=== PATIENT | female | born 1935 | race Caucasian/White ===

== ENCOUNTER → 2016-07-01 | Outpatient (CLI) | payer MEDICARE ==
[~2016-07-01] MED LIST: ALPH50TA PO; BRIM.2%O LEFT EYE; CALC600T34 PO; CARD120T4 PO; CETI10 PO; COQ-100C5 PO; DORZO2%O EACH EYE; ESTR.3 PO; FENO50TA PO; HYDR-755 PO; LATA.005%O OU; LEVS0.123 PO; LORTA5 PO; MAGN250T13 PO; METH500T3 PO; MUCI600T PO; NIAC500T34 PO; PACE100T2 PO; PERC7.5T13 PO; RANI150 PO; RIVA10 PO; SPIR25TA PO; TRIA.1%T TOP; TYLE500T PO; [UNRECOGNIZED DRUG - CODE] PO
[2016-07-01 13:17] LABS: AUTOMATED NEUTROPHIL # 2.2 TH/MM3 (1.8-7.7); BASOPHIL % 0.8 % (0.0-2.0); EOSINOPHIL # 0.1 TH/MM3 (0-0.4); EOSINOPHIL % 2.2 % (0.0-4.0); HEMATOCRIT 34.5 % (35.0-46.0); HEMO FLAGS DIFF FINAL; LYMPH % 34.9 % (9.0-44.0); LYMPHOCYTE # 1.6 TH/MM3 (1.0-4.8); MEAN CELL VOLUME 92.8 FL (80.0-100.0); MEAN CORPUSCULAR HEMOGLOBIN 30.8 PG (27.0-34.0); MEAN CORPUSCULAR HGB CONC 33.2 % (32.0-36.0); MONO % 12.5 % (0.0-8.0); NEUT % 49.6 % (16.0-70.0); PLATELET COUNT 238 TH/MM3 (150-450); RED BLOOD COUNT 3.72 MIL/MM3 (4.00-5.30); RED CELL DISTRIBUTION WIDTH 12.8 % (11.6-17.2); WHITE BLOOD COUNT 4.4 TH/MM3 (4.0-11.0)
[2016-07-01 13:41] LABS: WESTERGREN SEDIMENTATION RATE 10 mm/hr (0-30)
[2016-07-01 13:53] LABS: ALKALINE PHOSPHATASE 41 U/L (45-117); ALT (GPT) 19 U/L (10-53); ANION GAP 6 MEQ/L (5-15); AST (GOT) 22 U/L (15-37); BICARBONATE 26.8 MEQ/L (21.0-32.0); BLOOD UREA NITROGEN 24 MG/DL (7-18); CHLORIDE 108 MEQ/L (98-107); GLOMERULAR FILTRATION RATE 29 ML/MIN (>89); GLUCOSE,FASTING 85 MG/DL (74-99); POTASSIUM 3.9 MEQ/L (3.5-5.1); SODIUM (NA) 141 MEQ/L (136-145); TOTAL BILIRUBIN ADULT 0.4 MG/DL (0.2-1.0); URIC ACID 5.6 MG/DL (2.6-6.0)
[2016-07-01 14:07] LABS: CREATINE KINASE 45 U/L (26-192)
[2016-07-01 14:44] LABS: RHEUMATOID FACTOR TRIGGER LESS THAN 10.0 IU/ML (0.0-14.9)
[2016-07-03 14:38] LABS: ANA SCREEN NEG (NEG)
== END ==
LOC: PLAB 08:56
PROVIDERS: ATTEND Allergy & Immunology
DX: M06.4 Inflammatory polyarthropathy (principal)
CPT/HCPCS: 36415; 80053; 82550; 82652; 84443; 84550; 85025; 85652; 86038; 86140; 86147; 86200; 86256; 86430; 86812; 87340

== ENCOUNTER → 2016-07-21 | Outpatient (CLI) | payer MEDICARE ==
[2016-07-21 10:28] LABS: AUTOMATED NEUTROPHIL # 1.8 TH/MM3 (1.8-7.7); BASOPHIL % 0.8 % (0.0-2.0); EOSINOPHIL # 0.1 TH/MM3 (0-0.4); HEMATOCRIT 34.4 % (35.0-46.0); HEMO FLAGS DIFF FINAL; LYMPH % 42.7 % (9.0-44.0); LYMPHOCYTE # 1.9 TH/MM3 (1.0-4.8); MEAN CELL VOLUME 92.3 FL (80.0-100.0); MEAN CORPUSCULAR HEMOGLOBIN 30.9 PG (27.0-34.0); MEAN CORPUSCULAR HGB CONC 33.5 % (32.0-36.0); MONO % 13.9 % (0.0-8.0); NEUT % 39.6 % (16.0-70.0); PLATELET COUNT 207 TH/MM3 (150-450); RED BLOOD COUNT 3.72 MIL/MM3 (4.00-5.30); RED CELL DISTRIBUTION WIDTH 12.6 % (11.6-17.2); WHITE BLOOD COUNT 4.6 TH/MM3 (4.0-11.0)
[2016-07-21 10:50] LABS: ALT (GPT) 19 U/L (10-53); ANION GAP 6 MEQ/L (5-15); AST (GOT) 22 U/L (15-37); BICARBONATE 26.1 MEQ/L (21.0-32.0); BLOOD UREA NITROGEN 19 MG/DL (7-18); CHLORIDE 107 MEQ/L (98-107); GLOMERULAR FILTRATION RATE 30 ML/MIN (>89); GLUCOSE,FASTING 88 MG/DL (74-99); POTASSIUM 4.3 MEQ/L (3.5-5.1); SODIUM (NA) 139 MEQ/L (136-145)
[2016-07-21 10:53] LABS: ALKALINE PHOSPHATASE 38 U/L (45-117); HDL CHOLESTEROL 76.6 MG/DL (40.0-60.0); LDL CHOLESTEROL 59 MG/DL (0-99); TOTAL BILIRUBIN ADULT 0.4 MG/DL (0.2-1.0)
== END ==
LOC: PLAB 08:19
PROVIDERS: ATTEND Family Medicine
DX: I48.91 Unspecified atrial fibrillation (principal); N18.3 Chronic kidney disease, stage 3 (moderate); E78.5 Hyperlipidemia, unspecified; Z79.01 Long term (current) use of anticoagulants
CPT/HCPCS: 36415; 80053; 80061; 85025

== ENCOUNTER → 2016-10-08 | Outpatient (CLI) | payer MEDICARE ==
[2016-10-08 09:55] LABS: AUTOMATED NEUTROPHIL # 3.4 TH/MM3 (1.8-7.7); BASOPHIL % 0.6 % (0.0-2.0); EOSINOPHIL # 0.1 TH/MM3 (0-0.4); EOSINOPHIL % 1.1 % (0.0-4.0); HEMATOCRIT 32.1 % (35.0-46.0); HEMO FLAGS DIFF FINAL; LYMPH % 20.7 % (9.0-44.0); LYMPHOCYTE # 1.2 TH/MM3 (1.0-4.8); MEAN CELL VOLUME 92.7 FL (80.0-100.0); MEAN CORPUSCULAR HEMOGLOBIN 30.5 PG (27.0-34.0); MEAN CORPUSCULAR HGB CONC 32.9 % (32.0-36.0); NEUT % 61.6 % (16.0-70.0); PLATELET COUNT 224 TH/MM3 (150-450); RED BLOOD COUNT 3.46 MIL/MM3 (4.00-5.30); RED CELL DISTRIBUTION WIDTH 12.8 % (11.6-17.2); WHITE BLOOD COUNT 5.6 TH/MM3 (4.0-11.0)
[2016-10-08 10:11] LABS: ANION GAP 7 MEQ/L (5-15); AST (GOT) 19 U/L (15-37); BICARBONATE 25.5 MEQ/L (21.0-32.0); BLOOD UREA NITROGEN 9 MG/DL (7-18); CHLORIDE 104 MEQ/L (98-107); GLOMERULAR FILTRATION RATE 45 ML/MIN (>89); GLUCOSE,FASTING 79 MG/DL (74-99); SODIUM (NA) 136 MEQ/L (136-145)
[2016-10-08 10:17] LABS: ALKALINE PHOSPHATASE 33 U/L (45-117); ALT (GPT) 19 U/L (10-53); TOTAL BILIRUBIN ADULT 0.4 MG/DL (0.2-1.0); URIC ACID 3.8 MG/DL (2.6-6.0)
== END ==
LOC: PLAB 07:43
PROVIDERS: ATTEND Allergy & Immunology
DX: M06.4 Inflammatory polyarthropathy (principal)
CPT/HCPCS: 36415; 80053; 84550; 85025

== ENCOUNTER → 2016-10-22 | Outpatient (CLI) | payer MEDICARE ==
[2016-10-22 10:02] LABS: ALT (GPT) 18 U/L (10-53); ANION GAP 8 MEQ/L (5-15); AST (GOT) 23 U/L (15-37); BLOOD UREA NITROGEN 11 MG/DL (7-18); CHLORIDE 102 MEQ/L (98-107); GLOMERULAR FILTRATION RATE 44 ML/MIN (>89); GLUCOSE,FASTING 87 MG/DL (74-99); POTASSIUM 4.8 MEQ/L (3.5-5.1); SODIUM (NA) 135 MEQ/L (136-145)
[2016-10-22 10:05] LABS: ALKALINE PHOSPHATASE 33 U/L (45-117); TOTAL BILIRUBIN ADULT 0.3 MG/DL (0.2-1.0)
[2016-10-22 10:10] LABS: AUTOMATED NEUTROPHIL # 2.4 TH/MM3 (1.8-7.7); EOSINOPHIL # 0.1 TH/MM3 (0-0.4); EOSINOPHIL % 2.2 % (0.0-4.0); HEMO FLAGS DIFF FINAL; LYMPH % 27.5 % (9.0-44.0); LYMPHOCYTE # 1.2 TH/MM3 (1.0-4.8); MEAN CELL VOLUME 90.9 FL (80.0-100.0); MEAN CORPUSCULAR HEMOGLOBIN 30.6 PG (27.0-34.0); MEAN CORPUSCULAR HGB CONC 33.7 % (32.0-36.0); NEUT % 53.3 % (16.0-70.0); PLATELET COUNT 298 TH/MM3 (150-450); RED BLOOD COUNT 3.31 MIL/MM3 (4.00-5.30); RED CELL DISTRIBUTION WIDTH 12.4 % (11.6-17.2); WHITE BLOOD COUNT 4.5 TH/MM3 (4.0-11.0)
[2016-10-22 10:22] LABS: HDL CHOLESTEROL 72.1 MG/DL (40.0-60.0); LDL CHOLESTEROL 42 MG/DL (0-99)
== END ==
LOC: PLAB 07:40
PROVIDERS: ATTEND Family Medicine
DX: I48.91 Unspecified atrial fibrillation (principal); N18.3 Chronic kidney disease, stage 3 (moderate); D53.1 Other megaloblastic anemias, not elsewhere classified; E78.5 Hyperlipidemia, unspecified; Z79.01 Long term (current) use of anticoagulants
CPT/HCPCS: 36415; 80053; 80061; 85025

== ENCOUNTER 2016-11-20 00:08 | Inpatient (IN) | payer MEDICARE ==
[2016-11-20] VITALS (14 sets, daily range): BP systolic 98–135; BP diastolic 44–80; PULSE 66–111; RESP 16–30; TEMP 96.6–99.3; O2SAT 91–100
[~2016-11-20] VITALS: Ht 165.1 cm; Wt 65.5 kg
[2016-11-20] MEDS ORDERED: SODIUM CHLORIDE 0.9% FLUSH 10 ML FLUSH IVF PRN (00:15)
--- NOTE | 2016-11-20 00:20 | PD ---
HPI Chief Complaint: Weakness, Shortness of Breath Time Seen by Provider: 00:14 Travel History International Travel<30 days: No Contact w/Intl Traveler<30days: No History of Present Illness HPI 81-year-old female arrives to the ER via EMS. The patient's called EMS due to the patient's severe weakness shortness of breath and decreased appetite for about 1 week. Her symptoms gradually worsened to the point where she felt EMS transfer was necessary. She reports shortness of breath, dyspnea on exertion and orthopnea. Patient reports nausea. EMS states the patient on scene was 108/70 and the heart rate was about 90. Patient believes she is pale. She is a history of atrial fibrillation and is currently on Xarelto. Patient reports subjective improvement and shortness of breath after oxygen was applied. PFSH Past Medical History Cancer: Yes (skin cancer) Cardiovascular Problems: Yes ( a fib, pacer ) Diabetes: No Endocrine: No Glaucoma: Yes (cesar) Genitourinary: No Hepatitis: No Hiatal Hernia: No Immune Disorder: Yes (fibroidmyalgia) Musculoskeletal: Yes (r shoulder pain, arthritis) Neurologic: No Reproductive: No Respiratory: No Thyroid Disease: No Past Surgical History Abdominal Surgery: Yes (gallbladder) Body Medical Devices: metal in r hand, pacer, FILTER TO RIGHT EYE Cardiac Surgery: Yes (pacer) Eye Surgery: Yes (filter in r eye ) Genitourinary Surgery: Yes (anal fissure repair) Gynecologic Surgery: Yes (hysterectomy, D+C ) Joint Replacement: No Oral Surgery: Yes (tonsillectomy) Pacemaker: Yes (medtronic) Social History Alcohol Use: No Tobacco Use: No Substance Use: No Allergies-Medications (Allergen,Severity, Reaction): Coded Allergies: Bactrim (Unverified Allergy, Severe, n/v, 11/20/16) Doxycycline (Unverified Allergy, Severe, n/v, 11/20/16) Sulfa (Unverified Allergy, Intermediate, Nausea/Vomiting, 11/20/16) Adhesives (Unverified Allergy, Unknown, 11/20/16) band aids Triamterene (Unverified Allergy, Unknown, 11/20/16) triamterene/hctz Uncoded Allergies: nickel (Allergy, Unknown, 02/04/16) Reported Meds & Prescriptions Reported Meds & Active Scripts Active Reported Coq-10 (Coenzyme Q10 (Ubidecarenone)) 50 Mg Cap 100 Calcium + D3 (Calcium Carbonate-Cholecalciferol) 600-200 Mg-Unit Tab 1 Tab PO BID Xarelto (Rivaroxaban) 15 Mg Tab 15 Mg PO DAILY Premarin (Estrogens Conjugated) 0.3 Mg Tab 0.3 Mg PO DAILY Robaxin (Methocarbamol) 500 Mg Tab 500 Mg PO BID Latanoprost Opth Drops (Latanoprost) 0.005% Drops 1 Drop EACH EYE HS Refrigerate until opened. Hyoscyamine Sulfate 0.125 Mg Sub Hydroxychloroquine (Hydroxychloroquine Sulfate) 200 Mg Tab 200 Mg PO DAILY Takw with food Hydroxyzine HCl 10 Mg Tab 10 Mg PO BID Hydrocodone-Acetaminophen 5-325 mg Tab 1 Tab PO Q4H PRN Gabapentin 600 Mg Tab 600 Mg PO HS Furosemide 20 Mg Tab 20 Mg PO MON AND THURS Fenofibrate 54 Mg Tab 70 Mg PO DAILY Dorzolamide-Timolol Opth Drops 22.3-6.8 Mg/Ml Soln 1 Drop EACH EYE BID Cetirizine (Cetirizine HCl) 5 Mg Chew 5 Mg CHEW DAILY Brimonidine Opth Drops (Brimonidine Tartrate) 0.2% Soln 1 Drop EACH EYE BID Brittney Allergy (Fexofenadine HCl) 60 Mg Tab 30 Mg PO BID Amiodarone (Amiodarone HCl) 100 Mg Tab 100 Mg PO BID Review of Systems Except as stated in HPI: all other systems reviewed are Neg Physical Exam Narrative GENERAL: 81-year-old female speaking in sentences no acute distress SKIN: Focused skin assessment warm/dry. HEAD: Atraumatic. Normocephalic. EYES: Pupils equal and round. No scleral icterus. No injection or drainage. ENT: No nasal bleeding or discharge. Mucous membranes pink and moist. NECK: Trachea midline. No JVD. CARDIOVASCULAR: Regular rate and rhythm. No murmur appreciated. RESPIRATORY: No accessory muscle use. Clear to auscultation. Breath sounds equal bilaterally. GASTROINTESTINAL: Abdomen soft, non-tender, nondistended. Hepatic and splenic margins not palpable. MUSCULOSKELETAL: No obvious deformity. No pitting edema. NEUROLOGICAL: Awake and alert. No obvious cranial nerve deficits. Motor grossly within normal limits. Normal speech. PSYCHIATRIC: Appropriate mood and affect; insight and judgment normal. Data Data Last Documented VS Vital Signs Date Time Temp Pulse Resp B/P Pulse Ox O2 Delivery O2 Flow Rate FiO2 11/20/16 01:05 111 30 132/78 91 Nasal Cannula 2 11/20/16 00:12 98.0 Orders Complete Blood Count With Diff (11/20/16 00:14) Comprehensive Metabolic Panel (11/20/16 00:14) B-Type Natriuretic Peptide (11/20/16 00:14) Act Partial Throm Time (Ptt) (11/20/16 00:14) Prothrombin Time / Inr (Pt) (11/20/16 00:14) Ckmb (Isoenzyme) Profile (11/20/16 00:14) Troponin I (11/20/16 00:14) Urinalysis - C+S If Indicated (11/20/16 00:14) Iv Access Insert/Monitor (11/20/16 00:14) Electrocardiogram (11/20/16 00:14) Ecg Monitoring (11/20/16 00:14) Oximetry (11/20/16 00:14) Oxygen Administration (11/20/16 00:14) Chest, Single Ap (11/20/16 00:14) Sodium Chloride 0.9% Flush (Ns Flush) (11/20/16 00:15) Furosemide Inj (Lasix Inj) (11/20/16 01:30) Admit Order (Ed Use Only) (11/20/16 01:37) Labs Laboratory Tests Test 11/20/16 00:20 White Blood Count 8.0 TH/MM3 Red Blood Count 3.81 MIL/MM3 Hemoglobin 11.5 GM/DL Hematocrit 34.4 % Mean Corpuscular Volume 90.4 FL Mean Corpuscular Hemoglobin 30.2 PG Mean Corpuscular Hemoglobin 33.4 % Concent Red Cell Distribution Width 13.2 % Platelet Count 259 TH/MM3 Mean Platelet Volume 8.9 FL Neutrophils (%) (Auto) 67.1 % Lymphocytes (%) (Auto) 20.2 % Monocytes (%) (Auto) 11.5 % Eosinophils (%) (Auto) 0.7 % Basophils (%) (Auto) 0.5 % Neutrophils # (Auto) 5.4 TH/MM3 Lymphocytes # (Auto) 1.6 TH/MM3 Monocytes # (Auto) 0.9 TH/MM3 Eosinophils # (Auto) 0.1 TH/MM3 Basophils # (Auto) 0.0 TH/MM3 CBC Comment DIFF FINAL Differential Comment Prothrombin Time 18.5 SEC Prothromb Time International 1.6 RATIO Ratio Activated Partial 31.4 SEC Thromboplast Time Sodium Level 127 MEQ/L Potassium Level 4.0 MEQ/L Chloride Level 96 MEQ/L Carbon Dioxide Level 18.0 MEQ/L Anion Gap 13 MEQ/L Blood Urea Nitrogen 19 MG/DL Creatinine 1.49 MG/DL Estimat Glomerular Filtration 34 ML/MIN Rate Random Glucose 179 MG/DL Calcium Level 8.3 MG/DL Total Bilirubin 0.4 MG/DL Aspartate Amino Transf 41 U/L (AST/SGOT) Alanine Aminotransferase 33 U/L (ALT/SGPT) Alkaline Phosphatase 34 U/L Total Creatine Kinase 90 U/L Troponin I 0.02 NG/ML B-Type Natriuretic Peptide 2749 PG/ML Total Protein 5.9 GM/DL Albumin 3.2 GM/DL MDM Medical Decision Making Medical Screen Exam Complete: Yes Emergency Medical Condition: Yes Medical Record Reviewed: Yes Differential Diagnosis CHF, pneumonia, pleural effusion, anemia, renal failure Narrative Course CBC & BMP Diagram 11/20/16 00:20 BNP 2749 Troponin 0.02 EKG reveals a sinus rhythm with a left bundle branch block rate 95, patient has a known history left bundle block. I was called the bedside at 2:30 AM as the patient had a sudden worsening of dyspnea with tachypnea to approximately 30. Her heart rate was approximately 100 and the blood pressure was 125/80. The O2 sat was 95% on 4 L nasal cannula. BiPAP was started. A DuoNeb was started. An ABG was obtained revealin. BE -11.3 [id number] BiPAP 15/5 FIO2. Metabolic acidosis noted. Cefepime started. The patient had received 40 mg of IV Lasix approximately 1 hour prior however had not urinated. Case discussed with Dr. Thompson for the irrigation installation specialist service. The patient will be admitted to the ICU. Critical Care Narrative Aggregate critical care time was 35 minutes. Time to perform other separately billable procedures was not included in the critical care time. My time did not include minutes spent treating any other patients simultaneously or on activities that did not directly contribute to the patient's treatment. The services I provided to this patient were to treat and/or prevent clinically significant deterioration that could result in: Cardiopulmonary arrest, respiratory arrest, hypoxia I provided critical care services requiring my management, as noted below: Chart data review, documentation time, medication orders and management, vital sign assessments/reviewing monitor data, ordering and reviewing lab tests, ordering and interpreting/reviewing x-rays and diagnostic studies, care of the patient and discussion of the patient with the admitting physicians. Diagnosis Primary Impression: CHF (congestive heart failure) Qualified Code: I50.9 - Congestive heart failure, unspecified congestive heart failure chronicity, unspecified congestive heart failure type Additional Impression: Respiratory distress Admitting Information Admitting Physician Requests: it Kulwinder Warner MD Nov 20, 2016 00:19
[2016-11-20] MEDS ORDERED: ALLE60TA PO (00:32)
[2016-11-20] MEDS ORDERED: CETI5CHW CHEW (00:32)
[2016-11-20] MEDS ORDERED: AMIO0.1T PO (00:32)
[2016-11-20] MEDS ORDERED: BRIM0.2S4 EACH EYE (00:32)
[2016-11-20] MEDS ORDERED: HYDR200T3 PO (00:32)
[2016-11-20] MEDS ORDERED: HYOS0.127 (00:32)
[2016-11-20] MEDS ORDERED: DORZ2SOL15 EACH EYE (00:32)
[2016-11-20] MEDS ORDERED: GABA600T PO (00:32)
[2016-11-20] MEDS ORDERED: FURO20TA PO (00:32)
[2016-11-20] MEDS ORDERED: ROBA500T PO (00:32)
[2016-11-20] MEDS ORDERED: XARE15TA PO (00:32)
[2016-11-20] MEDS ORDERED: FENO54TA PO (00:32)
[2016-11-20] MEDS ORDERED: ESTR.3 PO (00:32)
[2016-11-20] MEDS ORDERED: HYDR-3516 PO (00:32)
[2016-11-20] MEDS ORDERED: HYDR-755 PO (00:32)
[2016-11-20] MEDS ORDERED: LATA0.002 EACH EYE (00:32)
[2016-11-20] MEDS ORDERED: COQ-50CA2 (00:33)
[2016-11-20] MEDS ORDERED: CALC600T10 PO (00:33)
[2016-11-20 00:37] LABS: AUTOMATED NEUTROPHIL # 5.4 TH/MM3 (1.8-7.7); BASOPHIL % 0.5 % (0.0-2.0); EOSINOPHIL # 0.1 TH/MM3 (0-0.4); EOSINOPHIL % 0.7 % (0.0-4.0); HEMATOCRIT 34.4 % (35.0-46.0); HEMO FLAGS DIFF FINAL; LYMPH % 20.2 % (9.0-44.0); LYMPHOCYTE # 1.6 TH/MM3 (1.0-4.8); MEAN CELL VOLUME 90.4 FL (80.0-100.0); MEAN CORPUSCULAR HEMOGLOBIN 30.2 PG (27.0-34.0); MEAN CORPUSCULAR HGB CONC 33.4 % (32.0-36.0); MONO % 11.5 % (0.0-8.0); NEUT % 67.1 % (16.0-70.0); PLATELET COUNT 259 TH/MM3 (150-450); RED BLOOD COUNT 3.81 MIL/MM3 (4.00-5.30); RED CELL DISTRIBUTION WIDTH 13.2 % (11.6-17.2)
[2016-11-20 00:48] LABS: APTT (PATIENT) 31.4 SEC (24.3-30.1); INTERNATIONAL NORMALIZED RATIO 1.6 RATIO; PROTHROMBIN TIME - PATIENT 18.5 SEC (9.8-11.6)
[2016-11-20 00:59] LABS: ALT (GPT) 33 U/L (10-53); ANION GAP 13 MEQ/L (5-15); AST (GOT) 41 U/L (15-37); BLOOD UREA NITROGEN 19 MG/DL (7-18); CHLORIDE 96 MEQ/L (98-107); GLOMERULAR FILTRATION RATE 34 ML/MIN (>89); SODIUM (NA) 127 MEQ/L (136-145)
[2016-11-20 01:03] LABS: ALKALINE PHOSPHATASE 34 U/L (45-117); TOTAL BILIRUBIN ADULT 0.4 MG/DL (0.2-1.0)
[2016-11-20 01:11] LABS: CREATINE KINASE 90 U/L (26-192)
--- NOTE | 2016-11-20 01:16 | RADRPT ---
EXAM DATE/TIME: 11/20/2016 00:20 [facility] COMPARISON: CHEST SINGLE AP, September 02, 2011, 14:28. INDICATIONS : Shortness of breath. MEDICAL HISTORY : Skin cancer. SURGICAL HISTORY : Pacemaker. ENCOUNTER: Initial ACUITY: 1 week PAIN SCORE: 3/10 LOCATION: Bilateral chest FINDINGS: The cardiac silhouette is enlarged in transverse diameter. There are findings of congestive heart heraclio lure with interstitial and alveolar opacity bilaterally. Moderate size bilateral pleural effusions ar e identified. A bipolar pacemaker is in place via a left sided approach. CONCLUSION: 1. Cardiomegaly and findings of congestive heart failure. Bilateral effusions Yamil Alvarez MD on November 20, 2016 at 1:14 Board Certified Radiologist. This report was verified electronically.
[2016-11-20] MEDS ORDERED: FUROSEMIDE 40 MG/4 ML VIAL IV PUSH ONE (01:30)
[2016-11-20] MEDS ORDERED: MAGNESIUM HYDROXIDE SUSP 30 ML CUP PO PRN (02:15)
[2016-11-20] MEDS ORDERED: BISACODYL 10 MG SUPP RECTAL PRN ×2 (02:15→05:15)
[2016-11-20] MEDS ORDERED: ACETAMINOPHEN 325 MG TAB PO PRN ×2 (02:15→05:15)
[2016-11-20] MEDS ORDERED: MORPHINE SULFATE 4 MG/ML INJ IV PRN (02:15)
[2016-11-20] MEDS ORDERED: LACTULOSE SYRUP 20 GM/30 ML CUP PO PRN ×2 (02:15→05:15)
[2016-11-20] MEDS ORDERED: SENNOSIDES 8.6 MG TAB PO PRN ×2 (02:15→05:15)
[2016-11-20] MEDS ORDERED: SODIUM CHLORIDE 0.9% FLUSH 10 ML FLUSH IV FLUSH PRN ×2 (02:15→05:15)
[2016-11-20] MEDS ORDERED: ONDANSETRON HCL 4 MG/2 ML VIAL IVP PRN (02:15)
[2016-11-20] MEDS ORDERED: ACETAMINOPHEN/HYDROcodone 325 MG/5 MG TAB PO PRN (02:15)
[2016-11-20] MEDS ORDERED: PILL SPLITTER OTHER PRN (02:30)
[2016-11-20] MEDS ORDERED: NITROGLYCERIN 2% OINT 1 GM PACKET TOP ONE (02:45)
[2016-11-20] MEDS ORDERED: RESP: ALBUTEROL 2.5 MG/IPRATROPIUM 0.5 MG NEB (SCH) INH ONE (02:45)
[2016-11-20 02:51] LABS: BLOOD GAS BASE EXCESS -11.3 mmol/L (-2-2); BLOOD GAS HCO3 14 mmol/L (22-26); BLOOD GAS METHEMOGLOBIN 0.4 % (0-2); BLOOD GAS O2 HGB SATURATION 98 % (90-100); BLOOD GAS OXYGEN CONTENT 16.7 Vol % (12.0-20.0); BLOOD GAS PCO2 28 mmHg (38-42); BLOOD GAS PO2 156 mmHG (61-120); TEMP CORR TO 98.6
[2016-11-20 02:52] LABS: CRITICAL VALUE YES; DRAW SITE RT RADIAL; FIO2 100 %; NUMBER OF ARTERIAL PUNCTURES 1; OXYGEN DEVICE BiPAP; STAT YES; VENT SETTINGS IPAP=15/EPAP=5
[2016-11-20] MEDS ORDERED: CEFEPIME INJ 2,000 MG in SODIUM CHLORIDE 0.9% INJ 100 ML IV ONE (03:00)
[2016-11-20 03:20] LABS: BACTERIA, URINE RARE /hpf; BLOOD, URINE NEG (NEG); CALCIUM OXALATE CRYSTALS,URINE OCC /hpf; COMMENT (UR) CULT NOT INDICATED; CULTURE IF INDICATED CULT NOT INDICATED; GLUCOSE,URINE NEG (NEG); HYALINE CAST, URINE 66 /lpf (RARE); KETONE, URINE NEG (NEG); NITRITE,URINE NEG (NEG); PH, URINE 5.5 (5.0-8.5); URINE COLOR YELLOW (YELLW/STRAW)
--- NOTE | 2016-11-20 03:24 | HHI.HP ---
[facility] Service Critical Care Medicine Primary Care Physician Jesus Badillo MD Admission Diagnosis CHF, Generalized Weakness Diagnosis: Travel History International Travel<30 Days: No Contact w/Intl Traveler <30 Da: No Traveled to Known Affected Are: No History of Present Illness History obtained from patient as best as possible while she was on BiPAP with respiratory distress. Additional information obtained via EMR and discussion with Dr. Warner. Date of admission 11/20/16 Date of consult 11/20/16 81-year-old female with past medical history of paroxysmal atrial fibrillation on chronic anticoagulation with Xarelto, s/p dual chamber pacemaker 2011 due to sick sinus syndrome, hyperlipidemia, CHF (unspecified), chronic kidney disease stage III, glaucoma, who presents to [facility] emergency department with 1 week history of generalized weakness and shortness of breath. She has had orthopnea and dyspnea on exertion. She states that at baseline her activity is limited due to shortness of breath ( i.e. she can't vacuum her floors/ do housework) however it has been limited much more so over the last week to where she is having difficulty ambulating around the house. She has had some chest tightness. Denies hemoptysis. + cough productive of "phlegm", no fever. Weight is up 2 pounds over the last 24- 48 hours. ED workup included chest x-ray that showed cardiomegaly, bilateral pleural effusions, pulmonary edema. Sodium is 127, BUN/ creatinine 19/1.49, BNP 2749/troponin 0.02. EKG demonstrates sinus tachycardia with left bundle branch block which is pre-existing on prior EKGs. She was initially on nasal cannula and was admitted to the hospitalist service. She was given Lasix 40 mg IV and started on nitroglycerin paste. She diuresed 300 ML's. Her respiratory condition worsened and she was placed on BiPAP. When I initially evaluated her on BiPAP 15/5 100% in the ED she was tachypneic with resp rate 25 and appeared she would need intubation. Patient states that she is full code but does not feel that intubation is necessary right now and requests no intubation yet. Bedside cardiac ultrasound appears decreased EF ~30%, Lactic acid 4.3. Base deficit 11.3. Attempted further diuresis with Bumex 2 mg IV and initiation of dobutamine 2 mcg/kg/min. She continued to deteriorate, became hypopneic and hypotensive with SBP in 70s. NTG discontinued and dobutamine placed on hold. She was intubated, placed CVL and art line. ScVO2 now 72. Blood pressure 130/ 63. Review of Systems ROS Limitations: Clinical Condition Past Family Social History Allergies: Coded Allergies: Bactrim (Verified Allergy, Severe, n/v, 11/30/16) Doxycycline (Verified Allergy, Severe, n/v, 11/30/16) Sulfa (Verified Allergy, Intermediate, Nausea/Vomiting, 11/30/16) Adhesives (Verified Allergy, Unknown, 11/30/16) band aids Triamterene (Verified Allergy, Unknown, 11/30/16) triamterene/hctz Uncoded Allergies: nickel (Allergy, Unknown, 02/04/16) Past Medical History Atrial fibrillation peripheral neuropathy Chronic heart failure Allergic rhinitis HTN Hyperlipidemia Glaucoma Fibromyalgia She states she has never had cardiac catheterization or stress test, however unable to verify that with records.. Her bottle blower is Dr. Christianson. Past Surgical History Cholecystectomy Pacemaker placement 09/2011 (Dr. Christianson) Anal fissure repair Hysterectomy D&C Tonsillectomy Right eye surgery Left hand flexor tendon repair Surgery on right third digit Reported Medications Brimonidine ophthalmic drop1 drop each eye twice a day Dorzolamide/timolol 1 drop each eye twice a day Latanoprost one drop each eye at bedtime Amiodarone 100 mg by mouth twice a day Rivaroxaban 15 mill grams by mouth daily Gabapentin 600 milligrams by mouth daily at bedtime Hydroxy chloroquine 200 mg by mouth daily Hyoscyamine 0.125 mg Hydroxyzine 10 mill grams by mouth twice a day Robaxin 500 mg by mouth twice a day Premarin 0.3 mg by mouth daily Fenofibrate 70 mg by mouth daily Lasix 20 mg by mouth twice weekly Hydrocodone 5/325 one by mouth every 4 hours when necessary pain Coenzyme Q10 Calcium carbonate/vitamin D 600/200 one tab by mouth twice a day Cetirizine 5 mill grams by mouth daily Brittney 30 mill grams by mouth twice a day Family History Unable to obtain from patient due to severe respiratory distress. No history available in EMR for this Social History Lifetime nonsmoker No alcohol or illicit drug use Uses a walker or cane at home Physical Exam Vital Signs Vital Signs Date Time Temp Pulse Resp B/P Pulse Ox O2 Delivery O2 Flow Rate FiO2 11/20/16 03:04 99 100 11/20/16 02:51 103 28 125/80 100 BiPAP 100 11/20/16 01:05 111 30 132/78 91 Nasal Cannula 2 11/20/16 00:20 97 2 11/20/16 00:19 97 Nasal Cannula 11/20/16 00:12 98.0 96 16 123/71 94 Physical Exam Temp 98, pulse 96 and sinus with left bundle branch block, ectopy. Blood pressure 125/80, respiratory rate 25 GENERAL: Elderly female who is sitting up in the ED gurney, tachypneic on BiPAP. Alert and answering questions with 1-2 words and with hand gestures and head nodding. SKIN: Cool, diaphoretic. HEAD: Atraumatic. Normocephalic. EYES: Pupils 4 mm reactive bilaterally. No scleral icterus. ENT: Bipap mask in place NECK: Trachea midline. +JVD. CARDIOVASCULAR: sinus with ectopy on monitor, irregular but no murmurs rubs or gallops . RESPIRATORY: Tachypneic on BiPAP. Adjusted BiPAP to 15/8 at bedside. Tidal volumes are over 600, respiratory rate 25, sats 93% on 100%. Rales throughout bilateral lung tay. GASTROINTESTINAL: Abdomen soft, non-tender, nondistended. Bowel sounds hypoactive : [place] Santos in place with 300 of light pamela urine output in [place] bag. MUSCULOSKELETAL: Extremities without clubbing, cyanosis. 1+ pedal edema bilateral ankles. NEUROLOGICAL: Awake and alert, answering questions, oriented to person/place/ circumstance. No obvious cranial nerve deficits. Motor grossly within normal limits. Speech muffled by Bipap. Laboratory Laboratory Tests Test 11/20/16 11/20/16 00:20 02:45 White Blood Count 8.0 Red Blood Count 3.81 Hemoglobin 11.5 Hematocrit 34.4 Mean Corpuscular Volume 90.4 Mean Corpuscular Hemoglobin 30.2 Mean Corpuscular Hemoglobin 33.4 Concent Red Cell Distribution Width 13.2 Platelet Count 259 Mean Platelet Volume 8.9 Neutrophils (%) (Auto) 67.1 Lymphocytes (%) (Auto) 20.2 Monocytes (%) (Auto) 11.5 Eosinophils (%) (Auto) 0.7 Basophils (%) (Auto) 0.5 Neutrophils # (Auto) 5.4 Lymphocytes # (Auto) 1.6 Monocytes # (Auto) 0.9 Eosinophils # (Auto) 0.1 Basophils # (Auto) 0.0 CBC Comment DIFF FINAL Differential Comment Prothrombin Time 18.5 Prothromb Time International 1.6 Ratio Activated Partial 31.4 Thromboplast Time Sodium Level 127 Potassium Level 4.0 Chloride Level 96 Carbon Dioxide Level 18.0 Anion Gap 13 Blood Urea Nitrogen 19 Creatinine 1.49 Estimat Glomerular Filtration 34 Rate Random Glucose 179 Calcium Level 8.3 Total Bilirubin 0.4 Aspartate Amino Transf 41 (AST/SGOT) Alanine Aminotransferase 33 (ALT/SGPT) Alkaline Phosphatase 34 Total Creatine Kinase 90 Troponin I 0.02 B-Type Natriuretic Peptide 2749 Total Protein 5.9 Albumin 3.2 Blood Gas Puncture Site RT RADIAL Blood Gas Patient Temperature 98.6 Blood Gas HCO3 14 Blood Gas Base Excess -11.3 Blood Gas Oxygen Saturation 98 Arterial Blood pH 7.31 Arterial Blood Partial 28 Pressure CO2 Arterial Blood Partial 156 Pressure O2 Arterial Blood Oxygen Content 16.7 Arterial Blood 1.0 Carboxyhemoglobin Arterial Blood Methemoglobin 0.4 Blood Gas Hemoglobin 12.0 Oxygen Delivery Device BiPAP Blood Gas Ventilator Setting IPAP=15/EPAP=5 Blood Gas Inspired Oxygen 100 Result Diagram: 11/20/161911/20/1619 Assessment and Plan Problem List: (1) A-fib ICD Code: I48.91 Status: Chronic (2) HTN (hypertension) ICD Code: I10 Status: Chronic (3) Respiratory failure, acute ICD Code: J96.00 Status: Acute (4) Cardiogenic shock ICD Code: R57.0 Status: Acute (5) Glaucoma ICD Code: H40.9 Status: Chronic (6) Fibromyalgia ICD Code: M79.7 Status: Chronic (7) Lactic acidosis ICD Code: E87.2 Status: Acute (8) Anemia ICD Code: D64.9 Status: Chronic (9) Hyperglycemia ICD Code: R73.9 Status: Acute (10) Hyponatremia ICD Code: E87.1 Status: Acute (11) CKD (chronic kidney disease) stage 3, GFR 30-59 ml/min ICD Code: N18.3 Status: Chronic Assessment and Plan NEURO: Fentanyl for analgosedation. Versed prn. Target RASS -2. Peripheral neuropathy Hold neurontin 600 qhs for now due to lethargy, RACHID. Hold Robaxin 500 twice a day RESP: Acute respiratory failure Pulmonary edema Bilateral pleural effusions Deteriorated despite Bipap. Intubated 11/20. 7.5 ETT at 21 cm lip. Ventilator bundle PRVC TV 500 R 14 PEEP 8 It 1 FiO2 100% and wean as tolerated for sat >92%. CXR with satisfactory endotracheal tube position, pulm edema, bilat pleural effusions, cardiomegaly Diuretics as per below Abx as per below CV: Acute CHF exacerbation Chronic diastolic heart failure Cardiogenic shock Paroxysmal Atrial fibrillation LBBB (preexisting) Pacemaker in place due to h/o sick sinus syndrome Hyperlipidemia Lactic acidemia Art line placed for hemodynamic monitoring. Received Lasix 40 mg IV in the ED. Bumex 2 mg IV given in effort to avoid intubation. F/u Bumex 1 mg IV q12. Monitor UOP/electrolytes during diuresis Obtain 2 D Echo Initial troponin 0.02, trend. Serial EKG. Dobutamine and NTG currently on hold after patient was hypotensive before intubation. ScVO2 satisfactory at 72. Will followup lactic acid 08:00. If not clearing, consider resume inotrope. Amiodarone 100 mg twice a day On chronic anticoagulation with Xarelto for A. fib. Will hold while she is critically ill and anticoagulate with heparin. ASA 81 daily Per discussion with cardiology this morning, her baseline EF is 50-55%. GI: Insert OGT to LIWS. NPO. Initiate enteral feeds in 24 hours if stabilized Bowel regimen per protocol FEN/RENAL: Chronic kidney disease stage III Hyponatremia secondary to CHF and volume overload state. Acute metabolic acidemia De [place] Santos in place. Monitor intake and output hourly. Monitor electrolytes and replace as indicated. Avoid nephrotoxins Received bicarbonate 100 mEq IV prior to intubation. ID: Difficult to exclude pneumonia so she was administered cefepime in the emergency department. Will continue cefepime 1 g IV every 12 hours and adjust as needed for changing renal function. Obtain blood and sputum culture. UA is negative for evidence of infection. HEME: Chronic anemia Chronic anticoagulation with Xarelto due to atrial fibrillation Hold Xarelto. Heparin drip as per above. Monitor CBC. OPHTHO: Glaucoma Continue Latanoprost/Alphagan/Cosopt ophthalmic as prescribed. ENDO: Acute stress hyperglycemia. Low-dose insulin sliding scale with bedside glucose monitoring every 6 hours PROPH: Heparin drip as per above. Protonix 40 mg IV daily for stress ulcer prophylaxis. ACCESS: Right subclavian central venous line 11/20#1, right radial art line 11/20 #1 Patient evaluated in ED and then met upon arrival to [facility]. Patient stated she is FULL CODE but was initially reluctant to proceed with intubation because she felt it wasn't necessarily. Every effort was made to prevent intubation through combination of diuresis and low dose inotrope, however she deteriorated and required intubation. Discussed with Dr Christianson and Eda CCT 90 minutes exclusive of separately billable procedures Problem Qualifiers (1) A-fib: Qualified Code: I48.0 - Paroxysmal atrial fibrillation (2) Anemia: Shira Thompson MD Nov 20, 2016 03:24
[2016-11-20] MEDS ORDERED: BUMETANIDE INJ 1 MG/4 ML VIAL IV PUSH ONE (04:30)
[2016-11-20] MEDS ORDERED: DOBUTamine PREMIX DRIP 250 ML IV SCH (04:39)
[2016-11-20] MEDS ORDERED: CHLORHEXIDINE GLUCONATE 2 % 1 PACK (2 CLOTHS) TOP PRN (05:15)
[2016-11-20] MEDS ORDERED: MISCELLANEOUS NURSING INFORMATION XX SCH (05:15)
[2016-11-20] MEDS ORDERED: MIDAZOLAM HCL 5 MG/ML VIAL (1 ML) ONE (05:25)
[2016-11-20] MEDS ORDERED: ETOMIDATE 20 MG/10 ML VIAL ONE (05:28)
[2016-11-20] MEDS ORDERED: ROCURONIUM INJ 50 MG/5 ML VIAL ONE (05:29)
[2016-11-20] MEDS: fentaNYL 2,500 MCG/NS 250 ML IV SCH (05:52)
[2016-11-20] MEDS ORDERED: MIDAZOLAM HCL 2 MG/2 ML VIAL IV PUSH ONE (06:00)
[2016-11-20 06:57] LABS: BLOOD GAS BASE EXCESS -4.1 mmol/L (-2-2); BLOOD GAS CARBOXYHEMOGLOBIN 1.3 % (0-4); BLOOD GAS HCO3 19 mmol/L (22-26); BLOOD GAS METHEMOGLOBIN 0.8 % (0-2); BLOOD GAS O2 HGB SATURATION 98 % (90-100); BLOOD GAS OXYGEN CONTENT 16.4 Vol % (12.0-20.0); BLOOD GAS PCO2 28 mmHg (38-42); BLOOD GAS PO2 266 mmHg (61-120); BLOOD GAS TOTAL HGB 11.5 G/DL (12.0-16.0); CRITICAL VALUE NO; DRAW SITE ART LINE; FIO2 100 %; OXYGEN DEVICE VENT; STAT YES; TEMP CORR TO 98.6; ULNAR PULSE PRESENT
[2016-11-20] MEDS ORDERED: ROCURONIUM INJ 50 MG/5 ML VIAL IV ONE (07:00)
[2016-11-20] MEDS ORDERED: ETOMIDATE 20 MG/10 ML VIAL IV PUSH ONE (07:00)
[2016-11-20] MEDS ORDERED: SODIUM BICARBONATE 8.4% INJ 50 MEQ/50 ML SYR IV PUSH ONE (07:00)
--- NOTE | 2016-11-20 07:01 | PD.PROCEDR ---
Procedure Note Procedure PROCEDURE NOTE PROCEDURE: Endotracheal intubation INDICATION: Acute respiratory failure DETAILS OF PROCEDURE: The patient was placed in optimal position and preoxygenated with 100% FiO2 via [id number]. She was maintained in upright position. Oximeter oxygen saturation of 92% was obtained prior to direct laryngoscopy. The patient was administered etomidate 20 mg IV for sedation and rocuronium 50 mg IV. Direct laryngoscopy was performed with a 3.0 Pepper laryngoscope blade and a grade I Cormack-Lehane view was obtained. On single attempt a size 7.5 endotracheal tube was visualized passing through the cords. Correct placement was confirmed with colorimetric CO2 detector. Breath sounds were equal bilaterally. No sounds auscultated over the stomach. The endotracheal tube was secured with a commercial tube polanco at a depth of 21 cm at the lips. The patient was connected to the ventilator. The patient tolerated the procedure well without any apparent complication. Oxygen saturations were maintained greater than 90% at all times. Stat chest x-ray was ordered. Shira Thompson MD Nov 20, 2016 07:01
--- NOTE | 2016-11-20 07:03 | PD.PROCEDR ---
Central Line Procedure DATE: 11/20/16 CENTRAL LINE PLACEMENT: Right subclavian vein. INDICATION: Central venous access CONSENT Procedure was done emergently as patient was in extremis and in need of central venous access. She is not capacitated for medical decision-making. DESCRIPTION OF THE PROCEDURE The patient was placed in supine position, Trendelenburg. The skin was cleansed with Chloraprep 3. Additional barrier precautions included large sterile drape, sterile gloves, sterile gown, face mask, and hat. 1 % lidocaine was used for local anesthesia. On single attempt, the vein was accessed with an introducer needle. The guide wire was advanced and the tract was dilated. Using Seldinger technique a 7 Thai 20 cm antimicrobial coated triple-lumen catheter was advanced to a depth of 17 centimeters. The guide wire was removed. All ports had good return of dark venous blood and flushed easily with saline. The central line was secured with 2.0 silk. A sterile dressing with antibiotic disc was applied. ESTIMATED BLOOD LOSS: Minimal COMPLICATIONS: No apparent complications. STAT chest x-ray is pending. Shira Thompson MD Nov 20, 2016 07:03
--- NOTE | 2016-11-20 07:05 | PD.PROCEDR ---
Procedure Note Procedure DATE: 11/20/16 PROCEDURE: Right radial arterial catheter placement INDICATION: Hemodynamic monitoring, cardiogenic shock DETAILS OF PROCEDURE Terrence test was performed and patient had collateral flow. The skin was cleansed with Chloraprep. Additional barrier precautions included large sterile drape, sterile gloves, sterile gown, face mask, and hat. 1% lidocaine was used for local anesthesia. On the third attempt, the artery was accessed with the Arrow radial art line kit.. The guide wire was advanced. Using Seldinger technique 20 gauge arterial catheter was placed. The guide wire was removed. The catheter was connected to a transducer line and flushed with saline. The video monitor displayed normal arterial wave forms. The catheter was secured with 2-0 silk. A sterile dressing with antibiotic disc was applied. ESTIMATED BLOOD LOSS: minimal COMPLICATIONS: None Shira Thompson MD Nov 20, 2016 07:05
[2016-11-20 07:07] LABS: BLOOD GAS VENOUS BASE EXCESS -2.4 mmol/L (-2-2); BLOOD GAS VENOUS HCO3 22 mmol/L (22-26); BLOOD GAS VENOUS O2 CONTENT 11.9 Vol % (9.0-17.0); BLOOD GAS VENOUS O2 HGB SAT 72 % (70-76); BLOOD GAS VENOUS PCO2 36 mmHg (44-48); BLOOD GAS VENOUS PO2 44 mmHg (35-40); BLOOD GAS VENOUS pH 7.39 (7.360-7.400); TEMP CORR TO 98.6
[2016-11-20 07:08] LABS: CRITICAL VALUE NO; DRAW SITE CL; FIO2 100 %; OXYGEN DEVICE VENT; STAT YES
--- NOTE | 2016-11-20 08:07 | RADRPT ---
EXAM DATE/TIME: 11/20/2016 07:44 [facility] COMPARISON: CHEST SINGLE AP, November 20, 2016, 0:20. INDICATIONS : Post central line placement MEDICAL HISTORY : Congestive heart failure. SURGICAL HISTORY : Pacemaker. ENCOUNTER: Subsequent ACUITY: 1 week PAIN SCORE: Non-responsive. LOCATION: Bilateral chest FINDINGS: A single view of the chest demonstrates endotracheal tube 2 cm above the sarah. Bilateral parenchyma l densities greater throughout the right lung, likely layering effusions. Heart normal in size. Right jugular central line with tip in the cavoatrial junction. Left-sided pacemaker with 2 intact leads. Osseous structures are intact. CONCLUSION: 1. Bilateral parenchymal densities likely layering pleural effusions and atelectasis. 2. Right subclavian central line with tip in the cavoatrial junction. No pneumothorax. 3. Adequate placement of endotracheal tube. Adrian Mae MD on November 20, 2016 at 8:05 Board Certified Radiologist. This report was verified electronically.
[2016-11-20 08:31] LABS: APTT (PATIENT) 29.4 SEC (24.3-30.1)
[2016-11-20] MEDS: SODIUM CHLORIDE 0.9% FLUSH 10 ML FLUSH IV FLUSH SCH (09:00)
[2016-11-20] MEDS ORDERED: DOCUSATE SODIUM 50 MG/SENNA 8.6 MG TAB PO SCH (09:00)
[2016-11-20] MEDS ORDERED: HEPARIN SODIUM - IV 10,000 UNITS/10 ML VIAL IV ONE (09:00)
[2016-11-20] MEDS: HYDROXYCHLOROQUINE SULFATE 200 MG TAB PO SCH (09:00)
[2016-11-20] MEDS ORDERED: hydrOXYzine HCL 10 MG TAB PO SCH (09:00)
[2016-11-20] MEDS ORDERED: FUROSEMIDE 40 MG/4 ML VIAL IV PUSH SCH (09:00)
[2016-11-20] MEDS ORDERED: METHOCARBAMOL 500 MG TAB PO SCH (09:00)
[2016-11-20] MEDS ORDERED: RIVAROXABAN 15 MG TAB PO SCH (09:00)
[2016-11-20] MEDS ORDERED: SODIUM CHLORIDE 0.9% FLUSH 10 ML FLUSH IV FLUSH SCH (09:00)
[2016-11-20] MEDS: PANTOPRAZOLE SODIUM 40 MG VIAL IV SCH (09:23)
[2016-11-20] MEDS: AMIODARONE 200 MG TAB PO SCH ×2 (09:25→21:13)
[2016-11-20] MEDS: DOCUSATE SODIUM 50 MG/SENNA 8.6 MG TAB PO SCH ×2 (09:25→21:13)
[2016-11-20] MEDS: ASPIRIN 81 MG CHEW TAB CHEW SCH (10:00)
[2016-11-20] MEDS ORDERED: DEXTROSE 50% IN WATER 50 ML SYRINGE IV PRN (10:15)
[2016-11-20] MEDS: INSULIN ASPART SUPPLEMENTAL SCALE SQ SCH ×3 (10:15→22:15)
[2016-11-20] MEDS ORDERED: GLUCAGON 1 MG/ML VIAL OTHER PRN (10:15)
[2016-11-20] MEDS: DORZOLAMIDE/TIMOLOL OPTH SOLN 10 ML BTL EACH EYE SCH ×2 (10:17→21:13)
[2016-11-20] MEDS: BRIMONIDINE TARTRATE 0.2% OPHT SOLN 5 ML BTL EACH EYE SCH (10:17)
[2016-11-20 11:07] LABS: AUTOMATED NEUTROPHIL # 7.4 TH/MM3 (1.8-7.7); BASOPHIL % 0.2 % (0.0-2.0); HEMATOCRIT 30.8 % (35.0-46.0); HEMO FLAGS DIFF FINAL; LYMPH % 7.8 % (9.0-44.0); LYMPHOCYTE # 0.7 TH/MM3 (1.0-4.8); MEAN CELL VOLUME 89.8 FL (80.0-100.0); MEAN CORPUSCULAR HEMOGLOBIN 30.2 PG (27.0-34.0); MEAN CORPUSCULAR HGB CONC 33.7 % (32.0-36.0); MONO % 12.9 % (0.0-8.0); NEUT % 79.1 % (16.0-70.0); PLATELET COUNT 209 TH/MM3 (150-450); RED BLOOD COUNT 3.43 MIL/MM3 (4.00-5.30); RED CELL DISTRIBUTION WIDTH 13.2 % (11.6-17.2); WHITE BLOOD COUNT 9.4 TH/MM3 (4.0-11.0)
[2016-11-20 11:35] LABS: ALKALINE PHOSPHATASE 36 U/L (45-117); ALT (GPT) 62 U/L (10-53); ANION GAP 13 MEQ/L (5-15); AST (GOT) 117 U/L (15-37); BICARBONATE 24.2 MEQ/L (21.0-32.0); BLOOD UREA NITROGEN 22 MG/DL (7-18); CHLORIDE 95 MEQ/L (98-107); GLOMERULAR FILTRATION RATE 30 ML/MIN (>89); POTASSIUM 3.3 MEQ/L (3.5-5.1); SODIUM (NA) 132 MEQ/L (136-145); TOTAL BILIRUBIN ADULT 0.8 MG/DL (0.2-1.0)
--- NOTE | 2016-11-20 14:04 | PD.CONS ---
HPI Service Cardiology Physicians Consult Requested By Dr. Thompson Reason for Consult CHF, generalized weakness Primary Care Physician Jesus Badillo MD History of Present Illness LATE ENTRY the patient was seen and evaluated at 1000 this morning. The patient is intubated. Information for HPI was obtained from medical records, ICU nurse and Dr Thompson. The patient is an 81 year old female known to our practice with a cardiac history of chronic diastolic CHF exacerbation, moderate MR, AI and TR, atrial fibrillation on Xarelto, SSS s/p PPM, and hyperlipidemia. The patient presented to the hospital with a two week history of progressively worsening SOB, orthopnea and generalized weakness that did not respond to increased diuretic therapy. On arrival she was stable on BIPAP, but acutely declined and therefore was intubated. She developed transient hypotension treated with dobutamine. She was aggressively diuresed with lasix and bumex. She was hypothermic this morning. BP is stable off dobutamine. FiO2 decreased to 60% Patient is alert and following commands. (Eda Wayne) Review of Systems ROS Limitations: Clinical Condition, Intubated (Eda Wayne) Past Family Social History Allergies: Coded Allergies: Bactrim (Unverified Allergy, Severe, n/v, 11/20/16) Doxycycline (Unverified Allergy, Severe, n/v, 11/20/16) Sulfa (Unverified Allergy, Intermediate, Nausea/Vomiting, 11/20/16) Adhesives (Unverified Allergy, Unknown, 11/20/16) band aids Triamterene (Unverified Allergy, Unknown, 11/20/16) triamterene/hctz Uncoded Allergies: nickel (Allergy, Unknown, 02/04/16) Past Medical History atrial fibrillation Moderate MR, TR and AI Chronic diastolic CHF Hyperlipidemia CKD SSS s/p PPM GERD Past Surgical History PPM 2012 thumb surgery 2015 right shoulder rotator cuff repair 2016 Reported Medications Reported Meds & Active Scripts Active Reported Coq-10 (Coenzyme Q10 (Ubidecarenone)) 50 Mg Cap 100 Calcium + D3 (Calcium Carbonate-Cholecalciferol) 600-200 Mg-Unit Tab 1 Tab PO BID Xarelto (Rivaroxaban) 15 Mg Tab 15 Mg PO DAILY Premarin (Estrogens Conjugated) 0.3 Mg Tab 0.3 Mg PO DAILY Robaxin (Methocarbamol) 500 Mg Tab 500 Mg PO BID Latanoprost Opth Drops (Latanoprost) 0.005% Drops 1 Drop EACH EYE HS Refrigerate until opened. Hyoscyamine Sulfate 0.125 Mg Sub Hydroxychloroquine (Hydroxychloroquine Sulfate) 200 Mg Tab 200 Mg PO DAILY Takw with food Hydroxyzine HCl 10 Mg Tab 10 Mg PO BID Hydrocodone-Acetaminophen 5-325 mg Tab 1 Tab PO Q4H PRN Gabapentin 600 Mg Tab 600 Mg PO HS Furosemide 20 Mg Tab 20 Mg PO MON AND THURS Fenofibrate 54 Mg Tab 70 Mg PO DAILY Dorzolamide-Timolol Opth Drops 22.3-6.8 Mg/Ml Soln 1 Drop EACH EYE BID Cetirizine (Cetirizine HCl) 5 Mg Chew 5 Mg CHEW DAILY Brimonidine Opth Drops (Brimonidine Tartrate) 0.2% Soln 1 Drop EACH EYE BID Brittney Allergy (Fexofenadine HCl) 60 Mg Tab 30 Mg PO BID Amiodarone (Amiodarone HCl) 100 Mg Tab 100 Mg PO BID Active Ordered Medications Current Medications Medications (Trade) Dose Ordered Sig/Malika Route Start Time Stop Time Status Last Admin (Kevil 5-325 Mg) 1 tab Q4H PRN PO 11/20/16 02:15 (Morphine Inj) 2 mg Q3H PRN IV 11/20/16 02:15 (Cordarone) 100 mg BID PO 11/20/16 09:00 11/20/16 09:25 (Alphagan 0.2% Opth Soln) 1 drop BID EACH EYE 11/20/16 09:00 11/20/16 10:17 (Cosopt 2-0.5% Opth Soln) 1 drop BID EACH EYE 11/20/16 09:00 11/20/16 10:17 (Neurontin) 600 mg HS PO 11/20/16 21:00 Future Hold (Plaquenil) 200 mg DAILY PO 11/20/16 09:00 11/20/16 09:00 (Xalatan 0.005% Opth Soln) 1 drop HS EACH EYE 11/20/16 21:00 (Robaxin) 500 mg BID PO 11/20/16 09:00 Future Hold 11/20/16 09:25 Miscellaneous 1 ea 1 ea UNSCH PRN OTHER 11/20/16 02:30 (DOBUTamine PREMIX DRIP) 250 ml @ 9.9 mls/hr Q24H IV 11/20/16 04:39 Hold 11/20/16 05:14 Bumetanide 1 mg 1 mg Q12H IV PUSH 11/20/16 16:00 Cefepime HCl 1000 mg/Sodium Chloride 100 ml @ 200 mls/hr Q12H IV 11/20/16 16:00 (Heparin-D5W Inj) 250 ml @ 0 mls/hr TITRATE IV 11/20/16 05:15 (NS Flush) 2 ml UNSCH PRN IV FLUSH 11/20/16 05:15 (NS Flush) 2 ml BID IV FLUSH 11/20/16 09:00 11/20/16 09:00 (Tylenol) 650 mg Q6H PRN PO 11/20/16 05:15 (Protonix Inj) 40 mg DAILY IV 11/20/16 09:00 11/20/16 09:23 (Zofran Inj) 4 mg Q6H PRN IV 11/20/16 05:15 Miscellaneous Information 1 Q361D XX 11/20/16 05:15 (Chlorhexidine 2% Cloth) 3 pack Taper DAILY@04 TOP 11/21/16 04:00 11/17/17 03:59 (Chlorhexidine 2% Cloth) 3 pack UNSCH PRN TOP 11/20/16 05:15 (Katherine-Colace) 1 tab BID PO 11/20/16 09:00 11/20/16 09:25 (Senokot) 17.2 mg Q12H PRN PO 11/20/16 05:15 (Dulcolax Supp) 10 mg DAILY PRN RECTAL 11/20/16 05:15 Lactulose 30 ml 30 ml DAILY PRN PO 11/20/16 05:15 (fentaNYL DRIP) 250 ml @ 0 mls/hr TITRATE IV 11/20/16 06:00 11/20/16 05:52 (Peridex 0.12% Liq) 15 ml BID@08,20 MT 11/20/16 20:00 (Aspirin Chew) 81 mg DAILY CHEW 11/20/16 10:00 11/20/16 10:00 (D50w (Syr) Inj) 50 ml UNSCH PRN IV 11/20/16 10:15 (Glucagon Inj) 1 mg UNSCH PRN OTHER 11/20/16 10:15 (NovoLOG SUPPLEMENTAL SCALE) 1 Q6H SQ 11/20/16 10:15 Family History non contributory Social History lives with , nonsmoker, no etoh (Eda Wayne) Physical Exam Vital Signs Vital Signs Date Time Temp Pulse Resp B/P Pulse Ox O2 Delivery O2 Flow Rate FiO2 11/20/16 08:28 100 80 11/20/16 08:00 96.6 94 16 112/58 100 124/66 11/20/16 08:00 95 16 124/70 99 135/71 11/20/16 07:00 91 11/20/16 07:00 91 16 130/63 99 131/67 11/20/16 05:35 100 100 11/20/16 05:10 96 100 11/20/16 03:04 99 100 11/20/16 02:51 103 28 125/80 100 BiPAP 100 11/20/16 01:05 111 30 132/78 91 Nasal Cannula 2 11/20/16 00:20 97 2 11/20/16 00:19 97 Nasal Cannula 11/20/16 00:12 98.0 96 16 123/71 94 Physical Exam GENERAL: intubated in medical ICU, has bear hugger SKIN: Warm and dry. HEAD: Atraumatic. Normocephalic. EYES: Pupils equal and round. No scleral icterus. No injection or drainage. ENT: No nasal bleeding or discharge. NECK: Trachea midline. CARDIOVASCULAR: Regular rate and rhythm. Difficult to auscultate. No obvious murmurs RESPIRATORY: Intubated GASTROINTESTINAL: Abdomen soft, non-tender, nondistended. MUSCULOSKELETAL: No BLE edema. No obvious deformities. NEUROLOGICAL: Awake and alert. Able to follow commands PSYCHIATRIC: Unable to assess Laboratory Laboratory Tests Test 11/20/16 11/20/16 11/20/16 11/20/16 00:20 02:45 02:59 03:40 White Blood Count 8.0 Red Blood Count 3.81 Hemoglobin 11.5 Hematocrit 34.4 Mean Corpuscular Volume 90.4 Mean Corpuscular Hemoglobin 30.2 Mean Corpuscular Hemoglobin 33.4 Concent Red Cell Distribution Width 13.2 Platelet Count 259 Mean Platelet Volume 8.9 Neutrophils (%) (Auto) 67.1 Lymphocytes (%) (Auto) 20.2 Monocytes (%) (Auto) 11.5 Eosinophils (%) (Auto) 0.7 Basophils (%) (Auto) 0.5 Neutrophils # (Auto) 5.4 Lymphocytes # (Auto) 1.6 Monocytes # (Auto) 0.9 Eosinophils # (Auto) 0.1 Basophils # (Auto) 0.0 CBC Comment DIFF FINAL Differential Comment Prothrombin Time 18.5 Prothromb Time International 1.6 Ratio Activated Partial 31.4 Thromboplast Time Sodium Level 127 Potassium Level 4.0 Chloride Level 96 Carbon Dioxide Level 18.0 Anion Gap 13 Blood Urea Nitrogen 19 Creatinine 1.49 Estimat Glomerular Filtration 34 Rate Random Glucose 179 Calcium Level 8.3 Total Bilirubin 0.4 Aspartate Amino Transf 41 (AST/SGOT) Alanine Aminotransferase 33 (ALT/SGPT) Alkaline Phosphatase 34 Total Creatine Kinase 90 Troponin I 0.02 B-Type Natriuretic Peptide 2749 Total Protein 5.9 Albumin 3.2 Blood Gas Puncture Site RT RADIAL Blood Gas Patient Temperature 98.6 Blood Gas HCO3 14 Blood Gas Base Excess -11.3 Blood Gas Oxygen Saturation 98 Arterial Blood pH 7.31 Arterial Blood Partial 28 Pressure CO2 Arterial Blood Partial 156 Pressure O2 Arterial Blood Oxygen Content 16.7 Arterial Blood 1.0 Carboxyhemoglobin Arterial Blood Methemoglobin 0.4 Blood Gas Hemoglobin 12.0 Oxygen Delivery Device BiPAP Blood Gas Ventilator Setting IPAP=15/EPAP=5 Blood Gas Inspired Oxygen 100 Urine Color YELLOW Urine Turbidity CLEAR Urine pH 5.5 Urine Specific Eugene 1.017 Urine Protein 30 Urine Glucose (UA) NEG Urine Ketones NEG Urine Occult Blood NEG Urine Nitrite NEG Urine Bilirubin NEG Urine Urobilinogen LESS THAN 2.0 Urine Leukocyte Esterase NEG Urine RBC 1 Urine WBC 1 Urine Calcium Oxalate Crystals OCC Urine Bacteria RARE Urine Hyaline Casts 66 Microscopic Urinalysis Comment CULT NOT INDICATED Lactic Acid Level 4.3 Test 11/20/16 11/20/16 11/20/16 11/20/16 06:41 06:50 08:06 10:30 Blood Gas Puncture Site ART LINE CL Blood Gas Patient Temperature 98.6 98.6 Blood Gas HCO3 19 Blood Gas Base Excess -4.1 Blood Gas Oxygen Saturation 98 Arterial Blood pH 7.45 Arterial Blood Partial 28 Pressure CO2 Arterial Blood Partial 266 Pressure O2 Arterial Blood Oxygen Content 16.4 Arterial Blood 1.3 Carboxyhemoglobin Arterial Blood Methemoglobin 0.8 Blood Gas Hemoglobin 11.5 Oxygen Delivery Device VENT VENT Blood Gas Ventilator Setting COMMENT COMMENT Blood Gas Inspired Oxygen 100 100 Venous Blood pH 7.39 Venous Blood Partial Pressure 36 CO2 Venous Blood Partial Pressure 44 O2 Venous Blood HCO3 22 Venous Blood Oxygen Saturation 72 Venous Blood Oxygen Content 11.9 Venous Blood Base Excess -2.4 Activated Partial 29.4 Thromboplast Time White Blood Count 9.4 Red Blood Count 3.43 Hemoglobin 10.4 Hematocrit 30.8 Mean Corpuscular Volume 89.8 Mean Corpuscular Hemoglobin 30.2 Mean Corpuscular Hemoglobin 33.7 Concent Red Cell Distribution Width 13.2 Platelet Count 209 Mean Platelet Volume 8.8 Neutrophils (%) (Auto) 79.1 Lymphocytes (%) (Auto) 7.8 Monocytes (%) (Auto) 12.9 Eosinophils (%) (Auto) 0.0 Basophils (%) (Auto) 0.2 Neutrophils # (Auto) 7.4 Lymphocytes # (Auto) 0.7 Monocytes # (Auto) 1.2 Eosinophils # (Auto) 0.0 Basophils # (Auto) 0.0 CBC Comment DIFF FINAL Differential Comment Sodium Level 132 Potassium Level 3.3 Chloride Level 95 Carbon Dioxide Level 24.2 Anion Gap 13 Blood Urea Nitrogen 22 Creatinine 1.64 Estimat Glomerular Filtration 30 Rate Random Glucose 113 Calcium Level 8.5 Total Bilirubin 0.8 Aspartate Amino Transf 117 (AST/SGOT) Alanine Aminotransferase 62 (ALT/SGPT) Alkaline Phosphatase 36 Troponin I 0.13 Total Protein 5.9 Albumin 3.1 (Eda Wayne) Result Diagram: 11/20/16 1030 11/20/16 1030 Imaging Last 72 hours Impressions Chest X-Ray 11/20/16 0014 Signed Impressions: Service Date/Time: Sunday, November 20, 2016 00:20 - CONCLUSION: 1. Cardiomegaly and findings of congestive heart failure. Bilateral effusions Yamil Alvarez MD Chest X-Ray 11/20/16 0000 Signed Impressions: Service Date/Time: Sunday, November 20, 2016 07:44 - CONCLUSION: 1. Bilateral parenchymal densities likely layering pleural effusions and atelectasis. 2. Right subclavian central line with tip in the cavoatrial junction. No pneumothorax. 3. Adequate placement of endotracheal tube. Adrian Mae MD (Eda Wayne) Assessment and Plan Assessment and Plan ASSESSMENT 1. Acute respiratory failure on ventilator. Appears to have acute CHF exacerbation. Last echocardiogram 07/2016 EF 51% with moderate AI, MR and TR. Lactic acid is elevated with transient hypotension and now elevated troponin due to sepsis. No evidence of infection. Pending cardiac echocardiogram. Per Dr. Thompson the patient's EF looked decreased on emergent bedside ultrasound. 2. Atrial fibrillation, on Xarelto prior to admission. Currently on heparin gtt 3. Hyponatremia due to fluid overload PLAN: Continue aggressive IV diuresis Consider Samsca 15 mg once the patient has an NG tube. Check serial serum sodium. Cardiac echo soon Continue heparin until the patient can be transitioned to PO and continue Xarelto 15 mg daily The patient is not a candidate for ischemic evaluation at this time. Elevated troponin due to demand ischemia. The patient's prognosis is guarded We will continue to follow up closely Patient was seen and evaluated by Dr Christianson (Eda Wayne) Assessment and Plan The exam, history, and the medical decision-making described in the above note were completed with the assistance of the mid-level provider. I reviewed and agree with the findings presented. I attest that I had a [id number] encounter with the patient on the same day, and personally performed and documented my assessment and findings in the medical record Had cardiogenic shock and significant pul edema discussed with Dr Thompson. (Rayshawn Christianson MD) Eda Wayne Nov 20, 2016 14:04 Rayshawn Christianson MD Nov 20, 2016 14:51
[2016-11-20] MEDS: BUMETANIDE INJ 1 MG/4 ML VIAL IV PUSH SCH (16:00)
[2016-11-20] MEDS: CEFEPIME INJ 1,000 MG in SODIUM CHLORIDE 0.9% INJ 100 ML IV SCH (16:00)
[2016-11-20] MEDS: HEPARIN-D5W INJ 250 ML IV SCH (17:31)
[2016-11-20] MEDS ORDERED: GABAPENTIN 300 MG CAP PO SCH (21:00)
[2016-11-20] MEDS: CHLORHEXIDINE 0.12% (ORAL KIT) 15 ML CUP MT SCH (21:24)
[2016-11-20] MEDS ORDERED: POTASSIUM CHLORIDE 25 MEQ EFFERVESCENT TAB PO PRN (22:15)
[2016-11-20] MEDS ORDERED: SODIUM PHOSPHATE INJ 30 MMOL in SODIUM CHLOR 0.9% 250 ML INJ 240 ML IV PRN (22:15)
[2016-11-20] MEDS ORDERED: POTASSIUM PHOSPHATE MONOBASIC 500 MG TAB PO PRN (22:15)
[2016-11-20] MEDS ORDERED: MAGNESIUM OXIDE 400 MG TAB PO PRN (22:15)
[2016-11-20] MEDS ORDERED: MAGNESIUM SULFATE INJ 4 GM in SODIUM CHLORIDE 0.9% INJ 92 ML IV PRN (22:15)
[2016-11-20] MEDS ORDERED: POTASSIUM PHOSPHATE MONOBASIC 500 MG TAB PO/TUBE PRN (22:15)
[2016-11-20] MEDS ORDERED: MAGNESIUM SULFATE INJ 2 GM in SODIUM CHLORIDE 0.9% INJ 96 ML IV PRN (22:15)
[2016-11-20] MEDS ORDERED: POTASSIUM PHOSPHATE INJ 30 MMOL in SODIUM CHLOR 0.9% 250 ML INJ 250 ML IV PRN (22:15)
[2016-11-20] MEDS ORDERED: POTASSIUM CHLOR 40 MEQ PREMIX 100 ML IV PRN (22:15)
[2016-11-20] MEDS ORDERED: POTASSIUM CHLOR 20 MEQ PREMIX 100 ML IV PRN ×2 (22:15)
[2016-11-20] MEDS: LATANOPROST 0.005% OPHT SOLN 2.5 ML BTL EACH EYE SCH (23:41)
[2016-11-20 23:51] LABS: APTT (PATIENT) 68.2 SEC (24.3-30.1)
[2016-11-21] VITALS (18 sets, daily range): BP systolic 84–114; BP diastolic 40–55; PULSE 62–102; RESP 14–20; TEMP 97.6–98.7; O2SAT 40–100
[2016-11-21] LABS: BICARBONATE 20.6 MEQ/L (21.0-32.0)
[2016-11-21 00:02] LABS: POTASSIUM 2.6 MEQ/L (3.5-5.1)
[2016-11-21] MEDS: POTASSIUM CHLOR 40 MEQ PREMIX 100 ML IV PRN (00:10)
[2016-11-21] MEDS ORDERED: ALBUMIN HUMAN 5% 12.5 GM/250 ML BOTTLE IV SCH (02:45)
[2016-11-21] MEDS: SODIUM CHLORIDE 0.9% FLUSH 10 ML FLUSH IV FLUSH SCH ×3 (03:15→22:09)
[2016-11-21] MEDS: BRIMONIDINE TARTRATE 0.2% OPHT SOLN 5 ML BTL EACH EYE SCH ×3 (03:15→22:10)
[2016-11-21] MEDS: CEFEPIME INJ 1,000 MG in SODIUM CHLORIDE 0.9% INJ 100 ML IV SCH ×2 (03:21→15:57)
[2016-11-21] MEDS: BUMETANIDE INJ 1 MG/4 ML VIAL IV PUSH SCH ×2 (03:22→15:59)
[2016-11-21] MEDS: INSULIN ASPART SUPPLEMENTAL SCALE SQ SCH ×4 (04:15→22:15)
--- NOTE | 2016-11-21 06:39 | RADRPT ---
EXAM DATE/TIME: 11/21/2016 05:54 [facility] COMPARISON: CHEST SINGLE AP, November 20, 2016, 7:44. INDICATIONS : Respiratory failure. MEDICAL HISTORY : Congestive heart failure. SURGICAL HISTORY : Pacemaker. ENCOUNTER: Subsequent ACUITY: 1 week PAIN SCORE: Non-responsive. LOCATION: Bilateral chest FINDINGS: Pacemaker device is noted with control pack over the left chest. Endotracheal tube, nasogastric tube and right subclavian central line are again noted. Hazy bilateral predominantly basilar pleural-paren chymal opacities persist without significant change. Cardiac catheters are grossly stable. CONCLUSION: No significant change Esau Merchant MD on November 21, 2016 at 6:37 Board Certified Radiologist. This report was verified electronically.
[2016-11-21] MEDS: CHLORHEXIDINE GLUCONATE 2 % 1 PACK (2 CLOTHS) TOP SCH (07:02)
[2016-11-21 07:11] LABS: AUTOMATED NEUTROPHIL # 9.7 TH/MM3 (1.8-7.7); BASOPHIL % 0.1 % (0.0-2.0); HEMATOCRIT 31.1 % (35.0-46.0); HEMO FLAGS DIFF FINAL; LYMPH % 9.6 % (9.0-44.0); LYMPHOCYTE # 1.2 TH/MM3 (1.0-4.8); MEAN CORPUSCULAR HEMOGLOBIN 29.6 PG (27.0-34.0); MEAN CORPUSCULAR HGB CONC 33.6 % (32.0-36.0); MONO % 10.9 % (0.0-8.0); NEUT % 79.4 % (16.0-70.0); PLATELET COUNT 218 TH/MM3 (150-450); RED BLOOD COUNT 3.53 MIL/MM3 (4.00-5.30); RED CELL DISTRIBUTION WIDTH 13.4 % (11.6-17.2); WHITE BLOOD COUNT 12.2 TH/MM3 (4.0-11.0)
[2016-11-21 07:12] LABS: APTT (PATIENT) 86.4 SEC (24.3-30.1)
[2016-11-21 07:56] LABS: ALKALINE PHOSPHATASE 30 U/L (45-117); ALT (GPT) 149 U/L (10-53); ANION GAP 10 MEQ/L (5-15); AST (GOT) 271 U/L (15-37); BICARBONATE 20.6 MEQ/L (21.0-32.0); BLOOD UREA NITROGEN 23 MG/DL (7-18); CHLORIDE 100 MEQ/L (98-107); GLOMERULAR FILTRATION RATE 28 ML/MIN (>89); MAGNESIUM 1.6 MG/DL (1.5-2.5); POTASSIUM 3.9 MEQ/L (3.5-5.1); SODIUM (NA) 131 MEQ/L (136-145); TOTAL BILIRUBIN ADULT 0.7 MG/DL (0.2-1.0)
[2016-11-21] MEDS: CHLORHEXIDINE 0.12% (ORAL KIT) 15 ML CUP MT SCH ×2 (08:00→21:35)
[2016-11-21] MEDS: PANTOPRAZOLE SODIUM 40 MG VIAL IV SCH (08:34)
[2016-11-21] MEDS: DORZOLAMIDE/TIMOLOL OPTH SOLN 10 ML BTL EACH EYE SCH ×2 (08:34→22:10)
[2016-11-21] MEDS: AMIODARONE 200 MG TAB PO SCH ×2 (08:35→22:09)
[2016-11-21] MEDS: HYDROXYCHLOROQUINE SULFATE 200 MG TAB PO SCH (08:35)
[2016-11-21] MEDS: DOCUSATE SODIUM 50 MG/SENNA 8.6 MG TAB PO SCH ×2 (08:35→22:09)
[2016-11-21] MEDS: ASPIRIN 81 MG CHEW TAB CHEW SCH (08:35)
--- NOTE | 2016-11-21 10:25 | HHI.CCPN ---
Subjective Remarks/Hospital Course 1-year-old female with past medical history of paroxysmal atrial fibrillation on chronic anticoagulation with Xarelto, s/p dual chamber pacemaker 2011 due to sick sinus syndrome, hyperlipidemia, CHF (unspecified), chronic kidney disease stage III, glaucoma, who presents to [facility] emergency department with 1 week history of generalized weakness and shortness of breath. She has had orthopnea and dyspnea on exertion. She states that at baseline her activity is limited due to shortness of breath ( i.e. she can't vacuum her floors/ do housework) however it has been limited much more so over the last week to where she is having difficulty ambulating around the house. She has had some chest tightness. Denies hemoptysis. + cough productive of "phlegm", no fever. Weight is up 2 pounds over the last 24- 48 hours. ED workup included chest x-ray that showed cardiomegaly, bilateral pleural effusions, pulmonary edema. Sodium is 127, BUN/ creatinine 19/1.49, BNP 2749/troponin 0.02. EKG demonstrates sinus tachycardia with left bundle branch block which is pre-existing on prior EKGs. She was initially on nasal cannula and was admitted to the hospitalist service. She was given Lasix 40 mg IV and started on nitroglycerin paste. She diuresed 300 ML's. Her respiratory condition worsened and she was placed on BiPAP. When I initially evaluated her on BiPAP 15/5 100% in the ED she was tachypneic with resp rate 25 and appeared she would need intubation. Patient states that she is full code but does not feel that intubation is necessary right now and requests no intubation yet. Bedside cardiac ultrasound appears decreased EF, Lactic acid 4.3. Base deficit 11.3. Attempted further diuresis with Bumex 2 mg IV and initiation of dobutamine 2 mcg/kg/min. She continued to deteriorate, became hypopneic and hypotensive with SBP in 70s. NTG discontinued and dobutamine placed on hold. She was intubated, placed CVL and art line. ScVO2 now 72. Blood pressure 130/ 63. 07/22: Good response to diuretics. Will start SBTs now, inclined to extubate early and mobilize her if possible today. May need low dose inotrope to entice her kidneys a bit more. Objective Vital Signs Date Time Temp Pulse Resp B/P Pulse Ox O2 Delivery O2 Flow Rate FiO2 11/21/16 08:05 40 40 11/21/16 07:00 Mechanical Ventilator 11/21/16 06:00 64 11/21/16 04:00 98.6 16 92/51 84/40 11/20/16 01:05 2 Intake and Output 11/20/16 11/20/16 11/20/16 07:59 15:59 23:59 Intake Total 111 ml 127 ml Output Total 1422 ml 810 ml Balance -1311 ml -683 ml Result Diagram: 11/21/1661411/21/16614 Objective Remarks Temp 98, pulse 86 and sinus with left bundle branch block, ectopy. Blood pressure 105/82, respiratory rate 16 GENERAL: Alert and answering questions with with hand gestures and head nodding. SKIN: Warm, diaphoretic. HEAD: Atraumatic. Normocephalic. EYES: Pupils 4 mm reactive bilaterally. No scleral icterus. ENT: Orally intubated. NECK: Trachea midline. Supple. CARDIOVASCULAR: RRR, Sinus with ectopy on monitor, irregular but no murmurs rubs or gallops . No JVD. RESPIRATORY: Clear, comfortable excursions on SBT. GASTROINTESTINAL: Abdomen soft, non-tender, nondistended. Bowel sounds active : De Los Santos in place. MUSCULOSKELETAL: Extremities without clubbing, cyanosis. 1+ pedal edema bilateral ankles. NEUROLOGICAL: Opens eyes, moves 4 limbs, nods head to questions. A/P Problem List: (1) A-fib ICD Code: I48.91 Status: Chronic (2) HTN (hypertension) ICD Code: I10 Status: Chronic (3) Respiratory failure, acute ICD Code: J96.00 Status: Acute (4) Cardiogenic shock ICD Code: R57.0 Status: Acute (5) Glaucoma ICD Code: H40.9 Status: Chronic (6) Fibromyalgia ICD Code: M79.7 Status: Chronic (7) Lactic acidosis ICD Code: E87.2 Status: Acute (8) Anemia ICD Code: D64.9 Status: Chronic (9) Hyperglycemia ICD Code: R73.9 Status: Acute (10) Hyponatremia ICD Code: E87.1 Status: Acute (11) CKD (chronic kidney disease) stage 3, GFR 30-59 ml/min ICD Code: N18.3 Status: Chronic Assessment and Plan NEURO: Fentanyl for analgosedation. Versed prn. Target RASS -2. Peripheral neuropathy Hold neurontin 600 qhs for now due to lethargy, RACHID. Hold Robaxin 500 twice a day RESP: Acute respiratory failure Pulmonary edema Bilateral pleural effusions Deteriorated despite Bipap. Intubated 11/20. 7.5 ETT at 21 cm lip. Ventilator bundle PRVC TV 500 R 14 PEEP 8 It 1 FiO2 100% and wean as tolerated for sat >92%. CXR with satisfactory endotracheal tube position, pulm edema, bilat pleural effusions, cardiomegaly Diuretics as per below Abx as per below SBTs now. CV: Acute CHF exacerbation Chronic diastolic heart failure Cardiogenic shock Paroxysmal Atrial fibrillation LBBB (preexisting) Pacemaker in place due to h/o sick sinus syndrome Hyperlipidemia Lactic acidemia Art line placed for hemodynamic monitoring. Received Lasix 40 mg IV in the ED. Bumex 2 mg IV given in effort to avoid intubation. F/u Bumex 1 mg IV q12. Monitor UOP/electrolytes during diuresis Obtain 2 D Echo Initial troponin 0.02, trend. Serial EKG. Dobutamine and NTG currently on hold after patient was hypotensive before intubation. ScVO2 satisfactory at 72. Will followup lactic acid 08:00. If not clearing, consider resume inotrope. Amiodarone 100 mg twice a day On chronic anticoagulation with Xarelto for A. fib. Will hold while she is critically ill and anticoagulate with heparin. ASA 81 daily Per discussion with cardiology this morning, her baseline EF is 50-55%. GI: Insert OGT to LIWS. NPO. Initiate enteral feeds in 24 hours if stabilized Bowel regimen per protocol FEN/RENAL: Chronic kidney disease stage III Hyponatremia secondary to CHF and volume overload state. Acute metabolic acidemia De Los Santos in place. Monitor intake and output hourly. Monitor electrolytes and replace as indicated. Avoid nephrotoxins Received bicarbonate 100 mEq IV prior to intubation. ID: Difficult to exclude pneumonia so she was administered cefepime in the emergency department. Will continue cefepime 1 g IV every 12 hours and adjust as needed for changing renal function. Obtain blood and sputum culture. UA is negative for evidence of infection. HEME: Chronic anemia Chronic anticoagulation with Xarelto due to atrial fibrillation Hold Xarelto. Heparin drip as per above. Monitor CBC. OPHTHO: Glaucoma Continue Latanoprost/Alphagan/Cosopt ophthalmic as prescribed. ENDO: Acute stress hyperglycemia. Low-dose insulin sliding scale with bedside glucose monitoring every 6 hours PROPH: Heparin drip as per above. Protonix 40 mg IV daily for stress ulcer prophylaxis. ACCESS: Right subclavian central venous line 11/20#2, right radial art line 11/20 #2 Overall impression: Critically ill with exacerbated chronic heart failure, unable to wean ventilator this morning. Critical care 39 mins Problem Qualifiers (1) A-fib: Qualified Code: I48.0 - Paroxysmal atrial fibrillation Arsenio Baxter MD Nov 21, 2016 10:25
[2016-11-21 15:24] LABS: APTT (PATIENT) 60.2 SEC (24.3-30.1)
[2016-11-21] MEDS: DOBUTamine PREMIX DRIP 250 ML IV SCH ×2 (15:57→22:10)
--- NOTE | 2016-11-21 16:23 | ECHRPT ---
Indication: CARDIOMYOPATHY CONCLUSIONS There is global left ventricular dysfunction. The left ventricular systolic function is severely reduced with an estimated ejection fraction in th e range of 25-30%. Normal left ventricular size. Wall thickness is normal. The left atrial size is moderately dilated. There is a pacemaker wire present in the right atrial cavity. Mild thickening of the mitral valve leaflets. Moderate mitral valve regurgitation. Mild to kwgxhmgmvssmoj-ok-zjrnlbww aortic valve regurgitation. thickening of the aortic valve leaflets. There is mild to moderate tricuspid valve regurgitation. There is estimated mild pulmonary hypertension present (range 40-50 mmHg). BP: 95 / 51 HR: 63 Rhythm: MEASUREMENTS (Male / Female) Normal Values Technical Quality: 2D ECHO LV Diastolic Diameter PLAX 4.5 cm 4.2 - 5.9 / 3.9 - 5.3 cm LV Systolic Diameter PLAX 4.1 cm IVS Diastolic Thickness 0.8 cm 0.6 - 1.0 / 0.6 - 0.9 cm LVPW Diastolic Thickness 0.8 cm 0.6 - 1.0 / 0.6 - 0.9 cm LV Relative Wall Thickness 0.3 LVOT Diameter 1.7 cm Aortic Root Diameter 3.2 cm LA Systolic Diameter LX 3.1 cm 3.0 - 4.0 / 2.7 - 3.8 cm M-MODE AV Cusp Separation MM 1.7 cm DOPPLER AV Peak Velocity 129.3 cm/s AV Peak Gradient 6.7 mmHg AV Mean Gradient 3.7 mmHg AV Velocity Time Integral 30.7 cm AI Peak Velocity 338.0 cm/s AI Peak Gradient 45.7 mmHg AI Pressure Half Time 485.0 ms LVOT Peak Velocity 82.0 cm/s LVOT Peak Gradient 2.7 mmHg LVOT Velocity Time Integral 16.2 cm LVOT Cardiac Index 1298.8 cm/minm AV Area Cont Eq vti 1.2 cm AV Area Cont Eq pk 1.4 cm Mitral E Point Velocity 73.5 cm/s Mitral A Point Velocity 47.4 cm/s Mitral E to A Ratio 1.6 LV E' Lateral Velocity 6.9 cm/s Mitral E to LV E' Lateral Ratio 10.6 LV E' Septal Velocity 5.6 cm/s Mitral E to LV E' Septal Ratio 13.2 TR Peak Velocity 304.0 cm/s TR Peak Gradient 37.0 mmHg FINDINGS LEFT VENTRICLE There is global left ventricular dysfunction. The left ventricular systolic function is severely reduced with an estimated ejection fraction in th e range of 25-30%. Normal left ventricular size. Wall thickness is normal. LEFT ATRIUM The left atrial size is moderately dilated. RIGHT ATRIUM There is a pacemaker wire present in the right atrial cavity. MITRAL VALVE Mild thickening of the mitral valve leaflets. Moderate mitral valve regurgitation. AORTIC VALVE Mild to minmxpwteocqfq-fw-daikcgrn aortic valve regurgitation. thickening of the aortic valve leaflets. TRICUSPID VALVE Structurally normal tricuspid valve. There is mild to moderate tricuspid valve regurgitation. There is estimated mild pulmonary hypertension present (range 40-50 mmHg). Suzanne Tesfaye MD, FACC (Electronically Signed) Final Date:21 November 2016 16:22
--- NOTE | 2016-11-21 17:00 | PD.CARD.PN ---
Subjective Subjective Remarks Patient is intubated. Echo results reviewed EF now 25-30% not 50%. BP running 100/55 dobutamine on hold. No growth in blood cultures. CXR reports bilateral pulmonary edema with cardiomegaly. Today CXR unchanged from yesterday Trop 0.10 and 0.13. eGFR is 30. She has been anticoagulated with DOAC and Hgb running 11ish. ECG shows LBBB pattern but could be from RV pacing as she has DDD pacemaker. Objective Vital Signs / I&O Vital Signs Date Time Temp Pulse Resp B/P Pulse Ox O2 Delivery O2 Flow Rate FiO2 11/21/16 16:05 98 40 11/21/16 12:00 98.6 62 14 103/55 97 101/44 11/21/16 10:58 96 40 11/21/16 08:05 40 40 11/21/16 08:00 98.7 66 16 106/53 100 99/55 11/21/16 07:00 67 11/21/16 07:00 100 Mechanical Ventilator 40 11/21/16 06:00 64 11/21/16 04:00 63 11/21/16 04:00 98.6 68 16 92/51 100 84/40 11/21/16 03:40 100 40 11/21/16 02:00 72 11/21/16 00:00 102 11/21/16 00:00 98.6 102 16 112/54 100 100/47 11/20/16 20:00 99.3 101 16 123/63 100 108/50 11/20/16 20:00 101 11/20/16 19:00 100 Mechanical Ventilator 40 I/O 11/20/16 11/20/16 11/20/16 11/21/16 11/21/16 11/21/16 07:00 15:00 23:00 07:00 15:00 23:00 Intake Total 111 ml 127 ml 480 ml Output Total 1422 ml 810 ml 450 ml Balance -1311 ml -683 ml 30 ml Intake IV Total 41 ml 127 ml 480 ml Tube Irrigant 70 ml Output Urine Total 1422 ml 810 ml 450 ml Stool Total 0 ml 0 ml Physical Exam No JVD Lungs with decreased BS bilaterally RRR aortic systolic murmur and diastolic murmur 1+ edema Intubated. Laboratory Laboratory Tests Test 11/20/16 11/20/16 11/21/1622/17 18:32 23:20 06:15 14:30 Lactic Acid Level 1.4 mmol/L Troponin I 0.10 NG/ML Activated Partial 68.2 SEC 86.4 SEC 60.2 SEC Thromboplast Time Sodium Level 134 MEQ/L 131 MEQ/L Potassium Level 2.6 MEQ/L 3.9 MEQ/L Chloride Level 97 MEQ/L 100 MEQ/L Carbon Dioxide Level 20.6 MEQ/L 20.6 MEQ/L Anion Gap 16 MEQ/L 10 MEQ/L Blood Urea Nitrogen 23 MG/DL 23 MG/DL Creatinine 1.63 MG/DL 1.75 MG/DL Estimat Glomerular Filtration 30 ML/MIN 28 ML/MIN Rate Random Glucose 95 MG/DL 102 MG/DL Calcium Level 8.2 MG/DL 8.3 MG/DL Phosphorus Level 2.2 MG/DL 2.0 MG/DL White Blood Count 12.2 TH/MM3 Red Blood Count 3.53 MIL/MM3 Hemoglobin 10.4 GM/DL Hematocrit 31.1 % Mean Corpuscular Volume 88.0 FL Mean Corpuscular Hemoglobin 29.6 PG Mean Corpuscular Hemoglobin 33.6 % Concent Red Cell Distribution Width 13.4 % Platelet Count 218 TH/MM3 Mean Platelet Volume 8.8 FL Neutrophils (%) (Auto) 79.4 % Lymphocytes (%) (Auto) 9.6 % Monocytes (%) (Auto) 10.9 % Eosinophils (%) (Auto) 0.0 % Basophils (%) (Auto) 0.1 % Neutrophils # (Auto) 9.7 TH/MM3 Lymphocytes # (Auto) 1.2 TH/MM3 Monocytes # (Auto) 1.3 TH/MM3 Eosinophils # (Auto) 0.0 TH/MM3 Basophils # (Auto) 0.0 TH/MM3 CBC Comment DIFF FINAL Differential Comment Magnesium Level 1.6 MG/DL Total Bilirubin 0.7 MG/DL Aspartate Amino Transf 271 U/L (AST/SGOT) Alanine Aminotransferase 149 U/L (ALT/SGPT) Alkaline Phosphatase 30 U/L Total Protein 5.1 GM/DL Albumin 2.7 GM/DL Assessment and Plan Problem List: (1) CHF (congestive heart failure) (2) CKD (chronic kidney disease) stage 3, GFR 30-59 ml/min Assessment and Plan: See it teacher note (3) Renal insufficiency Assessment and Plan: eGFR 30 (4) Anemia Assessment and Plan: monitor (5) A-fib (6) Chronic anticoagulation Problem Qualifiers (1) CHF (congestive heart failure): Qualified Code: I50.21 - Acute systolic congestive heart failure (2) Anemia: (3) A-fib: Qualified Code: I48.0 - Paroxysmal atrial fibrillation Yamil Patterson MD Nov 21, 2016 17:00
[2016-11-21] MEDS: fentaNYL 2,500 MCG/NS 250 ML IV SCH (19:50)
[2016-11-21] MEDS: HEPARIN-D5W INJ 250 ML IV SCH (19:51)
[2016-11-21 21:42] LABS: APTT (PATIENT) 59.7 SEC (24.3-30.1)
[2016-11-21] MEDS: LATANOPROST 0.005% OPHT SOLN 2.5 ML BTL EACH EYE SCH (22:10)
[2016-11-22] VITALS (18 sets, daily range): BP systolic 100–130; BP diastolic 44–61; PULSE 59–95; RESP 12–17; TEMP 96.5–98.6; O2SAT 97–100
[2016-11-22 02:12] LABS: MAGNESIUM 1.5 MG/DL (1.5-2.5); POTASSIUM 3.1 MEQ/L (3.5-5.1)
[2016-11-22] MEDS: AMIODARONE INJ 450 MG in DEXTROSE 5% IN WATE(EXCEL) INJ 250 ML IV SCH ×4 (02:13→22:31)
[2016-11-22] MEDS: POTASSIUM CHLOR 40 MEQ PREMIX 100 ML IV PRN (02:42)
[2016-11-22] MEDS: CEFEPIME INJ 1,000 MG in SODIUM CHLORIDE 0.9% INJ 100 ML IV SCH ×2 (03:57→16:52)
[2016-11-22] MEDS: CHLORHEXIDINE GLUCONATE 2 % 1 PACK (2 CLOTHS) TOP SCH (04:01)
[2016-11-22] MEDS: INSULIN ASPART SUPPLEMENTAL SCALE SQ SCH ×4 (04:15→22:15)
[2016-11-22] MEDS: BUMETANIDE INJ 1 MG/4 ML VIAL IV PUSH SCH ×2 (05:05→16:52)
[2016-11-22 06:19] LABS: MAGNESIUM 2.1 MG/DL (1.5-2.5); POTASSIUM 4.6 MEQ/L (3.5-5.1)
--- NOTE | 2016-11-22 06:40 | RADRPT ---
EXAM DATE/TIME: 11/22/2016 05:31 [place] COMPARISON: CHEST SINGLE AP, November 21, 2016, 5:54. INDICATIONS : Pleural effusions. Respiratory status. MEDICAL HISTORY : None. SURGICAL HISTORY : Pacemaker. ENCOUNTER: Subsequent ACUITY: 4 - 6 days PAIN SCORE: Non-responsive. LOCATION: Bilateral chest FINDINGS: Pacemaker device is noted with control pack over the left chest. Endotracheal tube, nasogastric tube and right subclavian central line remain in place. Hazy bilateral pleural-parenchymal opacities are g rossly unchanged. Visualized cardiac contours are stable. CONCLUSION: No significant change. Esau Merchant MD on November 22, 2016 at 6:38 Board Certified Radiologist. This report was verified electronically.
[2016-11-22] MEDS: HYDROXYCHLOROQUINE SULFATE 200 MG TAB PO SCH (09:00)
[2016-11-22] MEDS: ASPIRIN 81 MG CHEW TAB CHEW SCH ×2 (09:00→10:00)
[2016-11-22] MEDS: SODIUM CHLORIDE 0.9% FLUSH 10 ML FLUSH IV FLUSH SCH ×2 (09:00→20:37)
[2016-11-22] MEDS: BRIMONIDINE TARTRATE 0.2% OPHT SOLN 5 ML BTL EACH EYE SCH ×2 (09:59→20:37)
[2016-11-22] MEDS: AMIODARONE 200 MG TAB PO SCH ×2 (09:59→20:56)
[2016-11-22] MEDS: DORZOLAMIDE/TIMOLOL OPTH SOLN 10 ML BTL EACH EYE SCH ×2 (09:59→20:37)
[2016-11-22] MEDS: DOCUSATE SODIUM 50 MG/SENNA 8.6 MG TAB PO SCH ×2 (09:59→20:56)
[2016-11-22] MEDS: PANTOPRAZOLE SODIUM 40 MG VIAL IV SCH (10:00)
[2016-11-22] MEDS: CHLORHEXIDINE 0.12% (ORAL KIT) 15 ML CUP MT SCH ×2 (11:31→20:00)
[2016-11-22 12:11] LABS: APTT (PATIENT) 51.5 SEC (24.3-30.1)
--- NOTE | 2016-11-22 13:38 | HHI.CCPN ---
Subjective Remarks/Hospital Course 1-year-old female with past medical history of paroxysmal atrial fibrillation on chronic anticoagulation with Xarelto, s/p dual chamber pacemaker 2011 due to sick sinus syndrome, hyperlipidemia, CHF (unspecified), chronic kidney disease stage III, glaucoma, who presents to [facility] emergency department with 1 week history of generalized weakness and shortness of breath. She has had orthopnea and dyspnea on exertion. She states that at baseline her activity is limited due to shortness of breath ( i.e. she can't vacuum her floors/ do housework) however it has been limited much more so over the last week to where she is having difficulty ambulating around the house. She has had some chest tightness. Denies hemoptysis. + cough productive of "phlegm", no fever. Weight is up 2 pounds over the last 24- 48 hours. ED workup included chest x-ray that showed cardiomegaly, bilateral pleural effusions, pulmonary edema. Sodium is 127, BUN/ creatinine 19/1.49, BNP 2749/troponin 0.02. EKG demonstrates sinus tachycardia with left bundle branch block which is pre-existing on prior EKGs. She was initially on nasal cannula and was admitted to the hospitalist service. She was given Lasix 40 mg IV and started on nitroglycerin paste. She diuresed 300 ML's. Her respiratory condition worsened and she was placed on BiPAP. When I initially evaluated her on BiPAP 15/5 100% in the ED she was tachypneic with resp rate 25 and appeared she would need intubation. Patient states that she is full code but does not feel that intubation is necessary right now and requests no intubation yet. Bedside cardiac ultrasound appears decreased EF, Lactic acid 4.3. Base deficit 11.3. Attempted further diuresis with Bumex 2 mg IV and initiation of dobutamine 2 mcg/kg/min. She continued to deteriorate, became hypopneic and hypotensive with SBP in 70s. NTG discontinued and dobutamine placed on hold. She was intubated, placed CVL and art line. ScVO2 now 72. Blood pressure 130/ 63. 11/21: Good response to diuretics. Will start SBTs now, inclined to extubate early and mobilize her if possible today. May need low dose inotrope to entice her kidneys a bit more. 11/22: Remains intubated. Off sedation follows commands 4. UO adequate, creat increased to 2. Will attempt SBT for possible extubation Objective Vital Signs Date Time Temp Pulse Resp B/P Pulse Ox O2 Delivery O2 Flow Rate FiO2 11/22/16 12:07 99 40 11/22/16 08:41 Ventilator 11/22/16 06:00 60 11/22/16 04:00 96.5 12 100/44 11/20/16 01:05 2 Intake and Output 11/21/16 11/21/16 11/22/16 08:00 16:00 00:00 Intake Total 480 ml 462 ml 155 ml Output Total 450 ml 500 ml 650 ml Balance 30 ml -38 ml -495 ml Result Diagram: 11/21/1661411/22/1615 Objective Remarks GENERAL: Alert and answering questions with with hand gestures and head nodding. SKIN: Warm, diaphoretic. HEAD: Atraumatic. Normocephalic. EYES: Pupils 4 mm reactive bilaterally. No scleral icterus. ENT: Orally intubated. NECK: Trachea midline. Supple. CARDIOVASCULAR: Sinus with ectopy on monitor, irregular but no murmurs rubs or gallops . No JVD. RESPIRATORY: Clear, comfortable excursions on SBT. Decreased at the bases GASTROINTESTINAL: Abdomen soft, non-tender, nondistended. Bowel sounds active : De Los Santos in place. MUSCULOSKELETAL: Extremities without clubbing, cyanosis. 1+ pedal edema bilateral ankles. NEUROLOGICAL: Opens eyes, moves 4 limbs, nods head to questions. Urinary Catheter: Yes Assessment to: Continue A/P Problem List: (1) Respiratory failure, acute ICD Code: J96.00 Status: Acute (2) CHF (congestive heart failure) ICD Code: I50.9 Status: Acute (3) Cardiogenic shock ICD Code: R57.0 Status: Acute (4) A-fib ICD Code: I48.91 Status: Chronic (5) HTN (hypertension) ICD Code: I10 Status: Chronic (6) Glaucoma ICD Code: H40.9 Status: Chronic (7) Fibromyalgia ICD Code: M79.7 Status: Chronic (8) Lactic acidosis ICD Code: E87.2 Status: Acute (9) Anemia ICD Code: D64.9 Status: Chronic (10) Hyperglycemia ICD Code: R73.9 Status: Acute (11) Hyponatremia ICD Code: E87.1 Status: Acute (12) CKD (chronic kidney disease) stage 3, GFR 30-59 ml/min ICD Code: N18.3 Status: Chronic Assessment and Plan NEURO: Fentanyl for analgosedation. Versed prn. Hold all sedation for SBT Target RASS -2. Peripheral neuropathy Hold Neurontin 600 qhs for now due to lethargy, RACHID. Hold Robaxin 500 twice a day RESP: Acute respiratory failure Pulmonary edema Bilateral pleural effusions Deteriorated despite Bipap. Intubated 11/20. 7.5 ETT at 21 cm lip. Ventilator bundle PRVC TV 500 R 14 PEEP 8 It 1 FiO2 100% and wean as tolerated for sat >92%. CXR with satisfactory endotracheal tube position, pulm edema, bilat pleural effusions, cardiomegaly Diuretics as per below Abx as per below SBTs today with parameters for possible extubation CV: Acute CHF exacerbation Chronic diastolic heart failure Cardiogenic shock Paroxysmal Atrial fibrillation LBBB (preexisting) Pacemaker in place due to h/o sick sinus syndrome Hyperlipidemia Lactic acidemia Art line placed for hemodynamic monitoring. Received Lasix 40 mg IV in the ED. Bumex 2 mg IV given in effort to avoid intubation. F/u Bumex 1 mg IV q12. Additional Bumex 2 MG IV x1 11/22 Monitor UOP/electrolytes during diuresis Echo EF 25-30%. Cardiomegaly Dr. Baltazar Initial troponin 0.02, trend. Serial EKG. Dobutamine and NTG currently on hold after patient was hypotensive before intubation. ScVO2 satisfactory at 72. Amiodarone 100 mg twice a day On chronic anticoagulation with Xarelto for A. fib. Will hold while she is critically ill and anticoagulate with heparin. ASA 81 daily GI: Insert OGT to LIWS. NPO. Initiate enteral feeds with nepro if not extubated Bowel regimen per protocol FEN/RENAL: Chronic kidney disease stage III Hyponatremia secondary to CHF and volume overload state. Acute metabolic acidemia De Los Santos in place. Monitor intake and output hourly. Monitor electrolytes and replace as indicated. Avoid nephrotoxins Received bicarbonate 100 mEq IV prior to intubation. ID: Difficult to exclude pneumonia so she was administered cefepime in the emergency department. Continue cefepime 1 g IV every 12 hours and adjust as needed for changing renal function. Obtain blood and sputum culture. UA is negative for evidence of infection. HEME: Chronic anemia Chronic anticoagulation with Xarelto due to atrial fibrillation Hold Xarelto. Heparin drip as per above. Monitor CBC. OPHTHO: Glaucoma Continue Latanoprost/Alphagan/Cosopt ophthalmic as prescribed. ENDO: Acute stress hyperglycemia. Low-dose insulin sliding scale with bedside glucose monitoring every 6 hours PROPH: Heparin drip as per above. Protonix 40 mg IV daily for stress ulcer prophylaxis. ACCESS: Right subclavian central venous line 11/20#3, right radial art line 11/20 #3 Overall impression: Critically ill with exacerbated chronic heart failure, attempt vent wean. renal function worsening Critical care 32 mins Problem Qualifiers (1) CHF (congestive heart failure): Qualified Code: I50.21 - Acute systolic congestive heart failure (2) A-fib: Qualified Code: I48.0 - Paroxysmal atrial fibrillation (3) Anemia: Souleymane Cifuentes MD Nov 22, 2016 13:38
[2016-11-22] MEDS ORDERED: BUMETANIDE INJ 1 MG/4 ML VIAL IV PUSH ONE (13:45)
[2016-11-22] MEDS ORDERED: ALTEPLASE RECOMBINANT 2 MG VIAL IV ONE (17:15)
[2016-11-22] MEDS: LATANOPROST 0.005% OPHT SOLN 2.5 ML BTL EACH EYE SCH (20:37)
[2016-11-22] MEDS: DOBUTamine PREMIX DRIP 250 ML IV SCH (22:43)
[2016-11-23] VITALS (14 sets, daily range): BP systolic 108–130; BP diastolic 49–60; PULSE 60–99; RESP 12–20; TEMP 98.2–98.6; O2SAT 91–97
[2016-11-23] MEDS: CHLORHEXIDINE GLUCONATE 2 % 1 PACK (2 CLOTHS) TOP SCH (03:44)
[2016-11-23] MEDS: CEFEPIME INJ 1,000 MG in SODIUM CHLORIDE 0.9% INJ 100 ML IV SCH ×2 (03:44→15:33)
[2016-11-23] MEDS: BUMETANIDE INJ 1 MG/4 ML VIAL IV PUSH SCH ×2 (03:44→15:33)
[2016-11-23] MEDS: INSULIN ASPART SUPPLEMENTAL SCALE SQ SCH ×4 (04:15→21:40)
[2016-11-23] MEDS: HEPARIN-D5W INJ 250 ML IV SCH (06:55)
[2016-11-23] MEDS: CHLORHEXIDINE 0.12% (ORAL KIT) 15 ML CUP MT SCH ×2 (08:00→21:35)
[2016-11-23 11:57] LABS: APTT (PATIENT) 41.2 SEC (24.3-30.1)
[2016-11-23] MEDS: DOCUSATE SODIUM 50 MG/SENNA 8.6 MG TAB PO SCH ×2 (12:17→21:36)
[2016-11-23] MEDS: PANTOPRAZOLE SODIUM 40 MG VIAL IV SCH (12:17)
[2016-11-23] MEDS: ASPIRIN 81 MG CHEW TAB CHEW SCH (12:17)
[2016-11-23] MEDS: AMIODARONE 200 MG TAB PO SCH ×2 (12:17→21:40)
[2016-11-23] MEDS: DORZOLAMIDE/TIMOLOL OPTH SOLN 10 ML BTL EACH EYE SCH ×2 (12:18→21:36)
[2016-11-23] MEDS: SODIUM CHLORIDE 0.9% FLUSH 10 ML FLUSH IV FLUSH SCH ×2 (12:18→21:36)
[2016-11-23] MEDS: BRIMONIDINE TARTRATE 0.2% OPHT SOLN 5 ML BTL EACH EYE SCH ×2 (12:18→21:36)
--- NOTE | 2016-11-23 12:29 | HHI.CCPN ---
Subjective Remarks/Hospital Course 1-year-old female with past medical history of paroxysmal atrial fibrillation on chronic anticoagulation with Xarelto, s/p dual chamber pacemaker 2011 due to sick sinus syndrome, hyperlipidemia, CHF (unspecified), chronic kidney disease stage III, glaucoma, who presents to [facility] emergency department with 1 week history of generalized weakness and shortness of breath. She has had orthopnea and dyspnea on exertion. She states that at baseline her activity is limited due to shortness of breath ( i.e. she can't vacuum her floors/ do housework) however it has been limited much more so over the last week to where she is having difficulty ambulating around the house. She has had some chest tightness. Denies hemoptysis. + cough productive of "phlegm", no fever. Weight is up 2 pounds over the last 24- 48 hours. ED workup included chest x-ray that showed cardiomegaly, bilateral pleural effusions, pulmonary edema. Sodium is 127, BUN/ creatinine 19/1.49, BNP 2749/troponin 0.02. EKG demonstrates sinus tachycardia with left bundle branch block which is pre-existing on prior EKGs. She was initially on nasal cannula and was admitted to the hospitalist service. She was given Lasix 40 mg IV and started on nitroglycerin paste. She diuresed 300 ML's. Her respiratory condition worsened and she was placed on BiPAP. When I initially evaluated her on BiPAP 15/5 100% in the ED she was tachypneic with resp rate 25 and appeared she would need intubation. Patient states that she is full code but does not feel that intubation is necessary right now and requests no intubation yet. Bedside cardiac ultrasound appears decreased EF, Lactic acid 4.3. Base deficit 11.3. Attempted further diuresis with Bumex 2 mg IV and initiation of dobutamine 2 mcg/kg/min. She continued to deteriorate, became hypopneic and hypotensive with SBP in 70s. NTG discontinued and dobutamine placed on hold. She was intubated, placed CVL and art line. ScVO2 now 72. Blood pressure 130/ 63. 11/21: Good response to diuretics. Will start SBTs now, inclined to extubate early and mobilize her if possible today. May need low dose inotrope to entice her kidneys a bit more. 11/22: Remains intubated. Off sedation follows commands 4. UO adequate, creat increased to 2. Will attempt SBT for possible extubation 11/23: Extubated yesterday tolerating well. CMP is pending today. Patient breathing comfortably Objective Vital Signs Date Time Temp Pulse Resp B/P Pulse Ox O2 Delivery O2 Flow Rate FiO2 11/23/16 08:43 96 Nasal Cannula 3.00 11/23/16 06:00 66 11/23/16 04:00 98.2 15 130/60 11/22/16 12:07 40 Intake and Output 11/22/16 11/22/16 11/23/16 08:00 16:00 00:00 Intake Total 702 ml 372 ml 267 ml Output Total 350 ml 300 ml 725 ml Balance 352 ml 72 ml -458 ml Result Diagram: 11/21/16 0615 11/22/16 0515 Objective Remarks GENERAL: Alert and answering questions SKIN: Warm, diaphoretic. HEAD: Atraumatic. Normocephalic. EYES: Pupils 4 mm reactive bilaterally. No scleral icterus. ENT: Airway patent NECK: Trachea midline. Supple. CARDIOVASCULAR: Sinus with ectopy on monitor, irregular but no murmurs rubs or gallops . No JVD. RESPIRATORY: Clear, comfortable breathing. Decreased air entry at the bases GASTROINTESTINAL: Abdomen soft, non-tender, nondistended. Bowel sounds active : De Los Santos in place. MUSCULOSKELETAL: Extremities without clubbing, cyanosis. 1+ pedal edema bilateral ankles. NEUROLOGICAL: Alert awake oriented 3 no focal deficits A/P Problem List: (1) Respiratory failure, acute ICD Code: J96.00 Status: Acute (2) CHF (congestive heart failure) ICD Code: I50.9 Status: Acute (3) Cardiogenic shock ICD Code: R57.0 Status: Acute (4) A-fib ICD Code: I48.91 Status: Chronic (5) HTN (hypertension) ICD Code: I10 Status: Chronic (6) Glaucoma ICD Code: H40.9 Status: Chronic (7) Fibromyalgia ICD Code: M79.7 Status: Chronic (8) Lactic acidosis ICD Code: E87.2 Status: Acute (9) Anemia ICD Code: D64.9 Status: Chronic (10) Hyperglycemia ICD Code: R73.9 Status: Acute (11) Hyponatremia ICD Code: E87.1 Status: Acute (12) CKD (chronic kidney disease) stage 3, GFR 30-59 ml/min ICD Code: N18.3 Status: Chronic Assessment and Plan NEURO: Peripheral neuropathy Hold Neurontin 600 qhs for now due to lethargy, RACHID. Hold Robaxin 500 twice a day. Resume in 24 hours if stable Minimize sedation RESP: Acute respiratory failure Pulmonary edema Bilateral pleural effusions Deteriorated despite Bipap. Intubated 11/20. 7.5 ETT at 21 cm lip. Extubated 11/22 Diuretics as per below Abx as per below DuoNeb q6 PRN CV: Acute CHF exacerbation Chronic diastolic heart failure Cardiogenic shock Paroxysmal Atrial fibrillation LBBB (preexisting) Pacemaker in place due to h/o sick sinus syndrome Hyperlipidemia Lactic acidemia Bumex 1 mg IV q12. Additional Bumex 2 MG IV x1 11/22 Monitor UOP/electrolytes during diuresis Echo EF 25-30%. Cardiology Dr. Baltazar Initial troponin 0.02, trend. Serial EKG. Amiodarone 100 mg twice a day On chronic anticoagulation with Xarelto for A. fib. Holding while she is critically ill and anticoagulate with heparin. ASA 81 daily GI: PO Diet Bowel regimen per protocol FEN/RENAL: Chronic kidney disease stage III Hyponatremia secondary to CHF and volume overload state. Acute metabolic acidemia De Los Santos in place. Monitor intake and output hourly. Monitor electrolytes and replace as indicated. Avoid nephrotoxins Bumex 1 mg IV q12 ID: Difficult to exclude pneumonia so she was administered cefepime in the emergency department. Continue cefepime 1 g IV every 12 hours and adjust as needed for changing renal function. Obtain blood and sputum culture. UA is negative for evidence of infection. HEME: Chronic anemia Chronic anticoagulation with Xarelto due to atrial fibrillation Holding Xarelto. Heparin drip as per above. Monitor CBC. OPHTHO: Glaucoma Continue Latanoprost/Alphagan/Cosopt ophthalmic as prescribed. ENDO: Acute stress hyperglycemia. Low-dose insulin sliding scale with bedside glucose monitoring every 6 hours PROPH: Heparin drip as per above. Protonix 40 mg IV daily for stress ulcer prophylaxis. ACCESS: Right subclavian central venous line 11/20#3-DC, right radial art line 11/20 #4-DC Overall impression: Extubated yesterday more stable today Level 2 Problem Qualifiers (1) CHF (congestive heart failure): Qualified Code: I50.21 - Acute systolic congestive heart failure (2) A-fib: Qualified Code: I48.0 - Paroxysmal atrial fibrillation (3) Anemia: Souleymane Cifuentes MD Nov 23, 2016 12:29
--- NOTE | 2016-11-23 13:57 | EKG ---
Date Performed: 11/20/2016 Time Performed: 00:14:34 PTAGE: 81 years EKG: Sinus rhythm MARKED LEFT AXIS DEVIATION LEFT BUNDLE BRANCH BLOCK ABNORMAL ECG PREVIOUS TRACING : 09/03/2011 05.54 Suspect atrial fibrillation with left bundle branch block p attern Cannot completely rule out sinus tachycardia with PACs Prolonged QTc interval DOCTOR: Xavier Santacruz Interpretating Date/Time 11/23/2016 13:55:37
--- NOTE | 2016-11-23 13:57 | EKG ---
Date Performed: 11/20/2016 Time Performed: 02:59:59 PTAGE: 81 years EKG: SINUS TACHYCARDIA MARKED LEFT AXIS DEVIATION LEFT BUNDLE BRANCH BLOCK ABNORMAL ECG PREVIOUS TRACING : 11/20/2016 00.14 Prolonged QTc interval DOCTOR: Xavier Santacruz Interpretating Date/Time 11/23/2016 13:55:53
--- NOTE | 2016-11-23 13:58 | EKG ---
Date Performed: 11/22/2016 Time Performed: 01:19:48 PTAGE: 81 years EKG: Atrial fibrillation with uncontrolled ventricular response. Left axis deviation Left bundle branch block Abnormal ECG NO PREVIOUS TRACING Prolonged QTc interval DOCTOR: Xavier Santacruz Interpretating Date/Time 11/23/2016 13:56:08
--- NOTE | 2016-11-23 15:48 | PD.CARD.PN ---
Subjective Subjective Remarks No CP or SOB, feels better, extubated yest Objective Medications Current Medications Medications (Trade) Dose Ordered Sig/Malika Route Start Time Stop Time Status Last Admin (Morphine Inj) 2 mg Q3H PRN IV 11/20/16 02:15 (Cordarone) 100 mg BID PO 11/20/16 09:00 11/23/16 12:17 (Alphagan 0.2% Opth Soln) 1 drop BID EACH EYE 11/20/16 09:00 11/23/16 12:18 (Cosopt 2-0.5% Opth Soln) 1 drop BID EACH EYE 11/20/16 09:00 11/23/16 12:18 (Neurontin) 600 mg HS PO 11/20/16 21:00 Hold (Plaquenil) 200 mg DAILY PO 11/20/16 09:00 11/21/16 08:35 (Xalatan 0.005% Opth Soln) 1 drop HS EACH EYE 11/20/16 21:00 11/22/16 20:37 (Robaxin) 500 mg BID PO 11/20/16 09:00 Hold 11/20/16 09:25 (Pill Splitter) 1 ea UNSCH PRN OTHER 11/20/16 02:30 Bumetanide 1 mg 1 mg Q12H IV PUSH 11/20/16 16:00 11/23/16 15:33 Cefepime HCl 1000 mg/Sodium Chloride 100 ml @ 200 mls/hr Q12H IV 11/20/16 16:00 11/23/16 15:33 (Heparin-D5W Inj) 250 ml @ 0 mls/hr TITRATE IV 11/20/16 05:15 11/23/16 06:55 (NS Flush) 2 ml UNSCH PRN IV FLUSH 11/20/16 05:15 (NS Flush) 2 ml BID IV FLUSH 11/20/16 09:00 11/23/16 12:18 (Tylenol) 650 mg Q6H PRN PO 11/20/16 05:15 (Protonix Inj) 40 mg DAILY IV 11/20/16 09:00 11/23/16 12:17 (Zofran Inj) 4 mg Q6H PRN IV 11/20/16 05:15 Miscellaneous Information 1 Q361D XX 11/20/16 05:15 (Chlorhexidine 2% Cloth) 3 pack Taper DAILY@04 TOP 11/21/16 04:00 11/17/17 03:59 11/23/16 03:44 (Chlorhexidine 2% Cloth) 3 pack UNSCH PRN TOP 11/20/16 05:15 (Katherine-Colace) 1 tab BID PO 11/20/16 09:00 11/23/16 12:17 (Senokot) 17.2 mg Q12H PRN PO 11/20/16 05:15 (Dulcolax Supp) 10 mg DAILY PRN RECTAL 11/20/16 05:15 Lactulose 30 ml 30 ml DAILY PRN PO 11/20/16 05:15 (fentaNYL DRIP) 250 ml @ 0 mls/hr TITRATE IV 11/20/16 06:00 11/21/16 19:50 (Peridex 0.12% Liq) 15 ml BID@08,20 MT 11/20/16 20:00 11/22/16 11:31 (Aspirin Chew) 81 mg DAILY CHEW 11/20/16 10:00 11/23/16 12:17 (D50w (Syr) Inj) 50 ml UNSCH PRN IV 11/20/16 10:15 11/20/16 17:49 (Glucagon Inj) 1 mg UNSCH PRN OTHER 11/20/16 10:15 Insulin Aspart 1 1 Q6H SQ 11/20/16 10:15 (DOBUTamine PREMIX DRIP) 250 ml @ 9.9 mls/hr Q24H IV 11/20/16 22:02 11/22/16 22:43 Acetaminophen/ Hydrocodone Bitart 1 tab 1 tab Q4H PRN PO 11/21/16 10:15 (Cordarone Inj/ D5W ([place]) Inj) 259 ml @ 0 mls/hr CONTINUOUS IV 11/22/16 01:30 11/22/16 22:31 Vital Signs / I&O Vital Signs Date Time Temp Pulse Resp B/P Pulse Ox O2 Delivery O2 Flow Rate FiO2 11/23/16 14:00 64 11/23/16 12:00 70 11/23/16 12:00 98.6 70 16 126/56 91 11/23/16 10:00 68 11/23/16 08:43 96 Nasal Cannula 3.00 11/23/16 08:00 98.6 66 12 128/60 96 11/23/16 08:00 66 11/23/16 07:00 96 Nasal Cannula 3.00 11/23/16 06:00 66 11/23/16 04:00 98.2 66 15 130/60 97 11/23/16 04:00 66 11/23/16 02:00 70 11/23/16 00:00 60 11/23/16 00:00 98.2 60 14 120/49 96 11/22/16 22:00 90 11/22/16 21:25 98 Nasal Cannula 4.00 11/22/16 20:00 95 11/22/16 20:00 98.6 95 16 122/61 97 11/22/16 19:00 97 Nasal Cannula 2.00 11/22/16 18:00 92 11/22/16 16:00 94 11/22/16 16:00 98.2 92 17 130/60 97 11/22/16 15:45 99 Nasal Cannula 4 I/O 11/22/16 11/22/16 11/22/16 11/23/16 11/23/16 11/23/16 07:00 15:00 23:00 07:00 15:00 23:00 Intake Total 702 ml 372 ml 267 ml 5713 ml 758 ml Output Total 350 ml 300 ml 725 ml 400 ml 400 ml Balance 352 ml 72 ml -458 ml 5313 ml 358 ml Intake Oral 360 ml IV Total 702 ml 372 ml 267 ml 5713 ml 398 ml Output Urine Total 350 ml 300 ml 725 ml 400 ml 400 ml Stool Total 0 ml 0 ml 0 ml 0 ml Physical Exam GENERAL: In NAD, on O2 SKIN: Warm and dry. HEAD: Normocephalic. EYES: No scleral icterus. No injection or drainage. NECK: Supple, trachea midline. No JVD or lymphadenopathy. CARDIOVASCULAR: Regular rate and rhythm with syst and diast murmurs, no gallops , or rubs. RESPIRATORY: Breath sounds equal bilaterally. No accessory muscle use. GASTROINTESTINAL: Abdomen soft, non-tender, nondistended. MUSCULOSKELETAL: No cyanosis, trace ankle edema. Laboratory Laboratory Tests Test 11/23/16 10:55 Activated Partial 41.2 SEC Thromboplast Time Imaging Last Impressions Chest X-Ray 11/22/16 0400 Signed Impressions: Service Date/Time: Tuesday, November 22, 2016 05:31 - CONCLUSION: No significant change. Esau Merchant MD Assessment and Plan Problem List: (1) Cardiogenic shock (2) Cardiomyopathy (3) CHF (congestive heart failure) (4) CKD (chronic kidney disease) stage 3, GFR 30-59 ml/min (5) Renal insufficiency (6) Anemia (7) A-fib (8) Chronic anticoagulation Assessment and Plan Successfully extubated. Wean off dobutamine. Continue tx for CHF. DC amio IV, continue PO. Increase activity. Transfer out of ICU tomorrow if stable. Problem Qualifiers (1) CHF (congestive heart failure): Qualified Code: I50.21 - Acute systolic congestive heart failure (2) Anemia: (3) A-fib: Qualified Code: I48.0 - Paroxysmal atrial fibrillation Nuria Linares MD Nov 23, 2016 15:47
[2016-11-23] MEDS: LATANOPROST 0.005% OPHT SOLN 2.5 ML BTL EACH EYE SCH (21:36)
[2016-11-24] VITALS (15 sets, daily range): BP systolic 101–118; BP diastolic 53–78; PULSE 64–127; RESP 15–26; TEMP 97.8–98.8; O2SAT 91–97
[2016-11-24 01:56] LABS: ALKALINE PHOSPHATASE 41 U/L (45-117); ALT (GPT) 84 U/L (10-53); ANION GAP 11 MEQ/L (5-15); AST (GOT) 44 U/L (15-37); BLOOD UREA NITROGEN 32 MG/DL (7-18); CHLORIDE 94 MEQ/L (98-107); GLOMERULAR FILTRATION RATE 19 ML/MIN (>89); POTASSIUM 3.4 MEQ/L (3.5-5.1); SODIUM (NA) 130 MEQ/L (136-145); TOTAL BILIRUBIN ADULT 0.8 MG/DL (0.2-1.0)
[2016-11-24] MEDS: CHLORHEXIDINE GLUCONATE 2 % 1 PACK (2 CLOTHS) TOP SCH (03:07)
[2016-11-24] MEDS: BUMETANIDE INJ 1 MG/4 ML VIAL IV PUSH SCH (03:07)
[2016-11-24] MEDS: CEFEPIME INJ 1,000 MG in SODIUM CHLORIDE 0.9% INJ 100 ML IV SCH (03:07)
[2016-11-24] MEDS: INSULIN ASPART SUPPLEMENTAL SCALE SQ SCH ×2 (04:15→10:15)
[2016-11-24 04:42] LABS: AUTOMATED NEUTROPHIL # 9.3 TH/MM3 (1.8-7.7); BASOPHIL % 0.3 % (0.0-2.0); EOSINOPHIL % 0.2 % (0.0-4.0); HEMO FLAGS DIFF FINAL; LYMPH % 7.1 % (9.0-44.0); LYMPHOCYTE # 0.9 TH/MM3 (1.0-4.8); MEAN CELL VOLUME 87.6 FL (80.0-100.0); MEAN CORPUSCULAR HEMOGLOBIN 29.6 PG (27.0-34.0); MEAN CORPUSCULAR HGB CONC 33.8 % (32.0-36.0); MONO % 16.3 % (0.0-8.0); NEUT % 76.1 % (16.0-70.0); PLATELET COUNT 206 TH/MM3 (150-450); RED BLOOD COUNT 3.54 MIL/MM3 (4.00-5.30); RED CELL DISTRIBUTION WIDTH 13.8 % (11.6-17.2); WHITE BLOOD COUNT 12.2 TH/MM3 (4.0-11.0)
[2016-11-24 04:56] LABS: ALT (GPT) 85 U/L (10-53); ANION GAP 11 MEQ/L (5-15); AST (GOT) 43 U/L (15-37); BICARBONATE 22.9 MEQ/L (21.0-32.0); BLOOD UREA NITROGEN 30 MG/DL (7-18); CHLORIDE 93 MEQ/L (98-107); GLOMERULAR FILTRATION RATE 19 ML/MIN (>89); POTASSIUM 3.5 MEQ/L (3.5-5.1); SODIUM (NA) 127 MEQ/L (136-145)
[2016-11-24 04:59] LABS: ALKALINE PHOSPHATASE 43 U/L (45-117); TOTAL BILIRUBIN ADULT 0.8 MG/DL (0.2-1.0)
--- NOTE | 2016-11-24 06:27 | RADRPT ---
EXAM DATE/TIME: 11/24/2016 05:32 [facility] COMPARISON: CHEST SINGLE AP, November 22, 2016, 5:31. INDICATIONS : Respiratory disease. MEDICAL HISTORY : Congestive heart failure. SURGICAL HISTORY : Pacemaker. ENCOUNTER: Subsequent ACUITY: 1 week PAIN SCORE: Non-responsive. LOCATION: Bilateral chest FINDINGS: Portable AP view of the chest demonstrates a normal-sized cardiac silhouette. Right subclavian centra l line tip is in the SVC. ETT and nasogastric tube have been removed. There are moderate-sized bibasi lar pleural-parenchymal opacities. No pneumothorax is visualized. CONCLUSION: Stable bilateral pleural effusions with associated volume loss and/or airspace consolidation. Esau Matos MD on November 24, 2016 at 6:25 Board Certified Radiologist. This report was verified electronically.
[2016-11-24 07:54] LABS: APTT (PATIENT) 48.1 SEC (24.3-30.1)
[2016-11-24] MEDS: CHLORHEXIDINE 0.12% (ORAL KIT) 15 ML CUP MT SCH ×2 (08:00→20:00)
[2016-11-24] MEDS: DOCUSATE SODIUM 50 MG/SENNA 8.6 MG TAB PO SCH ×2 (08:15→20:52)
[2016-11-24] MEDS: AMIODARONE 200 MG TAB PO SCH ×2 (08:15→20:52)
[2016-11-24] MEDS: BRIMONIDINE TARTRATE 0.2% OPHT SOLN 5 ML BTL EACH EYE SCH ×2 (08:16→20:52)
[2016-11-24] MEDS: SODIUM CHLORIDE 0.9% FLUSH 10 ML FLUSH IV FLUSH SCH ×2 (08:16→20:52)
[2016-11-24] MEDS: DORZOLAMIDE/TIMOLOL OPTH SOLN 10 ML BTL EACH EYE SCH ×2 (08:16→20:53)
[2016-11-24] MEDS: ASPIRIN 81 MG CHEW TAB CHEW SCH (08:16)
[2016-11-24] MEDS: HYDROXYCHLOROQUINE SULFATE 200 MG TAB PO SCH (08:16)
[2016-11-24] MEDS: PANTOPRAZOLE SODIUM 40 MG VIAL IV SCH (08:16)
--- NOTE | 2016-11-24 09:30 | PD.TRANSFR ---
Transfer Summary Admission Date Nov 20, 2016 at 01:38 Admitting Diagnosis CHF, Generalized Weakness Diagnoses: (1) CHF (congestive heart failure) Diagnosis: Principal (2) Cardiogenic shock Diagnosis: Principal (3) Respiratory failure, acute Diagnosis: Principal (4) A-fib Diagnosis: Principal (5) CKD (chronic kidney disease) stage 3, GFR 30-59 ml/min Diagnosis: Secondary (6) HTN (hypertension) Diagnosis: Secondary (7) Anemia Diagnosis: Secondary (8) Cardiomyopathy Diagnosis: Secondary Transfer Summary/Subjective 81-year-old female with past medical history of paroxysmal atrial fibrillation on chronic anticoagulation with Xarelto, s/p dual chamber pacemaker 2011 due to sick sinus syndrome, hyperlipidemia, CHF (unspecified), chronic kidney disease stage III, glaucoma, who presents to [facility] emergency department with 1 week history of generalized weakness and shortness of breath. She has had orthopnea and dyspnea on exertion. She states that at baseline her activity is limited due to shortness of breath ( i.e. she can't vacuum her floors/ do housework) however it has been limited much more so over the last week to where she is having difficulty ambulating around the house. She has had some chest tightness. Denies hemoptysis. + cough productive of "phlegm", no fever. Weight is up 2 pounds over the last 24- 48 hours. ED workup included chest x-ray that showed cardiomegaly, bilateral pleural effusions, pulmonary edema. Sodium is 127, BUN/ creatinine 19/1.49, BNP 2749/troponin 0.02. EKG demonstrates sinus tachycardia with left bundle branch block which is pre-existing on prior EKGs. She was initially on nasal cannula and was admitted to the hospitalist service. She was given Lasix 40 mg IV and started on nitroglycerin paste. She diuresed 300 ML's. Her respiratory condition worsened and she was placed on BiPAP. When I initially evaluated her on BiPAP 15/5 100% in the ED she was tachypneic with resp rate 25 and appeared she would need intubation. Patient states that she is full code but does not feel that intubation is necessary right now and requests no intubation yet. Bedside cardiac ultrasound appears decreased EF, Lactic acid 4.3. Base deficit 11.3. Attempted further diuresis with Bumex 2 mg IV and initiation of dobutamine 2 mcg/kg/min. She continued to deteriorate, became hypopneic and hypotensive with SBP in 70s. NTG discontinued and dobutamine placed on hold. She was intubated, placed CVL and art line. ScVO2 now 72. Blood pressure 130/ 63. 11/21: Good response to diuretics. Will start SBTs now, inclined to extubate early and mobilize her if possible today. May need low dose inotrope to entice her kidneys a bit more. 11/22: Remains intubated. Off sedation follows commands 4. UO adequate, creat increased to 2. Will attempt SBT for possible extubation 11/23: Extubated yesterday tolerating well. CMP is pending today. Patient breathing comfortably 11/24: Patient is breathing comfortably. Brief episode of A. fib with RVR today but resolved after by mouth amiodarone. Currently off dobutamine tolerating well. Chest x-ray shows bibasilar pleural effusions. Creatinine slightly worsened 2.4 today, we'll consult nephrology Objective Vital Signs Date Time Temp Pulse Resp B/P Pulse Ox O2 Delivery O2 Flow Rate FiO2 11/24/16 09:18 92 Nasal Cannula 5.00 11/24/16 06:00 100 11/24/16 04:00 98.3 20 110/61 11/22/16 12:07 40 Intake and Output 11/23/16 11/23/16 11/24/16 08:00 16:00 00:00 Intake Total 5713 ml 758 ml 402 ml Output Total 400 ml 400 ml 425 ml Balance 5313 ml 358 ml -23 ml Result Diagram: 11/24/16 0415 11/24/16 0415 Objective Remarks GENERAL: Alert and oriented, no acute distress SKIN: Warm, diaphoretic. HEAD: Atraumatic. Normocephalic. EYES: Pupils 4 mm reactive bilaterally. No scleral icterus. ENT: Airway patent NECK: Trachea midline. Supple. CARDIOVASCULAR: Sinus with ectopy on monitor, irregular but no murmurs rubs or gallops . No JVD. RESPIRATORY: Clear, comfortable breathing. Decreased air entry at the bases GASTROINTESTINAL: Abdomen soft, non-tender, nondistended. Bowel sounds active : De Los Santos in place. MUSCULOSKELETAL: Extremities without clubbing, cyanosis. 1+ pedal edema bilateral ankles. NEUROLOGICAL: Alert awake oriented 3 no focal deficits A/P Problem List: (1) Respiratory failure, acute ICD Code: J96.00 Status: Acute (2) CHF (congestive heart failure) ICD Code: I50.9 Status: Acute (3) Cardiogenic shock ICD Code: R57.0 Status: Acute (4) A-fib ICD Code: I48.91 Status: Chronic (5) HTN (hypertension) ICD Code: I10 Status: Chronic (6) Glaucoma ICD Code: H40.9 Status: Chronic (7) Fibromyalgia ICD Code: M79.7 Status: Chronic (8) Lactic acidosis ICD Code: E87.2 Status: Acute (9) Anemia ICD Code: D64.9 Status: Chronic (10) Hyperglycemia ICD Code: R73.9 Status: Acute (11) Hyponatremia ICD Code: E87.1 Status: Acute (12) CKD (chronic kidney disease) stage 3, GFR 30-59 ml/min ICD Code: N18.3 Status: Chronic Assessment and Plan NEURO: Peripheral neuropathy Hold Neurontin 600 qhs for now RACHID. Hold Robaxin 500 twice a day. Resume in 24 hours if stable Minimize sedation RESP: Acute respiratory failure Pulmonary edema Bilateral pleural effusions Deteriorated despite Bipap. Intubated 11/20. Extubated 11/22 Diuretics as per below Abx as per below DuoNeb q6 PRN CV: Acute CHF exacerbation Chronic systolic and diastolic heart failure Cardiogenic shock Paroxysmal Atrial fibrillation LBBB (preexisting) Pacemaker in place due to h/o sick sinus syndrome Hyperlipidemia Lactic acidemia Bumex 1 mg IV q12-DC today and start lasix 20 mg BID Monitor UOP/electrolytes during diuresis Echo EF 25-30%. Cardiology Dr. Baltazar Initial troponin 0.02, trend. Amiodarone 100 mg twice a day. Afib rate controlled On chronic anticoagulation with Xarelto for A. fib. Holding while she is critically ill and anticoagulate with heparin. ASA 81 daily GI: PO Diet Bowel regimen per protocol FEN/RENAL: Chronic kidney disease stage III, with acute worsening Hyponatremia secondary to CHF and volume overload state. Acute metabolic acidemia De Los Santos in place. Monitor intake and output hourly. Monitor electrolytes and replace as indicated. Consult nephrology Avoid nephrotoxins Bumex 1 mg IV q12-Dc and change to Lasix 20 mg BID ID: Difficult to exclude pneumonia so she was administered cefepime in the emergency department. Continue cefepime 1 g IV every 12 hours and adjust as needed for changing renal function. All cultures negative to date UA is negative for evidence of infection. HEME: Chronic anemia Chronic anticoagulation with Xarelto due to atrial fibrillation Resume Xarelto, pharmacy to dose adjust. DC Heparin drip. Monitor CBC. OPHTHO: Glaucoma Continue Latanoprost/Alphagan/Cosopt ophthalmic as prescribed. ENDO: Acute stress hyperglycemia. Low-dose insulin sliding scale with bedside glucose monitoring every 6 hours PROPH: Heparin drip DC and resume Xarelto. Protonix 40 mg IV daily for stress ulcer prophylaxis. Level [address] [facility]. Consult hospitalist to assume care in am 11/25 Problem Qualifiers (1) CHF (congestive heart failure): Qualified Code: I50.21 - Acute systolic congestive heart failure (2) A-fib: Qualified Code: I48.0 - Paroxysmal atrial fibrillation (3) Anemia: Souleymane Cifuentes MD Nov 24, 2016 09:30
[2016-11-24] MEDS: RIVAROXABAN 15 MG TAB PO SCH (13:47)
--- NOTE | 2016-11-24 15:46 | PD.CARD.PN ---
Subjective Subjective Remarks No CP, mild SOB, ambulated in the room with PT Objective Medications Current Medications Medications (Trade) Dose Ordered Sig/Malika Route Start Time Stop Time Status Last Admin (Morphine Inj) 2 mg Q3H PRN IV 11/20/16 02:15 (Cordarone) 100 mg BID PO 11/20/16 09:00 11/24/16 08:15 (Alphagan 0.2% Opth Soln) 1 drop BID EACH EYE 11/20/16 09:00 11/24/16 08:16 (Cosopt 2-0.5% Opth Soln) 1 drop BID EACH EYE 11/20/16 09:00 11/24/16 08:16 (Neurontin) 600 mg HS PO 11/20/16 21:00 Hold (Plaquenil) 200 mg DAILY PO 11/20/16 09:00 11/24/16 08:16 (Xalatan 0.005% Opth Soln) 1 drop HS EACH EYE 11/20/16 21:00 11/23/16 21:36 (Robaxin) 500 mg BID PO 11/20/16 09:00 Hold 11/20/16 09:25 (Pill Splitter) 1 ea UNSCH PRN OTHER 11/20/16 02:30 (NS Flush) 2 ml UNSCH PRN IV FLUSH 11/20/16 05:15 (NS Flush) 2 ml BID IV FLUSH 11/20/16 09:00 11/24/16 08:16 (Tylenol) 650 mg Q6H PRN PO 11/20/16 05:15 (Zofran Inj) 4 mg Q6H PRN IV 11/20/16 05:15 Miscellaneous Information 1 Q361D XX 11/20/16 05:15 (Chlorhexidine 2% Cloth) 3 pack Taper DAILY@04 TOP 11/21/16 04:00 11/17/17 03:59 11/24/16 03:07 (Chlorhexidine 2% Cloth) 3 pack UNSCH PRN TOP 11/20/16 05:15 (Katherine-Colace) 1 tab BID PO 11/20/16 09:00 11/24/16 08:15 (Senokot) 17.2 mg Q12H PRN PO 11/20/16 05:15 (Dulcolax Supp) 10 mg DAILY PRN RECTAL 11/20/16 05:15 (Lactulose Liq) 30 ml DAILY PRN PO 11/20/16 05:15 (Peridex 0.12% Liq) 15 ml BID@08,20 MT 11/20/16 20:00 11/23/16 21:35 (Aspirin Chew) 81 mg DAILY CHEW 11/20/16 10:00 11/24/16 08:16 (D50w (Syr) Inj) 50 ml UNSCH PRN IV 11/20/16 10:15 11/20/16 17:49 (Glucagon Inj) 1 mg UNSCH PRN OTHER 11/20/16 10:15 (NovoLOG SUPPLEMENTAL SCALE) 1 Q6H SQ 11/20/16 10:15 ([place] 5-325 Mg) 1 tab Q4H PRN PO 11/21/16 10:15 (Lasix) 20 mg BID@09,18 PO 11/24/16 18:00 Rivaroxaban 15 mg 15 mg DAILY PO 11/24/16 11:00 11/24/16 13:47 (Maxipime Inj/NS Inj) 100 ml @ 200 mls/hr Q24H IV 11/25/16 03:00 Vital Signs / I&O Vital Signs Date Time Temp Pulse Resp B/P Pulse Ox O2 Delivery O2 Flow Rate FiO2 11/24/16 14:00 73 11/24/16 12:30 97 Nasal Cannula 2.00 11/24/16 12:00 67 11/24/16 12:00 98.4 67 22 101/78 96 11/24/16 10:00 70 11/24/16 10:00 70 11/24/16 09:18 92 Nasal Cannula 5.00 11/24/16 08:00 98.8 126 17 116/62 91 11/24/16 08:00 127 11/24/16 07:00 94 Nasal Cannula 5.00 11/24/16 06:00 100 11/24/16 04:00 98.3 99 20 110/61 93 11/24/16 04:00 99 11/24/16 02:00 92 11/24/16 00:00 98.7 94 15 103/53 96 11/24/16 00:00 94 11/23/16 22:00 97 11/23/16 20:00 99 11/23/16 20:00 98.4 99 20 110/58 93 11/23/16 19:05 94 Nasal Cannula 3.00 11/23/16 19:00 95 Nasal Cannula 3.00 11/23/16 18:00 98 11/23/16 16:00 98.4 96 15 108/56 95 Arterial Line 11/23/16 16:00 96 I/O 11/23/16 11/23/16 11/23/16 11/24/16 11/24/16 11/24/16 06:59 14:59 22:59 06:59 14:59 22:59 Intake Total 5713 ml 758 ml 402 ml 231 ml 440 ml Output Total 400 ml 400 ml 425 ml 325 ml 250 ml Balance 5313 ml 358 ml -23 ml -94 ml 190 ml Intake Oral 360 ml 240 ml 80 ml 440 ml IV Total 5713 ml 398 ml 162 ml 151 ml Output Urine Total 400 ml 400 ml 425 ml 325 ml 250 ml Stool Total 0 ml 0 ml 0 ml 0 ml Physical Exam GENERAL: In NAD, on O2 SKIN: Warm and dry. HEAD: Normocephalic. EYES: No scleral icterus. No injection or drainage. NECK: Supple, trachea midline. No JVD or lymphadenopathy. CARDIOVASCULAR: Regular rate and rhythm with syst and diast murmurs, no gallops , or rubs. RESPIRATORY: Breath sounds equal bilaterally. No accessory muscle use. GASTROINTESTINAL: Abdomen soft, non-tender, nondistended. MUSCULOSKELETAL: No cyanosis, trace ankle edema. Laboratory Laboratory Tests Test 11/24/16 11/24/16 11/24/16 00:46 04:15 07:32 Sodium Level 130 MEQ/L 127 MEQ/L Potassium Level 3.4 MEQ/L 3.5 MEQ/L Chloride Level 94 MEQ/L 93 MEQ/L Carbon Dioxide Level 25.0 MEQ/L 22.9 MEQ/L Anion Gap 11 MEQ/L 11 MEQ/L Blood Urea Nitrogen 32 MG/DL 30 MG/DL Creatinine 2.41 MG/DL 2.44 MG/DL Estimat Glomerular Filtration 19 ML/MIN 19 ML/MIN Rate Random Glucose 117 MG/DL 120 MG/DL Calcium Level 8.6 MG/DL 8.7 MG/DL Total Bilirubin 0.8 MG/DL 0.8 MG/DL Aspartate Amino Transf 44 U/L 43 U/L (AST/SGOT) Alanine Aminotransferase 84 U/L 85 U/L (ALT/SGPT) Alkaline Phosphatase 41 U/L 43 U/L Total Protein 5.4 GM/DL 5.4 GM/DL Albumin 2.3 GM/DL 2.3 GM/DL White Blood Count 12.2 TH/MM3 Red Blood Count 3.54 MIL/MM3 Hemoglobin 10.5 GM/DL Hematocrit 31.0 % Mean Corpuscular Volume 87.6 FL Mean Corpuscular Hemoglobin 29.6 PG Mean Corpuscular Hemoglobin 33.8 % Concent Red Cell Distribution Width 13.8 % Platelet Count 206 TH/MM3 Mean Platelet Volume 8.7 FL Neutrophils (%) (Auto) 76.1 % Lymphocytes (%) (Auto) 7.1 % Monocytes (%) (Auto) 16.3 % Eosinophils (%) (Auto) 0.2 % Basophils (%) (Auto) 0.3 % Neutrophils # (Auto) 9.3 TH/MM3 Lymphocytes # (Auto) 0.9 TH/MM3 Monocytes # (Auto) 2.0 TH/MM3 Eosinophils # (Auto) 0.0 TH/MM3 Basophils # (Auto) 0.0 TH/MM3 CBC Comment DIFF FINAL Differential Comment Activated Partial 48.1 SEC Thromboplast Time Imaging Last Impressions Chest X-Ray 11/24/16 0600 Signed Impressions: Service Date/Time: Thursday, November 24, 2016 05:32 - CONCLUSION: Stable bilateral pleural effusions with associated volume loss and/or airspace consolidation. Esau Matos MD Assessment and Plan Problem List: (1) Cardiogenic shock (2) Cardiomyopathy (3) CHF (congestive heart failure) (4) CKD (chronic kidney disease) stage 3, GFR 30-59 ml/min (5) Renal insufficiency (6) Anemia (7) A-fib (8) Chronic anticoagulation Assessment and Plan Good progress. Still requiring O2. Continue and titrate tx for CHF. Continue PO amio. Increase activity, continue PT. Transfer out of ICU. Problem Qualifiers (1) CHF (congestive heart failure): Qualified Code: I50.21 - Acute systolic congestive heart failure (2) Anemia: (3) A-fib: Qualified Code: I48.0 - Paroxysmal atrial fibrillation Nuria Linares MD Nov 24, 2016 15:46
[2016-11-24] MEDS: FUROSEMIDE 20 MG TAB PO SCH (18:47)
--- NOTE | 2016-11-24 19:40 | RADRPT ---
EXAM DATE/TIME: 11/24/2016 19:06 [facility] COMPARISON: No previous studies available for comparison. INDICATIONS : Increased lab values. MEDICAL HISTORY : Hypertension. Atrial fibrillation. Chronic kidney disease. Arthritis. Fibromyalgia. Carcinoma , skin. SURGICAL HISTORY : Tonsillectomy. Cholecystectomy. Hysterectomy. Right eye filter. Pacemaker. Dilation and curettage. Anal fissure repair. Right shoulder repair. ENCOUNTER: Initial ACUITY: 1 day PAIN SCORE: 0/10 LOCATION: Bilateral flank. MEASUREMENTS: RIGHT KIDNEY: 10.7 x 5.7 x 4.6 cm LEFT KIDNEY: 10.1 x 5.4 x 5.5 cm FINDINGS: RIGHT KIDNEY: Renal cortex is normal in thickness and echotexture. No hydronephrosis, stone, or mass. LEFT KIDNEY: Renal cortex is normal in thickness and echotexture. No hydronephrosis, stone, or mass. Moderate le ft pleural effusion. BLADDER: Within normal limits given the degree of distension. CONCLUSION: 1. Kidneys appear unremarkable. 2. Moderate left pleural effusion. Adrian Mae MD on November 24, 2016 at 19:37 Board Certified Radiologist. This report was verified electronically.
[2016-11-24] MEDS: LATANOPROST 0.005% OPHT SOLN 2.5 ML BTL EACH EYE SCH (20:54)
--- NOTE | 2016-11-24 21:01 | MB ---
cc: RICK HANSEN MD DATE OF CONSULTATION: 11/24/2016 REASON FOR CONSULTATION: Elevated BUN and creatinine HISTORY OF PRESENT ILLNESS This is an 81-year-old female with past medical history of atrial fibrillation, peripheral vascular disease, hypertension, hyperlipidemia, fibromyalgia, and chronic kidney disease, was admitted on November 20, with complaint of generalized weakness and shortness of breath. I was called to see the patient because of elevated BUN and creatinine. The patient is not a very good historian. She does not know if she has any renal disease. She is not oriented just awake and able to tell her name, and knows that she is in the hospital. Her creatinine on admission was 1.49 which has gone up now to 2.4. The patient has history of chronic kidney disease. Previously her creatinine has been in the range of 1.1 to 1.6. The patient denies any chest pain and breathing is better. She does not have any nausea or vomiting but she is not eating very good. The patient was given diuretics and her breathing improved. She was seen by cardiology the impression was to continue the treatment for her congestive heart failure. The patient has echocardiogram that shows that her ejection fraction is 25 to 30%. PAST MEDICAL HISTORY 1. Hypertension. 2. Hyperlipidemia 3. Chronic kidney disease 4. Congestive heart failure 5. Atrial fibrillation 6. Fibromyalgia. PAST SURGICAL HISTORY 1. Cholecystectomy. 2. Pacemaker placement 3. Hysterectomy 4. Tonsillectomy 5. Right eye surgery. REVIEW OF SYSTEMS Limited since she is not answering some of the questions. She has shortness of breath which is improved, mild cough which is mainly dry. No nausea, no vomiting. She has decreased appetite, not eating well. No abdominal pain. No history of diarrhea. SOCIAL HISTORY The patient is . There is no history of smoking or alcoholism. FAMILY HISTORY: Noncontributory. ALLERGIES She is ALLERGIC TO SULFA, TRIAMTERENE, DOXYCYCLINE, BACTRIM. MEDICATIONS: Currently she is on the following medications. 1. Amiodarone 100 mg b.i.d. 2. Katherine-Colace 1 tablet b.i.d. 3. Lasix 20 mg b.i.d. 4. Plaquenil 200 mg daily. 5. Aspirin 81 mg daily. 6. Xarelto 15 mg once a day. 7. Cefepime 1 gram q.24 h. 8. Morphine as needed. PHYSICAL EXAMINATION: The patient is awake, alert. She is not in acute distress. VITAL SIGNS: Blood pressure 104/72, her blood pressure at some point was as low as 84.4. HEENT: Pupils equally reacting to light. Nonicteric sclera. Conjunctiva pale. Neck: Supple. JVD is not elevated. Lungs: The patient has bilateral decreased air entry with basilar rales and scattered wheezing. Heart: S1-S2, regular rhythm. Abdomen: Distended, soft lax. There is no tenderness. Extremities: She has 1+ edema in both legs. INVESTIGATIONS: WBC count is 12.2, hemoglobin 10.5, platelet count 206, neutrophils 76.1%, sodium 137, potassium 3.5, chloride 93, bicarb 22.9, BUN 30, creatinine 2.4. AST is 43, ALT is 85, total protein is 5.4. Albumin is 2.3, PTT is 48.1. Urinalysis showing protein of 30. IMAGING STUDIES The patient had a chest x-ray done which shows bilateral pleural effusion. ASSESSMENT/PLAN 1. Chronic kidney disease with acute kidney injury. 2. Congestive heart failure and fluid overload status. 3. Hypotension and cardiogenic shock. 4. Atrial fibrillation 5. History of hypertension 6. Elevated liver enzymes. 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 Her ejection fraction was low. She has been nonoliguric. The sodium was also low because of the congestive heart failure. I agree with continuing the Lasix 20 milligrams twice a day and follow the urine output, BUN and creatinine. She is also getting antibiotics for possible bronchitis. The other etiology for acute kidney disease could be because of hypertension and acute tubular necrosis. Avoid any nephrotoxins and follow the urine output, the BUN and creatinine. Will get ultrasound of the kidneys. Thank you for the consultation. I will follow the patient while she is in the hospital. MD USHA Glod/ROGERS /6:29 PM /8:51 PM
[2016-11-24] MEDS: ACETAMINOPHEN/HYDROcodone 325 MG/5 MG TAB PO PRN (22:32)
[2016-11-24] MEDS: ONDANSETRON HCL 4 MG/2 ML VIAL IV PRN (22:32)
[2016-11-25] VITALS (17 sets, daily range): BP systolic 108–125; BP diastolic 56–75; PULSE 66–87; RESP 15–20; TEMP 97.5–98.9; O2SAT 92–98
[2016-11-25] MEDS: CHLORHEXIDINE GLUCONATE 2 % 1 PACK (2 CLOTHS) TOP SCH (03:39)
[2016-11-25] MEDS: CEFEPIME INJ 1,000 MG in SODIUM CHLORIDE 0.9% INJ 100 ML IV SCH (03:39)
[2016-11-25] MEDS: CHLORHEXIDINE 0.12% (ORAL KIT) 15 ML CUP MT SCH ×2 (08:00→20:00)
[2016-11-25 08:10] LABS: TOTAL PROTEIN SPE 5.3 GM/DL (6.0-7.6)
[2016-11-25] MEDS: SODIUM CHLORIDE 0.9% FLUSH 10 ML FLUSH IV FLUSH SCH ×2 (09:00→20:19)
[2016-11-25] MEDS: DOCUSATE SODIUM 50 MG/SENNA 8.6 MG TAB PO SCH ×2 (09:00→20:17)
[2016-11-25] MEDS: DORZOLAMIDE/TIMOLOL OPTH SOLN 10 ML BTL EACH EYE SCH ×2 (09:00→20:18)
[2016-11-25] MEDS: BRIMONIDINE TARTRATE 0.2% OPHT SOLN 5 ML BTL EACH EYE SCH ×2 (09:00→20:18)
[2016-11-25] MEDS: FUROSEMIDE 20 MG TAB PO SCH ×2 (09:29→17:57)
[2016-11-25] MEDS: HYDROXYCHLOROQUINE SULFATE 200 MG TAB PO SCH (09:29)
[2016-11-25] MEDS: ASPIRIN 81 MG CHEW TAB CHEW SCH (09:29)
[2016-11-25] MEDS: RIVAROXABAN 15 MG TAB PO SCH (09:30)
[2016-11-25] MEDS: AMIODARONE 200 MG TAB PO SCH ×2 (09:30→20:17)
[2016-11-25] MEDS: LATANOPROST 0.005% OPHT SOLN 2.5 ML BTL EACH EYE SCH ×2 (09:30→20:18)
[2016-11-25 11:18] LABS: ALBUMIN SPE 2.89 GM/DL (3.50-5.00); ALPHA 1 GLOBULIN 0.4 GM/DL (0.11-0.29); ALPHA 2 GLOBULIN 0.75 GM/DL (0.22-1.00); BETA GLOBULINS (SPE) 0.74 GM/DL (0.53-1.03)
--- NOTE | 2016-11-25 14:06 | HHI.PR ---
Subjective Remarks Follow-up for CHF exacerbation and kidney disease Patient denies any shortness of breathing. She continues to be on nasal cannula. Patient is sitting in chair beside stated that her back hurts because she's been sitting all morning. Her nurses is also at the bedside. Patient also asking to bring home medication from [facility] in regards to her canker sore. She stated that when she takes his medication it will raise works for her. Objective Vitals Vital Signs Date Time Temp Pulse Resp B/P Pulse Ox O2 Delivery O2 Flow Rate FiO2 11/25/16 12:00 98.8 74 17 115/75 95 11/25/16 12:00 74 11/25/16 10:00 76 11/25/16 08:38 96 Nasal Cannula 4.00 11/25/16 08:00 97.5 77 17 120/60 96 11/25/16 08:00 77 11/25/16 07:00 94 Nasal Cannula 5.00 11/25/16 06:00 71 11/25/16 04:00 98.9 70 20 115/56 98 11/25/16 02:00 71 11/25/16 00:00 66 11/25/16 00:00 97.8 87 16 108/57 95 11/24/16 23:32 20 11/24/16 23:18 96 Nasal Cannula 4.00 11/24/16 22:00 68 11/24/16 20:00 97.8 79 26 118/61 92 11/24/16 20:00 93 Nasal Cannula 4.00 11/24/16 20:00 79 11/24/16 18:00 72 11/24/16 16:00 75 11/24/16 16:00 98.5 64 22 104/72 94 11/24/16 14:00 73 I/O 11/24/16 11/24/16 11/24/16 11/25/16 11/25/16 11/25/16 07:00 15:00 23:00 07:00 15:00 23:00 Intake Total 231 ml 440 ml 200 ml 200 ml Output Total 325 ml 250 ml 350 ml 250 ml Balance -94 ml 190 ml -150 ml -50 ml Intake Oral 80 ml 440 ml 200 ml 200 ml IV Total 151 ml Output Urine Total 325 ml 250 ml 350 ml 250 ml Stool Total 0 ml 0 ml # Bowel Movements 4 2 Result Diagram: 11/24/16 0415 11/24/16 0415 Imaging Last Impressions Chest X-Ray 11/24/16 0600 Signed Impressions: Service Date/Time: Thursday, November 24, 2016 05:32 - CONCLUSION: Stable bilateral pleural effusions with associated volume loss and/or airspace consolidation. Esau Matos MD Renal Ultrasound 11/24/16 0000 Signed Impressions: Service Date/Time: Thursday, November 24, 2016 19:06 - CONCLUSION: 1. Kidneys appear unremarkable. 2. Moderate left pleural effusion. Adrian Mae MD Objective Remarks GENERAL: in NAD CARDIOVASCULAR: Regular rate and rhythm without murmurs, gallops, or rubs. RESPIRATORY: Breath sounds equal bilaterally. No accessory muscle use. GASTROINTESTINAL: Abdomen soft, non-tender, nondistended. MUSCULOSKELETAL: No cyanosis, or edema. BACK: Nontender without obvious deformity. No CVA tenderness. Medications and IVs Current Medications Sodium Chloride (NS Flush) 2 ml UNSCH PRN IVF FLUSH AFTER USING IV ACCESS; Start 11/20/16 at 00:15; Stop 11/20/16 at 02:21; Status DC Furosemide (Lasix Inj) 40 mg ONCE ONCE IV PUSH Last administered on 11/20/16t 01:43; Start 11/20/16 at 01:30; Stop 11/20/16 at 01:31; Status DC Furosemide (Lasix Inj) 40 mg BID@09,18 IV PUSH ; Start 11/20/16 at 09:00; Stop 11/20/16 at 09:00; Status DC Sodium Chloride (NS Flush) 2 ml UNSCH PRN IV FLUSH FLUSH AFTER USING IV ACCESS ; Start 11/20/16 at 02:15; Stop 11/20/16 at 05:17; Status DC Sodium Chloride (NS Flush) 2 ml BID IV FLUSH ; Start 11/20/16 at 09:00; Stop at 09:00; Status DC Ondansetron HCl (Zofran Inj) 4 mg Q6H PRN IVP NAUSEA OR VOMITING; Start at 02:15; Stop 11/20/16 at 05:19; Status DC Acetaminophen (Tylenol) 650 mg Q6H PRN PO FEVER/PAIN SCALE 1 TO 2; Start at 02:15; Stop 11/20/16 at 05:19; Status DC Acetaminophen/ Hydrocodone Bitart ([place] 5-325 Mg) 1 tab Q4H PRN PO PAIN SCALE 3 TO 5; Start 11/20/16 at 02:15; Stop 11/21/16 at 10:37; Status DC Morphine Sulfate (Morphine Inj) 2 mg Q3H PRN IV Pain 6-10; Start 11/20/16 at 02 :15 Senna/Docusate Sodium (Katherine-Colace) 1 tab BID PO ; Start 11/20/16 at 09:00; Stop 11/20/16 at 09:00; Status DC Magnesium Hydroxide (Milk Of Magnesia Liq) 30 ml Q12H PRN PO MILD - MODERATE CONSTIPATION; Start 11/20/16 at 02:15; Stop 11/20/16 at 10:35; Status DC Sennosides (Senokot) 17.2 mg Q12H PRN PO MODERATE - SEVERE CONSTIPATION; Start 11/20/16 at 02:15; Stop 11/20/16 at 05:19; Status DC Bisacodyl (Dulcolax Supp) 10 mg DAILY PRN RECTAL SEVERE CONSITIPATION; Start at 02:15; Stop 11/20/16 at 05:19; Status DC Lactulose (Lactulose Liq) 30 ml DAILY PRN PO SEVERE CONSITIPATION; Start at 02:15; Stop 11/20/16 at 05:19; Status DC Amiodarone HCl (Cordarone) 100 mg BID PO Last administered on 11/25/16 09:30; Start 11/20/16 at 09:00 Brimonidine Tartrate (Alphagan 0.2% Opth Soln) 1 drop BID EACH EYE Last administered on 11/25/16 09:00; Start 11/20/16 at 09:00 Dorzolamide/ Timolol (Cosopt 2-0.5% Opth Soln) 1 drop BID EACH EYE Last administered on 11/25/16 09:00; Start 11/20/16 at 09:00 Gabapentin (Neurontin) 600 mg HS PO ; Start 11/20/16 at 21:00; Status Hold Hydroxychloroquine Sulfate (Plaquenil) 200 mg DAILY PO Last administered on 09:29; Start 11/20/16 at 09:00 Hydroxyzine HCl (Atarax) 10 mg BID PO Last administered on 11/20/16 09:00; Start 11/20/16 at 09:00; Stop 11/20/16 at 10:35; Status DC Latanoprost (Xalatan 0.005% Opth Soln) 1 drop HS EACH EYE Last administered on 11/25/16 09:30; Start 11/20/16 at 21:00 Methocarbamol (Robaxin) 500 mg BID PO Last administered on 11/20/16 09:25; Start 11/20/16 at 09:00; Status Hold Rivaroxaban (Xarelto) 15 mg DAILY PO ; Start 11/20/16 at 09:00; Stop 11/20/16 at 10:11; Status DC Miscellaneous (Pill Splitter) 1 ea UNSCH PRN OTHER SEE LABEL COMMENTS; Start at 02:30 Albuterol/ Ipratropium (Duoneb Neb) 1 ampule ONCE ONCE INH Last administered on 11/20/16 03:04; Start 11/20/16 at 02:45; Stop 11/20/16 at 02:46; Status DC Nitroglycerin 1 inch 1 inch ONCE ONCE TOP Last administered on 11/20/16 02:48 ; Start 11/20/16 at 02:45; Stop 11/20/16 at 02:46; Status DC Cefepime HCl/ Sodium Chloride (Maxipime Inj/NS Inj) 100 ml @ 200 mls/hr ONCE ONCE IV Last administered on 11/20/16 03:42; Start 11/20/16 at 03:00; Stop at 03:29; Status DC Bumetanide 2 mg 2 mg ONCE ONCE IV PUSH Last administered on 11/20/16 04:34; Start 11/20/16 at 04:30; Stop 11/20/16 at 04:31; Status DC Dobutamine HCl/ Dextrose (DOBUTamine PREMIX DRIP) 250 ml @ 9.9 mls/hr Q24H IV Last administered on 11/20/16 05:14; Start 11/20/16 at 04:39; Stop 11/20/16 at 22:04; Status DC Bumetanide 1 mg 1 mg Q12H IV PUSH Last administered on 11/24/16 03:07; Start 11/20/16 at 16:00; Stop 11/24/16 at 09:15; Status DC Cefepime HCl/ Sodium Chloride (Maxipime Inj/NS Inj) 100 ml @ 200 mls/hr Q12H IV Last administered on 11/24/16 03:07; Start 11/20/16 at 16:00; Stop at 11:57; Status DC Heparin Sodium (Porcine) 4000 units 4,000 units ONCE ONCE IV Last administered on 11/20/16 09:23; Start 11/20/16 at 09:00; Stop 11/20/16 at 09:01 ; Status DC Heparin Sodium/ Dextrose (Heparin-D5W Inj) 250 ml @ 0 mls/hr TITRATE IV Last administered on 11/23/16 06:55; Start 11/20/16 at 05:15; Stop 11/24/16 at 09:17 ; Status DC Sodium Chloride (NS Flush) 2 ml UNSCH PRN IV FLUSH FLUSH AFTER USING IV ACCESS ; Start 11/20/16 at 05:15 Sodium Chloride (NS Flush) 2 ml BID IV FLUSH Last administered on 11/25/16 09: 00; Start 11/20/16 at 09:00 Acetaminophen (Tylenol) 650 mg Q6H PRN PO FEVER >101F; Start 11/20/16 at 05:15 Pantoprazole Sodium (Protonix Inj) 40 mg DAILY IV Last administered on 08:16; Start 11/20/16 at 09:00; Stop 11/24/16 at 09:17; Status DC Ondansetron HCl (Zofran Inj) 4 mg Q6H PRN IV NAUSEA OR VOMITING Last administered on 11/24/16 22:32; Start 11/20/16 at 05:15 Miscellaneous Information 1 Q361D XX ; Start 11/20/16 at 05:15 Chlorhexidine Gluconate (Chlorhexidine 2% Cloth) 3 pack Taper DAILY@04 TOP Last administered on 11/25/16 03:39; Start 11/21/16 at 04:00; Stop 11/17/17 at 03:59 Chlorhexidine Gluconate (Chlorhexidine 2% Cloth) 3 pack UNSCH PRN TOP HYGIENIC CARE; Start 11/20/16 at 05:15 Senna/Docusate Sodium (Katherine-Colace) 1 tab BID PO Last administered on 20:52; Start 11/20/16 at 09:00 Sennosides (Senokot) 17.2 mg Q12H PRN PO MODERATE - SEVERE CONSTIPATION; Start 11/20/16 at 05:15 Bisacodyl (Dulcolax Supp) 10 mg DAILY PRN RECTAL SEVERE CONSITIPATION; Start at 05:15; Stop 11/24/16 at 16:18; Status DC Lactulose (Lactulose Liq) 30 ml DAILY PRN PO SEVERE CONSITIPATION; Start at 05:15 Midazolam HCl (Versed Inj) 5 mg STK-MED ONCE .ROUTE ; Start 11/20/16 at 05:25; Stop 11/20/16 at 05:26; Status DC Etomidate (Amidate Inj) 20 mg STK-MED ONCE .ROUTE Last administered on 06:55; Start 11/20/16 at 05:28; Stop 11/20/16 at 05:29; Status DC Rocuronium [place] (Zemuron Inj) 50 mg STK-MED ONCE .ROUTE Last administered on 11/20/16 06:56; Start 11/20/16 at 05:29; Stop 11/20/16 at 05:30; Status DC Midazolam HCl 2 mg 2 mg ONCE ONCE IV PUSH Last administered on 11/20/16 05:52 ; Start 11/20/16 at 06:00; Stop 11/20/16 at 06:01; Status DC Fentanyl Citrate (fentaNYL DRIP) 250 ml @ 0 mls/hr TITRATE IV Last administered on 11/21/16 19:50; Start 11/20/16 at 06:00; Stop 11/23/16 at 18:20 ; Status DC Sodium Bicarbonate (Sodium Bicarbonate 8.4% Inj) 100 meq ONCE ONCE IV PUSH Last administered on 11/20/16 05:30; Start 11/20/16 at 07:00; Stop 11/20/16 at 07:01; Status DC Etomidate (Amidate Inj) 20 mg ONCE ONCE IV PUSH ; Start 11/20/16 at 07:00; Stop 11/20/16 at 07:01; Status DC Rocuronium [place] (Zemuron Inj) 50 mg BOLUS ONCE IV ; Start 11/20/16 at 07:00 ; Stop 11/20/16 at 07:01; Status DC Chlorhexidine Gluconate (Peridex 0.12% Liq) 15 ml BID@08,20 MT Last administered on 11/23/16 21:35; Start 11/20/16 at 20:00 Aspirin (Aspirin Chew) 81 mg DAILY CHEW Last administered on 11/25/16 09:29; Start 11/20/16 at 10:00 Dextrose (D50w (Syr) Inj) 50 ml UNSCH PRN IV HYPOGLYCEMIA-SEE COMMENTS Last administered on 11/20/16 17:49; Start 11/20/16 at 10:15 Glucagon (Glucagon Inj) 1 mg UNSCH PRN OTHER HYPOGLYCEMIA-SEE COMMENTS; Start 11/20/16 at 10:15; Stop 11/24/16 at 16:18; Status DC Insulin Aspart 1 1 Q6H SQ ; Start 11/20/16 at 10:15; Stop 11/24/16 at 16:18; Status DC Dobutamine HCl/ Dextrose 250 ml @ 9.9 mls/hr Q24H IV Last administered on 11/22 22:43; Start 11/20/16 at 22:02; Stop 11/23/16 at 18:20; Status DC Potassium Chloride 100 ml @ 50 mls/hr Q2H PRN IV For Potassium 2.8 - 3.2 mEq/ L Last administered on 11/22/16 02:42; Start 11/20/16 at 22:15; Stop 11/22/16 at 13:53; Status DC Potassium Chloride (KCl 20 Meq Premix Inj) 100 ml @ 50 mls/hr Q2H PRN IV For Potassium 2.8 - 3.2 mEq/L; Start 11/20/16 at 22:15; Stop 11/22/16 at 13:53; Status DC Potassium Bicarb/ Potassium Chloride 50 meq 50 meq UNSCH PRN PO For Potassium 3.3 - 3.5 mEq/L; Start 11/20/16 at 22:15; Stop 11/22/16 at 13:53; Status DC Potassium Chloride 100 ml @ 25 mls/hr UNSCH PRN IV For Potassium 3.3 - 3.5 mEq /L; Start 11/20/16 at 22:15; Stop 11/22/16 at 13:53; Status DC Potassium Chloride 100 ml @ 50 mls/hr Q2H PRN IV For Potassium 3.3 - 3.5 mEq/L ; Start 11/20/16 at 22:15; Stop 11/22/16 at 13:53; Status DC Magnesium Sulfate/ Sodium Chloride (Magnesium Sulfate Inj/NS Inj) 100 ml @ 50 mls/hr UNSCH PRN IV For Magnesium 0.9 - 1.1 mg/dL; Start 11/20/16 at 22:15; Stop 11/22/16 at 13:53; Status DC Magnesium Oxide 800 mg 800 mg UNSCH PRN PO For Magnesium 1.2 - 1.6 mg/dL; Start 11/20/16 at 22:15; Stop 11/22/16 at 13:53; Status DC Magnesium Sulfate/ Sodium Chloride (Magnesium Sulfate Inj/NS Inj) 100 ml @ 50 mls/hr UNSCH PRN IV For Magnesium 1.2 - 1.6 mg/dL Last administered on t 03:01; Start 11/20/16 at 22:15; Stop 11/22/16 at 13:53; Status DC Potassium Phosphate 2000 mg 2,000 mg Q4H PRN PO For Phosphorus < 2.5 mg/dL; Start 11/20/16 at 22:15; Stop 11/22/16 at 13:53; Status DC Sodium Phosphate/ Sodium Chloride (Sodium Phosphate Inj/NS 250 ml Inj) 250 ml @ 42 mls/hr UNSCH PRN IV For Phosphorus < 2.5 mg/dL; Start 11/20/16 at 22:15; Stop 11/22/16 at 13:53; Status DC Potassium Phosphate 2000 mg 2,000 mg UNSCH PRN PO/TUBE SEE LABEL COMMENTS; Start 11/20/16 at 22:15; Stop 11/22/16 at 13:53; Status DC Potassium Phosphate/Sodium Chloride (Potassium Phosphate Inj/NS 250 ml Inj) 260 ml @ 42 mls/hr UNSCH PRN IV SEE LABEL COMMENTS; Start 11/20/16 at 22:15; Stop 11/22/16 at 13:53; Status DC Albumin Human (Albumin 5% Inj) 12.5 gm NOW IV Last administered on 11/21/16 03 :15; Start 11/21/16 at 02:45; Stop 11/21/16 at 04:20; Status DC Acetaminophen/ Hydrocodone Bitart 1 tab 1 tab Q4H PRN PO any pain Last administered on 11/24/16 22:32; Start 11/21/16 at 10:15 Amiodarone HCl/ Dextrose (Cordarone Inj/ D5W ([place]) Inj) 259 ml @ 0 mls/hr CONTINUOUS IV Last administered on 11/22/16 22:31; Start 11/22/16 at 01:30; Stop 11/23/16 at 18:20; Status DC Bumetanide (Bumex Inj) 2 mg NOW ONCE IV PUSH Last administered on 11/22/16 13 :48; Start 11/22/16 at 13:45; Stop 11/22/16 at 13:47; Status DC Alteplase, Recombinant (Cathflo Activase Inj) 6 mg ONCE ONCE IV Last administered on 11/22/16 17:45; Start 11/22/16 at 17:15; Stop 11/22/16 at 17:16 ; Status DC Furosemide (Lasix) 20 mg BID@09,18 PO Last administered on 11/25/16 09:29; Start 11/24/16 at 18:00 Rivaroxaban 15 mg 15 mg DAILY PO Last administered on 11/25/16 09:30; Start at 11:00 Cefepime HCl/ Sodium Chloride (Maxipime Inj/NS Inj) 100 ml @ 200 mls/hr Q24H IV Last administered on 11/25/16 03:39; Start 11/25/16 at 03:00 A/P Problem List: (1) CHF (congestive heart failure) ICD Code: I50.9 Status: Acute (2) Cardiogenic shock ICD Code: R57.0 Status: Acute (3) Respiratory failure, acute ICD Code: J96.00 Status: Acute (4) A-fib ICD Code: I48.91 Status: Chronic (5) CKD (chronic kidney disease) stage 3, GFR 30-59 ml/min ICD Code: N18.3 Status: Chronic (6) HTN (hypertension) ICD Code: I10 Status: Chronic (7) Anemia ICD Code: D64.9 Status: Chronic (8) Cardiomyopathy ICD Code: I42.9 Status: Acute Assessment and Plan 81-year-old female who presented with acute respiratory failure Acute respiratory failure -Most likely secondary to pulmonary edema/bilateral pleural effusion due to CHF exacerbation. -Intubated 11/20. Extubated 11/22 -Patient doing well on nasal cannula see treatment as below. 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 Now on Lasix. -Strict ins and outs. -[employer] following. Echo EF 25-30%. -Continue amiodarone 100 mg by mouth twice a day. -Patient currently on Xarelto. -Continue with aspirin. Peripheral neuropathy -Hold Neurontin 600 qhs for now RACHID. Hold Robaxin 500 twice a day. Resume in 24 hours if stable -Minimize sedation Chronic kidney disease stage III, with acute worsening -[place] in place for strict ins and outs. -He continues have good urine output. [employer] is following. Questionable cardiorenal. Hyponatremia secondary to CHF and volume overload state. -Continue the trend. Patient is asymptomatic. Questionable pneumonia -Continue with cefepime. Clinically she is doing well. May consider DC antibiotics tomorrow. -All cultures negative to date-UA is negative for evidence of infection. Chronic anemia/Chronic anticoagulation with Xarelto due to atrial fibrillation -Status post heparin drip. Patient is on Xarelto. Glaucoma -Continue Latanoprost/Alphagan/Cosopt ophthalmic as prescribed. Acute stress hyperglycemia. Low-dose insulin sliding scale with bedside glucose monitoring every 6 hours PROPH: Patients on Xarelto. Problem Qualifiers (1) CHF (congestive heart failure): Qualified Code: I50.21 - Acute systolic congestive heart failure (2) A-fib: Qualified Code: I48.0 - Paroxysmal atrial fibrillation (3) Anemia: Zoie Lewis MD Nov 25, 2016 14:06
--- NOTE | 2016-11-25 16:20 | HHI.NPPN ---
Subjective History of Present Illness 81-year-old female with past medical history of atrial fibrillation, peripheral vascular disease, hypertension, hyperlipidemia, fibromyalgia, and chronic kidney disease, was admitted on November 20, with complaint of generalized weakness and shortness of breath. I was called to see the patient because of elevated BUN and creatinine. Additional Remarks Patient is more alert, sitting on chair, feeling better. Review of Systems General Constitutional: Fatigue Respiratory Lungs: SOB Cardiovascular Cardiac: Edema, ESP[place]A Objective Data Data 11/24/16 11/25/16 19:00 07:00 Intake Total 440 ml 400 ml Output Total 250 ml 600 ml Balance 190 ml -200 ml Intake Oral 440 ml 400 ml Output Urine Total 250 ml 600 ml Stool Total 0 ml # Bowel Movements 6 Vital Signs Date Time Temp Pulse Resp B/P Pulse Ox O2 Delivery O2 Flow Rate FiO2 11/25/16 16:00 97.5 74 15 125/73 92 11/25/16 16:00 79 11/25/16 14:00 78 11/25/16 12:00 98.8 74 17 115/75 95 11/25/16 12:00 74 11/25/16 10:00 76 11/25/16 08:38 96 Nasal Cannula 4.00 11/25/16 08:00 97.5 77 17 120/60 96 11/25/16 08:00 77 11/25/16 07:00 94 Nasal Cannula 5.00 11/25/16 06:00 71 11/25/16 04:00 98.9 70 20 115/56 98 11/25/16 02:00 71 11/25/16 00:00 66 11/25/16 00:00 97.8 87 16 108/57 95 11/24/16 23:32 20 11/24/16 23:18 96 Nasal Cannula 4.00 11/24/16 22:00 68 11/24/16 20:00 97.8 79 26 118/61 92 11/24/16 20:00 93 Nasal Cannula 4.00 11/24/16 20:00 79 11/24/16 18:00 72 -: 11/24/16 0415 11/24/16 0415 Physical Exam General Appearance: No Acute Distress, Comfortable Eyes Eye Exam: Pupils Equal Throat Throat Exam: Oral Mucosa [place] Moist Neck Neck Exam: Neck Supple Pulmonary Resp Exam: Breath Sounds Equal, No Distress, Rhonchi, Decreased Bases Cardiology CV Exam: Regular, Normal Sinus Rhythm Gastrointestinal/Abdomen GI Exam: Soft, Non-Tender, Bowel Sounds Present Extremeties Extremities Exam: Trace Edema Neurologic Neuro Exam: Alert, Awake, Oriented Psychiatric Psych Exam: Appropriate Responses Assessment/Plan Assessment Summary: RACHID/Acute Renal Failure, Fluid/Volume Overload, CKD Stage III Problem List: (1) Respiratory distress (2) CHF (congestive heart failure) (3) HTN (hypertension) (4) A-fib (5) CKD (chronic kidney disease) stage 3, GFR 30-59 ml/min (6) Acute kidney injury Plan Patient has been non oliguric. Creatinine baseline is close to 1.4-1.5. U/S kidneys noted. No new BMP. Continue Lasix, follow the urine out put and BMP. Avoid Nephrotoxins. Problem Qualifiers (1) CHF (congestive heart failure): Qualified Code: I50.21 - Acute systolic congestive heart failure (2) A-fib: Qualified Code: I48.0 - Paroxysmal atrial fibrillation Matias Barrera MD Nov 25, 2016 16:20
--- NOTE | 2016-11-25 19:03 | PD.CARD.PN ---
Subjective Subjective Remarks No CP or SOB, feels better Objective Medications Current Medications Medications (Trade) Dose Ordered Sig/Malika Route Start Time Stop Time Status Last Admin (Morphine Inj) 2 mg Q3H PRN IV 11/20/16 02:15 (Cordarone) 100 mg BID PO 11/20/16 09:00 11/25/16 09:30 (Alphagan 0.2% Opth Soln) 1 drop BID EACH EYE 11/20/16 09:00 11/25/16 09:00 (Cosopt 2-0.5% Opth Soln) 1 drop BID EACH EYE 11/20/16 09:00 11/25/16 09:00 (Neurontin) 600 mg HS PO 11/20/16 21:00 Hold (Plaquenil) 200 mg DAILY PO 11/20/16 09:00 11/25/16 09:29 (Xalatan 0.005% Opth Soln) 1 drop HS EACH EYE 11/20/16 21:00 11/25/16 09:30 (Robaxin) 500 mg BID PO 11/20/16 09:00 Hold 11/20/16 09:25 (Pill Splitter) 1 ea UNSCH PRN OTHER 11/20/16 02:30 (NS Flush) 2 ml UNSCH PRN IV FLUSH 11/20/16 05:15 (NS Flush) 2 ml BID IV FLUSH 11/20/16 09:00 11/25/16 09:00 (Tylenol) 650 mg Q6H PRN PO 11/20/16 05:15 (Zofran Inj) 4 mg Q6H PRN IV 11/20/16 05:15 11/24/16 22:32 Miscellaneous Information 1 Q361D XX 11/20/16 05:15 (Chlorhexidine 2% Cloth) 3 pack Taper DAILY@04 TOP 11/21/16 04:00 11/17/17 03:59 11/25/16 03:39 (Chlorhexidine 2% Cloth) 3 pack UNSCH PRN TOP 11/20/16 05:15 (Katherine-Colace) 1 tab BID PO 11/20/16 09:00 11/24/16 20:52 (Senokot) 17.2 mg Q12H PRN PO 11/20/16 05:15 (Lactulose Liq) 30 ml DAILY PRN PO 11/20/16 05:15 (Peridex 0.12% Liq) 15 ml BID@08,20 MT 11/20/16 20:00 11/23/16 21:35 (Aspirin Chew) 81 mg DAILY CHEW 11/20/16 10:00 11/25/16 09:29 (D50w (Syr) Inj) 50 ml UNSCH PRN IV 11/20/16 10:15 11/20/16 17:49 (Frankewing 5-325 Mg) 1 tab Q4H PRN PO 11/21/16 10:15 11/24/16 22:32 (Lasix) 20 mg BID@09,18 PO 11/24/16 18:00 11/25/16 17:57 Rivaroxaban 15 mg 15 mg DAILY PO 11/24/16 11:00 11/25/16 09:30 (Maxipime Inj/NS Inj) 100 ml @ 200 mls/hr Q24H IV 11/25/16 03:00 11/25/16 03:39 Vital Signs / I&O Vital Signs Date Time Temp Pulse Resp B/P Pulse Ox O2 Delivery O2 Flow Rate FiO2 11/25/16 18:00 83 11/25/16 17:34 97 Nasal Cannula 4.00 11/25/16 16:00 97.5 74 15 125/73 92 11/25/16 16:00 79 11/25/16 14:00 78 11/25/16 12:00 98.8 74 17 115/75 95 11/25/16 12:00 74 11/25/16 10:00 76 11/25/16 08:38 96 Nasal Cannula 4.00 11/25/16 08:00 97.5 77 17 120/60 96 11/25/16 08:00 77 11/25/16 07:00 94 Nasal Cannula 5.00 11/25/16 06:00 71 11/25/16 04:00 98.9 70 20 115/56 98 11/25/16 02:00 71 11/25/16 00:00 66 11/25/16 00:00 97.8 87 16 108/57 95 11/24/16 23:32 20 11/24/16 23:18 96 Nasal Cannula 4.00 11/24/16 22:00 68 11/24/16 20:00 97.8 79 26 118/61 92 11/24/16 20:00 93 Nasal Cannula 4.00 11/24/16 20:00 79 I/O 11/24/16 11/24/16 11/24/16 11/25/16 11/25/16 11/25/16 07:00 15:00 23:00 07:00 15:00 23:00 Intake Total 231 ml 440 ml 200 ml 200 ml 480 ml Output Total 325 ml 250 ml 350 ml 250 ml 300 ml Balance -94 ml 190 ml -150 ml -50 ml 180 ml Intake Oral 80 ml 440 ml 200 ml 200 ml 480 ml IV Total 151 ml Output Urine Total 325 ml 250 ml 350 ml 250 ml 300 ml Stool Total 0 ml 0 ml # Bowel Movements 4 2 2 Physical Exam GENERAL: In NAD, on O2 SKIN: Warm and dry. HEAD: Normocephalic. EYES: No scleral icterus. No injection or drainage. NECK: Supple, trachea midline. No JVD or lymphadenopathy. CARDIOVASCULAR: Regular rate and rhythm with syst and diast murmurs, no gallops , or rubs. RESPIRATORY: Breath sounds equal bilaterally. No accessory muscle use. GASTROINTESTINAL: Abdomen soft, non-tender, nondistended. MUSCULOSKELETAL: No cyanosis, trace ankle edema. Laboratory Laboratory Tests Test 11/25/16 04:17 Total Protein 5.3 GM/DL Albumin 2.89 GM/DL Albumin/Globulin Ratio 1.20 Ckxsv-8-Pigtpqnuv 0.40 GM/DL Qcozx-5-Oeyyxqmov 0.75 GM/DL Beta Globulins 0.74 GM/DL Gamma Globulins 0.52 GM/DL Electrophoresis Pathologist Comment Imaging Last Impressions Chest X-Ray 11/24/16 0600 Signed Impressions: Service Date/Time: Thursday, November 24, 2016 05:32 - CONCLUSION: Stable bilateral pleural effusions with associated volume loss and/or airspace consolidation. Esau Matos MD Renal Ultrasound 11/24/16 0000 Signed Impressions: Service Date/Time: Thursday, November 24, 2016 19:06 - CONCLUSION: 1. Kidneys appear unremarkable. 2. Moderate left pleural effusion. Adrian Mae MD Assessment and Plan Problem List: (1) Cardiogenic shock (2) Cardiomyopathy (3) CHF (congestive heart failure) (4) CKD (chronic kidney disease) stage 3, GFR 30-59 ml/min (5) Renal insufficiency (6) Anemia (7) A-fib (8) Chronic anticoagulation Assessment and Plan No new cardiac issues, stays in SR. Still requiring O2, wean as tolerated. Continue and titrate tx for CHF. Continue PO amio. Increase activity, continue PT. OK to transfer out of ICU. Problem Qualifiers (1) CHF (congestive heart failure): Qualified Code: I50.21 - Acute systolic congestive heart failure (2) Anemia: (3) A-fib: Qualified Code: I48.0 - Paroxysmal atrial fibrillation Nuria Linares MD Nov 25, 2016 19:03
[2016-11-26] VITALS (23 sets, daily range): BP systolic 108–136; BP diastolic 44–71; PULSE 68–95; RESP 16–22; TEMP 97.8–98.6; O2SAT 84–99
[2016-11-26] MEDS: CEFEPIME INJ 1,000 MG in SODIUM CHLORIDE 0.9% INJ 100 ML IV SCH (03:43)
[2016-11-26] MEDS: CHLORHEXIDINE GLUCONATE 2 % 1 PACK (2 CLOTHS) TOP SCH (04:00)
[2016-11-26 06:21] LABS: BICARBONATE 20.2 MEQ/L (21.0-32.0); POTASSIUM 3.6 MEQ/L (3.5-5.1)
[2016-11-26] MEDS: CHLORHEXIDINE 0.12% (ORAL KIT) 15 ML CUP MT SCH ×2 (07:32→20:00)
[2016-11-26] MEDS: RIVAROXABAN 15 MG TAB PO SCH (07:54)
[2016-11-26] MEDS: AMIODARONE 200 MG TAB PO SCH ×2 (07:54→20:35)
[2016-11-26] MEDS: ASPIRIN 81 MG CHEW TAB CHEW SCH (07:54)
[2016-11-26] MEDS: FUROSEMIDE 20 MG TAB PO SCH ×2 (07:54→16:48)
[2016-11-26] MEDS: DORZOLAMIDE/TIMOLOL OPTH SOLN 10 ML BTL EACH EYE SCH ×2 (07:55→20:34)
[2016-11-26] MEDS: DOCUSATE SODIUM 50 MG/SENNA 8.6 MG TAB PO SCH ×2 (07:56→20:35)
[2016-11-26] MEDS: BRIMONIDINE TARTRATE 0.2% OPHT SOLN 5 ML BTL EACH EYE SCH ×2 (07:56→20:34)
[2016-11-26] MEDS: SODIUM CHLORIDE 0.9% FLUSH 10 ML FLUSH IV FLUSH SCH ×2 (07:56→20:34)
[2016-11-26] MEDS: HYDROXYCHLOROQUINE SULFATE 200 MG TAB PO SCH (07:59)
[2016-11-26 08:00] LABS: MEAN CELL VOLUME 88.8 FL (80.0-100.0); MEAN CORPUSCULAR HEMOGLOBIN 28.7 PG (27.0-34.0); MEAN CORPUSCULAR HGB CONC 32.4 % (32.0-36.0); PLATELET COUNT 202 TH/MM3 (150-450); RED BLOOD COUNT 3.83 MIL/MM3 (4.00-5.30); REVIEW FLAG FINAL; WHITE BLOOD COUNT 14.2 TH/MM3 (4.0-11.0)
--- NOTE | 2016-11-26 12:41 | PD.CARD.PN ---
Subjective Subjective Remarks No CP or SOB, did not sleep well last night Objective Medications Current Medications Medications (Trade) Dose Ordered Sig/Malika Route Start Time Stop Time Status Last Admin (Morphine Inj) 2 mg Q3H PRN IV 11/20/16 02:15 (Cordarone) 100 mg BID PO 11/20/16 09:00 11/26/16 07:54 (Alphagan 0.2% Opth Soln) 1 drop BID EACH EYE 11/20/16 09:00 11/26/16 07:56 (Cosopt 2-0.5% Opth Soln) 1 drop BID EACH EYE 11/20/16 09:00 11/26/16 07:55 (Neurontin) 600 mg HS PO 11/20/16 21:00 Hold (Plaquenil) 200 mg DAILY PO 11/20/16 09:00 11/25/16 09:29 (Xalatan 0.005% Opth Soln) 1 drop HS EACH EYE 11/20/16 21:00 11/25/16 20:18 (Robaxin) 500 mg BID PO 11/20/16 09:00 Hold 11/20/16 09:25 (Pill Splitter) 1 ea UNSCH PRN OTHER 11/20/16 02:30 (NS Flush) 2 ml UNSCH PRN IV FLUSH 11/20/16 05:15 (NS Flush) 2 ml BID IV FLUSH 11/20/16 09:00 11/26/16 07:56 (Tylenol) 650 mg Q6H PRN PO 11/20/16 05:15 (Zofran Inj) 4 mg Q6H PRN IV 11/20/16 05:15 11/24/16 22:32 Miscellaneous Information 1 Q361D XX 11/20/16 05:15 (Chlorhexidine 2% Cloth) Taper DAILY@04 TOP 11/21/16 04:00 11/17/17 03:59 11/25/16 03:39 (Chlorhexidine 2% Cloth) 3 pack UNSCH PRN TOP 11/20/16 05:15 (Katherine-Colace) 1 tab BID PO 11/20/16 09:00 11/24/16 20:52 (Senokot) 17.2 mg Q12H PRN PO 11/20/16 05:15 (Lactulose Liq) 30 ml DAILY PRN PO 11/20/16 05:15 (Peridex 0.12% Liq) 15 ml BID@08,20 MT 11/20/16 20:00 11/23/16 21:35 (Aspirin Chew) 81 mg DAILY CHEW 11/20/16 10:00 11/26/16 07:54 (D50w (Syr) Inj) 50 ml UNSCH PRN IV 11/20/16 10:15 11/20/16 17:49 (Senatobia 5-325 Mg) 1 tab Q4H PRN PO 11/21/16 10:15 11/24/16 22:32 (Lasix) 20 mg BID@09,18 PO 11/24/16 18:00 11/26/16 07:54 Rivaroxaban 15 mg 15 mg DAILY PO 11/24/16 11:00 11/26/16 07:54 (Maxipime Inj/NS Inj) 100 ml @ 200 mls/hr Q24H IV 11/25/16 03:00 11/26/16 03:43 Vital Signs / I&O Vital Signs Date Time Temp Pulse Resp B/P Pulse Ox O2 Delivery O2 Flow Rate FiO2 11/26/16 12:00 75 11/26/16 12:00 98.6 74 19 108/51 95 11/26/16 12:00 Nasal Cannula 3.00 11/26/16 11:00 72 11/26/16 10:19 93 Nasal Cannula 3.00 11/26/16 10:00 70 11/26/16 09:00 80 11/26/16 08:00 98.2 80 16 123/60 94 11/26/16 08:00 Nasal Cannula 3.00 11/26/16 08:00 78 11/26/16 07:00 78 11/26/16 06:00 76 11/26/16 05:00 76 11/26/16 04:00 97 Nasal Cannula 3.00 11/26/16 04:00 68 11/26/16 04:00 98.1 78 18 115/44 95 11/26/16 02:00 69 11/26/16 01:00 93 11/26/16 00:00 95 11/25/16 23:00 75 11/25/16 23:00 97.8 73 18 109/57 95 11/25/16 22:18 78 11/25/16 21:45 93 Nasal Cannula 3.00 11/25/16 21:45 98.2 77 18 116/64 93 11/25/16 21:09 95 Nasal Cannula 3.00 11/25/16 20:00 81 11/25/16 20:00 97.9 81 20 116/56 93 11/25/16 19:00 93 Nasal Cannula 3.00 11/25/16 18:00 83 11/25/16 17:34 97 Nasal Cannula 4.00 11/25/16 16:00 97.5 74 15 125/73 92 11/25/16 16:00 79 11/25/16 14:00 78 I/O 11/25/16 11/25/16 11/25/16 11/26/16 11/26/16 11/26/16 06:59 14:59 22:59 06:59 14:59 22:59 Intake Total 200 ml 480 ml 400 ml 240 ml Output Total 250 ml 300 ml 350 ml 200 ml Balance -50 ml 180 ml 50 ml 40 ml Intake Oral 200 ml 480 ml 400 ml 240 ml Output Urine Total 250 ml 300 ml 350 ml 200 ml # Bowel Movements 2 2 0 Physical Exam GENERAL: In NAD, on O2 SKIN: Warm and dry. HEAD: Normocephalic. EYES: No scleral icterus. No injection or drainage. NECK: Supple, trachea midline. No JVD or lymphadenopathy. CARDIOVASCULAR: Regular rate and rhythm with syst and diast murmurs, no gallops , or rubs. RESPIRATORY: Breath sounds equal bilaterally. No accessory muscle use. GASTROINTESTINAL: Abdomen soft, non-tender, nondistended. MUSCULOSKELETAL: No cyanosis, trace ankle edema. Laboratory Laboratory Tests Test 11/26/16 03:59 White Blood Count 14.2 TH/MM3 Red Blood Count 3.83 MIL/MM3 Hemoglobin 11.0 GM/DL Hematocrit 34.0 % Mean Corpuscular Volume 88.8 FL Mean Corpuscular Hemoglobin 28.7 PG Mean Corpuscular Hemoglobin 32.4 % Concent Red Cell Distribution Width 14.0 % Platelet Count 202 TH/MM3 Mean Platelet Volume 8.6 FL Sodium Level 124 MEQ/L Potassium Level 3.6 MEQ/L Chloride Level 91 MEQ/L Carbon Dioxide Level 20.2 MEQ/L Anion Gap 13 MEQ/L Blood Urea Nitrogen 38 MG/DL Creatinine 2.50 MG/DL Estimat Glomerular Filtration 18 ML/MIN Rate Random Glucose 93 MG/DL Calcium Level 9.4 MG/DL Imaging Last Impressions Chest X-Ray 11/24/16 0600 Signed Impressions: Service Date/Time: Thursday, November 24, 2016 05:32 - CONCLUSION: Stable bilateral pleural effusions with associated volume loss and/or airspace consolidation. Esau Matos MD Renal Ultrasound 11/24/16 0000 Signed Impressions: Service Date/Time: Thursday, November 24, 2016 19:06 - CONCLUSION: 1. Kidneys appear unremarkable. 2. Moderate left pleural effusion. Adrian Mae MD Assessment and Plan Problem List: (1) Cardiogenic shock (2) Cardiomyopathy (3) CHF (congestive heart failure) (4) CKD (chronic kidney disease) stage 3, GFR 30-59 ml/min (5) Renal insufficiency (6) Anemia (7) A-fib (8) Chronic anticoagulation Assessment and Plan Remains stable. No new cardiac issues, stays in SR. Still requiring O2, wean as tolerated. Continue and titrate tx for CHF. Continue PO amio for sinus maintenance. Increase activity, continue PT. Problem Qualifiers (1) CHF (congestive heart failure): Qualified Code: I50.21 - Acute systolic congestive heart failure (2) Anemia: (3) A-fib: Qualified Code: I48.0 - Paroxysmal atrial fibrillation Nuria Linares MD Nov 26, 2016 12:41
[2016-11-26] MEDS: ONDANSETRON HCL 4 MG/2 ML VIAL IV PRN (13:17)
--- NOTE | 2016-11-26 13:40 | HHI.PR ---
Subjective Remarks Follow-up for CHF exacerbation and renal failure Patient stated that she had an awful night. She stated that she had a roommate who had a TV on all night in which she could not sleep. She denies any shortness of breathing or cough. She remains on nasal cannula. Patient also remains afebrile. Denied any neurological symptoms. Denies any fatigue or generalized weakness. Objective Vitals Vital Signs Date Time Temp Pulse Resp B/P Pulse Ox O2 Delivery O2 Flow Rate FiO2 11/26/16 12:00 75 11/26/16 12:00 98.6 74 19 108/51 95 11/26/16 12:00 Nasal Cannula 3.00 11/26/16 11:00 72 11/26/16 10:19 93 Nasal Cannula 3.00 11/26/16 10:00 70 11/26/16 09:00 80 11/26/16 08:00 98.2 80 16 123/60 94 11/26/16 08:00 Nasal Cannula 3.00 11/26/16 08:00 78 11/26/16 07:00 78 11/26/16 06:00 76 11/26/16 05:00 76 11/26/16 04:00 97 Nasal Cannula 3.00 11/26/16 04:00 68 11/26/16 04:00 98.1 78 18 115/44 95 11/26/16 02:00 69 11/26/16 01:00 93 11/26/16 00:00 95 11/25/16 23:00 75 11/25/16 23:00 97.8 73 18 109/57 95 11/25/16 22:18 78 11/25/16 21:45 93 Nasal Cannula 3.00 11/25/16 21:45 98.2 77 18 116/64 93 11/25/16 21:09 95 Nasal Cannula 3.00 11/25/16 20:00 81 11/25/16 20:00 97.9 81 20 116/56 93 11/25/16 19:00 93 Nasal Cannula 3.00 11/25/16 18:00 83 11/25/16 17:34 97 Nasal Cannula 4.00 11/25/16 16:00 97.5 74 15 125/73 92 11/25/16 16:00 79 11/25/16 14:00 78 I/O 7/11/25/16 11/25/16 11/26/16 11/26/16 11/26/16 07:00 15:00 23:00 07:00 15:00 23:00 Intake Total 200 ml 480 ml 400 ml 240 ml Output Total 250 ml 300 ml 350 ml 200 ml Balance -50 ml 180 ml 50 ml 40 ml Intake Oral 200 ml 480 ml 400 ml 240 ml Output Urine Total 250 ml 300 ml 350 ml 200 ml # Bowel Movements 2 2 0 Result Diagram: 11/26/16 0359 11/26/16 0359 Imaging Last Impressions Chest X-Ray 11/24/16 0600 Signed Impressions: Service Date/Time: Thursday, November 24, 2016 05:32 - CONCLUSION: Stable bilateral pleural effusions with associated volume loss and/or airspace consolidation. Esau Matos MD Renal Ultrasound 11/24/16 0000 Signed Impressions: Service Date/Time: Thursday, November 24, 2016 19:06 - CONCLUSION: 1. Kidneys appear unremarkable. 2. Moderate left pleural effusion. Adrian Mae MD Objective Remarks GENERAL: in NAD CARDIOVASCULAR: Regular rate and rhythm without murmurs, gallops, or rubs. RESPIRATORY: Breath sounds equal bilaterally. No accessory muscle use. GASTROINTESTINAL: Abdomen soft, non-tender, nondistended. MUSCULOSKELETAL: No cyanosis, or edema. BACK: Nontender without obvious deformity. No CVA tenderness. Medications and IVs Current Medications Sodium Chloride (NS Flush) 2 ml UNSCH PRN IVF FLUSH AFTER USING IV ACCESS; Start 11/20/16 at 00:15; Stop 11/20/16 at 02:21; Status DC Furosemide (Lasix Inj) 40 mg ONCE ONCE IV PUSH Last administered on 11/20/16t 01:43; Start 11/20/16 at 01:30; Stop 11/20/16 at 01:31; Status DC Furosemide (Lasix Inj) 40 mg BID@,18 IV PUSH ; Start 11/20/16 at 09:00; Stop 11/20/16 at 09:00; Status DC Sodium Chloride (NS Flush) 2 ml UNSCH PRN IV FLUSH FLUSH AFTER USING IV ACCESS ; Start 11/20/16 at 02:15; Stop 11/20/16 at 05:17; Status DC Sodium Chloride (NS Flush) 2 ml BID IV FLUSH ; Start 11/20/16 at 09:00; Stop at 09:00; Status DC Ondansetron HCl (Zofran Inj) 4 mg Q6H PRN IVP NAUSEA OR VOMITING; Start at 02:15; Stop 11/20/16 at 05:19; Status DC Acetaminophen (Tylenol) 650 mg Q6H PRN PO FEVER/PAIN SCALE 1 TO 2; Start at 02:15; Stop 11/20/16 at 05:19; Status DC Acetaminophen/ Hydrocodone Bitart ([place] 5-325 Mg) 1 tab Q4H PRN PO PAIN SCALE 3 TO 5; Start 11/20/16 at 02:15; Stop 11/21/16 at 10:37; Status DC Morphine Sulfate (Morphine Inj) 2 mg Q3H PRN IV Pain 6-10; Start 11/20/16 at 02 :15 Senna/Docusate Sodium ([place]atherine-Colace) 1 tab BID PO ; Start 11/20/16 at 09:00; Stop 11/20/16 at 09:00; Status DC Magnesium Hydroxide (Milk Of Magnesia Liq) 30 ml Q12H PRN PO MILD - MODERATE CONSTIPATION; Start 11/20/16 at 02:15; Stop 11/20/16 at 10:35; Status DC Sennosides (Senokot) 17.2 mg Q12H PRN PO MODERATE - SEVERE CONSTIPATION; Start 11/20/16 at 02:15; Stop 11/20/16 at 05:19; Status DC Bisacodyl (Dulcolax Supp) 10 mg DAILY PRN RECTAL SEVERE CONSITIPATION; Start at 02:15; Stop 11/20/16 at 05:19; Status DC Lactulose (Lactulose Liq) 30 ml DAILY PRN PO SEVERE CONSITIPATION; Start at 02:15; Stop 11/20/16 at 05:19; Status DC Amiodarone HCl (Cordarone) 100 mg BID PO Last administered on 11/26/16 07:54; Start 11/20/16 at 09:00 Brimonidine Tartrate (Alphagan 0.2% Opt Soln) 1 drop BID EACH EYE Last administered on 11/26/16 07:56; Start 11/20/16 at 09:00 Dorzolamide/ Timolol (Cosopt 2-0.5% Opt Soln) 1 drop BID EACH EYE Last administered on 11/26/16 07:55; Start 11/20/16 at 09:00 Gabapentin (Neurontin) 600 mg HS PO ; Start 11/20/16 at 21:00; Status Hold Hydroxychloroquine Sulfate (Plaquenil) 200 mg DAILY PO Last administered on 09:29; Start 11/20/16 at 09:00 Hydroxyzine HCl (Atarax) 10 mg BID PO Last administered on 11/20/16 09:00; Start 11/20/16 at 09:00; Stop 11/20/16 at 10:35; Status DC Latanoprost (Xalatan 0.005% Opt Soln) 1 drop HS EACH EYE Last administered on 11/25/16 20:18; Start 11/20/16 at 21:00 Methocarbamol (Robaxin) 500 mg BID PO Last administered on 11/20/16 09:25; Start 11/20/16 at 09:00; Status Hold Rivaroxaban (Xarelto) 15 mg DAILY PO ; Start 11/20/16 at 09:00; Stop 11/20/16 at 10:11; Status DC Miscellaneous (Pill Splitter) 1 ea UNSCH PRN OTHER SEE LABEL COMMENTS; Start at 02:30 Albuterol/ Ipratropium (Duoneb Neb) 1 ampule ONCE ONCE INH Last administered on 11/20/16 03:04; Start 11/20/16 at 02:45; Stop 11/20/16 at 02:46; Status DC Nitroglycerin 1 inch 1 inch ONCE ONCE TOP Last administered on 11/20/16 02:48 ; Start 11/20/16 at 02:45; Stop 11/20/16 at 02:46; Status DC Cefepime HCl/ Sodium Chloride (Maxipime Inj/NS Inj) 100 ml @ 200 mls/hr ONCE ONCE IV Last administered on 11/20/16 03:42; Start 11/20/16 at 03:00; Stop at 03:29; Status DC Bumetanide 2 mg 2 mg ONCE ONCE IV PUSH Last administered on 11/20/16 04:34; Start 11/20/16 at 04:30; Stop 11/20/16 at 04:31; Status DC Dobutamine HCl/ Dextrose (DOBUTamine PREMIX DRIP) 250 ml @ 9.9 mls/hr Q24H IV Last administered on 11/20/16 05:14; Start 11/20/16 at 04:39; Stop 11/20/16 at 22:04; Status DC Bumetanide 1 mg 1 mg Q12H IV PUSH Last administered on 11/24/16 03:07; Start 11/20/16 at 16:00; Stop 11/24/16 at 09:15; Status DC Cefepime HCl/ Sodium Chloride (Maxipime Inj/NS Inj) 100 ml @ 200 mls/hr Q12H IV Last administered on 11/24/16 03:07; Start 11/20/16 at 16:00; Stop at 11:57; Status DC Heparin Sodium (Porcine) 4000 units 4,000 units ONCE ONCE IV Last administered on 11/20/16 09:23; Start 11/20/16 at 09:00; Stop 11/20/16 at 09:01 ; Status DC Heparin Sodium/ Dextrose (Heparin-D5W Inj) 250 ml @ 0 mls/hr TITRATE IV Last administered on 11/23/16 06:55; Start 11/20/16 at 05:15; Stop 11/24/16 at 09:17 ; Status DC Sodium Chloride (NS Flush) 2 ml UNSCH PRN IV FLUSH FLUSH AFTER USING IV ACCESS ; Start 11/20/16 at 05:15 Sodium Chloride (NS Flush) 2 ml BID IV FLUSH Last administered on 11/26/16 07: 56; Start 11/20/16 at 09:00 Acetaminophen (Tylenol) 650 mg Q6H PRN PO FEVER >101F; Start 11/20/16 at 05:15 Pantoprazole Sodium (Protonix Inj) 40 mg DAILY IV Last administered on 08:16; Start 11/20/16 at 09:00; Stop 11/24/16 at 09:17; Status DC Ondansetron HCl (Zofran Inj) 4 mg Q6H PRN IV NAUSEA OR VOMITING Last administered on 11/26/16 13:17; Start 11/20/16 at 05:15 Miscellaneous Information 1 Q361D XX ; Start 11/20/16 at 05:15 Chlorhexidine Gluconate (Chlorhexidine 2% Cloth) Taper DAILY@04 TOP Last administered on 11/25/16 03:39; Start 11/21/16 at 04:00; Stop 11/17/17 at 03:59 Chlorhexidine Gluconate (Chlorhexidine 2% Cloth) 3 pack UNSCH PRN TOP HYGIENIC CARE; Start 11/20/16 at 05:15 Senna/Docusate Sodium (Katherine-Colace) 1 tab BID PO Last administered on 20:52; Start 11/20/16 at 09:00 Sennosides (Senokot) 17.2 mg Q12H PRN PO MODERATE - SEVERE CONSTIPATION; Start 11/20/16 at 05:15 Bisacodyl (Dulcolax Supp) 10 mg DAILY PRN RECTAL SEVERE CONSITIPATION; Start at 05:15; Stop 11/24/16 at 16:18; Status DC Lactulose (Lactulose Liq) 30 ml DAILY PRN PO SEVERE CONSITIPATION; Start at 05:15 Midazolam HCl (Versed Inj) 5 mg STK-MED ONCE .ROUTE ; Start 11/20/16 at 05:25; Stop 11/20/16 at 05:26; Status DC Etomidate (Amidate Inj) 20 mg STK-MED ONCE .ROUTE Last administered on 06:55; Start 11/20/16 at 05:28; Stop 11/20/16 at 05:29; Status DC Rocuronium [place] (Zemuron Inj) 50 mg STK-MED ONCE .ROUTE Last administered on 11/20/16 06:56; Start 11/20/16 at 05:29; Stop 11/20/16 at 05:30; Status DC Midazolam HCl 2 mg 2 mg ONCE ONCE IV PUSH Last administered on 11/20/16 05:52 ; Start 11/20/16 at 06:00; Stop 11/20/16 at 06:01; Status DC Fentanyl Citrate (fentaNYL DRIP) 250 ml @ 0 mls/hr TITRATE IV Last administered on 11/21/16 19:50; Start 11/20/16 at 06:00; Stop 11/23/16 at 18:20 ; Status DC Sodium Bicarbonate (Sodium Bicarbonate 8.4% Inj) 100 meq ONCE ONCE IV PUSH Last administered on 11/20/16 05:30; Start 11/20/16 at 07:00; Stop 11/20/16 at 07:01; Status DC Etomidate (Amidate Inj) 20 mg ONCE ONCE IV PUSH ; Start 11/20/16 at 07:00; Stop 11/20/16 at 07:01; Status DC Rocuronium [place] (Zemuron Inj) 50 mg BOLUS ONCE IV ; Start 11/20/16 at 07:00 ; Stop 11/20/16 at 07:01; Status DC Chlorhexidine Gluconate (Peridex 0.12% Liq) 15 ml BID@08,20 MT Last administered on 11/23/16 21:35; Start 11/20/16 at 20:00 Aspirin (Aspirin Chew) 81 mg DAILY CHEW Last administered on 11/26/16 07:54; Start 11/20/16 at 10:00 Dextrose (D50w (Syr) Inj) 50 ml UNSCH PRN IV HYPOGLYCEMIA-SEE COMMENTS Last administered on 11/20/16 17:49; Start 11/20/16 at 10:15 Glucagon (Glucagon Inj) 1 mg UNSCH PRN OTHER HYPOGLYCEMIA-SEE COMMENTS; Start 11/20/16 at 10:15; Stop 11/24/16 at 16:18; Status DC Insulin Aspart 1 1 Q6H SQ ; Start 11/20/16 at 10:15; Stop 11/24/16 at 16:18; Status DC Dobutamine HCl/ Dextrose 250 ml @ 9.9 mls/hr Q24H IV Last administered on 11/22 22:43; Start 11/20/16 at 22:02; Stop 11/23/16 at 18:20; Status DC Potassium Chloride 100 ml @ 50 mls/hr Q2H PRN IV For Potassium 2.8 - 3.2 mEq/ L Last administered on 11/22/16 02:42; Start 11/20/16 at 22:15; Stop 11/22/16 at 13:53; Status DC Potassium Chloride (KCl 20 Meq Premix Inj) 100 ml @ 50 mls/hr Q2H PRN IV For Potassium 2.8 - 3.2 mEq/L; Start 11/20/16 at 22:15; Stop 11/22/16 at 13:53; Status DC Potassium Bicarb/ Potassium Chloride 50 meq 50 meq UNSCH PRN PO For Potassium 3.3 - 3.5 mEq/L; Start 11/20/16 at 22:15; Stop 11/22/16 at 13:53; Status DC Potassium Chloride 100 ml @ 25 mls/hr UNSCH PRN IV For Potassium 3.3 - 3.5 mEq /L; Start 11/20/16 at 22:15; Stop 11/22/16 at 13:53; Status DC Potassium Chloride 100 ml @ 50 mls/hr Q2H PRN IV For Potassium 3.3 - 3.5 mEq/L ; Start 11/20/16 at 22:15; Stop 11/22/16 at 13:53; Status DC Magnesium Sulfate/ Sodium Chloride (Magnesium Sulfate Inj/NS Inj) 100 ml @ 50 mls/hr UNSCH PRN IV For Magnesium 0.9 - 1.1 mg/dL; Start 11/20/16 at 22:15; Stop 11/22/16 at 13:53; Status DC Magnesium Oxide 800 mg 800 mg UNSCH PRN PO For Magnesium 1.2 - 1.6 mg/dL; Start 11/20/16 at 22:15; Stop 11/22/16 at 13:53; Status DC Magnesium Sulfate/ Sodium Chloride (Magnesium Sulfate Inj/NS Inj) 100 ml @ 50 mls/hr UNSCH PRN IV For Magnesium 1.2 - 1.6 mg/dL Last administered on t 03:01; Start 11/20/16 at 22:15; Stop 11/22/16 at 13:53; Status DC Potassium Phosphate 2000 mg 2,000 mg Q4H PRN PO For Phosphorus < 2.5 mg/dL; Start 11/20/16 at 22:15; Stop 11/22/16 at 13:53; Status DC Sodium Phosphate/ Sodium Chloride (Sodium Phosphate Inj/NS 250 ml Inj) 250 ml @ 42 mls/hr UNSCH PRN IV For Phosphorus < 2.5 mg/dL; Start 11/20/16 at 22:15; Stop 11/22/16 at 13:53; Status DC Potassium Phosphate 2000 mg 2,000 mg UNSCH PRN PO/TUBE SEE LABEL COMMENTS; Start 11/20/16 at 22:15; Stop 11/22/16 at 13:53; Status DC Potassium Phosphate/Sodium Chloride (Potassium Phosphate Inj/NS 250 ml Inj) 260 ml @ 42 mls/hr UNSCH PRN IV SEE LABEL COMMENTS; Start 11/20/16 at 22:15; Stop 11/22/16 at 13:53; Status DC Albumin Human (Albumin 5% Inj) 12.5 gm NOW IV Last administered on 11/21/16 03 :15; Start 11/21/16 at 02:45; Stop 11/21/16 at 04:20; Status DC Acetaminophen/ Hydrocodone Bitart 1 tab 1 tab Q4H PRN PO any pain Last administered on 11/24/16 22:32; Start 11/21/16 at 10:15 Amiodarone HCl/ Dextrose (Cordarone Inj/ D5W ([place]) Inj) 259 ml @ 0 mls/hr CONTINUOUS IV Last administered on 11/22/16 22:31; Start 11/22/16 at 01:30; Stop 11/23/16 at 18:20; Status DC Bumetanide (Bumex Inj) 2 mg NOW ONCE IV PUSH Last administered on 11/22/16 13 :48; Start 11/22/16 at 13:45; Stop 11/22/16 at 13:47; Status DC Alteplase, Recombinant (Cathflo Activase Inj) 6 mg ONCE ONCE IV Last administered on 11/22/16 17:45; Start 11/22/16 at 17:15; Stop 11/22/16 at 17:16 ; Status DC Furosemide (Lasix) 20 mg BID@09,18 PO Last administered on 11/26/16 07:54; Start 11/24/16 at 18:00 Rivaroxaban 15 mg 15 mg DAILY PO Last administered on 11/26/16 07:54; Start at 11:00 Cefepime HCl/ Sodium Chloride (Maxipime Inj/NS Inj) 100 ml @ 200 mls/hr Q24H IV Last administered on 11/26/16 03:43; Start 11/25/16 at 03:00 A/P Problem List: (1) CHF (congestive heart failure) ICD Code: I50.9 Status: Acute (2) Cardiogenic shock ICD Code: R57.0 Status: Acute (3) Respiratory failure, acute ICD Code: J96.00 Status: Acute (4) A-fib ICD Code: I48.91 Status: Chronic (5) CKD (chronic kidney disease) stage 3, GFR 30-59 ml/min ICD Code: N18.3 Status: Chronic (6) HTN (hypertension) ICD Code: I10 Status: Chronic (7) Anemia ICD Code: D64.9 Status: Chronic (8) Cardiomyopathy ICD Code: I42.9 Status: Acute Assessment and Plan 81-year-old female who presented with acute respiratory failure Acute respiratory failure -Most likely secondary to pulmonary edema/bilateral pleural effusion due to CHF exacerbation. -Intubated 11/20. Extubated 11/22 -Patient doing well on nasal cannula see treatment as below. 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 Now on Lasix. -Strict ins and outs. -[employer] following. Echo EF 25-30%. -Continue amiodarone 100 mg by mouth twice a day. -Patient currently on Xarelto. -Continue with aspirin. -She continues to require oxygen will wean as tolerated. Peripheral neuropathy -Neurontin and Levoxine held due to renal failure. -Minimize sedation Chronic kidney disease stage III, with acute worsening -De Los Santos in place for strict ins and outs. -He continues have good urine output. [facility] [employer] is following. Questionable cardiorenal. Hyponatremia secondary to CHF and volume overload state. -Sodium decreased to 124 today. She's asymptomatic. -Continue the trend. Questionable pneumonia -Continue with cefepime. Clinically she is doing well. -All cultures negative to date-UA is negative for evidence of infection. -High white count does continue to increase. Will consult infectious disease since her leukocytosis is worsening despite antibiotic use. Chronic anemia/Chronic anticoagulation with Xarelto due to atrial fibrillation -Status post heparin drip. Patient is on Xarelto. Glaucoma -Continue Latanoprost/Alphagan/Cosopt ophthalmic as prescribed. Acute stress hyperglycemia. Low-dose insulin sliding scale with bedside glucose monitoring every 6 hours PROPH: Patients on Xarelto. Discharge Planning Once patient is medically stable she we need to be discharged to a SNF. Problem Qualifiers (1) CHF (congestive heart failure): Qualified Code: I50.21 - Acute systolic congestive heart failure (2) A-fib: Qualified Code: I48.0 - Paroxysmal atrial fibrillation (3) Anemia: Zoie Lewis MD Nov 26, 2016 13:40
--- NOTE | 2016-11-26 16:25 | PD.ID.CON ---
History of Present Illness Service ID Consult Requested By Dr Lewis Reason for Consult leukocytosis Primary Care Physician Jesus Badillo MD Diagnoses: History of Present Illness Pt is a poor historian 81 yo female with CHF, afib and mult med probx admitted fro CHF exacerbation 1 week ago On cefepime for treatment for suspected concomitant pneumonia Her WBC ar going up was noticved to have diarrhea last nigtt Has small amount of mucosay stool today C/o cough with expectoration Review of Systems Constitutional: COMPLAINS OF: Fatigue Respiratory: COMPLAINS OF: Sputum production, Shortness of breath Cardiovascular: COMPLAINS OF: Dyspnea on Exertion, Lower Extremity Edema Gastrointestinal: COMPLAINS OF: Abdominal pain, Diarrhea Neurologic: COMPLAINS OF: Poor Balance Except as stated in HPI: all other systems reviewed are Neg Past Family Social History Allergies: Coded Allergies: Bactrim (Unverified Allergy, Severe, n/v, 11/20/16) Doxycycline (Unverified Allergy, Severe, n/v, 11/20/16) Sulfa (Unverified Allergy, Intermediate, Nausea/Vomiting, 11/20/16) Adhesives (Unverified Allergy, Unknown, 11/20/16) band aids Triamterene (Unverified Allergy, Unknown, 11/20/16) triamterene/hctz Uncoded Allergies: nickel (Allergy, Unknown, 02/04/16) Past Medical History Atrial fibrillation peripheral neuropathy Chronic heart failure Allergic rhinitis HTN Hyperlipidemia Glaucoma Fibromyalgia Past Surgical History Cholecystectomy Pacemaker placement 09/2011 (Dr. Christianson) Anal fissure repair Hysterectomy D&C Tonsillectomy Right eye surgery Left hand flexor tendon repair Surgery on right third digit Active Ordered Medications Medications where reviewed in EMR Antibiotics Include: cefepime Family History reviewed Non-Contributory. Social History No Tobacco. No ETOH. No Illicit Drugs. Physical Exam Vital Signs Vital Signs Date Time Temp Pulse Resp B/P Pulse Ox O2 Delivery O2 Flow Rate FiO2 11/26/16 16:00 97.8 78 22 121/71 99 11/26/16 16:00 Nasal Cannula 2.00 11/26/16 16:00 76 11/26/16 15:00 76 11/26/16 14:00 74 11/26/16 13:00 72 11/26/16 12:00 75 11/26/16 12:00 98.6 74 19 108/51 95 11/26/16 12:00 Nasal Cannula 3.00 11/26/16 11:00 72 11/26/16 10:19 93 Nasal Cannula 3.00 11/26/16 10:00 70 11/26/16 09:00 80 11/26/16 08:00 98.2 80 16 123/60 94 11/26/16 08:00 Nasal Cannula 3.00 11/26/16 08:00 78 11/26/16 07:00 78 11/26/16 06:00 76 11/26/16 05:00 76 11/26/16 04:00 97 Nasal Cannula 3.00 11/26/16 04:00 68 11/26/16 04:00 98.1 78 18 115/44 95 11/26/16 02:00 69 11/26/16 01:00 93 11/26/16 00:00 95 11/25/16 23:00 75 11/25/16 23:00 97.8 73 18 109/57 95 11/25/16 22:18 78 11/25/16 21:45 93 Nasal Cannula 3.00 11/25/16 21:45 98.2 77 18 116/64 93 11/25/16 21:09 95 Nasal Cannula 3.00 11/25/16 20:00 81 11/25/16 20:00 97.9 81 20 116/56 93 11/25/16 19:00 93 Nasal Cannula 3.00 11/25/16 18:00 83 11/25/16 17:34 97 Nasal Cannula 4.00 Physical Exam CONSTITUTIONAL/GENERAL: This is an adequately nourished elderly and frail patient, in no apparent distress. TUBES/LINES/DRAINS: SKIN: No jaundice, rashes, or lesions. Skin temperature appropriate. Not diaphoretic. HEAD: Atraumatic. Normocephalic. EYES: Pupils equal and round and reactive. Extraocular motions intact. No scleral icterus. No injection or drainage. Fundi not examined. ENT: Hearing grossly normal. Nose without bleeding or purulent drainage. Throat without visible erythema, exudates, masses, or lesions. NECK: Trachea midline. Supple, nontender. No palpable thyroid enlargement or nodularity. CARDIOVASCULAR: Regular rate and rhythm without murmurs, gallops, or rubs. No JVD. Peripheral pulses symmetric. Pacer in place L chest no skin changes RESPIRATORY/CHEST: Symmetric, unlabored respirations. Crackles to the L to auscultation. Breath sounds equal bilaterally. No wheezes, GASTROINTESTINAL: Abdomen soft, non-tender, nondistended. No hepato-splenomegaly , or palpable masses. No guarding. Bowel sounds present. GENITOURINARY: Without palpable bladder distension. De [place] catheter in place with small amount of cloudy dark urine MUSCULOSKELETAL: Extremities without clubbing, cyanosis, + 1 soft pitting edema. No joint tenderness or effusion noted. No calf tenderness. No mottling or clubbing. LYMPHATICS: No palpable cervical or supraclavicular adenopathy. NEUROLOGICAL: Awake and alert. Motor and sensory grossly within normal limits. Follows commands. Clear speech. Moves all extremities. PSYCHIATRIC: No obvious anxiety/depression. no apparent hallucinations or other psychotic thought process. Laboratory Laboratory Tests Test 11/26/16 03:59 White Blood Count 14.2 Red Blood Count 3.83 Hemoglobin 11.0 Hematocrit 34.0 Mean Corpuscular Volume 88.8 Mean Corpuscular Hemoglobin 28.7 Mean Corpuscular Hemoglobin 32.4 Concent Red Cell Distribution Width 14.0 Platelet Count 202 Mean Platelet Volume 8.6 Sodium Level 124 Potassium Level 3.6 Chloride Level 91 Carbon Dioxide Level 20.2 Anion Gap 13 Blood Urea Nitrogen 38 Creatinine 2.50 Estimat Glomerular Filtration 18 Rate Random Glucose 93 Calcium Level 9.4 Result Diagram: 11/26/16 0359 11/26/16 0359 Imaging Last Impressions Chest X-Ray 11/24/16 0600 Signed Impressions: Service Date/Time: Thursday, November 24, 2016 05:32 - CONCLUSION: Stable bilateral pleural effusions with associated volume loss and/or airspace consolidation. Esau Matos MD Renal Ultrasound 11/24/16 0000 Signed Impressions: Service Date/Time: Thursday, November 24, 2016 19:06 - CONCLUSION: 1. Kidneys appear unremarkable. 2. Moderate left pleural effusion. Adrian Mae MD Assessment and Plan Assessment and Plan CHF exacerbation Suspected suerimposed PNA Abx associated diarrhea Leukocytosis ? souce of infx - ? UTI vs PNA vs C.dif REC's: -c hk sputum clx - chk stool for c.diff - UA, C+S fu WBC dw RN Discussed Condition With Chandni Madden MD Nov 26, 2016 16:25
[2016-11-26 18:02] LABS: BLOOD, URINE MOD (NEG); GLUCOSE,URINE NEG (NEG); KETONE, URINE NEG (NEG); MUCUS URINE FEW /lpf (OCC); NITRITE,URINE NEG (NEG); PH, URINE 5.5 (5.0-8.5); SQUAMOUS EPITHELIAL CELL URINE <1 /hpf (0-5); URINE COLOR YELLOW (YELLW/STRAW)
[2016-11-26 18:03] LABS: COMMENT (UR) CATH-CULTURE IND; CULTURE IF INDICATED CATH CULTURE IND
--- NOTE | 2016-11-26 19:33 | HHI.NPPN ---
Subjective History of Present Illness 81-year-old female with past medical history of atrial fibrillation, peripheral vascular disease, hypertension, hyperlipidemia, fibromyalgia, and chronic kidney disease, was admitted on November 20, with complaint of generalized weakness and shortness of breath. I was called to see the patient because of elevated BUN and creatinine. Additional Remarks Patient is alert, has loose BM, no abd. pain. Review of Systems General Constitutional: Fatigue Respiratory Lungs: SOB Cardiovascular Cardiac: Edema, ESPINOSA Objective Data Data 11/25/16 11/26/16 19:00 07:00 Intake Total 480 ml 640 ml Output Total 300 ml 550 ml Balance 180 ml 90 ml Intake Oral 480 ml 640 ml Output Urine Total 300 ml 550 ml # Bowel Movements 2 0 Vital Signs Date Time Temp Pulse Resp B/P Pulse Ox O2 Delivery O2 Flow Rate FiO2 11/26/16 16:00 97.8 78 22 121/71 99 11/26/16 16:00 Nasal Cannula 2.00 11/26/16 16:00 76 11/26/16 15:00 76 11/26/16 14:00 74 11/26/16 13:00 72 11/26/16 12:00 75 11/26/16 12:00 98.6 74 19 108/51 95 11/26/16 12:00 Nasal Cannula 3.00 11/26/16 11:00 72 11/26/16 10:19 93 Nasal Cannula 3.00 11/26/16 10:00 70 11/26/16 09:00 80 11/26/16 08:00 98.2 80 16 123/60 94 11/26/16 08:00 Nasal Cannula 3.00 11/26/16 08:00 78 11/26/16 07:00 78 11/26/16 06:00 76 11/26/16 05:00 76 11/26/16 04:00 97 Nasal Cannula 3.00 11/26/16 04:00 68 11/26/16 04:00 98.1 78 18 115/44 95 11/26/16 02:00 69 11/26/16 01:00 93 11/26/16 00:00 95 11/25/16 23:00 75 11/25/16 23:00 97.8 73 18 109/57 95 11/25/16 22:18 78 11/25/16 21:45 93 Nasal Cannula 3.00 11/25/16 21:45 98.2 77 18 116/64 93 11/25/16 21:09 95 Nasal Cannula 3.00 11/25/16 20:00 81 11/25/16 20:00 97.9 81 20 116/56 93 -: 11/26/16 0359 11/26/16 0359 Microbiology 11/26/16 Urine Culture, Received Pending Physical Exam General Appearance: No Acute Distress, Comfortable Eyes Eye Exam: Pupils Equal Throat Throat Exam: Oral Mucosa [place] & Moist Neck Neck Exam: Neck Supple Pulmonary Resp Exam: Breath Sounds Equal, No Distress, Rhonchi, Decreased Bases Cardiology CV Exam: Regular, Normal Sinus Rhythm Gastrointestinal/Abdomen GI Exam: Soft, Non-Tender, Bowel Sounds Present Extremeties Extremities Exam: Trace Edema Neurologic Neuro Exam: Alert, Awake, Oriented Psychiatric Psych Exam: Appropriate Responses Assessment/Plan Assessment Summary: RACHID/Acute Renal Failure, Fluid/Volume Overload, CKD Stage III Problem List: (1) Respiratory distress (2) CHF (congestive heart failure) (3) HTN (hypertension) (4) A-fib (5) CKD (chronic kidney disease) stage 3, GFR 30-59 ml/min (6) Acute kidney injury Plan Patient has been non oliguric. Creatinine baseline is close to 1.4-1.5. U/S kidneys noted. Continue Lasix, Creatinine is almost same. Na. decreased, drinking more fluid, not eating. Now has loose BM, for stool work up. Continue antibiotics. Problem Qualifiers (1) CHF (congestive heart failure): Qualified Code: I50.21 - Acute systolic congestive heart failure (2) A-fib: Qualified Code: I48.0 - Paroxysmal atrial fibrillation Matias Barrera MD Nov 26, 2016 19:33
[2016-11-26] MEDS: LATANOPROST 0.005% OPHT SOLN 2.5 ML BTL EACH EYE SCH (20:34)
[2016-11-26] MEDS: ACETAMINOPHEN/HYDROcodone 325 MG/5 MG TAB PO PRN (20:35)
[2016-11-27] VITALS (25 sets, daily range): BP systolic 115–130; BP diastolic 60–76; PULSE 58–83; RESP 18–20; TEMP 97.8–98.9; O2SAT 94–97
[2016-11-27 00:06] LABS: C. DIFF EPI 027 PRESUMPTIVE NEGATIVE (NEGATIVE); C. DIFF TOXIN PCR NEGATIVE (NEGATIVE)
[2016-11-27] MEDS: CEFEPIME INJ 1,000 MG in SODIUM CHLORIDE 0.9% INJ 100 ML IV SCH (03:23)
[2016-11-27] MEDS: CHLORHEXIDINE GLUCONATE 2 % 1 PACK (2 CLOTHS) TOP SCH (04:00)
[2016-11-27 06:13] LABS: HEMATOCRIT 32.6 % (35.0-46.0); MEAN CELL VOLUME 89.5 FL (80.0-100.0); MEAN CORPUSCULAR HEMOGLOBIN 28.5 PG (27.0-34.0); MEAN CORPUSCULAR HGB CONC 31.9 % (32.0-36.0); PLATELET COUNT 235 TH/MM3 (150-450); RED BLOOD COUNT 3.64 MIL/MM3 (4.00-5.30); REVIEW FLAG FINAL; WHITE BLOOD COUNT 11.5 TH/MM3 (4.0-11.0)
[2016-11-27 07:05] LABS: POTASSIUM 3.3 MEQ/L (3.5-5.1)
[2016-11-27] MEDS: CHLORHEXIDINE 0.12% (ORAL KIT) 15 ML CUP MT SCH ×2 (08:00→20:00)
[2016-11-27] MEDS: DOCUSATE SODIUM 50 MG/SENNA 8.6 MG TAB PO SCH ×2 (09:00→20:44)
[2016-11-27] MEDS: SODIUM CHLORIDE 0.9% FLUSH 10 ML FLUSH IV FLUSH SCH ×2 (09:00→20:44)
--- NOTE | 2016-11-27 09:18 | HHI.PR ---
Subjective Remarks Follow-up for CHF exacerbation and hyponatremia Patient denies any shortness of breathing. She says that she was walking the hallways yesterday. Patient upset that all her food and sweets she's not able to eat anything. She is asking if she can have 2 hard boiled eggs today. Patient stated that she feels a lot better today more energized. Objective Vitals Vital Signs Date Time Temp Pulse Resp B/P Pulse Ox O2 Delivery O2 Flow Rate FiO2 11/27/16 06:00 83 11/27/16 05:00 75 11/27/16 04:00 72 11/27/16 03:00 97 Nasal Cannula 2.00 11/27/16 03:00 75 11/27/16 03:00 97.8 75 18 115/76 97 11/27/16 02:00 68 11/27/16 01:00 58 11/27/16 00:00 70 11/26/16 23:30 98 Nasal Cannula 2.00 11/26/16 23:30 97.9 75 18 111/55 98 11/26/16 23:00 70 11/26/16 22:00 76 11/26/16 21:00 82 11/26/16 20:00 86 11/26/16 20:00 98.3 85 20 136/68 94 11/26/16 20:00 94 Nasal Cannula 2.00 11/26/16 19:00 86 11/26/16 16:00 97.8 78 22 121/71 99 11/26/16 16:00 Nasal Cannula 2.00 11/26/16 16:00 76 11/26/16 15:00 76 11/26/16 14:00 74 11/26/16 13:00 72 11/26/16 12:00 75 11/26/16 12:00 98.6 74 19 108/51 95 11/26/16 12:00 Nasal Cannula 3.00 11/26/16 11:00 72 11/26/16 10:19 93 Nasal Cannula 3.00 11/26/16 10:00 70 I/O 11/26/16 11/26/16 11/26/16 11/27/16 11/27/16 11/27/16 07:00 15:00 23:00 07:00 15:00 23:00 Intake Total 240 ml 600 ml 340 ml Output Total 200 ml 400 ml 550 ml Balance 40 ml 200 ml -210 ml Intake Oral 240 ml 600 ml 240 ml IV Total 100 ml Output Urine Total 200 ml 400 ml 550 ml # Bowel Movements 1 1 Result Diagram: 11/27/1643311/27/16433 Objective Remarks GENERAL: in NAD CARDIOVASCULAR: Regular rate and rhythm without murmurs, gallops, or rubs. RESPIRATORY: Breath sounds equal bilaterally. No accessory muscle use. GASTROINTESTINAL: Abdomen soft, non-tender, nondistended. MUSCULOSKELETAL: No cyanosis, or edema. BACK: Nontender without obvious deformity. No CVA tenderness. Medications and IVs Current Medications Sodium Chloride (NS Flush) 2 ml UNSCH PRN IVF FLUSH AFTER USING IV ACCESS; Start 11/20/16 at 00:15; Stop 11/20/16 at 02:21; Status DC Furosemide (Lasix Inj) 40 mg ONCE ONCE IV PUSH Last administered on 11/20/16t 01:43; Start 11/20/16 at 01:30; Stop 11/20/16 at 01:31; Status DC Furosemide (Lasix Inj) 40 mg BID@09,18 IV PUSH ; Start 11/20/16 at 09:00; Stop 11/20/16 at 09:00; Status DC Sodium Chloride (NS Flush) 2 ml UNSCH PRN IV FLUSH FLUSH AFTER USING IV ACCESS ; Start 11/20/16 at 02:15; Stop 11/20/16 at 05:17; Status DC Sodium Chloride (NS Flush) 2 ml BID IV FLUSH ; Start 11/20/16 at 09:00; Stop at 09:00; Status DC Ondansetron HCl (Zofran Inj) 4 mg Q6H PRN IVP NAUSEA OR VOMITING; Start at 02:15; Stop 11/20/16 at 05:19; Status DC Acetaminophen (Tylenol) 650 mg Q6H PRN PO FEVER/PAIN SCALE 1 TO 2; Start at 02:15; Stop 11/20/16 at 05:19; Status DC Acetaminophen/ Hydrocodone Bitart ([place] 5-325 Mg) 1 tab Q4H PRN PO PAIN SCALE 3 TO 5; Start 11/20/16 at 02:15; Stop 11/21/16 at 10:37; Status DC Morphine Sulfate (Morphine Inj) 2 mg Q3H PRN IV Pain 6-10; Start 11/20/16 at 02 :15 Senna/Docusate Sodium (Katherine-Colace) 1 tab BID PO ; Start 11/20/16 at 09:00; Stop 11/20/16 at 09:00; Status DC Magnesium Hydroxide (Milk Of Magnesia Liq) 30 ml Q12H PRN PO MILD - MODERATE CONSTIPATION; Start 11/20/16 at 02:15; Stop 11/20/16 at 10:35; Status DC Sennosides (Senokot) 17.2 mg Q12H PRN PO MODERATE - SEVERE CONSTIPATION; Start 11/20/16 at 02:15; Stop 11/20/16 at 05:19; Status DC Bisacodyl (Dulcolax Supp) 10 mg DAILY PRN RECTAL SEVERE CONSITIPATION; Start at 02:15; Stop 11/20/16 at 05:19; Status DC Lactulose (Lactulose Liq) 30 ml DAILY PRN PO SEVERE CONSITIPATION; Start at 02:15; Stop 11/20/16 at 05:19; Status DC Amiodarone HCl (Cordarone) 100 mg BID PO Last administered on 11/26/16 20:35; Start 11/20/16 at 09:00 Brimonidine Tartrate (Alphagan 0.2% Opt Soln) 1 drop BID EACH EYE Last administered on 11/26/16 20:34; Start 11/20/16 at 09:00 Dorzolamide/ Timolol (Cosopt 2-0.5% Opth Soln) 1 drop BID EACH EYE Last administered on 11/26/16 20:34; Start 11/20/16 at 09:00 Gabapentin (Neurontin) 600 mg HS PO ; Start 11/20/16 at 21:00; Status Hold Hydroxychloroquine Sulfate (Plaquenil) 200 mg DAILY PO Last administered on 09:29; Start 11/20/16 at 09:00 Hydroxyzine HCl (Atarax) 10 mg BID PO Last administered on 11/20/16 09:00; Start 11/20/16 at 09:00; Stop 11/20/16 at 10:35; Status DC Latanoprost (Xalatan 0.005% Opth Soln) 1 drop HS EACH EYE Last administered on 11/26/16 20:34; Start 11/20/16 at 21:00 Methocarbamol (Robaxin) 500 mg BID PO Last administered on 11/20/16 09:25; Start 11/20/16 at 09:00; Status Hold Rivaroxaban (Xarelto) 15 mg DAILY PO ; Start 11/20/16 at 09:00; Stop 11/20/16 at 10:11; Status DC Miscellaneous (Pill Splitter) 1 ea UNSCH PRN OTHER SEE LABEL COMMENTS; Start at 02:30 Albuterol/ Ipratropium (Duoneb Neb) 1 ampule ONCE ONCE INH Last administered on 11/20/16 03:04; Start 11/20/16 at 02:45; Stop 11/20/16 at 02:46; Status DC Nitroglycerin 1 inch 1 inch ONCE ONCE TOP Last administered on 11/20/16 02:48 ; Start 11/20/16 at 02:45; Stop 11/20/16 at 02:46; Status DC Cefepime HCl/ Sodium Chloride (Maxipime Inj/NS Inj) 100 ml @ 200 mls/hr ONCE ONCE IV Last administered on 11/20/16 03:42; Start 11/20/16 at 03:00; Stop at 03:29; Status DC Bumetanide 2 mg 2 mg ONCE ONCE IV PUSH Last administered on 11/20/16 04:34; Start 11/20/16 at 04:30; Stop 11/20/16 at 04:31; Status DC Dobutamine HCl/ Dextrose (DOBUTamine PREMIX DRIP) 250 ml @ 9.9 mls/hr Q24H IV Last administered on 11/20/16 05:14; Start 11/20/16 at 04:39; Stop 11/20/16 at 22:04; Status DC Bumetanide 1 mg 1 mg Q12H IV PUSH Last administered on 11/24/16 03:07; Start 11/20/16 at 16:00; Stop 11/24/16 at 09:15; Status DC Cefepime HCl/ Sodium Chloride (Maxipime Inj/NS Inj) 100 ml @ 200 mls/hr Q12H IV Last administered on 11/24/16 03:07; Start 11/20/16 at 16:00; Stop at 11:57; Status DC Heparin Sodium (Porcine) 4000 units 4,000 units ONCE ONCE IV Last administered on 11/20/16 09:23; Start 11/20/16 at 09:00; Stop 11/20/16 at 09:01 ; Status DC Heparin Sodium/ Dextrose (Heparin-D5W Inj) 250 ml @ 0 mls/hr TITRATE IV Last administered on 11/23/16 06:55; Start 11/20/16 at 05:15; Stop 11/24/16 at 09:17 ; Status DC Sodium Chloride (NS Flush) 2 ml UNSCH PRN IV FLUSH FLUSH AFTER USING IV ACCESS ; Start 11/20/16 at 05:15 Sodium Chloride (NS Flush) 2 ml BID IV FLUSH Last administered on 11/26/16 20: 34; Start 11/20/16 at 09:00 Acetaminophen (Tylenol) 650 mg Q6H PRN PO FEVER >101F; Start 11/20/16 at 05:15 Pantoprazole Sodium (Protonix Inj) 40 mg DAILY IV Last administered on 08:16; Start 11/20/16 at 09:00; Stop 11/24/16 at 09:17; Status DC Ondansetron HCl (Zofran Inj) 4 mg Q6H PRN IV NAUSEA OR VOMITING Last administered on 11/26/16 13:17; Start 11/20/16 at 05:15 Miscellaneous Information 1 [id number] XX ; Start 11/20/16 at 05:15 Chlorhexidine Gluconate (Chlorhexidine 2% Cloth) Taper DAILY@04 TOP Last administered on 11/25/16 03:39; Start 11/21/16 at 04:00; Stop 11/17/17 at 03:59 Chlorhexidine Gluconate (Chlorhexidine 2% Cloth) 3 pack UNSCH PRN TOP HYGIENIC CARE; Start 11/20/16 at 05:15 Senna/Docusate Sodium (Katherine-Colace) 1 tab BID PO Last administered on 20:52; Start 11/20/16 at 09:00 Sennosides (Senokot) 17.2 mg Q12H PRN PO MODERATE - SEVERE CONSTIPATION; Start 11/20/16 at 05:15 Bisacodyl (Dulcolax Supp) 10 mg DAILY PRN RECTAL SEVERE CONSITIPATION; Start at 05:15; Stop 11/24/16 at 16:18; Status DC Lactulose (Lactulose Liq) 30 ml DAILY PRN PO SEVERE CONSITIPATION; Start at 05:15 Midazolam HCl (Versed Inj) 5 mg STK-MED ONCE .ROUTE ; Start 11/20/16 at 05:25; Stop 11/20/16 at 05:26; Status DC Etomidate (Amidate Inj) 20 mg STK-MED ONCE .ROUTE Last administered on 06:55; Start 11/20/16 at 05:28; Stop 11/20/16 at 05:29; Status DC Rocuronium [place] (Zemuron Inj) 50 mg STK-MED ONCE .ROUTE Last administered on 11/20/16 06:56; Start 11/20/16 at 05:29; Stop 11/20/16 at 05:30; Status DC Midazolam HCl 2 mg 2 mg ONCE ONCE IV PUSH Last administered on 11/20/16 05:52 ; Start 11/20/16 at 06:00; Stop 11/20/16 at 06:01; Status DC Fentanyl Citrate (fentaNYL DRIP) 250 ml @ 0 mls/hr TITRATE IV Last administered on 11/21/16 19:50; Start 11/20/16 at 06:00; Stop 11/23/16 at 18:20 ; Status DC Sodium Bicarbonate (Sodium Bicarbonate 8.4% Inj) 100 meq ONCE ONCE IV PUSH Last administered on 11/20/16 05:30; Start 11/20/16 at 07:00; Stop 11/20/16 at 07:01; Status DC Etomidate (Amidate Inj) 20 mg ONCE ONCE IV PUSH ; Start 11/20/16 at 07:00; Stop 11/20/16 at 07:01; Status DC Rocuronium [place] (Zemuron Inj) 50 mg BOLUS ONCE IV ; Start 11/20/16 at 07:00 ; Stop 11/20/16 at 07:01; Status DC Chlorhexidine Gluconate (Peridex 0.12% Liq) 15 ml BID@08,20 MT Last administered on 11/23/16 21:35; Start 11/20/16 at 20:00 Aspirin (Aspirin Chew) 81 mg DAILY CHEW Last administered on 11/26/16 07:54; Start 11/20/16 at 10:00 Dextrose (D50w (Syr) Inj) 50 ml UNSCH PRN IV HYPOGLYCEMIA-SEE COMMENTS Last administered on 11/20/16 17:49; Start 11/20/16 at 10:15 Glucagon (Glucagon Inj) 1 mg UNSCH PRN OTHER HYPOGLYCEMIA-SEE COMMENTS; Start 11/20/16 at 10:15; Stop 11/24/16 at 16:18; Status DC Insulin Aspart 1 1 Q6H SQ ; Start 11/20/16 at 10:15; Stop 11/24/16 at 16:18; Status DC Dobutamine HCl/ Dextrose 250 ml @ 9.9 mls/hr Q24H IV Last administered on 11/22 22:43; Start 11/20/16 at 22:02; Stop 11/23/16 at 18:20; Status DC Potassium Chloride 100 ml @ 50 mls/hr Q2H PRN IV For Potassium 2.8 - 3.2 mEq/ L Last administered on 11/22/16 02:42; Start 11/20/16 at 22:15; Stop 11/22/16 at 13:53; Status DC Potassium Chloride (KCl 20 Meq Premix Inj) 100 ml @ 50 mls/hr Q2H PRN IV For Potassium 2.8 - 3.2 mEq/L; Start 11/20/16 at 22:15; Stop 11/22/16 at 13:53; Status DC Potassium Bicarb/ Potassium Chloride 50 meq 50 meq UNSCH PRN PO For Potassium 3.3 - 3.5 mEq/L; Start 11/20/16 at 22:15; Stop 11/22/16 at 13:53; Status DC Potassium Chloride 100 ml @ 25 mls/hr UNSCH PRN IV For Potassium 3.3 - 3.5 mEq /L; Start 11/20/16 at 22:15; Stop 11/22/16 at 13:53; Status DC Potassium Chloride 100 ml @ 50 mls/hr Q2H PRN IV For Potassium 3.3 - 3.5 mEq/L ; Start 11/20/16 at 22:15; Stop 11/22/16 at 13:53; Status DC Magnesium Sulfate/ Sodium Chloride (Magnesium Sulfate Inj/NS Inj) 100 ml @ 50 mls/hr UNSCH PRN IV For Magnesium 0.9 - 1.1 mg/dL; Start 11/20/16 at 22:15; Stop 11/22/16 at 13:53; Status DC Magnesium Oxide 800 mg 800 mg UNSCH PRN PO For Magnesium 1.2 - 1.6 mg/dL; Start 11/20/16 at 22:15; Stop 11/22/16 at 13:53; Status DC Magnesium Sulfate/ Sodium Chloride (Magnesium Sulfate Inj/NS Inj) 100 ml @ 50 mls/hr UNSCH PRN IV For Magnesium 1.2 - 1.6 mg/dL Last administered on 03:01; Start 11/20/16 at 22:15; Stop 11/22/16 at 13:53; Status DC Potassium Phosphate 2000 mg 2,000 mg Q4H PRN PO For Phosphorus < 2.5 mg/dL; Start 11/20/16 at 22:15; Stop 11/22/16 at 13:53; Status DC Sodium Phosphate/ Sodium Chloride (Sodium Phosphate Inj/NS 250 ml Inj) 250 ml @ 42 mls/hr UNSCH PRN IV For Phosphorus < 2.5 mg/dL; Start 11/20/16 at 22:15; Stop 11/22/16 at 13:53; Status DC Potassium Phosphate 2000 mg 2,000 mg UNSCH PRN PO/TUBE SEE LABEL COMMENTS; Start 11/20/16 at 22:15; Stop 11/22/16 at 13:53; Status DC Potassium Phosphate/Sodium Chloride (Potassium Phosphate Inj/NS 250 ml Inj) 260 ml @ 42 mls/hr UNSCH PRN IV SEE LABEL COMMENTS; Start 11/20/16 at 22:15; Stop 11/22/16 at 13:53; Status DC Albumin Human (Albumin 5% Inj) 12.5 gm NOW IV Last administered on 11/21/16 03 :15; Start 11/21/16 at 02:45; Stop 11/21/16 at 04:20; Status DC Acetaminophen/ Hydrocodone Bitart 1 tab 1 tab Q4H PRN PO any pain Last administered on 11/26/16 20:35; Start 11/21/16 at 10:15 Amiodarone HCl/ Dextrose (Cordarone Inj/ D5W ([employer]) Inj) 259 ml @ 0 mls/hr CONTINUOUS IV Last administered on 11/22/16 22:31; Start 11/22/16 at 01:30; Stop 11/23/16 at 18:20; Status DC Bumetanide (Bumex Inj) 2 mg NOW ONCE IV PUSH Last administered on 11/22/16 13 :48; Start 11/22/16 at 13:45; Stop 11/22/16 at 13:47; Status DC Alteplase, Recombinant (Cathflo Activase Inj) 6 mg ONCE ONCE IV Last administered on 11/22/16 17:45; Start 11/22/16 at 17:15; Stop 11/22/16 at 17:16 ; Status DC Furosemide (Lasix) 20 mg BID@09,18 PO Last administered on 11/26/16 16:48; Start 11/24/16 at 18:00 Rivaroxaban 15 mg 15 mg DAILY PO Last administered on 11/26/16 07:54; Start at 11:00 Cefepime HCl/ Sodium Chloride (Maxipime Inj/NS Inj) 100 ml @ 200 mls/hr Q24H IV Last administered on 11/27/16 03:23; Start 11/25/16 at 03:00 A/P Problem List: (1) CHF (congestive heart failure) ICD Code: I50.9 Status: Acute (2) Cardiogenic shock ICD Code: R57.0 Status: Acute (3) Respiratory failure, acute ICD Code: J96.00 Status: Acute (4) A-fib ICD Code: I48.91 Status: Chronic (5) CKD (chronic kidney disease) stage 3, GFR 30-59 ml/min ICD Code: N18.3 Status: Chronic (6) HTN (hypertension) ICD Code: I10 Status: Chronic (7) Anemia ICD Code: D64.9 Status: Chronic (8) Cardiomyopathy ICD Code: I42.9 Status: Acute Assessment and Plan 81-year-old female who presented with acute respiratory failure Acute respiratory failure -Most likely secondary to pulmonary edema/bilateral pleural effusion due to CHF exacerbation. -Intubated 11/20. Extubated 11/22 -Patient doing well on nasal cannula see treatment as below. 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 Now on Lasix. -Strict ins and outs. -[employer] following. Echo EF 25-30%. -Continue amiodarone 100 mg by mouth twice a day. -Patient currently on Xarelto. -Continue with aspirin. -She continues to improve but requires oxygen continue to wean as tolerated. Peripheral neuropathy -Neurontin and Levoxine held due to renal failure. -Minimize sedation Chronic kidney disease stage III, with acute worsening -[place] in place for strict ins and outs. -He continues have good urine output. Manager Assembly is following. Questionable cardiorenal. -Creatinine improved today. Hyponatremia secondary to CHF and volume overload state. -Sodium decreased to 123 today. She's asymptomatic. -Most likely secondary to increase fluid intake. Patient was advised to limit her fluids. Questionable pneumonia -Continue with cefepime. Clinically she is doing well. -All cultures negative to date-UA is negative for evidence of infection. -Leukocytosis is now improving. May be secondary to atelectasis since patient and later more yesterday and there is improvement in the white count. Chronic anemia/Chronic anticoagulation with Xarelto due to atrial fibrillation -Status post heparin drip. Patient is on Xarelto. Glaucoma -Continue Latanoprost/Alphagan/Cosopt ophthalmic as prescribed. Acute stress hyperglycemia. Low-dose insulin sliding scale with bedside glucose monitoring every 6 hours PROPH: Patients on Xarelto. Discharge Planning Once patient is medically stable she we need to be discharged to a SNF. Problem Qualifiers (1) CHF (congestive heart failure): Qualified Code: I50.21 - Acute systolic congestive heart failure (2) A-fib: Qualified Code: I48.0 - Paroxysmal atrial fibrillation (3) Anemia: Zoie Lewis MD Nov 27, 2016 09:18
[2016-11-27] MEDS: HYDROXYCHLOROQUINE SULFATE 200 MG TAB PO SCH (09:24)
[2016-11-27] MEDS: FUROSEMIDE 20 MG TAB PO SCH (09:25)
[2016-11-27] MEDS: RIVAROXABAN 15 MG TAB PO SCH (09:25)
[2016-11-27] MEDS: ASPIRIN 81 MG CHEW TAB CHEW SCH (09:25)
[2016-11-27] MEDS: AMIODARONE 200 MG TAB PO SCH ×2 (09:25→20:44)
[2016-11-27] MEDS: BRIMONIDINE TARTRATE 0.2% OPHT SOLN 5 ML BTL EACH EYE SCH ×2 (09:27→20:45)
[2016-11-27] MEDS: ACETAMINOPHEN/HYDROcodone 325 MG/5 MG TAB PO PRN ×2 (09:27→20:44)
[2016-11-27] MEDS: DORZOLAMIDE/TIMOLOL OPTH SOLN 10 ML BTL EACH EYE SCH ×2 (09:27→20:46)
--- NOTE | 2016-11-27 16:01 | HHI.NPPN ---
Subjective History of Present Illness 81-year-old female with past medical history of atrial fibrillation, peripheral vascular disease, hypertension, hyperlipidemia, fibromyalgia, and chronic kidney disease, was admitted on November 20, with complaint of generalized weakness and shortness of breath. I was called to see the patient because of elevated BUN and creatinine. Additional Remarks Patient is alert, started eating some, breathing is better. Review of Systems General Constitutional: Fatigue Respiratory Lungs: SOB Cardiovascular Cardiac: Edema, ESPINOSA Objective Data Data 11/26/16 11/27/16 18:59 06:59 Intake Total 600 ml 340 ml Output Total 400 ml 550 ml Balance 200 ml -210 ml Intake Oral 600 ml 240 ml IV Total 100 ml Output Urine Total 400 ml 550 ml # Bowel Movements 1 1 Vital Signs Date Time Temp Pulse Resp B/P Pulse Ox O2 Delivery O2 Flow Rate FiO2 11/27/16 14:00 80 11/27/16 13:00 78 11/27/16 12:00 82 11/27/16 11:53 97 Nasal Cannula 2.00 11/27/16 11:00 97.8 76 20 128/63 97 11/27/16 11:00 98 Nasal Cannula 2.00 11/27/16 11:00 79 11/27/16 10:27 18 11/27/16 09:00 79 11/27/16 06:00 83 11/27/16 05:00 75 11/27/16 04:00 72 11/27/16 03:00 97 Nasal Cannula 2.00 11/27/16 03:00 75 11/27/16 03:00 97.8 75 18 115/76 97 11/27/16 02:00 68 11/27/16 01:00 58 11/27/16 00:00 70 11/26/16 23:30 98 Nasal Cannula 2.00 11/26/16 23:30 97.9 75 18 111/55 98 11/26/16 23:00 70 11/26/16 22:00 76 11/26/16 21:00 82 11/26/16 20:00 86 11/26/16 20:00 98.3 85 20 136/68 94 11/26/16 20:00 94 Nasal Cannula 2.00 11/26/16 19:00 86 11/26/16 16:00 97.8 78 22 121/71 99 11/26/16 16:00 Nasal Cannula 2.00 11/26/16 16:00 76 -: 11/27/16 0434 11/27/16 0434 Microbiology 11/26/16 Urine Culture - Preliminary, Resulted NO GROWTH IN 24 HOURS. 11/26/16 Gram Stain - Final, Resulted 11/26/16 Sputum Culture - Preliminary, Resulted IMMATURE GROWTH - REINCUBATE Physical Exam General Appearance: No Acute Distress, Comfortable Eyes Eye Exam: Pupils Equal Throat Throat Exam: Oral Mucosa [place] & Moist Neck Neck Exam: Neck Supple Pulmonary Resp Exam: Breath Sounds Equal, No Distress, Rhonchi, Decreased Bases Cardiology CV Exam: Regular, Normal Sinus Rhythm Gastrointestinal/Abdomen GI Exam: Soft, Non-Tender, Bowel Sounds Present Extremeties Extremities Exam: Trace Edema Neurologic Neuro Exam: Alert, Awake, Oriented Psychiatric Psych Exam: Appropriate Responses Assessment/Plan Assessment Summary: RACHID/Acute Renal Failure, Fluid/Volume Overload, CKD Stage III Problem List: (1) Respiratory distress (2) CHF (congestive heart failure) (3) HTN (hypertension) (4) A-fib (5) CKD (chronic kidney disease) stage 3, GFR 30-59 ml/min (6) Acute kidney injury Plan Patient has been non oliguric. Creatinine baseline is close to 1.4-1.5. U/S kidneys noted. Continue Lasix, Creatinine is slightly better. Na. decreased, drinking more fluid, will put fluid restriction. Also pneumonia and CHF contributing. Will change Lasix to IV. Problem Qualifiers (1) CHF (congestive heart failure): Qualified Code: I50.21 - Acute systolic congestive heart failure (2) A-fib: Qualified Code: I48.0 - Paroxysmal atrial fibrillation Matias Barrera MD Nov 27, 2016 16:01
--- NOTE | 2016-11-27 16:04 | PD.CARD.PN ---
Subjective Subjective Remarks No CP or SOB, feels stronger Objective Medications Current Medications Medications (Trade) Dose Ordered Sig/Malika Route Start Time Stop Time Status Last Admin (Morphine Inj) 2 mg Q3H PRN IV 11/20/16 02:15 (Cordarone) 100 mg BID PO 11/20/16 09:00 11/27/16 09:25 (Alphagan 0.2% Opth Soln) 1 drop BID EACH EYE 11/20/16 09:00 11/27/16 09:27 (Cosopt 2-0.5% Opth Soln) 1 drop BID EACH EYE 11/20/16 09:00 11/27/16 09:27 (Neurontin) 600 mg HS PO 11/20/16 21:00 Hold (Plaquenil) 200 mg DAILY PO 11/20/16 09:00 11/27/16 09:24 (Xalatan 0.005% Opth Soln) 1 drop HS EACH EYE 11/20/16 21:00 11/26/16 20:34 (Robaxin) 500 mg BID PO 11/20/16 09:00 Hold 11/20/16 09:25 (Pill Splitter) 1 ea UNSCH PRN OTHER 11/20/16 02:30 (NS Flush) 2 ml UNSCH PRN IV FLUSH 11/20/16 05:15 (NS Flush) 2 ml BID IV FLUSH 11/20/16 09:00 11/27/16 09:00 (Tylenol) 650 mg Q6H PRN PO 11/20/16 05:15 (Zofran Inj) 4 mg Q6H PRN IV 11/20/16 05:15 11/26/16 13:17 Miscellaneous Information 1 Q361D XX 11/20/16 05:15 (Chlorhexidine 2% Cloth) Taper DAILY@04 TOP 11/21/16 04:00 11/17/17 03:59 11/25/16 03:39 (Chlorhexidine 2% Cloth) 3 pack UNSCH PRN TOP 11/20/16 05:15 (Katherine-Colace) 1 tab BID PO 11/20/16 09:00 11/24/16 20:52 (Senokot) 17.2 mg Q12H PRN PO 11/20/16 05:15 (Lactulose Liq) 30 ml DAILY PRN PO 11/20/16 05:15 (Peridex 0.12% Liq) 15 ml BID@08,20 MT 11/20/16 20:00 11/23/16 21:35 (Aspirin Chew) 81 mg DAILY CHEW 11/20/16 10:00 11/27/16 09:25 (D50w (Syr) Inj) 50 ml UNSCH PRN IV 11/20/16 10:15 11/20/16 17:49 (Ralph 5-325 Mg) 1 tab Q4H PRN PO 11/21/16 10:15 11/27/16 09:27 Rivaroxaban 15 mg 15 mg DAILY PO 11/24/16 11:00 11/27/16 09:25 (Maxipime Inj/NS Inj) 100 ml @ 200 mls/hr Q24H IV 11/25/16 03:00 11/27/16 03:23 (Lasix Inj) 20 mg BID@09,18 IV PUSH 11/27/16 18:00 UNV Vital Signs / I&O Vital Signs Date Time Temp Pulse Resp B/P Pulse Ox O2 Delivery O2 Flow Rate FiO2 11/27/16 14:00 80 11/27/16 13:00 78 11/27/16 12:00 82 11/27/16 11:53 97 Nasal Cannula 2.00 11/27/16 11:00 97.8 76 20 128/63 97 11/27/16 11:00 98 Nasal Cannula 2.00 11/27/16 11:00 79 11/27/16 10:27 18 11/27/16 09:00 79 11/27/16 06:00 83 11/27/16 05:00 75 11/27/16 04:00 72 11/27/16 03:00 97 Nasal Cannula 2.00 11/27/16 03:00 75 11/27/16 03:00 97.8 75 18 115/76 97 11/27/16 02:00 68 11/27/16 01:00 58 11/27/16 00:00 70 11/26/16 23:30 98 Nasal Cannula 2.00 11/26/16 23:30 97.9 75 18 111/55 98 11/26/16 23:00 70 11/26/16 22:00 76 11/26/16 21:00 82 11/26/16 20:00 86 11/26/16 20:00 98.3 85 20 136/68 94 11/26/16 20:00 94 Nasal Cannula 2.00 11/26/16 19:00 86 I/O 11/26/16 11/26/16 11/26/16 11/27/16 11/27/16 11/27/16 07:00 15:00 23:00 07:00 15:00 23:00 Intake Total 240 ml 600 ml 340 ml Output Total 200 ml 400 ml 550 ml Balance 40 ml 200 ml -210 ml Intake Oral 240 ml 600 ml 240 ml IV Total 100 ml Output Urine Total 200 ml 400 ml 550 ml # Bowel Movements 1 1 Physical Exam GENERAL: In NAD, on O2 SKIN: Warm and dry. HEAD: Normocephalic. EYES: No scleral icterus. No injection or drainage. NECK: Supple, trachea midline. No JVD or lymphadenopathy. CARDIOVASCULAR: Regular rate and rhythm with syst and diast murmurs, no gallops , or rubs. RESPIRATORY: Breath sounds equal bilaterally. No accessory muscle use. GASTROINTESTINAL: Abdomen soft, non-tender, nondistended. MUSCULOSKELETAL: No cyanosis, trace ankle edema. Laboratory Laboratory Tests Test 11/26/16 11/26/16 11/27/16 17:50 22:15 04:34 Urine Color YELLOW Urine Turbidity HAZY Urine pH 5.5 Urine Specific Clay 1.016 Urine Protein 100 mg/dL Urine Glucose (UA) NEG mg/dL Urine Ketones NEG mg/dL Urine Occult Blood MOD Urine Nitrite NEG Urine Bilirubin NEG Urine Urobilinogen LESS THAN 2.0 MG/DL Urine Leukocyte Esterase MOD Urine RBC /hpf Urine WBC /hpf Urine Squamous Epithelial <1 /hpf Cells Urine Amorphous Sediment RARE Urine Mucus FEW /lpf Microscopic Urinalysis Comment CATH-CULTURE IND Stool C. difficile Toxin (PCR) NEGATIVE Stl C. difficile Toxin PRESUMPTIVE Epiderm 027 NEGATIVE White Blood Count 11.5 TH/MM3 Red Blood Count 3.64 MIL/MM3 Hemoglobin 10.4 GM/DL Hematocrit 32.6 % Mean Corpuscular Volume 89.5 FL Mean Corpuscular Hemoglobin 28.5 PG Mean Corpuscular Hemoglobin 31.9 % Concent Red Cell Distribution Width 14.0 % Platelet Count 235 TH/MM3 Mean Platelet Volume 8.2 FL Sodium Level 123 MEQ/L Potassium Level 3.3 MEQ/L Chloride Level 91 MEQ/L Carbon Dioxide Level 18.0 MEQ/L Anion Gap 14 MEQ/L Blood Urea Nitrogen 43 MG/DL Creatinine 2.25 MG/DL Estimat Glomerular Filtration 21 ML/MIN Rate Random Glucose 97 MG/DL Calcium Level 9.5 MG/DL Imaging Last Impressions Chest X-Ray 11/24/16 0600 Signed Impressions: Service Date/Time: Thursday, November 24, 2016 05:32 - CONCLUSION: Stable bilateral pleural effusions with associated volume loss and/or airspace consolidation. Esau Matos MD Renal Ultrasound 11/24/16 0000 Signed Impressions: Service Date/Time: Thursday, November 24, 2016 19:06 - CONCLUSION: 1. Kidneys appear unremarkable. 2. Moderate left pleural effusion. Adrian Mae MD Assessment and Plan Problem List: (1) Cardiogenic shock (2) Cardiomyopathy (3) CHF (congestive heart failure) (4) CKD (chronic kidney disease) stage 3, GFR 30-59 ml/min (5) Renal insufficiency (6) Anemia (7) A-fib (8) Chronic anticoagulation Assessment and Plan No new cardiac issues. No recurrent AF, stays in SR. Still requiring O2, wean as tolerated. Continue and titrate tx for CHF. Continue PO amio for sinus maintenance. Continue anticoagulation with Xarelto (renal adjusted dose). Increase activity, continue PT. Problem Qualifiers (1) CHF (congestive heart failure): Qualified Code: I50.21 - Acute systolic congestive heart failure (2) Anemia: (3) A-fib: Qualified Code: I48.0 - Paroxysmal atrial fibrillation Nuria Linares MD Nov 27, 2016 16:04
[2016-11-27] MEDS: FUROSEMIDE 20 MG/2 ML VIAL IV PUSH SCH (18:00)
[2016-11-27] MEDS ORDERED: POTASSIUM CHLORIDE 25 MEQ EFFERVESCENT TAB PO ONE ×2 (19:45→20:00)
[2016-11-27] MEDS: LATANOPROST 0.005% OPHT SOLN 2.5 ML BTL EACH EYE SCH (20:45)
[2016-11-28] VITALS (27 sets, daily range): BP systolic 120–143; BP diastolic 62–70; PULSE 64–103; RESP 16–20; TEMP 98–98.7; O2SAT 90–98
[2016-11-28] MEDS: CEFEPIME INJ 1,000 MG in SODIUM CHLORIDE 0.9% INJ 100 ML IV SCH (02:34)
[2016-11-28] MEDS: CHLORHEXIDINE GLUCONATE 2 % 1 PACK (2 CLOTHS) TOP SCH (03:17)
[2016-11-28 07:33] LABS: MEAN CELL VOLUME 86.7 FL (80.0-100.0); MEAN CORPUSCULAR HEMOGLOBIN 29.8 PG (27.0-34.0); MEAN CORPUSCULAR HGB CONC 34.4 % (32.0-36.0); PLATELET COUNT 264 TH/MM3 (150-450); RED BLOOD COUNT 3.23 MIL/MM3 (4.00-5.30); RED CELL DISTRIBUTION WIDTH 14.2 % (11.6-17.2); REVIEW FLAG FINAL; WHITE BLOOD COUNT 9.6 TH/MM3 (4.0-11.0)
[2016-11-28 07:53] LABS: BICARBONATE 20.5 MEQ/L (21.0-32.0); POTASSIUM 3.5 MEQ/L (3.5-5.1)
[2016-11-28] MEDS: CHLORHEXIDINE 0.12% (ORAL KIT) 15 ML CUP MT SCH ×2 (08:00→20:00)
[2016-11-28] MEDS: HYDROXYCHLOROQUINE SULFATE 200 MG TAB PO SCH (08:27)
[2016-11-28] MEDS: AMIODARONE 200 MG TAB PO SCH ×2 (08:27→21:15)
[2016-11-28] MEDS: DOCUSATE SODIUM 50 MG/SENNA 8.6 MG TAB PO SCH ×2 (08:27→21:00)
[2016-11-28] MEDS: RIVAROXABAN 15 MG TAB PO SCH (08:27)
[2016-11-28] MEDS: FUROSEMIDE 20 MG/2 ML VIAL IV PUSH SCH ×2 (08:28→17:48)
[2016-11-28] MEDS: ASPIRIN 81 MG CHEW TAB CHEW SCH (08:28)
[2016-11-28] MEDS: SODIUM CHLORIDE 0.9% FLUSH 10 ML FLUSH IV FLUSH SCH ×2 (08:29→21:18)
[2016-11-28] MEDS: BRIMONIDINE TARTRATE 0.2% OPHT SOLN 5 ML BTL EACH EYE SCH ×2 (08:31→21:17)
[2016-11-28] MEDS: LATANOPROST 0.005% OPHT SOLN 2.5 ML BTL EACH EYE SCH (08:32)
[2016-11-28] MEDS: DORZOLAMIDE/TIMOLOL OPTH SOLN 10 ML BTL EACH EYE SCH ×2 (08:32→21:17)
--- NOTE | 2016-11-28 11:01 | HHI.PR ---
Subjective Remarks f/u for CHF exacerbation and hyponatremia patient stated she did not understand why she got hard boiled eggs and the shells are stills on. Denied any SOB. she is now off oxygen. patient is requiring assistance but is asking to be discharge to home. She stated her runs for miles and is very active. She stated he can take care of her easily. no other complaints. d/w her nurse Objective Vitals Vital Signs Date Time Temp Pulse Resp B/P Pulse Ox O2 Delivery O2 Flow Rate FiO2 11/28/16 10:14 78 11/28/16 09:32 72 11/28/16 08:00 70 11/28/16 07:30 73 11/28/16 07:00 94 Nasal Cannula 1.00 11/28/16 07:00 98.3 75 16 122/67 94 11/28/16 06:00 72 11/28/16 05:00 66 11/28/16 04:00 64 11/28/16 03:03 Nasal Cannula 1.00 11/28/16 03:00 98.7 70 20 143/62 97 11/28/16 02:00 64 11/28/16 01:00 64 11/28/16 00:00 67 11/27/16 23:19 98.7 69 20 119/60 96 11/27/16 23:10 Nasal Cannula 1.00 11/27/16 23:00 70 11/27/16 22:00 76 11/27/16 21:44 20 11/27/16 21:00 82 11/27/16 20:54 96 Nasal Cannula 2.00 11/27/16 20:00 79 11/27/16 19:17 98.9 78 20 124/70 94 11/27/16 19:17 Nasal Cannula 1.00 11/27/16 19:00 77 11/27/16 18:00 75 11/27/16 17:00 70 11/27/16 16:00 80 11/27/16 15:00 82 11/27/16 15:00 98 Nasal Cannula 2.00 11/27/16 15:00 98.0 82 18 130/62 94 11/27/16 14:00 80 11/27/16 13:00 78 11/27/16 12:00 82 11/27/16 11:53 97 Nasal Cannula 2.00 11/27/16 11:00 97.8 76 20 128/63 97 11/27/16 11:00 98 Nasal Cannula 2.00 11/27/16 11:00 79 I/O 11/27/16 11/27/16 11/27/16 11/28/16 11/28/16 11/28/16 07:00 15:00 23:00 07:00 15:00 23:00 Intake Total 340 ml 240 ml 580 ml Output Total 550 ml 400 ml 950 ml Balance -210 ml -160 ml -370 ml Intake Oral 240 ml 240 ml 480 ml IV Total 100 ml 0 ml 100 ml Output Urine Total 550 ml 400 ml 950 ml Emesis 0 ml # Bowel Movements 1 0 0 Result Diagram: 11/28/16 0641 11/28/16 06 Objective Remarks GENERAL: in NAD CARDIOVASCULAR: Regular rate and rhythm without murmurs, gallops, or rubs. RESPIRATORY: Breath sounds equal bilaterally. No accessory muscle use. GASTROINTESTINAL: Abdomen soft, non-tender, nondistended. MUSCULOSKELETAL: No cyanosis, or edema. BACK: Nontender without obvious deformity. No CVA tenderness. Medications and IVs Current Medications Sodium Chloride (NS Flush) 2 ml UNSCH PRN IVF FLUSH AFTER USING IV ACCESS; Start 11/20/16 at 00:15; Stop 11/20/16 at 02:21; Status DC Furosemide (Lasix Inj) 40 mg ONCE ONCE IV PUSH Last administered on 11/20/16t 01:43; Start 11/20/16 at 01:30; Stop 11/20/16 at 01:31; Status DC Furosemide (Lasix Inj) 40 mg BID@09,18 IV PUSH ; Start 11/20/16 at 09:00; Stop 11/20/16 at 09:00; Status DC Sodium Chloride (NS Flush) 2 ml UNSCH PRN IV FLUSH FLUSH AFTER USING IV ACCESS ; Start 11/20/16 at 02:15; Stop 11/20/16 at 05:17; Status DC Sodium Chloride (NS Flush) 2 ml BID IV FLUSH ; Start 11/20/16 at 09:00; Stop at 09:00; Status DC Ondansetron HCl (Zofran Inj) 4 mg Q6H PRN IVP NAUSEA OR VOMITING; Start at 02:15; Stop 11/20/16 at 05:19; Status DC Acetaminophen (Tylenol) 650 mg Q6H PRN PO FEVER/PAIN SCALE 1 TO 2; Start at 02:15; Stop 11/20/16 at 05:19; Status DC Acetaminophen/ Hydrocodone Bitart ([place]den 5-325 Mg) 1 tab Q4H PRN PO PAIN SCALE 3 TO 5; Start 11/20/16 at 02:15; Stop 11/21/16 at 10:37; Status DC Morphine Sulfate (Morphine Inj) 2 mg Q3H PRN IV Pain 6-10; Start 11/20/16 at 02 :15 Senna/Docusate Sodium (Katherine-Colace) 1 tab BID PO ; Start 11/20/16 at 09:00; Stop 11/20/16 at 09:00; Status DC Magnesium Hydroxide (Milk Of Magnesia Liq) 30 ml Q12H PRN PO MILD - MODERATE CONSTIPATION; Start 11/20/16 at 02:15; Stop 11/20/16 at 10:35; Status DC Sennosides (Senokot) 17.2 mg Q12H PRN PO MODERATE - SEVERE CONSTIPATION; Start 11/20/16 at 02:15; Stop 11/20/16 at 05:19; Status DC Bisacodyl (Dulcolax Supp) 10 mg DAILY PRN RECTAL SEVERE CONSITIPATION; Start at 02:15; Stop 11/20/16 at 05:19; Status DC Lactulose (Lactulose Liq) 30 ml DAILY PRN PO SEVERE CONSITIPATION; Start at 02:15; Stop 11/20/16 at 05:19; Status DC Amiodarone HCl (Cordarone) 100 mg BID PO Last administered on 11/28/16 08:27; Start 11/20/16 at 09:00 Brimonidine Tartrate (Alphagan 0.2% Opth Soln) 1 drop BID EACH EYE Last administered on 11/28/16 08:31; Start 11/20/16 at 09:00 Dorzolamide/ Timolol (Cosopt 2-0.5% Opth Soln) 1 drop BID EACH EYE Last administered on 11/28/16 08:32; Start 11/20/16 at 09:00 Gabapentin (Neurontin) 600 mg HS PO ; Start 11/20/16 at 21:00; Status Hold Hydroxychloroquine Sulfate (Plaquenil) 200 mg DAILY PO Last administered on 08:27; Start 11/20/16 at 09:00 Hydroxyzine HCl (Atarax) 10 mg BID PO Last administered on 11/20/16 09:00; Start 11/20/16 at 09:00; Stop 11/20/16 at 10:35; Status DC Latanoprost (Xalatan 0.005% Opt Soln) 1 drop HS EACH EYE Last administered on 11/28/16 08:32; Start 11/20/16 at 21:00 Methocarbamol (Robaxin) 500 mg BID PO Last administered on 11/20/16 09:25; Start 11/20/16 at 09:00; Status Hold Rivaroxaban (Xarelto) 15 mg DAILY PO ; Start 11/20/16 at 09:00; Stop 11/20/16 at 10:11; Status DC Miscellaneous (Pill Splitter) 1 ea UNSCH PRN OTHER SEE LABEL COMMENTS; Start at 02:30 Albuterol/ Ipratropium (Duoneb Neb) 1 ampule ONCE ONCE INH Last administered on 11/20/16 03:04; Start 11/20/16 at 02:45; Stop 11/20/16 at 02:46; Status DC Nitroglycerin 1 inch 1 inch ONCE ONCE TOP Last administered on 11/20/16 02:48 ; Start 11/20/16 at 02:45; Stop 11/20/16 at 02:46; Status DC Cefepime HCl/ Sodium Chloride (Maxipime Inj/NS Inj) 100 ml @ 200 mls/hr ONCE ONCE IV Last administered on 11/20/16 03:42; Start 11/20/16 at 03:00; Stop at 03:29; Status DC Bumetanide 2 mg 2 mg ONCE ONCE IV PUSH Last administered on 11/20/16 04:34; Start 11/20/16 at 04:30; Stop 11/20/16 at 04:31; Status DC Dobutamine HCl/ Dextrose (DOBUTamine PREMIX DRIP) 250 ml @ 9.9 mls/hr Q24H IV Last administered on 11/20/16 05:14; Start 11/20/16 at 04:39; Stop 11/20/16 at 22:04; Status DC Bumetanide 1 mg 1 mg Q12H IV PUSH Last administered on 11/24/16 03:07; Start 11/20/16 at 16:00; Stop 11/24/16 at 09:15; Status DC Cefepime HCl/ Sodium Chloride (Maxipime Inj/NS Inj) 100 ml @ 200 mls/hr Q12H IV Last administered on 11/24/16 03:07; Start 11/20/16 at 16:00; Stop at 11:57; Status DC Heparin Sodium (Porcine) 4000 units 4,000 units ONCE ONCE IV Last administered on 11/20/16 09:23; Start 11/20/16 at 09:00; Stop 11/20/16 at 09:01 ; Status DC Heparin Sodium/ Dextrose (Heparin-D5W Inj) 250 ml @ 0 mls/hr TITRATE IV Last administered on 11/23/16 06:55; Start 11/20/16 at 05:15; Stop 11/24/16 at 09:17 ; Status DC Sodium Chloride (NS Flush) 2 ml UNSCH PRN IV FLUSH FLUSH AFTER USING IV ACCESS ; Start 11/20/16 at 05:15 Sodium Chloride (NS Flush) 2 ml BID IV FLUSH Last administered on 11/28/16 08: 29; Start 11/20/16 at 09:00 Acetaminophen (Tylenol) 650 mg Q6H PRN PO FEVER >101F; Start 11/20/16 at 05:15 Pantoprazole Sodium (Protonix Inj) 40 mg DAILY IV Last administered on 08:16; Start 11/20/16 at 09:00; Stop 11/24/16 at 09:17; Status DC Ondansetron HCl (Zofran Inj) 4 mg Q6H PRN IV NAUSEA OR VOMITING Last administered on 11/26/16 13:17; Start 11/20/16 at 05:15 Miscellaneous Information 1 Q361D XX ; Start 11/20/16 at 05:15 Chlorhexidine Gluconate (Chlorhexidine 2% Cloth) Taper DAILY@04 TOP Last administered on 11/25/16 03:39; Start 11/21/16 at 04:00; Stop 11/17/17 at 03:59 Chlorhexidine Gluconate (Chlorhexidine 2% Cloth) 3 pack UNSCH PRN TOP HYGIENIC CARE; Start 11/20/16 at 05:15 Senna/Docusate Sodium (Katherine-Colace) 1 tab BID PO Last administered on 08:27; Start 11/20/16 at 09:00 Sennosides (Senokot) 17.2 mg Q12H PRN PO MODERATE - SEVERE CONSTIPATION; Start 11/20/16 at 05:15 Bisacodyl (Dulcolax Supp) 10 mg DAILY PRN RECTAL SEVERE CONSITIPATION; Start at 05:15; Stop 11/24/16 at 16:18; Status DC Lactulose (Lactulose Liq) 30 ml DAILY PRN PO SEVERE CONSITIPATION; Start at 05:15 Midazolam HCl (Versed Inj) 5 mg STK-MED ONCE .ROUTE ; Start 11/20/16 at 05:25; Stop 11/20/16 at 05:26; Status DC Etomidate (Amidate Inj) 20 mg STK-MED ONCE .ROUTE Last administered on 06:55; Start 11/20/16 at 05:28; Stop 11/20/16 at 05:29; Status DC Rocuronium Bryan (Zemuron Inj) 50 mg STK-MED ONCE .ROUTE Last administered on 11/20/16 06:56; Start 11/20/16 at 05:29; Stop 11/20/16 at 05:30; Status DC Midazolam HCl 2 mg 2 mg ONCE ONCE IV PUSH Last administered on 11/20/16 05:52 ; Start 11/20/16 at 06:00; Stop 11/20/16 at 06:01; Status DC Fentanyl Citrate (fentaNYL DRIP) 250 ml @ 0 mls/hr TITRATE IV Last administered on 11/21/16 19:50; Start 11/20/16 at 06:00; Stop 11/23/16 at 18:20 ; Status DC Sodium Bicarbonate (Sodium Bicarbonate 8.4% Inj) 100 meq ONCE ONCE IV PUSH Last administered on 11/20/16 05:30; Start 11/20/16 at 07:00; Stop 11/20/16 at 07:01; Status DC Etomidate (Amidate Inj) 20 mg ONCE ONCE IV PUSH ; Start 11/20/16 at 07:00; Stop 11/20/16 at 07:01; Status DC Rocuronium Bryan (Zemuron Inj) 50 mg BOLUS ONCE IV ; Start 11/20/16 at 07:00 ; Stop 11/20/16 at 07:01; Status DC Chlorhexidine Gluconate (Peridex 0.12% Liq) 15 ml BID@08,20 MT Last administered on 11/23/16 21:35; Start 11/20/16 at 20:00 Aspirin (Aspirin Chew) 81 mg DAILY CHEW Last administered on 11/28/16 08:28; Start 11/20/16 at 10:00 Dextrose (D50w (Syr) Inj) 50 ml UNSCH PRN IV HYPOGLYCEMIA-SEE COMMENTS Last administered on 11/20/16 17:49; Start 11/20/16 at 10:15 Glucagon (Glucagon Inj) 1 mg UNSCH PRN OTHER HYPOGLYCEMIA-SEE COMMENTS; Start 11/20/16 at 10:15; Stop 11/24/16 at 16:18; Status DC Insulin Aspart 1 1 Q6H SQ ; Start 11/20/16 at 10:15; Stop 11/24/16 at 16:18; Status DC Dobutamine HCl/ Dextrose 250 ml @ 9.9 mls/hr Q24H IV Last administered on 11/22 22:43; Start 11/20/16 at 22:02; Stop 11/23/16 at 18:20; Status DC Potassium Chloride 100 ml @ 50 mls/hr Q2H PRN IV For Potassium 2.8 - 3.2 mEq/ L Last administered on 11/22/16 02:42; Start 11/20/16 at 22:15; Stop 11/22/16 at 13:53; Status DC Potassium Chloride (KCl 20 Meq Premix Inj) 100 ml @ 50 mls/hr Q2H PRN IV For Potassium 2.8 - 3.2 mEq/L; Start 11/20/16 at 22:15; Stop 11/22/16 at 13:53; Status DC Potassium Bicarb/ Potassium Chloride 50 meq 50 meq UNSCH PRN PO For Potassium 3.3 - 3.5 mEq/L; Start 11/20/16 at 22:15; Stop 11/22/16 at 13:53; Status DC Potassium Chloride 100 ml @ 25 mls/hr UNSCH PRN IV For Potassium 3.3 - 3.5 mEq /L; Start 11/20/16 at 22:15; Stop 11/22/16 at 13:53; Status DC Potassium Chloride 100 ml @ 50 mls/hr Q2H PRN IV For Potassium 3.3 - 3.5 mEq/L ; Start 11/20/16 at 22:15; Stop 11/22/16 at 13:53; Status DC Magnesium Sulfate/ Sodium Chloride (Magnesium Sulfate Inj/NS Inj) 100 ml @ 50 mls/hr UNSCH PRN IV For Magnesium 0.9 - 1.1 mg/dL; Start 11/20/16 at 22:15; Stop 11/22/16 at 13:53; Status DC Magnesium Oxide 800 mg 800 mg UNSCH PRN PO For Magnesium 1.2 - 1.6 mg/dL; Start 11/20/16 at 22:15; Stop 11/22/16 at 13:53; Status DC Magnesium Sulfate/ Sodium Chloride (Magnesium Sulfate Inj/NS Inj) 100 ml @ 50 mls/hr UNSCH PRN IV For Magnesium 1.2 - 1.6 mg/dL Last administered on t 03:01; Start 11/20/16 at 22:15; Stop 11/22/16 at 13:53; Status DC Potassium Phosphate 2000 mg 2,000 mg Q4H PRN PO For Phosphorus < 2.5 mg/dL; Start 11/20/16 at 22:15; Stop 11/22/16 at 13:53; Status DC Sodium Phosphate/ Sodium Chloride (Sodium Phosphate Inj/NS 250 ml Inj) 250 ml @ 42 mls/hr UNSCH PRN IV For Phosphorus < 2.5 mg/dL; Start 11/20/16 at 22:15; Stop 11/22/16 at 13:53; Status DC Potassium Phosphate 2000 mg 2,000 mg UNSCH PRN PO/TUBE SEE LABEL COMMENTS; Start 11/20/16 at 22:15; Stop 11/22/16 at 13:53; Status DC Potassium Phosphate/Sodium Chloride (Potassium Phosphate Inj/NS 250 ml Inj) 260 ml @ 42 mls/hr UNSCH PRN IV SEE LABEL COMMENTS; Start 11/20/16 at 22:15; Stop 11/22/16 at 13:53; Status DC Albumin Human (Albumin 5% Inj) 12.5 gm NOW IV Last administered on 11/21/16 03 :15; Start 11/21/16 at 02:45; Stop 11/21/16 at 04:20; Status DC Acetaminophen/ Hydrocodone Bitart 1 tab 1 tab Q4H PRN PO any pain Last administered on 11/27/16 20:44; Start 11/21/16 at 10:15 Amiodarone HCl/ Dextrose (Cordarone Inj/ D5W ([place]) Inj) 259 ml @ 0 mls/hr CONTINUOUS IV Last administered on 11/22/16 22:31; Start 11/22/16 at 01:30; Stop 11/23/16 at 18:20; Status DC Bumetanide (Bumex Inj) 2 mg NOW ONCE IV PUSH Last administered on 11/22/16 13 :48; Start 11/22/16 at 13:45; Stop 11/22/16 at 13:47; Status DC Alteplase, Recombinant (Cathflo Activase Inj) 6 mg ONCE ONCE IV Last administered on 11/22/16 17:45; Start 11/22/16 at 17:15; Stop 11/22/16 at 17:16 ; Status DC Furosemide (Lasix) 20 mg BID@09,18 PO Last administered on 11/27/16 09:25; Start 11/24/16 at 18:00; Stop 11/27/16 at 15:59; Status DC Rivaroxaban 15 mg 15 mg DAILY PO Last administered on 11/28/16 08:27; Start at 11:00 Cefepime HCl/ Sodium Chloride (Maxipime Inj/NS Inj) 100 ml @ 200 mls/hr Q24H IV Last administered on 11/28/16 02:34; Start 11/25/16 at 03:00 Furosemide (Lasix Inj) 20 mg BID@09,18 IV PUSH Last administered on 11/28/16 08:28; Start 11/27/16 at 18:00 Potassium Bicarb/ Potassium Chloride (K-Lyte Cl Eff) 50 meq ONCE ONCE PO ; Start 11/27/16 at 19:45; Stop 11/27/16 at 19:45; Status DC Potassium Bicarb/ Potassium Chloride (K-Lyte Cl Eff) 25 meq ONCE ONCE PO Last administered on 11/27/16t 20:43; Start 11/27/16 at 20:00; Stop 11/27/16 at 20:01; Status DC A/P Problem List: (1) CHF (congestive heart failure) ICD Code: I50.9 Status: Acute (2) Cardiogenic shock ICD Code: R57.0 Status: Acute (3) Respiratory failure, acute ICD Code: J96.00 Status: Acute (4) A-fib ICD Code: I48.91 Status: Chronic (5) CKD (chronic kidney disease) stage 3, GFR 30-59 ml/min ICD Code: N18.3 Status: Chronic (6) HTN (hypertension) ICD Code: I10 Status: Chronic (7) Anemia ICD Code: D64.9 Status: Chronic (8) Cardiomyopathy ICD Code: I42.9 Status: Acute Assessment and Plan 81-year-old female who presented with acute respiratory failure Acute respiratory failure -Most likely secondary to pulmonary edema/bilateral pleural effusion due to CHF exacerbation. -Intubated 11/20. Extubated 11/22 -Patient doing well and off nasal canal now. 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 Patient was switched to IV Lasix yesterday. -Strict ins and outs. -Hydro Station Operator following. Echo EF 25-30%. -Continue amiodarone 100 mg by mouth twice a day. -Patient currently on Xarelto. -Continue with aspirin. -She is now off of oxygen. Peripheral neuropathy -Neurontin and Levoxine held due to renal failure. -Minimize sedation Chronic kidney disease stage III, with acute worsening -[place] in place for strict ins and outs. -He continues have good urine output. Physiotherapy Aide is following. Questionable cardiorenal. -Creatinine improved today. -If okay with edge dyer will consider discontinuing [place]. Hyponatremia secondary to CHF and volume overload state. -Sodium improved to 128 today. She's asymptomatic. It improved with IV Lasix. -Most likely secondary to increase fluid intake. Patient was advised to limit her fluids. Questionable pneumonia -Continue with cefepime. Clinically she is doing well. -All cultures negative to date-UA is negative for evidence of infection. -Leukocytosis is now improving. May be secondary to atelectasis since patient and later more yesterday and there is improvement in the white count. -Infectious disease is following. Chronic anemia/Chronic anticoagulation with Xarelto due to atrial fibrillation -Status post heparin drip. Patient is on Xarelto. Glaucoma -Continue Latanoprost/Alphagan/Cosopt ophthalmic as prescribed. Acute stress hyperglycemia. Low-dose insulin sliding scale with bedside glucose monitoring every 6 hours PROPH: Patients on Xarelto. Discharge Planning Once medically stable patient was to go home with home health. She stated that her is very athletic and can care for her 23/11. Dealt with patient's nurse at the bedside and asked for physical therapist to assess this. Problem Qualifiers (1) CHF (congestive heart failure): Qualified Code: I50.21 - Acute systolic congestive heart failure (2) A-fib: Qualified Code: I48.0 - Paroxysmal atrial fibrillation (3) Anemia: Zoie Lewis MD Nov 28, 2016 11:01
--- NOTE | 2016-11-28 14:43 | HHI.NPPN ---
Subjective History of Present Illness 81-year-old female with past medical history of atrial fibrillation, peripheral vascular disease, hypertension, hyperlipidemia, fibromyalgia, and chronic kidney disease, was admitted on November 20, with complaint of generalized weakness and shortness of breath. I was called to see the patient because of elevated BUN and creatinine. Additional Remarks Patient is alert, started eating some, breathing is better. Review of Systems General Constitutional: Fatigue Respiratory Lungs: SOB Cardiovascular Cardiac: Edema, ESPINOSA Objective Data Data 11/27/16 11/28/16 19:00 07:00 Intake Total 240 ml 580 ml Output Total 400 ml 950 ml Balance -160 ml -370 ml Intake Oral 240 ml 480 ml IV Total 0 ml 100 ml Output Urine Total 400 ml 950 ml Emesis 0 ml # Bowel Movements 0 0 Vital Signs Date Time Temp Pulse Resp B/P Pulse Ox O2 Delivery O2 Flow Rate FiO2 11/28/16 14:02 79 11/28/16 13:05 75 11/28/16 12:51 78 11/28/16 11:35 98.0 75 16 123/69 94 11/28/16 11:04 72 11/28/16 11:00 94 Nasal Cannula 1.00 11/28/16 10:14 78 11/28/16 09:32 72 11/28/16 08:00 70 11/28/16 07:30 73 11/28/16 07:00 94 Nasal Cannula 1.00 11/28/16 07:00 98.3 75 16 122/67 94 11/28/16 06:00 72 11/28/16 05:00 66 11/28/16 04:00 64 11/28/16 03:03 Nasal Cannula 1.00 11/28/16 03:00 98.7 70 20 143/62 97 11/28/16 02:00 64 11/28/16 01:00 64 11/28/16 00:00 67 11/27/16 23:19 98.7 69 20 119/60 96 11/27/16 23:10 Nasal Cannula 1.00 11/27/16 23:00 70 11/27/16 22:00 76 11/27/16 21:44 20 11/27/16 21:00 82 11/27/16 20:54 96 Nasal Cannula 2.00 11/27/16 20:00 79 11/27/16 19:17 98.9 78 20 124/70 94 11/27/16 19:17 Nasal Cannula 1.00 11/27/16 19:00 77 11/27/16 18:00 75 11/27/16 17:00 70 11/27/16 16:00 80 11/27/16 15:00 82 11/27/16 15:00 98 Nasal Cannula 2.00 11/27/16 15:00 98.0 82 18 130/62 94 -: 11/28/16 0641 11/28/16 0641 Physical Exam General Appearance: No Acute Distress, Comfortable Eyes Eye Exam: Pupils Equal Throat Throat Exam: Oral Mucosa Christopher & Moist Neck Neck Exam: Neck Supple Pulmonary Resp Exam: Breath Sounds Equal, No Distress, Rhonchi, Decreased Bases Cardiology CV Exam: Regular, Normal Sinus Rhythm Gastrointestinal/Abdomen GI Exam: Soft, Non-Tender, Bowel Sounds Present Extremeties Extremities Exam: Trace Edema Neurologic Neuro Exam: Alert, Awake, Oriented Psychiatric Psych Exam: Appropriate Responses Assessment/Plan Assessment Summary: RACHID/Acute Renal Failure, Fluid/Volume Overload, CKD Stage III Problem List: (1) Respiratory distress (2) CHF (congestive heart failure) (3) HTN (hypertension) (4) A-fib (5) CKD (chronic kidney disease) stage 3, GFR 30-59 ml/min (6) Acute kidney injury Plan Patient has been non oliguric. Creatinine baseline is close to 1.4-1.5. U/S kidneys noted. Continue Lasix, Creatinine is slightly better. Na. improved Keep De Los Santos in till tomorrow may dc in am Problem Qualifiers (1) CHF (congestive heart failure): Qualified Code: I50.21 - Acute systolic congestive heart failure (2) A-fib: Qualified Code: I48.0 - Paroxysmal atrial fibrillation Taisha Shahid MD Nov 28, 2016 14:42
--- NOTE | 2016-11-28 19:46 | HHI.IDPN ---
Subjective Subjective Remarks doing well no co on RA C.diff neg diarrhea resolved Urine woth candiduria Sputum nl resp kourtney Antibiotics cefepime Allergies: Coded Allergies: Bactrim (Unverified Allergy, Severe, n/v, 11/20/16) Doxycycline (Unverified Allergy, Severe, n/v, 11/20/16) Sulfa (Unverified Allergy, Intermediate, Nausea/Vomiting, 11/20/16) Adhesives (Unverified Allergy, Unknown, 11/20/16) band aids Triamterene (Unverified Allergy, Unknown, 11/20/16) triamterene/hctz Uncoded Allergies: nickel (Allergy, Unknown, 02/04/16) Objective . Vital Signs Date Time Temp Pulse Resp B/P Pulse Ox O2 Delivery O2 Flow Rate FiO2 11/28/16 18:13 79 11/28/16 17:44 72 11/28/16 16:41 70 11/28/16 16:40 98.0 77 18 123/63 92 11/28/16 16:39 98 Room Air 11/28/16 15:03 78 11/28/16 14:02 79 11/28/16 13:05 75 11/28/16 12:51 78 11/28/16 11:35 98.0 75 16 123/69 94 11/28/16 11:04 72 11/28/16 11:00 94 Nasal Cannula 1.00 11/28/16 10:14 78 11/28/16 09:32 72 11/28/16 08:00 70 11/28/16 07:30 73 11/28/16 07:00 94 Nasal Cannula 1.00 11/28/16 07:00 98.3 75 16 122/67 94 11/28/16 06:00 72 11/28/16 05:00 66 11/28/16 04:00 64 11/28/16 03:03 Nasal Cannula 1.00 11/28/16 03:00 98.7 70 20 143/62 97 11/28/16 02:00 64 11/28/16 01:00 64 11/28/16 00:00 67 11/27/16 23:19 98.7 69 20 119/60 96 11/27/16 23:10 Nasal Cannula 1.00 11/27/16 23:00 70 11/27/16 22:00 76 11/27/16 21:44 20 11/27/16 21:00 82 11/27/16 20:54 96 Nasal Cannula 2.00 11/27/16 20:00 79 11/27/16 11/27/16 11/28/16 14:59 22:59 06:59 Intake Total 240 ml 580 ml Output Total 400 ml 950 ml Balance -160 ml -370 ml Intake Oral 240 ml 480 ml IV Total 0 ml 100 ml Output Urine Total 400 ml 950 ml Emesis 0 ml # Bowel Movements 0 0 . Laboratory Tests Test 11/27/16 11/28/16 04:34 06:41 White Blood Count 11.5 TH/MM3 9.6 TH/MM3 Red Blood Count 3.64 MIL/MM3 3.23 MIL/MM3 Hemoglobin 10.4 GM/DL 9.6 GM/DL Hematocrit 32.6 % 28.0 % Mean Corpuscular Volume 89.5 FL 86.7 FL Mean Corpuscular Hemoglobin 28.5 PG 29.8 PG Mean Corpuscular Hemoglobin 31.9 % 34.4 % Concent Red Cell Distribution Width 14.0 % 14.2 % Platelet Count 235 TH/MM3 264 TH/MM3 Mean Platelet Volume 8.2 FL 8.2 FL Laboratory Tests Test 11/27/16 11/28/16 04:34 06:41 Sodium Level 123 MEQ/L 128 MEQ/L Potassium Level 3.3 MEQ/L 3.5 MEQ/L Chloride Level 91 MEQ/L 94 MEQ/L Carbon Dioxide Level 18.0 MEQ/L 20.5 MEQ/L Anion Gap 14 MEQ/L 14 MEQ/L Blood Urea Nitrogen 43 MG/DL 47 MG/DL Creatinine 2.25 MG/DL 2.19 MG/DL Estimat Glomerular Filtration 21 ML/MIN 22 ML/MIN Rate Random Glucose 97 MG/DL 86 MG/DL Calcium Level 9.5 MG/DL 9.2 MG/DL Microbiology Date/Time Procedure Status Source Growth 11/26/16 17:50 Urine Culture - Final Complete Urine Catheterized Urine Kirstie Albicans 11/26/16 19:50 Gram Stain - Final Complete Sputum Expectorated Sputum 11/26/16 19:50 Sputum Culture - Final Complete Sputum Expectorated Sputum HEAVY GROWTH NORMAL RESPIRATORY KOURTNEY Imaging Last Impressions Chest X-Ray 11/24/16 0600 Signed Impressions: Service Date/Time: Thursday, November 24, 2016 05:32 - CONCLUSION: Stable bilateral pleural effusions with associated volume loss and/or airspace consolidation. Esau Matos MD Renal Ultrasound 11/24/16 0000 Signed Impressions: Service Date/Time: Thursday, November 24, 2016 19:06 - CONCLUSION: 1. Kidneys appear unremarkable. 2. Moderate left pleural effusion. Adrian Mae MD Physical Exam CONSTITUTIONAL/GENERAL: This is an adequately nourished elderly and frail patient, in no apparent distress. TUBES/LINES/DRAINS: SKIN: No jaundice, rashes, or lesions. EYES: Pupils equal and round and reactive. Extraocular motions intact. No scleral icterus. No injection or drainage. Fundi not examined. CARDIOVASCULAR: Regular rate and rhythm without murmurs, gallops, or rubs. No JVD. Peripheral pulses symmetric. Pacer in place L chest no skin changes RESPIRATORY/CHEST: Symmetric, unlabored respirations. Still quite promine t crackles to the L to auscultation. Breath sounds equal bilaterally. No wheezes , GASTROINTESTINAL: Abdomen soft, non-tender, nondistended. No hepato-splenomegaly , or palpable masses. . Bowel sounds present. GENITOURINARY: Without palpable bladder distension. Fraser catheter in place with small amount of clear light yellow urine MUSCULOSKELETAL: Extremities without clubbing, cyanosis, + 1 soft pitting edema. No joint tenderness or effusion noted. No calf tenderness. No mottling or clubbing. NEUROLOGICcalm and coopertative Assessment & Plan Remarks CHF exacerbation Suspected suerimposed PNA Abx associated diarrhea, c.diff negative Leukocytosis ? souce of infx - resolved Funguria fraser associated ? significance REC's: - agree with removing fraser tomorrow am - repeat UA. C+S clean catch after fraser removed - change cefepime to CFTX and complete 7 days dw Chandni Madden MD Nov 28, 2016 19:46
[2016-11-28] MEDS: cefTRIAXone INJ 2,000 MG in SODIUM CHLORIDE 0.9% INJ 100 ML IV SCH (21:16)
[2016-11-28] MEDS: ACETAMINOPHEN/HYDROcodone 325 MG/5 MG TAB PO PRN (23:50)
[2016-11-29] VITALS (26 sets, daily range): BP systolic 109–126; BP diastolic 61–75; PULSE 64–108; RESP 16–18; TEMP 97.6–98.4; O2SAT 96–99
[2016-11-29] MEDS: CHLORHEXIDINE GLUCONATE 2 % 1 PACK (2 CLOTHS) TOP SCH (04:00)
[2016-11-29 05:41] LABS: HEMATOCRIT 27.1 % (35.0-46.0); MEAN CELL VOLUME 87.2 FL (80.0-100.0); MEAN CORPUSCULAR HGB CONC 34.4 % (32.0-36.0); PLATELET COUNT 288 TH/MM3 (150-450); RED BLOOD COUNT 3.11 MIL/MM3 (4.00-5.30); RED CELL DISTRIBUTION WIDTH 14.2 % (11.6-17.2); REVIEW FLAG FINAL
[2016-11-29 06:00] LABS: BICARBONATE 21.3 MEQ/L (21.0-32.0); POTASSIUM 3.2 MEQ/L (3.5-5.1)
[2016-11-29] MEDS: ASPIRIN 81 MG CHEW TAB CHEW SCH (07:47)
[2016-11-29] MEDS: FUROSEMIDE 20 MG/2 ML VIAL IV PUSH SCH ×3 (07:48→17:08)
[2016-11-29] MEDS: HYDROXYCHLOROQUINE SULFATE 200 MG TAB PO SCH (07:48)
[2016-11-29] MEDS: AMIODARONE 200 MG TAB PO SCH ×2 (07:48→21:28)
[2016-11-29] MEDS: DOCUSATE SODIUM 50 MG/SENNA 8.6 MG TAB PO SCH ×2 (07:49→21:28)
[2016-11-29] MEDS: SODIUM CHLORIDE 0.9% FLUSH 10 ML FLUSH IV FLUSH SCH ×2 (07:49→21:28)
[2016-11-29] MEDS: CHLORHEXIDINE 0.12% (ORAL KIT) 15 ML CUP MT SCH ×2 (07:49→20:00)
[2016-11-29] MEDS: RIVAROXABAN 15 MG TAB PO SCH (07:49)
[2016-11-29] MEDS: DORZOLAMIDE/TIMOLOL OPTH SOLN 10 ML BTL EACH EYE SCH ×2 (07:54→21:26)
[2016-11-29] MEDS: BRIMONIDINE TARTRATE 0.2% OPHT SOLN 5 ML BTL EACH EYE SCH ×2 (07:55→21:26)
--- NOTE | 2016-11-29 08:58 | HHI.PR ---
Subjective Remarks Follow-up for congestive heart failure exacerbation, hyponatremia, acute renal failure Patient stated that she feels a little better. Denies any shortness of breathing. She is now on oxygen again. She desats mostly at night and with exertion. Her nurses at the bedside. She stated that she does want to go to rehabilitation center and that her and her spoke about it and thought it was safer for her to go. Dealt with patient's nurse. Objective Vitals Vital Signs Date Time Temp Pulse Resp B/P Pulse Ox O2 Delivery O2 Flow Rate FiO2 11/29/16 07:00 98.4 96 18 117/74 96 11/29/16 06:00 102 11/29/16 05:00 74 11/29/16 04:00 64 11/29/16 03:00 68 11/29/16 03:00 98 Nasal Cannula 2.00 11/29/16 03:00 98.0 71 18 120/71 98 11/29/16 02:00 68 11/29/16 01:08 18 11/29/16 01:00 94 11/29/16 00:00 102 11/28/16 23:00 98 Nasal Cannula 2.00 11/28/16 23:00 98.2 100 18 120/70 98 11/28/16 23:00 100 11/28/16 22:00 103 11/28/16 21:00 100 11/28/16 20:00 80 11/28/16 19:00 90 Room Air 11/28/16 19:00 98.4 100 20 123/70 90 11/28/16 19:00 76 11/28/16 18:13 79 11/28/16 17:44 72 11/28/16 16:41 70 11/28/16 16:40 98.0 77 18 123/63 92 11/28/16 16:39 98 Room Air 11/28/16 15:03 78 11/28/16 14:02 79 11/28/16 13:05 75 11/28/16 12:51 78 11/28/16 11:35 98.0 75 16 123/69 94 11/28/16 11:04 72 11/28/16 11:00 94 Nasal Cannula 1.00 11/28/16 10:14 78 11/28/16 09:32 72 I/O 7/29/17 11/28/16 11/28/16 11/29/16 11/29/16 11/29/16 07:00 15:00 23:00 07:00 15:00 23:00 Intake Total 580 ml 400 ml 340 ml Output Total 950 ml 602 ml 600 ml Balance -370 ml -202 ml -260 ml Intake Oral 480 ml 400 ml 240 ml IV Total 100 ml 100 ml Output Urine Total 950 ml 600 ml 600 ml Stool Total 2 ml Emesis 0 ml # Bowel Movements 0 Result Diagram: 11/29/16 0430 11/29/16 0430 Imaging Last Impressions Chest X-Ray 11/24/16 0600 Signed Impressions: Service Date/Time: Thursday, November 24, 2016 05:32 - CONCLUSION: Stable bilateral pleural effusions with associated volume loss and/or airspace consolidation. Esau Matos MD Renal Ultrasound 11/24/16 0000 Signed Impressions: Service Date/Time: Thursday, November 24, 2016 19:06 - CONCLUSION: 1. Kidneys appear unremarkable. 2. Moderate left pleural effusion. Adrian Mae MD Objective Remarks GENERAL: in NAD CARDIOVASCULAR: Regular rate and rhythm without murmurs, gallops, or rubs. RESPIRATORY: Breath sounds equal bilaterally. No accessory muscle use. GASTROINTESTINAL: Abdomen soft, non-tender, nondistended. MUSCULOSKELETAL: No cyanosis, or edema. BACK: Nontender without obvious deformity. No CVA tenderness. Medications and IVs Current Medications Sodium Chloride (NS Flush) 2 ml UNSCH PRN IVF FLUSH AFTER USING IV ACCESS; Start 11/20/16 at 00:15; Stop 11/20/16 at 02:21; Status DC Furosemide (Lasix Inj) 40 mg ONCE ONCE IV PUSH Last administered on 11/20/16t 01:43; Start 11/20/16 at 01:30; Stop 11/20/16 at 01:31; Status DC Furosemide (Lasix Inj) 40 mg BID@09,18 IV PUSH ; Start 11/20/16 at 09:00; Stop 11/20/16 at 09:00; Status DC Sodium Chloride (NS Flush) 2 ml UNSCH PRN IV FLUSH FLUSH AFTER USING IV ACCESS ; Start 11/20/16 at 02:15; Stop 11/20/16 at 05:17; Status DC Sodium Chloride (NS Flush) 2 ml BID IV FLUSH ; Start 11/20/16 at 09:00; Stop at 09:00; Status DC Ondansetron HCl (Zofran Inj) 4 mg Q6H PRN IVP NAUSEA OR VOMITING; Start at 02:15; Stop 11/20/16 at 05:19; Status DC Acetaminophen (Tylenol) 650 mg Q6H PRN PO FEVER/PAIN SCALE 1 TO 2; Start at 02:15; Stop 11/20/16 at 05:19; Status DC Acetaminophen/ Hydrocodone Bitart ([place] 5-325 Mg) 1 tab Q4H PRN PO PAIN SCALE 3 TO 5; Start 11/20/16 at 02:15; Stop 11/21/16 at 10:37; Status DC Morphine Sulfate (Morphine Inj) 2 mg Q3H PRN IV Pain 6-10; Start 11/20/16 at 02 :15 Senna/Docusate Sodium (Katherine-Colace) 1 tab BID PO ; Start 11/20/16 at 09:00; Stop 11/20/16 at 09:00; Status DC Magnesium Hydroxide (Milk Of Magnesia Liq) 30 ml Q12H PRN PO MILD - MODERATE CONSTIPATION; Start 11/20/16 at 02:15; Stop 11/20/16 at 10:35; Status DC Sennosides (Senokot) 17.2 mg Q12H PRN PO MODERATE - SEVERE CONSTIPATION; Start 11/20/16 at 02:15; Stop 11/20/16 at 05:19; Status DC Bisacodyl (Dulcolax Supp) 10 mg DAILY PRN RECTAL SEVERE CONSITIPATION; Start at 02:15; Stop 11/20/16 at 05:19; Status DC Lactulose (Lactulose Liq) 30 ml DAILY PRN PO SEVERE CONSITIPATION; Start at 02:15; Stop 11/20/16 at 05:19; Status DC Amiodarone HCl (Cordarone) 100 mg BID PO Last administered on 11/29/16 07:48; Start 11/20/16 at 09:00 Brimonidine Tartrate (Alphagan 0.2% Opt Soln) 1 drop BID EACH EYE Last administered on 11/29/16 07:55; Start 11/20/16 at 09:00 Dorzolamide/ Timolol (Cosopt 2-0.5% Opt Soln) 1 drop BID EACH EYE Last administered on 11/29/16 07:54; Start 11/20/16 at 09:00 Gabapentin (Neurontin) 600 mg HS PO ; Start 11/20/16 at 21:00; Status Hold Hydroxychloroquine Sulfate (Plaquenil) 200 mg DAILY PO Last administered on 07:48; Start 11/20/16 at 09:00 Hydroxyzine HCl (Atarax) 10 mg BID PO Last administered on 11/20/16 09:00; Start 11/20/16 at 09:00; Stop 11/20/16 at 10:35; Status DC Latanoprost (Xalatan 0.005% Opt Soln) 1 drop HS EACH EYE Last administered on 11/28/16 08:32; Start 11/20/16 at 21:00 Methocarbamol (Robaxin) 500 mg BID PO Last administered on 11/20/16 09:25; Start 11/20/16 at 09:00; Status Hold Rivaroxaban (Xarelto) 15 mg DAILY PO ; Start 11/20/16 at 09:00; Stop 11/20/16 at 10:11; Status DC Miscellaneous (Pill Splitter) 1 ea UNSCH PRN OTHER SEE LABEL COMMENTS; Start at 02:30 Albuterol/ Ipratropium (Duoneb Neb) 1 ampule ONCE ONCE INH Last administered on 11/20/16 03:04; Start 11/20/16 at 02:45; Stop 11/20/16 at 02:46; Status DC Nitroglycerin 1 inch 1 inch ONCE ONCE TOP Last administered on 11/20/16 02:48 ; Start 11/20/16 at 02:45; Stop 11/20/16 at 02:46; Status DC Cefepime HCl/ Sodium Chloride (Maxipime Inj/NS Inj) 100 ml @ 200 mls/hr ONCE ONCE IV Last administered on 11/20/16 03:42; Start 11/20/16 at 03:00; Stop at 03:29; Status DC Bumetanide 2 mg 2 mg ONCE ONCE IV PUSH Last administered on 11/20/16 04:34; Start 11/20/16 at 04:30; Stop 11/20/16 at 04:31; Status DC Dobutamine HCl/ Dextrose (DOBUTamine PREMIX DRIP) 250 ml @ 9.9 mls/hr Q24H IV Last administered on 11/20/16 05:14; Start 11/20/16 at 04:39; Stop 11/20/16 at 22:04; Status DC Bumetanide 1 mg 1 mg Q12H IV PUSH Last administered on 11/24/16 03:07; Start 11/20/16 at 16:00; Stop 11/24/16 at 09:15; Status DC Cefepime HCl/ Sodium Chloride (Maxipime Inj/NS Inj) 100 ml @ 200 mls/hr Q12H IV Last administered on 11/24/16 03:07; Start 11/20/16 at 16:00; Stop at 11:57; Status DC Heparin Sodium (Porcine) 4000 units 4,000 units ONCE ONCE IV Last administered on 11/20/16 09:23; Start 11/20/16 at 09:00; Stop 11/20/16 at 09:01 ; Status DC Heparin Sodium/ Dextrose (Heparin-D5W Inj) 250 ml @ 0 mls/hr TITRATE IV Last administered on 11/23/16 06:55; Start 11/20/16 at 05:15; Stop 11/24/16 at 09:17 ; Status DC Sodium Chloride (NS Flush) 2 ml UNSCH PRN IV FLUSH FLUSH AFTER USING IV ACCESS ; Start 11/20/16 at 05:15 Sodium Chloride (NS Flush) 2 ml BID IV FLUSH Last administered on 11/29/16 07: 49; Start 11/20/16 at 09:00 Acetaminophen (Tylenol) 650 mg Q6H PRN PO FEVER >101F; Start 11/20/16 at 05:15 Pantoprazole Sodium (Protonix Inj) 40 mg DAILY IV Last administered on 08:16; Start 11/20/16 at 09:00; Stop 11/24/16 at 09:17; Status DC Ondansetron HCl (Zofran Inj) 4 mg Q6H PRN IV NAUSEA OR VOMITING Last administered on 11/26/16 13:17; Start 11/20/16 at 05:15 Miscellaneous Information 1 [id number] XX ; Start 11/20/16 at 05:15 Chlorhexidine Gluconate (Chlorhexidine 2% Cloth) Taper DAILY@04 TOP Last administered on 11/25/16 03:39; Start 11/21/16 at 04:00; Stop 11/17/17 at 03:59 Chlorhexidine Gluconate (Chlorhexidine 2% Cloth) 3 pack UNSCH PRN TOP HYGIENIC CARE; Start 11/20/16 at 05:15 Senna/Docusate Sodium (Katherine-Colace) 1 tab BID PO Last administered on 08:27; Start 11/20/16 at 09:00 Sennosides (Senokot) 17.2 mg Q12H PRN PO MODERATE - SEVERE CONSTIPATION; Start 11/20/16 at 05:15 Bisacodyl (Dulcolax Supp) 10 mg DAILY PRN RECTAL SEVERE CONSITIPATION; Start at 05:15; Stop 11/24/16 at 16:18; Status DC Lactulose (Lactulose Liq) 30 ml DAILY PRN PO SEVERE CONSITIPATION; Start at 05:15 Midazolam HCl (Versed Inj) 5 mg STK-MED ONCE .ROUTE ; Start 11/20/16 at 05:25; Stop 11/20/16 at 05:26; Status DC Etomidate (Amidate Inj) 20 mg STK-MED ONCE .ROUTE Last administered on 06:55; Start 11/20/16 at 05:28; Stop 11/20/16 at 05:29; Status DC Rocuronium [place] (Zemuron Inj) 50 mg STK-MED ONCE .ROUTE Last administered on 11/20/16 06:56; Start 11/20/16 at 05:29; Stop 11/20/16 at 05:30; Status DC Midazolam HCl 2 mg 2 mg ONCE ONCE IV PUSH Last administered on 11/20/16 05:52 ; Start 11/20/16 at 06:00; Stop 11/20/16 at 06:01; Status DC Fentanyl Citrate (fentaNYL DRIP) 250 ml @ 0 mls/hr TITRATE IV Last administered on 11/21/16 19:50; Start 11/20/16 at 06:00; Stop 11/23/16 at 18:20 ; Status DC Sodium Bicarbonate (Sodium Bicarbonate 8.4% Inj) 100 meq ONCE ONCE IV PUSH Last administered on 11/20/16 05:30; Start 11/20/16 at 07:00; Stop 11/20/16 at 07:01; Status DC Etomidate (Amidate Inj) 20 mg ONCE ONCE IV PUSH ; Start 11/20/16 at 07:00; Stop 11/20/16 at 07:01; Status DC Rocuronium [place] (Zemuron Inj) 50 mg BOLUS ONCE IV ; Start 11/20/16 at 07:00 ; Stop 11/20/16 at 07:01; Status DC Chlorhexidine Gluconate (Peridex 0.12% Liq) 15 ml BID@08,20 MT Last administered on 11/23/16 21:35; Start 11/20/16 at 20:00 Aspirin (Aspirin Chew) 81 mg DAILY CHEW Last administered on 11/29/16 07:47; Start 11/20/16 at 10:00 Dextrose (D50w (Syr) Inj) 50 ml UNSCH PRN IV HYPOGLYCEMIA-SEE COMMENTS Last administered on 11/20/16 17:49; Start 11/20/16 at 10:15 Glucagon (Glucagon Inj) 1 mg UNSCH PRN OTHER HYPOGLYCEMIA-SEE COMMENTS; Start 11/20/16 at 10:15; Stop 11/24/16 at 16:18; Status DC Insulin Aspart 1 1 Q6H SQ ; Start 11/20/16 at 10:15; Stop 11/24/16 at 16:18; Status DC Dobutamine HCl/ Dextrose 250 ml @ 9.9 mls/hr Q24H IV Last administered on 11/22 22:43; Start 11/20/16 at 22:02; Stop 11/23/16 at 18:20; Status DC Potassium Chloride 100 ml @ 50 mls/hr Q2H PRN IV For Potassium 2.8 - 3.2 mEq/ L Last administered on 11/22/16 02:42; Start 11/20/16 at 22:15; Stop 11/22/16 at 13:53; Status DC Potassium Chloride (KCl 20 Meq Premix Inj) 100 ml @ 50 mls/hr Q2H PRN IV For Potassium 2.8 - 3.2 mEq/L; Start 11/20/16 at 22:15; Stop 11/22/16 at 13:53; Status DC Potassium Bicarb/ Potassium Chloride 50 meq 50 meq UNSCH PRN PO For Potassium 3.3 - 3.5 mEq/L; Start 11/20/16 at 22:15; Stop 11/22/16 at 13:53; Status DC Potassium Chloride 100 ml @ 25 mls/hr UNSCH PRN IV For Potassium 3.3 - 3.5 mEq /L; Start 11/20/16 at 22:15; Stop 11/22/16 at 13:53; Status DC Potassium Chloride 100 ml @ 50 mls/hr Q2H PRN IV For Potassium 3.3 - 3.5 mEq/L ; Start 11/20/16 at 22:15; Stop 11/22/16 at 13:53; Status DC Magnesium Sulfate/ Sodium Chloride (Magnesium Sulfate Inj/NS Inj) 100 ml @ 50 mls/hr UNSCH PRN IV For Magnesium 0.9 - 1.1 mg/dL; Start 11/20/16 at 22:15; Stop 11/22/16 at 13:53; Status DC Magnesium Oxide 800 mg 800 mg UNSCH PRN PO For Magnesium 1.2 - 1.6 mg/dL; Start 11/20/16 at 22:15; Stop 11/22/16 at 13:53; Status DC Magnesium Sulfate/ Sodium Chloride (Magnesium Sulfate Inj/NS Inj) 100 ml @ 50 mls/hr UNSCH PRN IV For Magnesium 1.2 - 1.6 mg/dL Last administered on t 03:01; Start 11/20/16 at 22:15; Stop 11/22/16 at 13:53; Status DC Potassium Phosphate 2000 mg 2,000 mg Q4H PRN PO For Phosphorus < 2.5 mg/dL; Start 11/20/16 at 22:15; Stop 11/22/16 at 13:53; Status DC Sodium Phosphate/ Sodium Chloride (Sodium Phosphate Inj/NS 250 ml Inj) 250 ml @ 42 mls/hr UNSCH PRN IV For Phosphorus < 2.5 mg/dL; Start 11/20/16 at 22:15; Stop 11/22/16 at 13:53; Status DC Potassium Phosphate 2000 mg 2,000 mg UNSCH PRN PO/TUBE SEE LABEL COMMENTS; Start 11/20/16 at 22:15; Stop 11/22/16 at 13:53; Status DC Potassium Phosphate/Sodium Chloride (Potassium Phosphate Inj/NS 250 ml Inj) 260 ml @ 42 mls/hr UNSCH PRN IV SEE LABEL COMMENTS; Start 11/20/16 at 22:15; Stop 11/22/16 at 13:53; Status DC Albumin Human (Albumin 5% Inj) 12.5 gm NOW IV Last administered on 11/21/16 03 :15; Start 11/21/16 at 02:45; Stop 11/21/16 at 04:20; Status DC Acetaminophen/ Hydrocodone Bitart 1 tab 1 tab Q4H PRN PO any pain Last administered on 11/28/16 23:50; Start 11/21/16 at 10:15 Amiodarone HCl/ Dextrose (Cordarone Inj/ D5W ([place]) Inj) 259 ml @ 0 mls/hr CONTINUOUS IV Last administered on 11/22/16 22:31; Start 11/22/16 at 01:30; Stop 11/23/16 at 18:20; Status DC Bumetanide (Bumex Inj) 2 mg NOW ONCE IV PUSH Last administered on 11/22/16 13 :48; Start 11/22/16 at 13:45; Stop 11/22/16 at 13:47; Status DC Alteplase, Recombinant (Cathflo Activase Inj) 6 mg ONCE ONCE IV Last administered on 11/22/16 17:45; Start 11/22/16 at 17:15; Stop 11/22/16 at 17:16 ; Status DC Furosemide (Lasix) 20 mg BID@09,18 PO Last administered on 11/27/16 09:25; Start 11/24/16 at 18:00; Stop 11/27/16 at 15:59; Status DC Rivaroxaban 15 mg 15 mg DAILY PO Last administered on 11/29/16 07:49; Start at 11:00 Cefepime HCl/ Sodium Chloride (Maxipime Inj/NS Inj) 100 ml @ 200 mls/hr Q24H IV Last administered on 11/28/16 02:34; Start 11/25/16 at 03:00; Stop at 19:49; Status DC Furosemide (Lasix Inj) 20 mg BID@09,18 IV PUSH Last administered on 11/29/16 08:42; Start 11/27/16 at 18:00 Potassium Bicarb/ Potassium Chloride (K-Lyte Cl Eff) 50 meq ONCE ONCE PO ; Start 11/27/16 at 19:45; Stop 11/27/16 at 19:45; Status DC Potassium Bicarb/ Potassium Chloride 25 meq 25 meq ONCE ONCE PO Last administered on 11/27/16 20:43; Start 11/27/16 at 20:00; Stop 11/27/16 at 20:01 ; Status DC Ceftriaxone Sodium/Sodium Chloride (Rocephin Inj/NS Inj) 100 ml @ 200 mls/hr Q24H IV Last administered on 11/28/16 21:16; Start 11/28/16 at 21:00; Stop 12/01/16 at 20:59 Potassium Chloride (KCl) 20 meq ONCE ONCE PO ; Start 11/29/16 at 09:00; Stop at 09:01; Status UNV Potassium Chloride (KCl) 10 meq Q12HR PO ; Start 11/29/16 at 21:00; Status UNV A/P Problem List: (1) CHF (congestive heart failure) ICD Code: I50.9 Status: Acute (2) Cardiogenic shock ICD Code: R57.0 Status: Acute (3) Respiratory failure, acute ICD Code: J96.00 Status: Acute (4) A-fib ICD Code: I48.91 Status: Chronic (5) CKD (chronic kidney disease) stage 3, GFR 30-59 ml/min ICD Code: N18.3 Status: Chronic (6) HTN (hypertension) ICD Code: I10 Status: Chronic (7) Anemia ICD Code: D64.9 Status: Chronic (8) Cardiomyopathy ICD Code: I42.9 Status: Acute Assessment and Plan 81-year-old female who presented with acute respiratory failure Acute respiratory failure -Most likely secondary to pulmonary edema/bilateral pleural effusion due to CHF exacerbation. -Intubated 11/20. Extubated 11/22 -Patient is on nasal cannula. She desats while sleeping and with exertion. 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 Patient is on IV Lasix. Transition to oral Lasix per branding machine tender. -Strict ins and outs. [place] taken out this morning. -Loan Service Officer following. Echo EF 25-30%. -Continue amiodarone 100 mg by mouth twice a day. -Patient currently on Xarelto. -Continue with aspirin. Peripheral neuropathy -Neurontin and Levoxine held due to renal failure. -Minimize sedation Chronic kidney disease stage III, with acute worsening -She continues to have good urine output. Intel Analyst is following. Questionable cardiorenal. -Creatinine continues to improve slowly. Hyponatremia secondary to CHF and volume overload state. -Sodium improved to 129 today. She's asymptomatic. -Most likely secondary to increase fluid intake and CHF exacerbation. Patient was advised to limit her fluids. -Continue with Lasix. Questionable pneumonia -Continue with cefepime. Clinically she is doing well. -All cultures negative to date -UA is negative for evidence of infection. -Leukocytosis resolved. Patient was switched to Rocephin yesterday. Per infectious disease repeat UA and give patient a total of 7 days of antibiotics which last they would be 12/01/16. -Per infectious disease repeat UA and culture and sensitivity if indicated after [place] is removed. Dealt with patient's nurse in regards to this. Chronic anemia/Chronic anticoagulation with Xarelto due to atrial fibrillation -Status post heparin drip. Patient is on Xarelto. Glaucoma -Continue Latanoprost/Alphagan/Cosopt ophthalmic as prescribed. Acute stress hyperglycemia. Low-dose insulin sliding scale with bedside glucose monitoring every 6 hours PROPH: Patients on Xarelto. Discharge Planning Due to the medical complexity patient would benefit from inpatient rehabilitation. PT reevaluated patient. We'll consult occupational therapist. Patient's nurse dealt with case management regards to this. Patient is in agreement with going to rehabilitation facility. Problem Qualifiers (1) CHF (congestive heart failure): Qualified Code: I50.21 - Acute systolic congestive heart failure (2) A-fib: Qualified Code: I48.0 - Paroxysmal atrial fibrillation (3) Anemia: Zoie Lewis MD Nov 29, 2016 08:58
[2016-11-29] MEDS ORDERED: POTASSIUM CHLORIDE 20 MEQ CONTROLLED RELEASE TAB PO ONE (09:00)
--- NOTE | 2016-11-29 14:02 | HHI.NPPN ---
Subjective History of Present Illness 81-year-old female with past medical history of atrial fibrillation, peripheral vascular disease, hypertension, hyperlipidemia, fibromyalgia, and chronic kidney disease, was admitted on November 20, with complaint of generalized weakness and shortness of breath. I was called to see the patient because of elevated BUN and creatinine. Additional Remarks Patient is alert, started eating some, breathing is better. Review of Systems General Constitutional: Fatigue Respiratory Lungs: SOB Cardiovascular Cardiac: Edema, ESPINOSA Objective Data Data 11/28/16 11/29/16 18:59 06:59 Intake Total 400 ml 340 ml Output Total 602 ml 600 ml Balance -202 ml -260 ml Intake Oral 400 ml 240 ml IV Total 100 ml Output Urine Total 600 ml 600 ml Stool Total 2 ml Vital Signs Date Time Temp Pulse Resp B/P Pulse Ox O2 Delivery O2 Flow Rate FiO2 11/29/16 13:22 81 11/29/16 12:32 82 11/29/16 11:33 66 11/29/16 11:28 96 Room Air 11/29/16 11:00 97.6 99 16 109/61 99 11/29/16 10:00 66 11/29/16 09:55 99 Nasal Cannula 3.00 11/29/16 09:00 78 11/29/16 08:00 76 11/29/16 07:00 98.4 96 18 117/74 96 11/29/16 07:00 96 Nasal Cannula 2.00 11/29/16 07:00 100 11/29/16 06:00 102 11/29/16 05:00 74 11/29/16 04:00 64 11/29/16 03:00 68 11/29/16 03:00 98 Nasal Cannula 2.00 11/29/16 03:00 98.0 71 18 120/71 98 11/29/16 02:00 68 11/29/16 01:08 18 11/29/16 01:00 94 11/29/16 00:00 102 11/28/16 23:00 98 Nasal Cannula 2.00 11/28/16 23:00 98.2 100 18 120/70 98 11/28/16 23:00 100 11/28/16 22:00 103 11/28/16 21:00 100 11/28/16 20:00 80 11/28/16 19:00 90 Room Air 11/28/16 19:00 98.4 100 20 123/70 90 11/28/16 19:00 76 11/28/16 18:13 79 11/28/16 17:44 72 11/28/16 16:41 70 11/28/16 16:40 98.0 77 18 123/63 92 11/28/16 16:39 98 Room Air 11/28/16 15:03 78 11/28/16 14:02 79 -: 11/29/16 0430 11/29/16 0430 Physical Exam General Appearance: No Acute Distress, Comfortable Eyes Eye Exam: Pupils Equal Throat Throat Exam: Oral Mucosa [place] & Moist Neck Neck Exam: Neck Supple Pulmonary Resp Exam: Breath Sounds Equal, No Distress, Rhonchi, Decreased Bases Cardiology CV Exam: Regular, Normal Sinus Rhythm Gastrointestinal/Abdomen GI Exam: Soft, Non-Tender, Bowel Sounds Present Extremeties Extremities Exam: Trace Edema Neurologic Neuro Exam: Alert, Awake, Oriented Psychiatric Psych Exam: Appropriate Responses Assessment/Plan Assessment Summary: RACHID/Acute Renal Failure, Fluid/Volume Overload, CKD Stage III Problem List: (1) Respiratory distress (2) CHF (congestive heart failure) (3) HTN (hypertension) (4) A-fib (5) CKD (chronic kidney disease) stage 3, GFR 30-59 ml/min (6) Acute kidney injury Plan Patient has been non oliguric. Creatinine baseline is close to 1.4-1.5. U/S kidneys noted. Continue Lasix,20 q 12 K low replaced Creatinine is slightly better. Na. improved dr. Barrera to follow Problem Qualifiers (1) CHF (congestive heart failure): Qualified Code: I50.21 - Acute systolic congestive heart failure (2) A-fib: Qualified Code: I48.0 - Paroxysmal atrial fibrillation Taisha Shahid MD Nov 29, 2016 14:02
[2016-11-29 15:59] LABS: BACTERIA, URINE RARE /hpf; BLOOD, URINE MOD (NEG); COMMENT (UR) CULTURE INDICATED; CULTURE IF INDICATED CULTURE INDICATED; GLUCOSE,URINE NEG (NEG); GRANULAR CAST, URINE 3 /lpf; HYALINE CAST, URINE 8 /lpf (RARE); KETONE, URINE NEG (NEG); MUCUS URINE FEW /lpf (OCC); NITRITE,URINE NEG (NEG); PH, URINE 5.5 (5.0-8.5); SQUAMOUS EPITHELIAL CELL URINE 3 /hpf (0-5); TRANSITIONAL EPI CELLS, URINE 1 /hpf; URINE COLOR YELLOW (YELLW/STRAW)
[2016-11-29] MEDS: LATANOPROST 0.005% OPHT SOLN 2.5 ML BTL EACH EYE SCH (21:27)
[2016-11-29] MEDS: POTASSIUM CHLORIDE 10 MEQ CONTROLLED RELEASE TAB PO SCH (21:28)
[2016-11-29] MEDS: cefTRIAXone INJ 2,000 MG in SODIUM CHLORIDE 0.9% INJ 100 ML IV SCH (21:29)
[2016-11-29] MEDS: ACETAMINOPHEN/HYDROcodone 325 MG/5 MG TAB PO PRN (22:00)
[2016-11-30] VITALS (14 sets, daily range): BP systolic 120–127; BP diastolic 66–74; PULSE 66–82; RESP 16–18; TEMP 97.8; O2SAT 95–98
[2016-11-30] MEDS: CHLORHEXIDINE GLUCONATE 2 % 1 PACK (2 CLOTHS) TOP SCH (04:00)
[2016-11-30 05:35] LABS: HEMATOCRIT 28.7 % (35.0-46.0); MEAN CELL VOLUME 88.2 FL (80.0-100.0); MEAN CORPUSCULAR HEMOGLOBIN 29.4 PG (27.0-34.0); MEAN CORPUSCULAR HGB CONC 33.3 % (32.0-36.0); PLATELET COUNT 321 TH/MM3 (150-450); RED BLOOD COUNT 3.25 MIL/MM3 (4.00-5.30); RED CELL DISTRIBUTION WIDTH 14.4 % (11.6-17.2); REVIEW FLAG FINAL; WHITE BLOOD COUNT 8.4 TH/MM3 (4.0-11.0)
[2016-11-30 05:59] LABS: BICARBONATE 21.7 MEQ/L (21.0-32.0); POTASSIUM 3.5 MEQ/L (3.5-5.1)
[2016-11-30] MEDS: CHLORHEXIDINE 0.12% (ORAL KIT) 15 ML CUP MT SCH (08:00)
[2016-11-30] MEDS: ASPIRIN 81 MG CHEW TAB CHEW SCH (08:35)
[2016-11-30] MEDS: RIVAROXABAN 15 MG TAB PO SCH (08:35)
[2016-11-30] MEDS: POTASSIUM CHLORIDE 10 MEQ CONTROLLED RELEASE TAB PO SCH (08:35)
[2016-11-30] MEDS: HYDROXYCHLOROQUINE SULFATE 200 MG TAB PO SCH (08:36)
[2016-11-30] MEDS: AMIODARONE 200 MG TAB PO SCH (08:36)
[2016-11-30] MEDS: SODIUM CHLORIDE 0.9% FLUSH 10 ML FLUSH IV FLUSH SCH (08:37)
[2016-11-30] MEDS: FUROSEMIDE 20 MG/2 ML VIAL IV PUSH SCH (08:37)
[2016-11-30] MEDS: DOCUSATE SODIUM 50 MG/SENNA 8.6 MG TAB PO SCH (08:38)
[2016-11-30] MEDS: DORZOLAMIDE/TIMOLOL OPTH SOLN 10 ML BTL EACH EYE SCH (08:38)
[2016-11-30] MEDS: BRIMONIDINE TARTRATE 0.2% OPHT SOLN 5 ML BTL EACH EYE SCH (08:38)
[2016-11-30] MEDS ORDERED: POTA-243 PO (09:38)
[2016-11-30] MEDS ORDERED: FURO1TAB62 PO (09:38)
--- NOTE | 2016-11-30 09:43 | HHI.DS ---
Discharge Summary Admission Date Nov 20, 2016 at 01:38 Admitting Diagnosis CHF, Generalized Weakness (1) CHF (congestive heart failure) ICD Code: I50.9 Diagnosis: Principal (2) Cardiogenic shock ICD Code: R57.0 Diagnosis: Principal (3) Respiratory failure, acute ICD Code: J96.00 Diagnosis: Principal (4) A-fib ICD Code: I48.91 Diagnosis: Principal (5) CKD (chronic kidney disease) stage 3, GFR 30-59 ml/min ICD Code: N18.3 Diagnosis: Secondary (6) HTN (hypertension) ICD Code: I10 Diagnosis: Secondary (7) Anemia ICD Code: D64.9 Diagnosis: Secondary (8) Cardiomyopathy ICD Code: I42.9 Diagnosis: Secondary Brief History - From Admission History obtained from patient as best as possible while she was on BiPAP with respiratory distress. Additional information obtained via EMR and discussion with Dr. Warner. Date of admission 11/20/16 Date of consult 11/20/16 81-year-old female with past medical history of paroxysmal atrial fibrillation on chronic anticoagulation with Xarelto, s/p dual chamber pacemaker 2011 due to sick sinus syndrome, hyperlipidemia, CHF (unspecified), chronic kidney disease stage III, glaucoma, who presents to [facility] emergency department with 1 week history of generalized weakness and shortness of breath. She has had orthopnea and dyspnea on exertion. She states that at baseline her activity is limited due to shortness of breath ( i.e. she can't vacuum her floors/ do housework) however it has been limited much more so over the last week to where she is having difficulty ambulating around the house. She has had some chest tightness. Denies hemoptysis. + cough productive of "phlegm", no fever. Weight is up 2 pounds over the last 24- 48 hours. ED workup included chest x-ray that showed cardiomegaly, bilateral pleural effusions, pulmonary edema. Sodium is 127, BUN/ creatinine 19/1.49, BNP 2749/troponin 0.02. EKG demonstrates sinus tachycardia with left bundle branch block which is pre-existing on prior EKGs. She was initially on nasal cannula and was admitted to the hospitalist service. She was given Lasix 40 mg IV and started on nitroglycerin paste. She diuresed 300 ML's. Her respiratory condition worsened and she was placed on BiPAP. When I initially evaluated her on BiPAP 14/09 100% in the ED she was tachypneic with resp rate 25 and appeared she would need intubation. Patient states that she is full code but does not feel that intubation is necessary right now and requests no intubation yet. Bedside cardiac ultrasound appears decreased EF, Lactic acid 4.3. Base deficit 11.3. Attempted further diuresis with Bumex 2 mg IV and initiation of dobutamine 2 mcg/kg/min. She continued to deteriorate, became hypopneic and hypotensive with SBP in 70s. NTG discontinued and dobutamine placed on hold. She was intubated, placed CVL and art line. ScVO2 now 72. Blood pressure 130/ 63. CBC/BMP: 11/30/16 0423 11/30/16 0423 Significant Findings Laboratory Tests Test 11/28/16 11/29/16 11/29/16 11/30/16 06:41 04:30 14:20 04:23 Red Blood Count 3.23 MIL/MM3 3.11 MIL/MM3 3.25 MIL/MM3 (4.00-5.30) (4.00-5.30) (4.00-5.30) Hemoglobin 9.6 GM/DL 9.3 GM/DL 9.5 GM/DL (11.6-15.3) (11.6-15.3) (11.6-15.3) Hematocrit 28.0 % 27.1 % 28.7 % (35.0-46.0) (35.0-46.0) (35.0-46.0) Sodium Level 128 MEQ/L 129 MEQ/L 132 MEQ/L (136-145) (136-145) (136-145) Chloride Level 94 MEQ/L 95 MEQ/L 97 MEQ/L (98-107) (98-107) (98-107) Carbon Dioxide Level 20.5 MEQ/L (21.0-32.0) Blood Urea Nitrogen 47 MG/DL (7-18) 50 MG/DL (7-18) 48 MG/DL (7-18) Creatinine 2.19 MG/DL 2.01 MG/DL 1.83 MG/DL (0.50-1.00) (0.50-1.00) (0.50-1.00) Estimat Glomerular Filtration 22 ML/MIN (>89) 24 ML/MIN (>89) 26 ML/MIN (>89) Rate Potassium Level 3.2 MEQ/L (3.5-5.1) Random Glucose 109 MG/DL (74-106) Urine Turbidity HAZY (CLEAR) Urine Protein 30 mg/dL (NEG-TRACE) Urine Occult Blood MOD (NEG) Urine Leukocyte Esterase LARGE (NEG) Urine RBC 77 /hpf (0-3) Urine WBC 50 /hpf (0-5) Urine Bacteria RARE /hpf (NONE) Urine Mucus FEW /lpf (OCC) Urine Yeast (Budding) OCC (NONE) PE at Discharge GENERAL: in NAD CARDIOVASCULAR: Regular rate and rhythm without murmurs, gallops, or rubs. RESPIRATORY: Breath sounds equal bilaterally. No accessory muscle use. GASTROINTESTINAL: Abdomen soft, non-tender, nondistended. MUSCULOSKELETAL: No cyanosis, or edema. BACK: Nontender without obvious deformity. No CVA tenderness. Transfer Summary 81-year-old female with past medical history of paroxysmal atrial fibrillation on chronic anticoagulation with Xarelto, s/p dual chamber pacemaker 2011 due to sick sinus syndrome, hyperlipidemia, CHF (unspecified), chronic kidney disease stage III, glaucoma, who presents to [facility] emergency department with 1 week history of generalized weakness and shortness of breath. She has had orthopnea and dyspnea on exertion. She states that at baseline her activity is limited due to shortness of breath ( i.e. she can't vacuum her floors/ do housework) however it has been limited much more so over the last week to where she is having difficulty ambulating around the house. She has had some chest tightness. Denies hemoptysis. + cough productive of "phlegm", no fever. Weight is up 2 pounds over the last 24- 48 hours. ED workup included chest x-ray that showed cardiomegaly, bilateral pleural effusions, pulmonary edema. Sodium is 127, BUN/ creatinine 19/1.49, BNP 2749/troponin 0.02. EKG demonstrates sinus tachycardia with left bundle branch block which is pre-existing on prior EKGs. She was initially on nasal cannula and was admitted to the hospitalist service. She was given Lasix 40 mg IV and started on nitroglycerin paste. She diuresed 300 ML's. Her respiratory condition worsened and she was placed on BiPAP. When I initially evaluated her on BiPAP 15/5 100% in the ED she was tachypneic with resp rate 25 and appeared she would need intubation. Patient states that she is full code but does not feel that intubation is necessary right now and requests no intubation yet. Bedside cardiac ultrasound appears decreased EF, Lactic acid 4.3. Base deficit 11.3. Attempted further diuresis with Bumex 2 mg IV and initiation of dobutamine 2 mcg/kg/min. She continued to deteriorate, became hypopneic and hypotensive with SBP in 70s. NTG discontinued and dobutamine placed on hold. She was intubated, placed CVL and art line. ScVO2 now 72. Blood pressure 130/ 63. 11/21: Good response to diuretics. Will start SBTs now, inclined to extubate early and mobilize her if possible today. May need low dose inotrope to entice her kidneys a bit more. 11/22: Remains intubated. Off sedation follows commands 4. UO adequate, creat increased to 2. Will attempt SBT for possible extubation 11/23: Extubated yesterday tolerating well. CMP is pending today. Patient breathing comfortably 11/24: Patient is breathing comfortably. Brief episode of A. fib with RVR today but resolved after by mouth amiodarone. Currently off dobutamine tolerating well. Chest x-ray shows bibasilar pleural effusions. Creatinine slightly worsened 2.4 today, we'll consult nephrology Discharge Disposition: Rehab Inpatient Discharge Instructions DIET: Follow Instructions for: Heart Healthy Diet Fluid Restrictions: 2L Activities you can perform: Regular-No Restrictions Zoie Lewis MD Nov 30, 2016 09:43
--- NOTE | 2016-11-30 10:26 | HHI.NPPN ---
Subjective History of Present Illness 81-year-old female with past medical history of atrial fibrillation, peripheral vascular disease, hypertension, hyperlipidemia, fibromyalgia, and chronic kidney disease, was admitted on November 20, with complaint of generalized weakness and shortness of breath. I was called to see the patient because of elevated BUN and creatinine. Additional Remarks Patient is alert, sitting on chair, with nasal cannula, breathing is better. Review of Systems General Constitutional: Fatigue Respiratory Lungs: SOB Cardiovascular Cardiac: Edema, ESPINOSA Objective Data Data 11/29/16 11/30/16 19:00 07:00 Intake Total 240 ml 340 ml Output Total 420 ml 400 ml Balance -180 ml -60 ml Intake Oral 240 ml 240 ml IV Total 100 ml Output Urine Total 420 ml 400 ml # Voids 3 # Bowel Movements 1 1 Vital Signs Date Time Temp Pulse Resp B/P Pulse Ox O2 Delivery O2 Flow Rate FiO2 11/30/16 08:28 95 21 11/30/16 08:22 96 Nasal Cannula 2.00 11/30/16 07:45 97.8 76 18 127/66 96 11/30/16 07:45 96 Nasal Cannula 2.00 11/30/16 06:00 70 11/30/16 05:00 82 11/30/16 04:00 66 11/30/16 03:00 97.8 72 16 120/74 98 11/30/16 03:00 68 11/30/16 03:00 98 Nasal Cannula 2.00 11/30/16 02:00 66 11/30/16 01:00 68 11/30/16 00:00 68 11/29/16 23:20 18 11/29/16 23:00 68 11/29/16 23:00 97.8 72 18 116/64 98 11/29/16 23:00 98 Nasal Cannula 2.00 11/29/16 22:00 74 11/29/16 21:00 74 11/29/16 20:00 104 11/29/16 19:00 98.1 102 18 126/75 98 11/29/16 19:00 98 Nasal Cannula 2.00 11/29/16 19:00 94 11/29/16 18:17 108 11/29/16 17:04 82 11/29/16 15:11 83 11/29/16 15:03 99 Room Air 11/29/16 15:02 97.6 99 16 109/61 99 11/29/16 14:00 84 11/29/16 13:22 81 11/29/16 12:32 82 11/29/16 11:33 66 11/29/16 11:28 96 Room Air 11/29/16 11:00 97.6 99 16 109/61 99 -: 11/30/16 0423 11/30/16 0423 Microbiology 11/29/16 Urine Culture, Received Pending Physical Exam General Appearance: No Acute Distress, Comfortable Eyes Eye Exam: Pupils Equal Throat Throat Exam: Oral Mucosa [place] & Moist Neck Neck Exam: Neck Supple Pulmonary Resp Exam: Breath Sounds Equal, No Distress, Rhonchi, Decreased Bases Cardiology CV Exam: Regular, Normal Sinus Rhythm Gastrointestinal/Abdomen GI Exam: Soft, Non-Tender, Bowel Sounds Present Extremeties Extremities Exam: Trace Edema Neurologic Neuro Exam: Alert, Awake, Oriented Psychiatric Psych Exam: Appropriate Responses Assessment/Plan Assessment Summary: RACHID/Acute Renal Failure, Fluid/Volume Overload, CKD Stage III Problem List: (1) Respiratory distress (2) CHF (congestive heart failure) (3) HTN (hypertension) (4) A-fib (5) CKD (chronic kidney disease) stage 3, GFR 30-59 ml/min (6) Acute kidney injury Plan Patient has been non oliguric. Creatinine baseline is close to 1.4-1.5. U/S kidneys noted. Continue Lasix,20 q 12 also on Kcl replacement. Possible transfer to [place]. Has stage 3 chronic kidney disease and now Creatinine is 1.9. To follow with me as out patient after D/C. Problem Qualifiers (1) CHF (congestive heart failure): Qualified Code: I50.21 - Acute systolic congestive heart failure (2) A-fib: Qualified Code: I48.0 - Paroxysmal atrial fibrillation Matias Barrera MD Nov 30, 2016 10:25
[2016-11-30] MEDS ORDERED: CEFT2INJ2 IV (12:09)
== END 2016-11-30 11:37 | DRG 208 ==
LOC: NEPE 00:08 → OBSVTOIN 01:38 → NEDA 01:38 → N03B 05:04 → HCIS 11-25 21:40
PROVIDERS: ADMIT Family Medicine; ATTEND Family Medicine
PROC: 5A09457 Assistance with Respiratory Ventilation, 24-96 Consecutive Hours, Continuous Positive Airway Pressure (ICD-10-PCS; principal; 2016-11-20)
PROC: 5A1945Z Respiratory Ventilation, 24-96 Consecutive Hours (ICD-10-PCS; 2016-11-20)
PROC: 03HY32Z Insertion of Monitoring Device into Upper Artery, Percutaneous Approach (ICD-10-PCS; 2016-11-20)
PROC: 0BH17EZ Insertion of Endotracheal Airway into Trachea, Via Natural or Artificial Opening (ICD-10-PCS; 2016-11-20)
PROC: 05H533Z Insertion of Infusion Device into Right Subclavian Vein, Percutaneous Approach (ICD-10-PCS; 2016-11-20)
DX: J96.00 Acute respiratory failure, unspecified whether with hypoxia or hypercapnia (principal); R57.0 Cardiogenic shock; N17.0 Acute kidney failure with tubular necrosis; J18.9 Pneumonia, unspecified organism; E87.2 Acidosis; I13.0 Hypertensive heart and chronic kidney disease with heart failure and stage 1 through stage 4 chronic kidney disease, or unspecified chronic kidney disease; I24.8 Other forms of acute ischemic heart disease; I42.9 Cardiomyopathy, unspecified; I50.42 Chronic combined systolic (congestive) and diastolic (congestive) heart failure; B37.49 Other urogenital candidiasis; E87.1 Hypo-osmolality and hyponatremia; I48.0 Paroxysmal atrial fibrillation; I49.5 Sick sinus syndrome; N18.3 Chronic kidney disease, stage 3 (moderate); D64.9 Anemia, unspecified; Z79.01 Long term (current) use of anticoagulants; E78.5 Hyperlipidemia, unspecified; Z95.0 Presence of cardiac pacemaker; I44.7 Left bundle-branch block, unspecified; G62.9 Polyneuropathy, unspecified; I73.9 Peripheral vascular disease, unspecified; K21.9 Gastro-esophageal reflux disease without esophagitis; M79.7 Fibromyalgia; K12.0 Recurrent oral aphthae; H40.9 Unspecified glaucoma; Z79.82 Long term (current) use of aspirin; Z85.828 Personal history of other malignant neoplasm of skin
CPT/HCPCS: 31500; 36556; 36600; 71010; 76775; 80048; 80053; 81001; 82550; 82805; 82948; 83605; 83735; 83880; 83935; 84100; 84132; 84165; 84484; 85025; 85027; 85610; 85730; 87040; 87070; 87077; 87086; 87186; 87205; 87493; 93005; 93306; 94002; 94003; 94150; 94664; 99291; C9113; J0282; J0692; J0696; J1250; J1644; J1940; J2250; J2405; J2997; J3010; J3475; J3480; J7060; P9045

== ENCOUNTER 2016-12-13 09:38 | Inpatient (IN) | payer MEDICARE ==
[2016-12-13] VITALS (8 sets, daily range): BP systolic 104–122; BP diastolic 54–64; PULSE 59–86; RESP 18–27; TEMP 96.7–97.6; O2SAT 95–98
[~2016-12-13] VITALS: Ht 165.1 cm; Wt 67.1 kg
[~2016-12-13 09:38] MED LIST changes: +ACET1TAB86 PO; +ALLE60TA PO; -ALPH50TA PO; +AMIO0.1T PO; +AMIO200T PO; -BRIM.2%O LEFT EYE; +BRIM0.2S4 EACH EYE; +BRIM0.2S4 LEFT EYE; +CALC250 PO; +CALC600T10 PO; -CALC600T34 PO; -CARD120T4 PO; +CEFT2INJ2 IV; +CETI5CHW CHEW; +CHOL4POW4 PO; -COQ-100C5 PO; +COQ-50CA2; +DORZ2SOL15 EACH EYE; +DORZ2SOL7 EACH EYE; -DORZO2%O EACH EYE; -FENO50TA PO; +FENO54TA PO; +FURO1TAB62 PO; +HYDR-3516 PO; -HYDR-755 PO; +HYDR200T3 PO; +HYOS0.127; -LATA.005%O OU; +LATA0.002 EACH EYE; -LEVS0.123 PO; -LORTA5 PO; -MAGN250T13 PO; +METR-1 PO; -MUCI600T PO; +NEUR300C PO; -NIAC500T34 PO; -PACE100T2 PO; -PERC7.5T13 PO; +POTA-243 PO; -RANI150 PO; -RIVA10 PO; -SPIR25TA PO; -TRIA.1%T TOP; -TYLE500T PO; +XARE15TA PO; -[UNRECOGNIZED DRUG - CODE] PO
--- NOTE | 2016-12-13 11:29 | HHI.NPPN ---
Subjective History of Present Illness Patient with history of C.Difficile , CHF, CKD and RACHID, now transferred to main Hospital due to worsening SOB. Additional Remarks Patient is alert, has mild SOB and increase swelling of the legs. Physical Exam General Appearance: No Acute Distress, Comfortable Eyes Eye Exam: Pupils Equal Throat Throat Exam: Oral Mucosa [place] & Moist Neck Neck Exam: Neck Supple Pulmonary Resp Exam: Crackles, Rhonchi, Decreased Bases, Diminished Breath Sounds Cardiology CV Exam: Regular, Normal Sinus Rhythm Gastrointestinal/Abdomen GI Exam: Soft, Non-Tender, Bowel Sounds Present Extremeties Extremities Exam: Moderate Edema, Pitting Edema, Dependent Edema Neurologic Neuro Exam: Alert, Awake, Oriented Psychiatric Psych Exam: Appropriate Responses Assessment/Plan Assessment Summary: RACHID/Acute Renal Failure, CHF, CKD Stage III Problem List: (1) CHF (congestive heart failure) (2) Anemia (3) HTN (hypertension) (4) Clostridium difficile diarrhea (5) CKD (chronic kidney disease) stage 3, GFR 30-59 ml/min (6) Acute kidney injury Plan Patient has decrease urine out put and more edema. New BMP form AM is still PND. D/W the patient and the , she does not want Dialysis if needed. Will start Bumex, and try to get more fluid out. Follow the urine out put and BMP. Problem Qualifiers (1) Anemia: Matias Barrera MD Dec 13, 2016 11:29
[2016-12-13] MEDS ORDERED: diphenhydrAMINE HCL 25 MG CAP PO PRN (11:30)
[2016-12-13] MEDS: CETIRIZINE HCL 10 MG TAB PO SCH (11:45)
[2016-12-13] MEDS: BRIMONIDINE TARTRATE 0.2% OPHT SOLN 5 ML BTL LEFT EYE SCH (11:45)
[2016-12-13] MEDS ORDERED: ACETAMINOPHEN 325 MG TAB PO PRN (11:45)
[2016-12-13] MEDS: HYDROXYCHLOROQUINE SULFATE 200 MG TAB PO SCH (11:45)
[2016-12-13] MEDS: AMIODARONE 200 MG TAB PO SCH ×2 (11:45→20:56)
[2016-12-13] MEDS: LIDOCAINE HCL 5% PATCH T-DERMAL SCH (11:45)
[2016-12-13] MEDS ORDERED: ONDANSETRON ODT 4 MG TAB PO PRN (11:45)
[2016-12-13] MEDS ORDERED: PILL SPLITTER OTHER PRN (12:00)
[2016-12-13] MEDS: metroNIDAZOLE 500 MG TAB PO SCH ×2 (14:00→20:56)
--- NOTE | 2016-12-13 15:29 | HHI.HP ---
HPI Service [facility] Hospitalists Primary Care Physician Jesus Badillo MD Admission Diagnosis Diagnoses: Chief Complaint: Shortness of breath Travel History International Travel<30 Days: No Contact w/Intl Traveler <30 Da: No Traveled to Known Affected Are: No History of Present Illness Written by Stef Archer, acting as scribe for Dr. Rachel Caicedo on 12/13/16 at 15: 15. Sherin Cornell is an 81 year old female with pmhx of Afib on xarelto, S/P dual chamber pacer for SSS, HLD, CHF, CKD stage 3, glaucoma, that was in her usual state of health that consisted of free ambulation and independence with ADLs ,poor endurance until 11/20/16 when the patient was admitted to [facility]. She c/o 1 week of generalized weakness and progressive worsening of dyspnea on exertion. She has dyspnea on exertion at baseline and is difficult for her to do house work and vacuum. Her chest xray showed bilateral pleural effusions and pulmonary edema. Her BNP was elevtaed at 2749. Troponin 0.02. She was diuresed with IV lasix. However, she developed acute respiratory failure and needed bipap then required intubation. Her lactic acid was elevated at 4.3. Cr. 1.49,. Echo showed ef 25-30% with moderately dilated Left atrium, moderate mitral regurgitation, moderate aortic regurgitation. She became hypotensive requiring pressors for a short time. Dr. Barrera was consulted as her Cr increased to 2.4. (baseline 1.4 - 1.5.). 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 Renal U/S negative. Creatinine improved to 1.9. Dr. Santacruz was consulted. Urine culture grew enterococcus and patient was on cefepime and changed to7 day course of rocephin. Blood cultures were negative. Dr. Linares was consulted and she was cleared to restart renal dose xarelto for afib. She was diuresed with IV Bumex and extubated on 11/22/16. Cxray 7/25/showed stable pleural effusions. Patient has been admitted to [facility] for comprehensive rehabilitation evaluation and treatment 11/30/16. While in [place] she developed C. diff 027 and was placed on Flagyl 500 mg. She also developed decreased appetite and nausea. From 12/09-12/13 pt declined to take her Flagyl. Creatinine was noted to increase and pt was given IV fluids. Lasix was discontinued. On the morning of 12/13/16 pt developed worsening CHF. Pt had refused her morning medications. Dr Barrera was contacted who advised Bumex 2mg IV. Rehab team felt pt needed high level of care and she was transferred back into the main hospital. At time of interview Ms. Cornell endorsed shortness of breath, sore throat, cold and swollen extremities as well as being "tired." She noted she was not experiencing diarrhea. She denied fever, N?V. cough, chest or abdominal pain, as well as bloody urine or stool. A 10 point ROS was conducted and, except as noted above was negative. Review of Systems Except as stated in HPI: all other systems reviewed are Neg Past Family Social History Past Medical History Atrial fibrillation Fibromyalgia Glaucoma Mnire's disease Osteoarthritis Osteopenia Peripheral neuropathy. Past Surgical History Cataract surgery (bilaterally) with intraocular lens implants Filtering bleb-Right eye "Gall bladder" Hysterectomy Laser peripheral iridectomy-right eye Laser trabeculopathy both eyes Left hand flexor tendon repair Tonsillectomy Vein ligation Reported Medications Reported Meds & Active Scripts Active Xarelto (Rivaroxaban) 15 Mg Tab 15 Mg PO DAILY 1 Days Flagyl (Metronidazole) 500 Mg Tab 500 Mg PO Q8HR 1 Days Methocarbamol 500 Mg Tab 500 Mg PO Q8HR PRN 1 Days Hydroxychloroquine (Hydroxychloroquine Sulfate) 200 Mg Tab 200 Mg PO DAILY 1 Days Hydrocodone-Acetaminophen 5-325 mg Tab 1 Tab PO DAILY@08 1 Days Cosopt Opth Drops (Dorzolamide-Timolol Opth Drops) 22.3-6.8 Mg/Ml Soln 1 Drop EACH EYE BID 1 Days Neurontin (Gabapentin) 300 Mg Cap 600 Mg PO DAILY@1700 1 Days Cholestyramine 4 Gm/Pkt Powd 4 Gm PO Q12HR 1 Days Cetirizine (Cetirizine HCl) 10 Mg Tab 5 Mg PO DAILY 1 Days Oyster Shell 250 mg + Vit D Tb (Calcium/Vitamin D) 250 Mg Calcium (625 Mg)-125 Unit Tablet 500 Mg PO BID@12,21 1 Days Brimonidine Opth Drops (Brimonidine Tartrate) 0.2% Soln 1 Drop LEFT EYE BID 1 Days Amiodarone (Amiodarone HCl) 200 Mg Tab 100 Mg PO BID 1 Days Eq Acetaminophen (Acetaminophen) 325 Mg Tab 650 Mg PO Q4H PRN 1 Days Lasix (Furosemide) 20 Mg Tab 20 Mg PO BID Klor-Con 10 (Potassium Chloride) 10 Meq Tab 10 Meq PO Q12HR Reported Ceftriaxone Inj (Ceftriaxone Sodium/Dextrose) 2 Gm/50 Ml Bagp 2 Gm IV Q24H Coq-10 (Coenzyme Q10 (Ubidecarenone)) 50 Mg Cap 100 Xarelto (Rivaroxaban) 15 Mg Tab 15 Mg PO DAILY Premarin (Estrogens Conjugated) 0.3 Mg Tab 0.3 Mg PO DAILY Latanoprost Opth Drops (Latanoprost) 0.005% Drops 1 Drop EACH EYE HS Refrigerate until opened. Hyoscyamine Sulfate 0.125 Mg Sub Hydroxychloroquine (Hydroxychloroquine Sulfate) 200 Mg Tab 200 Mg PO DAILY Takw with food Hydrocodone-Acetaminophen 5-325 mg Tab 1 Tab PO Q4H PRN Fenofibrate 54 Mg Tab 70 Mg PO DAILY Dorzolamide-Timolol Opth Drops 22.3-6.8 Mg/Ml Soln 1 Drop EACH EYE BID Brimonidine Opth Drops (Brimonidine Tartrate) 0.2% Soln 1 Drop EACH EYE BID Brittney Allergy (Fexofenadine HCl) 60 Mg Tab 30 Mg PO BID Allergies: Coded Allergies: Bactrim (Verified Allergy, Severe, n/v, 11/30/16) Doxycycline (Verified Allergy, Severe, n/v, 11/30/16) Sulfa (Verified Allergy, Intermediate, Nausea/Vomiting, 11/30/16) Adhesives (Verified Allergy, Unknown, 11/30/16) band aids Triamterene (Verified Allergy, Unknown, 11/30/16) triamterene/hctz Uncoded Allergies: nickel (Allergy, Unknown, 02/04/16) Active Ordered Medications Current Medications Medications (Trade) Dose Ordered Sig/Malika Route Start Time Stop Time Status Last Admin (Benadryl) 25 mg Q6H PRN PO 12/13/16 11:30 (Bumex Inj) 1 mg Q8HR IV PUSH 12/13/16 14:00 (Zofran Odt) 4 mg Q6H PRN PO 12/13/16 11:45 (Lactinex) 1 tab TID PO 12/13/16 13:00 (Flagyl) 500 mg Q8HR PO 12/13/16 14:00 (Dysart 5-325 Mg) 1 tab DAILY PO 12/14/16 08:00 (Lidoderm 5% Patch.12 Hr) 1 patch DAILY T-DERMAL 12/13/16 11:45 (ZyrTEC) 5 mg DAILY PO 12/13/16 11:45 (Plaquenil) 200 mg DAILY PO 12/13/16 11:45 (Xarelto) 15 mg DAILY PO 12/13/16 13:00 (Cordarone) 100 mg Q12HR PO 12/13/16 11:45 (Cosopt 2-0.5% Opth Soln) 1 drop Q12HR EACH EYE 12/13/16 21:00 (Xalatan 0.005% Opth Soln) 1 drop HS EACH EYE 12/13/16 21:00 (Alphagan 0.2% Opth Soln) 1 drop BID LEFT EYE 12/13/16 11:45 (Oscal) 500 mg Q12HR PO 12/13/16 21:00 (Tylenol) 650 mg Q4H PRN PO 12/13/16 11:45 (Neurontin) 600 mg DAILY PO 12/14/16 09:00 (Pill Splitter) 1 ea UNSCH PRN OTHER 12/13/16 12:00 Family History aunt and uncle with cataracts. two sons with Glaucoma. Social History Smoking history was denied. Alcohol use was denied. Illicit/recreational substance use was denied. Physical Exam Vital Signs Vital Signs Date Time Temp Pulse Resp B/P Pulse Ox O2 Delivery O2 Flow Rate FiO2 12/13/16 12:00 96.7 60 27 122/55 95 12/13/16 12:00 59 12/13/16 10:25 100 Nasal Cannula 2.00 12/13/16 10:25 59 Physical Exam GENERAL: Acutely ill female, laying a bed, nasal cannula in place (2 L oxygen delivered), NAD. SKIN: No rashes, ecchymoses or lesions. Cool and dry. Extremities are cool to the touch. HEAD: Atraumatic. Normocephalic. EYES: Pupils equal round and reactive. Extraocular motions intact. No scleral icterus. No injection or drainage. ENT: Nose without bleeding or purulent drainage. Airway patent. NECK: Trachea midline. No lymphadenopathy. Supple and nontender. CARDIOVASCULAR: Regular rate and rhythm without murmurs, gallops, or rubs. RESPIRATORY: Clear to auscultation. Breath sounds diminished, right worse than left. GASTROINTESTINAL: Abdomen soft, non-tender, nondistended. No hepato- splenomegaly or guarding. MUSCULOSKELETAL: Extremities without clubbing, cyanosis; though they are cool to the touch and edematous. NEUROLOGICAL: Awake and alert. Cranial nerves II through XII intact. Motor and sensory grossly within normal limits. Four out of 5 muscle strength in all muscle groups. Speech was soft and fluent. Laboratory Laboratory Tests Test 12/13/16 10:44 Nasal Screen MRSA (PCR) MRSA NOT DETECTED Assessment and Plan Assessment and Plan Sherin Cornell is an 81 year old female with pmhx of Afib on xarelto, S/P dual chamber pacer for SSS, HLD, CHF, CKD stage 3, glaucoma, that was in her usual state of health that consisted of free ambulation and independence with ADLs ,poor endurance until 11/20/16 when the patient was admitted to [facility]. She c/o 1 week of generalized weakness and progressive worsening of dyspnea on exertion. She has dyspnea on exertion at baseline and is difficult for her to do house work and vacuum. Her chest xray showed bilateral pleural effusions and pulmonary edema. Her BNP was elevtaed at 2749. Troponin 0.02. She was diuresed with IV lasix. However, she developed acute respiratory failure and needed bipap then required intubation. Her lactic acid was elevated at 4.3. Cr. 1.49,. Echo showed ef 25-30% with moderately dilated Left atrium, moderate mitral regurgitation, moderate aortic regurgitation. She became hypotensive requiring pressors for a short time. Dr. Barrera was consulted as her Cr increased to 2.4. (baseline 1.4 - 1.5.). 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 Renal U/S negative. Creatinine improved to 1.9. Dr. Santacruz was consulted. Urine culture grew enterococcus and patient was on cefepime and changed to7 day course of rocephin. Blood cultures were negative. Dr. Linares was consulted and she was cleared to restart renal dose xarelto for afib. She was diuresed with IV Bumex and extubated on 11/22/16. Cxray 11/24/showed stable pleural effusions. Patient has been admitted to [facility] for comprehensive rehabilitation evaluation and treatment 11/30/16. While in [place] she developed C. diff 027 and was placed on Flagyl 500 mg. She also developed decreased appetite and nausea. From 12/09-12/13 pt declined to take her Flagyl. Creatinine was noted to increase and pt was given IV fluids. Lasix was discontinued. On the morning of 12/13/16 pt developed worsening CHF. Pt had refused her morning medications. Dr Barrera was contacted who advised Bumex 2mg IV. Rehab team felt pt needed high level of care and she was transferred back into the main hospital. Worsening CHF -Nephrology consulted -Avoid nephrotoxic agents Hyponatremia -126 -nephrology following Hyperkalemia -Kayexalate. C diff colitis - C diff positive 027 - Contact isolation - Lactinex by mouth 3 times a day -Questran ordered - Zofran when necessary nausea vomiting -ID advised 14 days of oral Flagyl (end date 12/19/16) Hx CHF exacerbation Acute on chronic systolic and diastolic heart failure Paroxysmal Atrial fibrillation LBBB (preexisting) Pacemaker in place due to h/o sick sinus syndrome - Echo EF 25-30%. - Continue amiodarone 100 mg by mouth twice a day. - Continue Xarelto, aspirin - Monitor for signs of fluid overload. Continue fluid restrictions. More than 5kg weight gain in one day indicates inconsistent weight measurements which are unreliable. RACHID on Chronic kidney disease stage III, with acute worsening - Possibly cardiorenal syndrome - Creatinine trending down - Monitor BMP - Nephrology following Dysphagia -Speech and language consulted. Negative findings. Glaucoma -Continue Latanoprost/Alphagan/Cosopt ophthalmic as prescribed. DVT prop Xarelto Code Status Do not resuscitate Discussed Condition With Pt, Nursing staff. Physician Certification 2 Midnight Certification Type: Admission for Inpatient Services Order for Inpatient Services The services are ordered in accordance with Medicare regulations or non- Medicare payer requirements, as applicable. In the case of services not specified as inpatient-only, they are appropriately provided as inpatient services in accordance with the 2-midnight benchmark. Estimated LOS (days): 3 Three days is the estimated time the patient will need to remain in the hospital , assuming treatment plan goals are met and no additional complications. Post-Hospital Plan: Not yet determined Notes: Pt teransferring from rehabilitation services to higher level of care due to decompensation. Stef Archer Jr. ANDREW Dec 13, 2016 15:29
[2016-12-13] MEDS: BUMETANIDE INJ 1 MG/4 ML VIAL IV PUSH SCH ×2 (16:03→21:01)
[2016-12-13] MEDS: RIVAROXABAN 15 MG TAB PO SCH (16:03)
[2016-12-13] MEDS: LACTOBACILLUS ACIDOPHILUS TAB PO SCH ×2 (16:03→16:40)
[2016-12-13] MEDS ORDERED: SODIUM POLYSTYRENE SULFONATE SUSP 15 GM/60 ML CUP PO ONE ×3 (16:15→21:00)
[2016-12-13] MEDS ORDERED: SODIUM BICARBONATE 8.4% INJ 50 MEQ/50 ML SYR IV ONE (16:30)
[2016-12-13] MEDS: CALCIUM CARBONATE 1.25 GM (CA 500 MG) TAB PO SCH (20:57)
[2016-12-13] MEDS ORDERED: SODIUM POLYSTYRENE SULFONATE 30 GM/120 ML ENEMA RECTAL ONE (22:15)
[2016-12-13] MEDS ORDERED: CALCIUM GLUCONATE 10% 1 GM/10 ML VIAL IV PUSH ONE (22:15)
[2016-12-13] MEDS ORDERED: CALCIUM GLUCONATE INJ 1 GM in SODIUM CHLORIDE 0.9% INJ 100 ML IV ONE (22:30)
[2016-12-14] VITALS (7 sets, daily range): BP systolic 95–119; BP diastolic 52–58; PULSE 62–89; RESP 16–18; TEMP 97.5–98.4; O2SAT 94–100
[2016-12-14] MEDS: BUMETANIDE INJ 1 MG/4 ML VIAL IV PUSH SCH ×3 (04:41→22:05)
[2016-12-14] MEDS: metroNIDAZOLE 500 MG TAB PO SCH ×2 (04:41→14:00)
[2016-12-14] MEDS: ACETAMINOPHEN/HYDROcodone 325 MG/5 MG TAB PO SCH ×3 (08:00→10:13)
[2016-12-14] MEDS: DORZOLAMIDE/TIMOLOL OPTH SOLN 10 ML BTL EACH EYE SCH ×3 (09:00→22:05)
[2016-12-14] MEDS: BRIMONIDINE TARTRATE 0.2% OPHT SOLN 5 ML BTL LEFT EYE SCH ×3 (09:00→22:05)
[2016-12-14] MEDS: AMIODARONE 200 MG TAB PO SCH ×2 (10:13→22:04)
[2016-12-14] MEDS: RIVAROXABAN 15 MG TAB PO SCH (10:14)
[2016-12-14] MEDS: LACTOBACILLUS ACIDOPHILUS TAB PO SCH ×3 (10:14→17:19)
[2016-12-14] MEDS: CALCIUM CARBONATE 1.25 GM (CA 500 MG) TAB PO SCH ×2 (10:14→22:04)
[2016-12-14] MEDS: GABAPENTIN 300 MG CAP PO SCH (10:14)
[2016-12-14] MEDS: HYDROXYCHLOROQUINE SULFATE 200 MG TAB PO SCH (10:14)
[2016-12-14] MEDS: CETIRIZINE HCL 10 MG TAB PO SCH (10:15)
[2016-12-14] MEDS: LIDOCAINE HCL 5% PATCH T-DERMAL SCH (10:15)
--- NOTE | 2016-12-14 11:14 | PD.CONS ---
Consult Service Palliative Care Consult Requested By Gaurav MORALES . Primary Care Physician Jesus Badillo MD Reason for Consultation a. To assist with evaluation and management of symptoms including: fatigue, depression, dyspnea, malnutrition, nausea b. To assist medical decision maker(s) with: better understanding of current medical conditions; weighing benefits/burdens of medical treatment options; making medical treatment decisions. (Sigrid Harris) HPI History of Present Illness This patient was transferred to acute in patient status from [facility] on . She had been being seen for CHF exacerbation, also noted to have depression reporting no quality of life wanting DNR status. She had been refusing some of her medication including Flagyl, as well as Kayexalate which was ordered by nephrology for worsening acute on chronic kidney disease. Palliative care was consulted to assist with symptoms, clarification of goals of treatment. Course prior to, through [facility]: * Patient initially presented to the hospital on 11/20/16 for generalized weakness and increased shortness of breath. She was found to have CHF exacerbation with BNP 2749, CXR with bilateral pleural effusions and pulmonary edema, hyponatremic 127, BUN 19/creatinine 1.49. Troponin 0.2. EKG at that time noted sinus tachycardia with left bundle branch block which was noted to be pre-existing. Hospital course was complicated with acute kidney failure, acute respiratory failure. She had ongoing treatment with diuretics, dobutamine and BiPAP and at some point required intubation, was on pressors for a short period of time. 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 * During [facility] course she was found to be positive for C. difficile colitis 12/07 and had been started on Flagyl, vancomycin, ID followed. Also on Lactinex PO. Requires Hopkins in the morning prior to therapy. Speech therapy for barium swallow 12/11--no aspiration was noted though patient did vomit shortly after study ended. * over the past weekend 12/12 - 12/13 pt refusing some meds, depressed, worsened renal function- - transferred to in patient/acute status for additional medical evaluation/management. Patient seen in room as physical therapy completing activity with her. Physical therapist notes that patient minimally able to hold her own weight before her knees buckle, very weak, very fatigued with any activity required her moderate to max assist to answer to bedside chair. Met with patient at bedside. Primary complaint at this time is feeling very tired and fatigued. She endorses no appetite. She endorses intermittent nausea though none currently. Some shortness of breath though feels it is okay right now. She endorses ongoing edema to her lower extremities more so than usual. She indicates pain to her hip though reasonably controlled by medication. Function/Cognitive Trajectory Prior to recent hospitalization lived at home with her spouse. Utilized walker , wheelchair as needed, independent with ADLs. Had not required any home health care. During [facility] course she was independent with eating, required some assistance with grooming, bathing. Required some assistance to use the restroom. Required moderate assistance for bed, chair and wheelchair transfers due to fatigue, weakness. (Sigrid Harris) Review of Systems Constitutional: COMPLAINS OF: Fatigue, Change in appetite (decreased), Generalized weakness, Sleep problems (at times difficulty sleeping) Ears, nose, mouth, throat: DENIES: Oral lesions, Throat pain Respiratory: COMPLAINS OF: Shortness of breath, DENIES: Cough, Sputum production Cardiovascular: COMPLAINS OF: Lower Extremity Edema, Orthopnea, DENIES: Chest pain Gastrointestinal: COMPLAINS OF: Abdominal pain (intermittent cramping at times) , Diarrhea, Nausea (intermittent), Vomiting (occasional), Anorexia (poor appetite), DENIES: Constipation, Difficulty Swallowing Musculoskeletal: COMPLAINS OF: Joint pain (chronic hip pain) Neurologic: COMPLAINS OF: Headache (occasional) Psychiatric: COMPLAINS OF: Depression (feels frustrated and tired that she is not getting well) (Sigrid Harris) Past Family Social History Coded Allergies: doxycycline (Unverified Allergy, Severe, n/v, 12/15/16) sulfamethoxazole (Unverified Allergy, Severe, n/v, 12/15/16) trimethoprim (Unverified Allergy, Severe, n/v, 12/15/16) Sulfa (Sulfonamide Antibiotics) (Unverified Allergy, Intermediate, Nausea/ Vomiting, 12/15/16) adhesive (Unverified Allergy, Unknown, 12/15/16) band aids triamterene (Unverified Allergy, Unknown, 12/15/16) triamterene/hctz Uncoded Allergies: nickel (Allergy, Unknown, 02/04/16) Past Medical History Atrial fibrillation Fibromyalgia Glaucoma Mnire's disease Osteoarthritis 6 sinus syndrome status post pacer--EF 2530 percent Osteopenia Peripheral neuropathy Past Surgical History Cataract surgery (bilaterally) with intraocular lens implants Filtering bleb-Right eye Cholecystostomy Hysterectomy Laser peripheral iridectomy-right eye Laser trabeculopathy both eyes Left hand flexor tendon repair Tonsillectomy Vein ligation Reported Medications Xarelto (Rivaroxaban) 15 Mg Tab 15 Mg PO DAILY 1 Days Flagyl (Metronidazole) 500 Mg Tab 500 Mg PO Q8HR 1 Days Methocarbamol 500 Mg Tab 500 Mg PO Q8HR PRN 1 Days Hydroxychloroquine (Hydroxychloroquine Sulfate) 200 Mg Tab 200 Mg PO DAILY 1 Days Hydrocodone-Acetaminophen 5-325 mg Tab 1 Tab PO DAILY@08 1 Days Cosopt Opth Drops (Dorzolamide-Timolol Opth Drops) 22.3-6.8 Mg/Ml Soln 1 Drop EACH EYE BID 1 Days Neurontin (Gabapentin) 300 Mg Cap 600 Mg PO DAILY@1700 1 Days Cholestyramine 4 Gm/Pkt Powd 4 Gm PO Q12HR 1 Days Cetirizine (Cetirizine HCl) 10 Mg Tab 5 Mg PO DAILY 1 Days Oyster Shell 250 mg + Vit D Tb (Calcium/Vitamin D) 250 Mg Calcium (625 Mg)-125 Unit Tablet 500 Mg PO BID@12,21 1 Days Brimonidine Opth Drops (Brimonidine Tartrate) 0.2% Soln 1 Drop LEFT EYE BID 1 Days Amiodarone (Amiodarone HCl) 200 Mg Tab 100 Mg PO BID 1 Days Eq Acetaminophen (Acetaminophen) 325 Mg Tab 650 Mg PO Q4H PRN 1 Days Lasix (Furosemide) 20 Mg Tab 20 Mg PO BID Klor-Con 10 (Potassium Chloride) 10 Meq Tab 10 Meq PO Q12HR Ceftriaxone Inj (Ceftriaxone Sodium/Dextrose) 2 Gm/50 Ml Bagp 2 Gm IV Q24H Coq-10 (Coenzyme Q10 (Ubidecarenone)) 50 Mg Cap 100 Xarelto (Rivaroxaban) 15 Mg Tab 15 Mg PO DAILY Premarin (Estrogens Conjugated) 0.3 Mg Tab 0.3 Mg PO DAILY Latanoprost Opth Drops (Latanoprost) 0.005% Drops 1 Drop EACH EYE HS Hyoscyamine Sulfate 0.125 Mg Sub Hydroxychloroquine (Hydroxychloroquine Sulfate) 200 Mg Tab 200 Mg PO DAILY Hydrocodone-Acetaminophen 5-325 mg Tab 1 Tab PO Q4H PRN Fenofibrate 54 Mg Tab 70 Mg PO DAILY Dorzolamide-Timolol Opth Drops 22.3-6.8 Mg/Ml Soln 1 Drop EACH EYE BID Brimonidine Opth Drops (Brimonidine Tartrate) 0.2% Soln 1 Drop EACH EYE BID Brittney Allergy (Fexofenadine HCl) 60 Mg Tab 30 Mg PO BID . Current Medications Medications (Trade) Dose Ordered Sig/Malika Route Start Time Stop Time Status Last Admin (Benadryl) 25 mg Q6H PRN PO 12/13/16 11:30 (Bumex Inj) 1 mg Q8HR IV PUSH 12/13/16 14:00 12/14/16 04:41 (Zofran Odt) 4 mg Q6H PRN PO 12/13/16 11:45 (Lactinex) 1 tab TID PO 12/13/16 13:00 12/13/16 16:03 (Flagyl) 500 mg Q8HR PO 12/13/16 14:00 12/13/16 20:56 (Hopkins 5-325 Mg) 1 tab DAILY PO 12/14/16 08:00 (Lidoderm 5% Patch.12 Hr) 1 patch DAILY T-DERMAL 12/13/16 11:45 (ZyrTEC) 5 mg DAILY PO 12/13/16 11:45 (Plaquenil) 200 mg DAILY PO 12/13/16 11:45 (Xarelto) 15 mg DAILY PO 12/13/16 13:00 12/13/16 16:03 (Cordarone) 100 mg Q12HR PO 12/13/16 11:45 12/13/16 20:56 (Cosopt 2-0.5% Opth Soln) 1 drop Q12HR EACH EYE 12/13/16 21:00 12/14/16 00:00 (Xalatan 0.005% Opth Soln) 1 drop HS EACH EYE 12/13/16 21:00 12/14/16 00:00 (Alphagan 0.2% Opth Soln) 1 drop BID LEFT EYE 12/13/16 11:45 12/14/16 00:00 (Oscal) 500 mg Q12HR PO 12/13/16 21:00 12/13/16 20:57 (Tylenol) 650 mg Q4H PRN PO 12/13/16 11:45 (Neurontin) 600 mg DAILY PO 12/14/16 09:00 (Pill Splitter) 1 ea UNSCH PRN OTHER 12/13/16 12:00 Family History aunt and uncle with cataracts. two sons with Glaucoma. Substance Use Tobacco: Nonsmoker Alcohol: None Prescription med abuse: None Illicits: None . Psychosocial History Lives at home with her of 60+ years. They have lived in [place] for approximately 17 years. Originally from [place]. 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 Supported by 4 adult children all of whom live out of state3 in [place], one in [place]. Of note she reports her also has prostate cancer which is metastatic. . Spiritual/Cultural Factors Congregation, declines producer director visits at this time (Sigrid Harris) Living Will: Copy in medical record Health Care Surrogate: Copy in medical record Date completed: July 2016 . Documented care wishes: Living will document with typical verbiage that if the patient experiences vegetative, terminal or end-stage condition that she would want comfort measures only, and also names a healthcare surrogate should she become incapacitated Today's verbally stated goals: Patient today verbalizes that she is willing to give it a few more days time to see if she can start to feel better, but she does not want to continue feeling as she has felt indefinitely without recovering. She understands that if her condition continues to worsen i.e. the kidney failure, that she will be high risk for continued decline and . She expresses then at that time hospice would be what she would want. Ethical and Legal Issues Patient is currently alert, oriented and appears appropriate to make her own decisions. Should she become incapacitated Spouse Bobby is designated as HCS, with alternate son Gordo Cornell (Sigrid Harris) Physical Exam Vital Signs Date Time Temp Pulse Resp B/P Pulse Ox O2 Delivery O2 Flow Rate FiO2 12/14/16 08:00 97.5 72 18 119/58 94 12/14/16 04:00 98.4 69 18 111/54 95 12/14/16 00:00 Nasal Cannula 2.00 12/14/16 00:00 98.1 65 18 117/56 97 12/13/16 20:26 60 12/13/16 20:00 97.6 62 20 109/54 98 12/13/16 20:00 Nasal Cannula 2.00 12/13/16 18:01 78 12/13/16 16:05 86 12/13/16 16:00 97.2 72 18 104/64 98 12/13/16 15:07 78 12/13/16 12:00 96.7 60 27 122/55 95 12/13/16 12:00 59 12/13/16 10:25 100 Nasal Cannula 2.00 12/13/16 10:25 59 12/13/16 12/14/16 19:00 07:00 Intake Total 0 ml 360 ml Output Total 800 ml Balance 0 ml -440 ml Intake Oral 360 ml IV Total 0 ml Output Urine Total 800 ml # Bowel Movements 1 Exam CONSTITUTIONAL/GENERAL: This is a frail, weak appearing patient seen up in recliner at bedside TUBES/LINES/DRAINS: Peripheral IV right upper extremity, De Los Santos catheter, nasal cannula O2 SKIN: No jaundice, rashes, or lesions. Few areas of ecchymosis forearms. No wounds seen anteriorly. Skin temperature appropriate. Not diaphoretic. HEAD: Atraumatic. Normocephalic. EYES: Pupils equal and round and reactive. Extraocular motions intact. No scleral icterus. No injection or drainage. Fundi not examined. ENT: Hearing grossly normal. Nose without bleeding or purulent drainage. Throat without visible erythema, exudates, masses, or lesions. NECK: Trachea midline. Supple, nontender. No palpable thyroid enlargement or nodularity. CARDIOVASCULAR: Regular rate and rhythm without murmurs. No JVD. Peripheral pulses symmetric.+ 2+ edema bilateral lower extremities. RESPIRATORY/CHEST: Symmetric, unlabored respirations. On nasal cannula, 2 L. faint rhonchi to basis GASTROINTESTINAL: Abdomen soft, non-tender, nondistended. No hepato-splenomegaly , or palpable masses. No guarding. Bowel sounds normoactive GENITOURINARY: Without palpable bladder distension. De Los Santos catheter in place. They're yellow urine. MUSCULOSKELETAL: Extremities without clubbing, cyanosis.+ Edema to lower extremities. No joint tenderness or effusion noted. No mottling or clubbing. LYMPHATICS: No palpable cervical or supraclavicular adenopathy. NEUROLOGICAL: Awake , keeps eyes closed during conversation. Lethargic/flat. Oriented 3, appropriate. Insight appears good. Moves all 4 extremities with generalized weakness. PSYCHIATRIC: Flat affect. (Sigrid Harris) Diagnostic Tests Laboratory Laboratory Tests Test 12/13/16 10:44 Nasal Screen MRSA (PCR) MRSA NOT DETECTED (NOT DETECT) (Sigrid Harris) Microbiology 12/07ool positive C. difficile (Sigrid Harris) Patient/Family Conference Present at Family Conference: Patient Family Conference Time (mins): 20 (minutes) Family Conference Location: Bedside Issues Discussed: Met with patient at bedside approximately 2024 minutes. She is tired, falls asleep at times. She does keep eyes closed for much of the conversation. Discussion included the following: * Palliative care role, purpose, approach * Additional medical, psychosocial, and spiritual history * Patients general health, functional status, and cognitive changes in the months leading up to the current hospitalization * Patient/family understanding of the current medical problems * Patient/family understanding of prognosis * Patients goals of care as best understood from advance directives and/or conversations and/or values * Current medical treatment options and benefits/burdens of those options * Likely scenarios comparing ongoing aggressive care with a transition to comfort measures only-review of hospice role, philosophy * Questions answered to the best of my ability * Palliative care contact information provided Patient affect is somewhat flat, she appears visibly very fatigued and tired. She appears to have a reasonable understanding of current hospitalization, as well as recent rehabilitation and hospital course. She is able to detail previously being in an ICU and on a ventilator for 3 days, and that she will not do that again. She expresses understanding of going to [facility] to try to recondition and get stronger. She appears to have understanding of current renal failure, as well as C. difficile status, and that the renal failure can worsen CHF. She endorses that she didn't take the medications as recommended because "she was just tired of it, and didn't want to "; she understands that if she does not utilize recommended treatments that her conditions will be expected to worsen, she will deteriorate and high risk for . Reviewed that his kidney failure continues to worsen she may require dialysisshe indicates that she absolutely will not hemodialysis, she understands the alternative could be . Patient verbalizes that she is willing to give it a few more days time to see if she can start to feel better, but she does not want to continue feeling as she has felt indefinitely without recovering. She understands that if her condition continues to worsen i.e. the kidney failure, that she will be high risk for continued decline and . She expresses then at that time hospice would be what she would want. She is in agreement for me to call her and provide him with a medical update, she indicates that she has been too tired and her voice is too weak to speak much on the phone --- Call to patient updated on current assessment, conditions, prognosis. He appears to have a good understanding of underlying conditions, treatments and prognosis. He wants whatever the patient wants, though tells me that as of yesterday she indicated she does want to try to take medications to help her condition. He is supportive of DNR status. He is open to ongoing conversations as clinical course evolves. (Sigrid Harris) Assessment and Plan Disease Oriented Problem List: (1) CHF (congestive heart failure) (2) HTN (hypertension) (3) CKD (chronic kidney disease) stage 3, GFR 30-59 ml/min (4) Clostridium difficile diarrhea (5) Acute kidney injury (6) SSS (sick sinus syndrome) (7) A-fib (8) Hyponatremia (9) UTI (urinary tract infection) due to Enterococcus (10) Glaucoma Symptom Scale: (1) Dyspnea (2) Depression (3) Malnutrition (4) Nausea (5) Pain Pertinent Non-Medical Issues Psychosocial:Lives at home with her of 60+ years. They have lived in [place] for approximately 17 years. Originally from [place]. 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 Supported by 4 adult children all of whom live out of [facility] in [place], one in [place]. Of note she reports her also has prostate cancer which is metastatic. Spiritual: Protestantdeclined producer director visits at this time Legal:Patient is currently alert, oriented and appears appropriate to make her own decisions. Should she become incapacitated Spouse Bobby is designated as HCS, with alternate son Gordo Cornell Ethical issues impacting care: Important Contacts Bobby Cornell [phone] / [phone] . Prognosis This patient was admitted for acute inpatient status from [facility] on 12/13/16. She has worsening acute on chronic renal failure, as well as underlying CHF. Hospital and rehabilitation course have been complicated by C. difficile infection which is contributing to debility, weakness. She had recently refused some of her oral medications. If renal function continues to worsen she could require dialysis. Patient elected DNR, has indicated she would not do dialysis. She remains very high risk for continued decline and potential setbacks and complications secondary to cardiorenal issues as well as malnutrition secondary to C. difficile. If she does not improve she may be appropriate for hospice services. . Code Status: No Code Plan * Legal decision maker:Patient is currently alert, oriented and appears appropriate to make her own decisions. Should she become incapacitated Spouse Bobby is designated as HCS, with alternate son Gordo Cornell * Goals: Met with patient at bedside today. She appears to have a pretty good understanding of her conditions, treatments and overall prognosis. Patient verbalizes that she is willing to give it a few more days time to see if she can start to feel better, but she does not want to continue feeling as she has felt indefinitely without recovering. She understands that if her condition continues to worsen i.e. the kidney failure, that she will be high risk for continued decline and . She expresses then at that time hospice would be what she would want. * CODE STATUS: DNR * SYMPTOMS: --Depression-2/2 situational: prolonged hospital and rehabilitation course, fatigue, multiple other symptoms. Patient indicates she is tired of not being well. Could potentially benefit from antidepressant in the long-term however would not offer any immediate benefit. --Malnutrition/nausea-albumin 2.8, patient reports poor appetite for several days. [Recorded oral intake indicates [id number] percent varies some ] Some intermittent nausea and vomiting.+ Ongoing diarrhea 2/2 with C. difficile. Treatment maximized for C. difficile. Consider adding prn for nausea which patient might utilize at mealtimes to assist with some oral intake. If C. difficile symptoms could be improved by mouth intake may improve some. --Pain-patient endorses chronic pain to her hipshe is on gabapentin as per her home regimen as well as Hopkins 5, daily. She feels pain is adequately controlled at this time --Dyspnea-ongoing shortness of breath, severity fluctuates. Endorses is better for today. Recent admitting diagnosis CHF EF 2530 percent, + fluid positive acute on chronic renal failure. * Palliative care will continue to follow during hospital course as condition evolves, to assist patient/decision-maker with understanding of medical conditions, weighing benefits/burdens of treatment options, for clarification of goals of treatment. Additionally will assist with any symptoms of palliative concern (Sigrid Harris) Time Spent Total Floor Time (mins): 60 (Sigrid Harris) Thank you for the opportunity to participate in the care of Ms. Cornell. (Sigrid Harris) Attestation To help prompt me to consider important information that might be impacting today's encounter and assessment, information from prior notes written by myself or my colleagues may have been "brought forward" into today's note. My signature on this note, however, is an attestation that I personally performed the exam, history, and/or decision-making noted today, and, unless otherwise indicated, the interactions with patient, family, and staff as well as the review of records all occurred today. I also attest that the listed assessment and stated plan reflect my best clinical judgment today based on the combination of historical information, prior notes, and today's exam/ interactions. When time spent is documented, it refers only to time spent today by the signer, or if indicated, combined time spent today by collaborating physician/nurse practitioner. (Sigrid Harris) Collaborating MD Comments Patient was discussed with LAUREN. Agreeable to assessment and plan. (Santhosh Moraes MD) Sigrid Harris Dec 14, 2016 11:14 Santhosh Moraes MD Dec 17, 2016 15:03
[2016-12-14 13:31] LABS: AUTOMATED NEUTROPHIL # 15.7 TH/MM3 (1.8-7.7); BASOPHIL % 0.1 % (0.0-2.0); HEMATOCRIT 30.7 % (35.0-46.0); HEMO FLAGS DIFF FINAL; LYMPH % 3.2 % (9.0-44.0); LYMPHOCYTE # 0.6 TH/MM3 (1.0-4.8); MEAN CELL VOLUME 89.6 FL (80.0-100.0); MEAN CORPUSCULAR HEMOGLOBIN 28.2 PG (27.0-34.0); MEAN CORPUSCULAR HGB CONC 31.4 % (32.0-36.0); MONO % 5.3 % (0.0-8.0); NEUT % 91.4 % (16.0-70.0); PLATELET COUNT 167 TH/MM3 (150-450); RED BLOOD COUNT 3.43 MIL/MM3 (4.00-5.30); RED CELL DISTRIBUTION WIDTH 16.4 % (11.6-17.2); WHITE BLOOD COUNT 17.2 TH/MM3 (4.0-11.0)
[2016-12-14 13:44] LABS: BICARBONATE 20.7 MEQ/L (21.0-32.0); POTASSIUM 4.6 MEQ/L (3.5-5.1)
--- NOTE | 2016-12-14 14:58 | HHI.PR ---
Subjective Remarks feels weak, states breathing a little better stools per staff nurse soft brown- not liquid- improving on Flagyl but cannot tolerate the taste - Flagyl taste poor po intake Objective Vitals Vital Signs Date Time Temp Pulse Resp B/P Pulse Ox O2 Delivery O2 Flow Rate FiO2 12/14/16 12:00 97.6 89 18 119/58 98 12/14/16 11:47 18 12/14/16 11:47 18 12/14/16 08:00 97.5 72 18 119/58 94 12/14/16 07:15 94 Nasal Cannula 2.00 12/14/16 04:00 98.4 69 18 111/54 95 12/14/16 00:00 Nasal Cannula 2.00 12/14/16 00:00 98.1 65 18 117/56 97 12/13/16 20:26 60 12/13/16 20:00 97.6 62 20 109/54 98 12/13/16 20:00 Nasal Cannula 2.00 12/13/16 18:01 78 12/13/16 16:05 86 12/13/16 16:00 97.2 72 18 104/64 98 12/13/16 15:07 78 I/O 12/13/16 12/13/16 12/13/16 12/14/16 12/14/16 12/14/16 07:00 15:00 23:00 07:00 15:00 23:00 Intake Total 120 ml 240 ml Output Total 500 ml 300 ml Balance -380 ml -60 ml Intake Oral 120 ml 240 ml IV Total 0 ml Output Urine Total 500 ml 300 ml # Bowel Movements 0 1 Result Diagram: 12/14/16 1300 12/14/16 1300 Objective Remarks weak looking oriented x 3, speech soft but clear anicteric dry oral mucosa anicteric decrease breath sounds, no rales regular rhythm abdomen soft, good bowel sounds, nontender extremities + edema moves all extremities spontaneously- generalized weakness fraser in place- about 200 cc urine in bag Urinary Catheter: Yes Fraser insert reason: Measure Accurate Output A/P Assessment and Plan Sherin Cornell is an 81 year old female with pmhx of Afib on xarelto, S/P dual chamber pacer for SSS, HLD, CHF, CKD stage 3, glaucoma, that was in her usual state of health that consisted of free ambulation and independence with ADLs ,poor endurance until 11/20/16 when the patient was admitted to [facility]. She c/o 1 week of generalized weakness and progressive worsening of dyspnea on exertion. She has dyspnea on exertion at baseline and is difficult for her to do house work and vacuum. Her chest xray showed bilateral pleural effusions and pulmonary edema. Her BNP was elevtaed at 2749. Troponin 0.02. She was diuresed with IV lasix. However, she developed acute respiratory failure and needed bipap then required intubation. Her lactic acid was elevated at 4.3. Cr. 1.49,. Echo showed ef 25-30% with moderately dilated Left atrium, moderate mitral regurgitation, moderate aortic regurgitation. She became hypotensive requiring pressors for a short time. Dr. Barrera was consulted as her Cr increased to 2.4. (baseline 1.4 - 1.5.). 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 Renal U/S negative. Creatinine improved to 1.9. Dr. Santacruz was consulted. Urine culture grew enterococcus and patient was on cefepime and changed to7 day course of rocephin. Blood cultures were negative. Dr. Linares was consulted and she was cleared to restart renal dose xarelto for afib. She was diuresed with IV Bumex and extubated on 11/22/16. Cxray showed stable pleural effusions. Patient has been admitted to [facility] for comprehensive rehabilitation evaluation and treatment 11/30/16. While in [place] she developed C. diff 027 and was placed on Flagyl 500 mg. She also developed decreased appetite and nausea. From 12/09-12/13 pt declined to take her Flagyl. Creatinine was noted to increase and pt was given IV fluids. Lasix was discontinued. On the morning of 12/13/16 pt developed worsening CHF. Pt had refused her morning medications. Dr Barrera was contacted who advised Bumex 2mg IV. Rehab team felt pt needed high level of care and she was transferred back into the main hospital. Worsening CHF= baseline cardiomyopathy EF of 30% S/P Tc Cornell is an 81 year old female with pmhx of Afib on xarelto, S/P dual chamber pacer for SSS, HLD, CHF, CKD stage 3, glaucoma, that was in her usual state of health that consisted of free ambulation and independence with ADLs ,poor endurance until 11/20/16 when the patient was admitted to [facility]. She c/o 1 week of generalized weakness and progressive worsening of dyspnea on exertion. She has dyspnea on exertion at baseline and is difficult for her to do house work and vacuum. Her chest xray showed bilateral pleural effusions and pulmonary edema. Her BNP was elevtaed at 2749. Troponin 0.02. She was diuresed with IV lasix. However, she developed acute respiratory failure and needed bipap then required intubation. Her lactic acid was elevated at 4.3. Cr. 1.49,. Echo showed ef 25-30% with moderately dilated Left atrium, moderate mitral regurgitation, moderate aortic regurgitation. She became hypotensive requiring pressors for a short time. Dr. Barrera was consulted as her Cr increased to 2.4. (baseline 1.4 - 1.5.). 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 Renal U/S negative. Creatinine improved to 1.9. Dr. Santacruz was consulted. Urine culture grew enterococcus and patient was on cefepime and changed to7 day course of rocephin. Blood cultures were negative. Dr. Linares was consulted and she was cleared to restart renal dose xarelto for afib. She was diuresed with IV Bumex and extubated on 11/22/16. Cxray 11/24/showed stable pleural effusions. Patient has been admitted to [facility] for comprehensive rehabilitation evaluation and treatment 11/30/16. While in [place] she developed C. diff 027 and was placed on Flagyl 500 mg. She also developed decreased appetite and nausea. From 12/09-12/13 pt declined to take her Flagyl. Creatinine was noted to increase and pt was given IV fluids. Lasix was discontinued. On the morning of 12/13/16 pt developed worsening CHF. Pt had refused her morning medications. Dr Barrera was contacted who advised Bumex 2mg IV. Rehab team felt pt needed high level of care and she was transferred back into the main hospital. -Nephrology ff- Started on Bumex 1 mg IV q 8 -Avoid nephrotoxic agents Acute kidney injury on top of CKI creatinine stable c/with yesterday xcontinue Bumex Hyponatremia- improved Hyperkalemia- improved ff BMP C diff colitis - C diff positive 027 - Contact isolation - Lactinex by mouth 3 times a day -Questran ordered - Zofran when necessary nausea vomiting -ID advised 14 days of oral Flagyl (end date 12/19/16)- patient unable to tolerated taste of Flagyl- - review EMR- took only 3-4 days of Flagyl and refused further - since 12/11 will d/w with ID- change back to Vancomycin 125 mg po qid x 10 days Hx CHF exacerbation Acute on chronic systolic and diastolic heart failure Paroxysmal Atrial fibrillation LBBB (preexisting) Pacemaker in place due to h/o sick sinus syndrome - Echo EF 25-30%. - Continue amiodarone 100 mg by mouth twice a day. - Continue Xarelto, aspirin - Monitor for signs of fluid overload. Continue fluid restrictions. More than 5kg weight gain in one day indicates inconsistent weight measurements which are unreliable. Poor po intake -get dietary consult -Speech and language consulted. Negative findings. Glaucoma -Continue Latanoprost/Alphagan/Cosopt ophthalmic as prescribed. DVT prop Xarelto Code Status Do not resuscitate Discussed Condition With Pt, Nursing staff. Physician Certification 2 Midnight Certification Type: Admission for Inpatient Services Order for Inpatient Services The services are ordered in accordance with Medicare regulations or non- Medicare payer requirements, as applicable. In the case of services not specified as inpatient-only, they are appropriately provided as inpatient services in accordance with the 2-midnight benchmark. Estimated LOS (days): 3 Three days is the estimated time the patient will need to remain in the hospital , assuming treatment plan goals are met and no additional complications. Post-Hospital Plan: Not yet determined Notes: Pt teransferring from rehabilitation services to higher level of care due to decompensation. Maria Del Carmen Sue MD Dec 14, 2016 14:58 decompensation. Maria Del Carmen Sue MD Dec 14, 2016 14:58 -Speech and language consulted. Negative findings. Glaucoma -Continue Latanoprost/Alphagan/Cosopt ophthalmic as prescribed. DVT prop Xarelto Code Status Do not resuscitate Discussed Condition With Pt, Nursing staff. Physician Certification 2 Midnight Certification Type: Admission for Inpatient Services Order for Inpatient Services The services are ordered in accordance with Medicare regulations or non- Medicare payer requirements, as applicable. In the case of services not specified as inpatient-only, they are appropriately provided as inpatient services in accordance with the 2-midnight benchmark. Estimated LOS (days): 3 Three days is the estimated time the patient will need to remain in the hospital , assuming treatment plan goals are met and no additional complications. Post-Hospital Plan: Not yet determined Notes: Pt teransferring from rehabilitation services to higher level of care due to decompensation. Maria Del Carmen Sue MD Dec 14, 2016 14:58
--- NOTE | 2016-12-14 15:44 | HHI.NPPN ---
Subjective History of Present Illness Patient with history of C.Difficile , CHF, CKD and RACHID, now transferred to main Hospital due to worsening SOB. Additional Remarks Patient is alert, breathing is better, still with nasal cannula, not in distress. Objective Data Data 12/13/16 12/14/16 19:00 07:00 Intake Total 0 ml 360 ml Output Total 800 ml Balance 0 ml -440 ml Intake Oral 360 ml IV Total 0 ml Output Urine Total 800 ml # Bowel Movements 1 Vital Signs Date Time Temp Pulse Resp B/P Pulse Ox O2 Delivery O2 Flow Rate FiO2 12/14/16 12:00 97.6 89 18 119/58 98 12/14/16 11:47 18 12/14/16 11:47 18 12/14/16 08:00 97.5 72 18 119/58 94 12/14/16 07:15 94 Nasal Cannula 2.00 12/14/16 04:00 98.4 69 18 111/54 95 12/14/16 00:00 Nasal Cannula 2.00 12/14/16 00:00 98.1 65 18 117/56 97 12/13/16 20:26 60 12/13/16 20:00 97.6 62 20 109/54 98 12/13/16 20:00 Nasal Cannula 2.00 12/13/16 18:01 78 12/13/16 16:05 86 12/13/16 16:00 97.2 72 18 104/64 98 -: 12/14/16 1300 12/14/16 1300 Physical Exam General Appearance: No Acute Distress, Comfortable Eyes Eye Exam: Pupils Equal Throat Throat Exam: Oral Mucosa [place] & Moist Neck Neck Exam: Neck Supple Pulmonary Resp Exam: Crackles, Rhonchi, Decreased Bases, Diminished Breath Sounds Cardiology CV Exam: Regular, Normal Sinus Rhythm Gastrointestinal/Abdomen GI Exam: Soft, Non-Tender, Bowel Sounds Present Extremeties Extremities Exam: Moderate Edema, Pitting Edema, Dependent Edema Neurologic Neuro Exam: Alert, Awake, Oriented Psychiatric Psych Exam: Appropriate Responses Assessment/Plan Assessment Summary: RACHID/Acute Renal Failure, CHF, CKD Stage III Problem List: (1) CHF (congestive heart failure) (2) Anemia (3) HTN (hypertension) (4) Clostridium difficile diarrhea (5) CKD (chronic kidney disease) stage 3, GFR 30-59 ml/min (6) Acute kidney injury Plan Patient develop more SOB and more edema. D/W the patient and the , she does not want Dialysis if needed. Started on Bumex, now the K is normalized. Continue Bumex, monitor urine out put and BMP. Problem Qualifiers (1) Anemia: (2) HTN (hypertension): Qualified Code: I10 - Essential hypertension Matias Barrera MD Dec 14, 2016 15:44
[2016-12-14] MEDS: VANCOMYCIN 500 MG VIAL (FOR ORAL USE ONLY) PO SCH ×2 (17:00→22:04)
[2016-12-14] MEDS: LATANOPROST 0.005% OPHT SOLN 2.5 ML BTL EACH EYE SCH ×2 (22:05)
[2016-12-15] VITALS (8 sets, daily range): BP systolic 85–106; BP diastolic 50–64; PULSE 60–98; RESP 14–18; TEMP 97.3–98.2; O2SAT 95–100
[2016-12-15] MEDS: BUMETANIDE INJ 1 MG/4 ML VIAL IV PUSH SCH ×2 (06:24→22:03)
--- NOTE | 2016-12-15 08:43 | HHI.PR ---
Subjective Remarks patient now complains of neck pain stools brown- formed- d/w aide will try to eat more- metallic taste gone with DC of flagyl- poor po does not like ensure Objective Vitals Vital Signs Date Time Temp Pulse Resp B/P Pulse Ox O2 Delivery O2 Flow Rate FiO2 12/15/16 04:00 98.0 63 18 96/50 97 12/15/16 00:00 98.1 60 14 100/50 97 12/14/16 20:30 Nasal Cannula 2.00 12/14/16 20:00 97.7 62 16 95/52 100 12/14/16 19:02 72 12/14/16 16:00 97.6 63 18 98/53 100 12/14/16 12:00 97.6 89 18 119/58 98 12/14/16 11:47 18 12/14/16 11:47 18 I/O 12/14/16 12/14/16 12/14/16 12/15/16 12/15/16 12/15/16 07:00 15:00 23:00 07:00 15:00 23:00 Intake Total 240 ml 480 ml 120 ml 240 ml Output Total 300 ml 650 ml 550 ml 300 ml Balance -60 ml -170 ml -430 ml -60 ml Intake Oral 240 ml 480 ml 120 ml 240 ml IV Total 0 ml Output Urine Total 300 ml 650 ml 550 ml 300 ml # Bowel Movements 1 2 1 0 Result Diagram: 12/14/16 1300 12/14/16 1300 Objective Remarks weak looking oriented x 3, speech soft but clear anicteric dry oral mucosa anicteric decrease breath sounds, no rales regular rhythm abdomen soft, good bowel sounds, nontender extremities - trace moves all extremities spontaneously- generalized weakness fraser in place- Urinary Catheter: Yes Assessment to: Continue Fraser insert reason: Measure Accurate Output A/P Assessment and Plan Sherin Cornell is an 81 year old female with pmhx of Afib on xarelto, S/P dual chamber pacer for SSS, HLD, CHF, CKD stage 3, glaucoma, that was in her usual state of health that consisted of free ambulation and independence with ADLs ,poor endurance until 11/20/16 when the patient was admitted to [facility]. She c/o 1 week of generalized weakness and progressive worsening of dyspnea on exertion. She has dyspnea on exertion at baseline and is difficult for her to do house work and vacuum. Her chest xray showed bilateral pleural effusions and pulmonary edema. Her BNP was elevtaed at 2749. Troponin 0.02. She was diuresed with IV lasix. However, she developed acute respiratory failure and needed bipap then required intubation. Her lactic acid was elevated at 4.3. Cr. 1.49,. Echo showed ef 25-30% with moderately dilated Left atrium, moderate mitral regurgitation, moderate aortic regurgitation. She became hypotensive requiring pressors for a short time. Dr. Barrera was consulted as her Cr increased to 2.4. (baseline 1.4 - 1.5.). 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 Renal U/S negative. Creatinine improved to 1.9. Dr. Santacruz was consulted. Urine culture grew enterococcus and patient was on cefepime and changed to7 day course of rocephin. Blood cultures were negative. Dr. Linares was consulted and she was cleared to restart renal dose xarelto for afib. She was diuresed with IV Bumex and extubated on 11/22/16. Cxray showed stable pleural effusions. Patient has been admitted to [facility] for comprehensive rehabilitation evaluation and treatment 11/30/16. While in [place] she developed C. diff 027 and was placed on Flagyl 500 mg. She also developed decreased appetite and nausea. From 12/09-12/13 pt declined to take her Flagyl. Creatinine was noted to increase and pt was given IV fluids. Lasix was discontinued. On the morning of 12/13/16 pt developed worsening CHF. Pt had refused her morning medications. Dr Barrera was contacted who advised Bumex 2mg IV. Rehab team felt pt needed high level of care and she was transferred back into the main hospital. Worsening CHF= baseline cardiomyopathy EF of 30% S/P AICD. Hx CHF exacerbation Acute on chronic systolic and diastolic heart failure Paroxysmal Atrial fibrillation LBBB (preexisting) Pacemaker in place due to h/o sick sinus syndrome - Echo EF 25-30%. - Continue amiodarone 100 mg by mouth twice a day. - Continue Xarelto, aspirin - Monitor for signs of fluid overload. Continue fluid restrictions. More than 5kg weight gain in one day indicates inconsistent weight measurements which are unreliable. on xarelto, S/P dual chamber pacer for SSS, HLD, CHF, CKD stage 3, glaucoma, that was in her usual state of health that consisted of free ambulation and independence with ADLs ,poor endurance until 11/20/16 when the patient -Nephrology ff- will decrease Bumex 1 mg IV q 12. borderline SBPs. recheck BMP today -Avoid nephrotoxic agents Acute kidney injury on top of CKI continue Bumex 1 mg q 8 recheck today Hyponatremia- improved Hyperkalemia- improved ff BMP C diff colitis Leukocytosis - C diff positive 027 - Contact isolation - Lactinex by mouth 3 times a day -Questran - Zofran when necessary nausea vomiting -ID advised 14 days of oral Flagyl (end date 12/19/16)- patient unable to tolerated taste of Flagyl- - review EMR- took only 3-4 days of Flagyl and refused further - since 12/11 change back to Vancomycin 125 mg po qid x 10 days- started 12/14 -recheck CBC today Poor po intake -get dietary consult -Speech and language consulted. Negative findings. Glaucoma -Continue Latanoprost/Alphagan/Cosopt ophthalmic as prescribed. Neck pain- - no radiculopathy prn pain meds DVT prop Xarelto Code Status Do not resuscitate Discussed Condition With Pt, Nursing staff. Physician Certification 2 Midnight Certification Type: Admission for Inpatient Services Order for Inpatient Services The services are ordered in accordance with Medicare regulations or non- Medicare payer requirements, as applicable. In the case of services not specified as inpatient-only, they are appropriately provided as inpatient services in accordance with the 2-midnight benchmark. Estimated LOS (days): 3 Three days is the estimated time the patient will need to remain in the hospital , assuming treatment plan goals are met and no additional complications. Post-Hospital Plan: Not yet determined Notes: Pt teransferring from rehabilitation services to higher level of care due to decompensation. Maria Del Carmen Sue MD Dec 15, 2016 08:43 Maria Del Carmen Sue MD Dec 15, 2016 08:43
[2016-12-15] MEDS: BRIMONIDINE TARTRATE 0.2% OPHT SOLN 5 ML BTL LEFT EYE SCH ×2 (09:00→22:04)
[2016-12-15] MEDS: AMIODARONE 200 MG TAB PO SCH ×2 (09:00→22:03)
[2016-12-15] MEDS: DORZOLAMIDE/TIMOLOL OPTH SOLN 10 ML BTL EACH EYE SCH ×2 (10:05→22:05)
[2016-12-15] MEDS: VANCOMYCIN 500 MG VIAL (FOR ORAL USE ONLY) PO SCH ×4 (10:07→22:03)
[2016-12-15] MEDS: LACTOBACILLUS ACIDOPHILUS TAB PO SCH ×3 (10:07→18:35)
[2016-12-15] MEDS: GABAPENTIN 300 MG CAP PO SCH (10:07)
[2016-12-15] MEDS: CALCIUM CARBONATE 1.25 GM (CA 500 MG) TAB PO SCH ×2 (10:07→22:04)
[2016-12-15] MEDS: HYDROXYCHLOROQUINE SULFATE 200 MG TAB PO SCH (10:08)
[2016-12-15] MEDS: RIVAROXABAN 15 MG TAB PO SCH (10:08)
[2016-12-15] MEDS: ACETAMINOPHEN/HYDROcodone 325 MG/5 MG TAB PO SCH (10:08)
[2016-12-15] MEDS: CETIRIZINE HCL 10 MG TAB PO SCH (10:08)
[2016-12-15] MEDS: LIDOCAINE HCL 5% PATCH T-DERMAL SCH (10:09)
[2016-12-15 10:22] LABS: AUTOMATED NEUTROPHIL # 10.3 TH/MM3 (1.8-7.7); BASOPHIL % 0.1 % (0.0-2.0); HEMO FLAGS DIFF FINAL; LYMPHOCYTE # 1.1 TH/MM3 (1.0-4.8); MEAN CELL VOLUME 86.8 FL (80.0-100.0); MEAN CORPUSCULAR HEMOGLOBIN 29.6 PG (27.0-34.0); MEAN CORPUSCULAR HGB CONC 34.1 % (32.0-36.0); MONO % 5.1 % (0.0-8.0); NEUT % 85.8 % (16.0-70.0); PLATELET COUNT 153 TH/MM3 (150-450); RED BLOOD COUNT 3.46 MIL/MM3 (4.00-5.30); RED CELL DISTRIBUTION WIDTH 16.5 % (11.6-17.2)
[2016-12-15 10:47] LABS: BICARBONATE 22.4 MEQ/L (21.0-32.0); POTASSIUM 3.1 MEQ/L (3.5-5.1)
[2016-12-15] MEDS ORDERED: POTASSIUM CHLORIDE 10 MEQ CONTROLLED RELEASE TAB PO ONE (12:30)
--- NOTE | 2016-12-15 17:35 | HHI.NPPN ---
Subjective History of Present Illness Patient with history of C.Difficile , CHF, CKD and RACHID, now transferred to main Hospital due to worsening SOB. Additional Remarks Patient is alert, breathing is better, not eating well, no vomiting and diarrhea is better. Objective Data Data 12/14/16 12/15/16 19:00 07:00 Intake Total 480 ml 360 ml Output Total 650 ml 850 ml Balance -170 ml -490 ml Intake Oral 480 ml 360 ml IV Total 0 ml Output Urine Total 650 ml 850 ml # Bowel Movements 2 1 Vital Signs Date Time Temp Pulse Resp B/P Pulse Ox O2 Delivery O2 Flow Rate FiO2 12/15/16 16:00 97.3 60 18 88/50 95 12/15/16 12:49 18 12/15/16 12:00 97.7 60 18 85/53 100 12/15/16 10:12 63 12/15/16 08:00 98.0 98 18 106/52 97 12/15/16 07:15 100 Nasal Cannula 2.00 12/15/16 04:00 98.0 63 18 96/50 97 12/15/16 00:00 98.1 60 14 100/50 97 12/14/16 20:30 Nasal Cannula 2.00 12/14/16 20:00 97.7 62 16 95/52 100 12/14/16 19:02 72 -: 12/15/16 0949 12/15/16 0946 Physical Exam General Appearance: No Acute Distress, Comfortable Eyes Eye Exam: Pupils Equal Throat Throat Exam: Oral Mucosa [place] & Moist Neck Neck Exam: Neck Supple Pulmonary Resp Exam: Crackles, Rhonchi, Decreased Bases, Diminished Breath Sounds Cardiology CV Exam: Regular, Normal Sinus Rhythm Gastrointestinal/Abdomen GI Exam: Soft, Non-Tender, Bowel Sounds Present Extremeties Extremities Exam: Moderate Edema, Pitting Edema, Dependent Edema Neurologic Neuro Exam: Alert, Awake, Oriented Psychiatric Psych Exam: Appropriate Responses Assessment/Plan Assessment Summary: RACHID/Acute Renal Failure, CHF, CKD Stage III Problem List: (1) CHF (congestive heart failure) (2) Anemia (3) HTN (hypertension) (4) Clostridium difficile diarrhea (5) CKD (chronic kidney disease) stage 3, GFR 30-59 ml/min (6) Acute kidney injury Plan Breathing is better, and edema decreased. patient has chronic kidney disease and develop RACHID. Now Creatinine is better. Continue Bumex 1 mg BID. K was low and replaced. Creatinine is improving. Problem Qualifiers (1) Anemia: (2) HTN (hypertension): Qualified Code: I10 - Essential hypertension Matias Barrera MD Dec 15, 2016 17:35
[2016-12-15] MEDS: LATANOPROST 0.005% OPHT SOLN 2.5 ML BTL EACH EYE SCH (22:04)
[2016-12-15] MEDS: POTASSIUM CHLORIDE 10 MEQ CONTROLLED RELEASE TAB PO SCH (22:04)
[2016-12-16] VITALS (7 sets, daily range): BP systolic 97–113; BP diastolic 53–59; PULSE 64–91; RESP 16–20; TEMP 97.5–99.3; O2SAT 91–97
[2016-12-16] MEDS: LIDOCAINE HCL 5% PATCH T-DERMAL SCH (09:00)
[2016-12-16] MEDS: ACETAMINOPHEN/HYDROcodone 325 MG/5 MG TAB PO SCH (09:00)
[2016-12-16] MEDS: CALCIUM CARBONATE 1.25 GM (CA 500 MG) TAB PO SCH ×2 (09:00→20:35)
[2016-12-16] MEDS: LACTOBACILLUS ACIDOPHILUS TAB PO SCH ×3 (09:00→18:00)
[2016-12-16] MEDS: CETIRIZINE HCL 10 MG TAB PO SCH (09:55)
[2016-12-16] MEDS: POTASSIUM CHLORIDE 10 MEQ CONTROLLED RELEASE TAB PO SCH ×2 (09:56→20:35)
[2016-12-16] MEDS: HYDROXYCHLOROQUINE SULFATE 200 MG TAB PO SCH (09:57)
[2016-12-16] MEDS: AMIODARONE 200 MG TAB PO SCH ×2 (09:57→20:35)
[2016-12-16] MEDS: RIVAROXABAN 15 MG TAB PO SCH (09:57)
[2016-12-16] MEDS: VANCOMYCIN 500 MG VIAL (FOR ORAL USE ONLY) PO SCH ×4 (09:58→20:34)
[2016-12-16] MEDS: BRIMONIDINE TARTRATE 0.2% OPHT SOLN 5 ML BTL LEFT EYE SCH ×2 (10:03→20:36)
[2016-12-16] MEDS: DORZOLAMIDE/TIMOLOL OPTH SOLN 10 ML BTL EACH EYE SCH ×2 (10:03→20:36)
[2016-12-16] MEDS: BUMETANIDE INJ 1 MG/4 ML VIAL IV PUSH SCH ×2 (10:17→20:34)
--- NOTE | 2016-12-16 10:20 | HHI.PR ---
Subjective Remarks feeling better "I can see my feet now" no chest discomfort no further diarrhea poor po- "lactose intolerant"- wont take ensure Objective Vitals Vital Signs Date Time Temp Pulse Resp B/P Pulse Ox O2 Delivery O2 Flow Rate FiO2 12/16/16 08:00 98.7 66 20 107/56 91 12/16/16 07:15 Room Air 12/16/16 04:00 98.8 85 18 97/59 96 12/16/16 00:00 99.3 91 20 113/59 95 12/15/16 20:45 Nasal Cannula 2.00 12/15/16 20:00 98.2 78 18 102/64 96 12/15/16 19:59 65 12/15/16 16:00 97.3 60 18 88/50 95 12/15/16 12:49 18 12/15/16 12:00 97.7 60 18 85/53 100 I/O 12/15/16 12/15/16 12/15/16 12/16/16 12/16/16 12/16/16 07:00 15:00 23:00 07:00 15:00 23:00 Intake Total 240 ml 480 ml 120 ml 240 ml Output Total 300 ml 1350 ml 100 ml 300 ml Balance -60 ml -870 ml 20 ml -60 ml Intake Oral 240 ml 480 ml 120 ml 240 ml Output Urine Total 300 ml 1350 ml 100 ml 300 ml # Bowel Movements 0 1 1 0 Result Diagram: 12/15/16 0949 12/15/16 0946 Objective Remarks not acute distress, speech soft but clear anicteric anicteric decrease breath sounds, no rales regular rhythm abdomen soft, good bowel sounds, nontender extremities - no edema moves all extremities spontaneously- generalized weakness fraser in place- A/P Assessment and Plan Sherin Cornell is an 81 year old female with pmhx of Afib on xarelto, S/P dual chamber pacer for SSS, HLD, CHF, CKD stage 3, glaucoma, that was in her usual state of health that consisted of free ambulation and independence with ADLs ,poor endurance until 11/20/16 when the patient was admitted to [facility]. She c/o 1 week of generalized weakness and progressive worsening of dyspnea on exertion. She has dyspnea on exertion at baseline and is difficult for her to do house work and vacuum. Her chest xray showed bilateral pleural effusions and pulmonary edema. Her BNP was elevtaed at 2749. Troponin 0.02. She was diuresed with IV lasix. However, she developed acute respiratory failure and needed bipap then required intubation. Her lactic acid was elevated at 4.3. Cr. 1.49,. Echo showed ef 25-30% with moderately dilated Left atrium, moderate mitral regurgitation, moderate aortic regurgitation. She became hypotensive requiring pressors for a short time. Dr. Barrera was consulted as her Cr increased to 2.4. (baseline 1.4 - 1.5.). 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 Renal U/S negative. Creatinine improved to 1.9. Dr. Santacruz was consulted. Urine culture grew enterococcus and patient was on cefepime and changed to7 day course of rocephin. Blood cultures were negative. Dr. Linares was consulted and she was cleared to restart renal dose xarelto for afib. She was diuresed with IV Bumex and extubated on 11/22/16. Cxray showed stable pleural effusions. Patient has been admitted to [facility] for comprehensive rehabilitation evaluation and treatment 11/30/16. While in [place] she developed C. diff 027 and was placed on Flagyl 500 mg. She also developed decreased appetite and nausea. From 12/09-12/13 pt declined to take her Flagyl. Creatinine was noted to increase and pt was given IV fluids. Lasix was discontinued. On the morning of 12/13/16 pt developed worsening CHF. Pt had refused her morning medications. Dr Barrera was contacted who advised Bumex 2mg IV. Rehab team felt pt needed high level of care and she was transferred back into the main hospital. CHF exacerbation= baseline cardiomyopathy EF of 30% S/P AICD. Acute on chronic systolic and diastolic heart failure Paroxysmal Atrial fibrillation LBBB (preexisting) Pacemaker in place due to h/o sick sinus syndrome - Echo EF 25-30%. - Continue amiodarone 100 mg by mouth twice a day. - Continue Xarelto, aspirin - Monitor for signs of fluid overload. Continue fluid restrictions. More than 5kg weight gain in one day indicates inconsistent weight measurements which are unreliable. on xarelto, S/P dual chamber pacer for SSS, HLD, CHF, CKD stage 3, glaucoma, that was in her usual state of health that consisted of free ambulation and independence with ADLs ,poor endurance until 11/20/16 when the patient -Nephrology ff- - creatinine trending down, diuresing well - Bumex 1 mg IV q 12. borderline SBPs. recheck BMP today -Avoid nephrotoxic agents Acute kidney injury on top of CKI continue Bumex 1 mg q 12 recheck today Hyponatremia- improved Hypokalemia- initially came in with Hyperkalemia replaced - recheck today- pending on KCL 10 meq po bid- increase dose if less than 3.8 ff on diuretics C diff colitis- - per patient no BMs Leukocytosis - C diff positive 027 - Contact isolation - Lactinex by mouth 3 times a day -Questran - Zofran when necessary nausea vomiting -ID advised 14 days of oral Flagyl (end date 12/19/16)- patient unable to tolerated taste of Flagyl- - review EMR- took only 3-4 days of Flagyl and refused further - since 12/11 changed back to Vancomycin 125 mg po qid x 10 days- started 12/14 Poor po intake -get dietary consult- per pt lactose intolerant- cant tolerate Ensure- recom - suplena- not on choice list -reconsult for recommendation -Speech and language consulted. Negative findings. Glaucoma -Continue Latanoprost/Alphagan/Cosopt ophthalmic as prescribed. Neck pain- - no radiculopathy- no complains today prn pain meds DVT prop Xarelto Code Status Do not resuscitate Discussed Condition With Pt, Nursing staff. CM consult- DC planning Maria Del Carmen Sue MD Dec 16, 2016 10:20 Three days is the estimated time the patient will need to remain in the hospital , assuming treatment plan goals are met and no additional complications. Post-Hospital Plan: Not yet determined Notes: Pt teransferring from rehabilitation services to higher level of care due to decompensation. Maria Del Carmen Sue MD Dec 16, 2016 10:20
[2016-12-16 11:50] LABS: BICARBONATE 23.1 MEQ/L (21.0-32.0); POTASSIUM 3.4 MEQ/L (3.5-5.1)
[2016-12-16] MEDS: GABAPENTIN 300 MG CAP PO SCH (17:12)
--- NOTE | 2016-12-16 17:20 | HHI.NPPN ---
Subjective History of Present Illness Patient with history of C.Difficile , CHF, CKD and RACHID, now transferred to main Hospital due to worsening SOB. Additional Remarks Patient is alert, now sitting on chair, again has loose BM, able to take meds. Objective Data Data 12/15/16 12/16/16 19:00 07:00 Intake Total 480 ml 360 ml Output Total 1350 ml 400 ml Balance -870 ml -40 ml Intake Oral 480 ml 360 ml Output Urine Total 1350 ml 400 ml # Bowel Movements 1 1 Vital Signs Date Time Temp Pulse Resp B/P Pulse Ox O2 Delivery O2 Flow Rate FiO2 12/16/16 08:00 98.7 66 20 107/56 91 12/16/16 07:15 Room Air 12/16/16 04:00 98.8 85 18 97/59 96 12/16/16 00:00 99.3 91 20 113/59 95 12/15/16 20:45 Nasal Cannula 2.00 12/15/16 20:00 98.2 78 18 102/64 96 12/15/16 19:59 65 -: 12/15/16 0949 12/16/16 0954 Physical Exam General Appearance: No Acute Distress, Comfortable Eyes Eye Exam: Pupils Equal Throat Throat Exam: Oral Mucosa [place] & Moist Neck Neck Exam: Neck Supple Pulmonary Resp Exam: Crackles, Rhonchi, Decreased Bases, Diminished Breath Sounds Cardiology CV Exam: Regular, Normal Sinus Rhythm Gastrointestinal/Abdomen GI Exam: Soft, Non-Tender, Bowel Sounds Present Extremeties Extremities Exam: Moderate Edema, Pitting Edema, Dependent Edema Neurologic Neuro Exam: Alert, Awake, Oriented Psychiatric Psych Exam: Appropriate Responses Assessment/Plan Assessment Summary: RACHID/Acute Renal Failure, CHF, CKD Stage III Problem List: (1) CHF (congestive heart failure) (2) Anemia (3) HTN (hypertension) (4) Clostridium difficile diarrhea (5) CKD (chronic kidney disease) stage 3, GFR 30-59 ml/min (6) Acute kidney injury Plan Breathing is better, and edema decreased. patient has chronic kidney disease and develop RACHID. Creatinine continue to improve. Continue Bumex 1 mg BID. Patient has chronic kidney disease and baseline Creatinine is close to 1.5. Problem Qualifiers (1) Anemia: (2) HTN (hypertension): Qualified Code: I10 - Essential hypertension Matias Barrera MD Dec 16, 2016 17:20
[2016-12-16] MEDS: LATANOPROST 0.005% OPHT SOLN 2.5 ML BTL EACH EYE SCH (20:36)
[2016-12-17] VITALS (7 sets, daily range): BP systolic 95–109; BP diastolic 52–58; PULSE 62–71; RESP 16–18; TEMP 97.3–97.7; O2SAT 91–98
[2016-12-17] MEDS: LIDOCAINE HCL 5% PATCH T-DERMAL SCH (09:00)
[2016-12-17] MEDS: CALCIUM CARBONATE 1.25 GM (CA 500 MG) TAB PO SCH ×2 (09:00→21:00)
[2016-12-17] MEDS: ACETAMINOPHEN/HYDROcodone 325 MG/5 MG TAB PO SCH (09:00)
[2016-12-17] MEDS: RIVAROXABAN 15 MG TAB PO SCH (09:16)
[2016-12-17] MEDS: BUMETANIDE INJ 1 MG/4 ML VIAL IV PUSH SCH ×2 (09:16→22:05)
[2016-12-17] MEDS: LACTOBACILLUS ACIDOPHILUS TAB PO SCH ×3 (09:16→17:36)
[2016-12-17] MEDS: POTASSIUM CHLORIDE 10 MEQ CONTROLLED RELEASE TAB PO SCH ×2 (09:16→22:05)
[2016-12-17] MEDS: AMIODARONE 200 MG TAB PO SCH ×2 (09:16→22:05)
[2016-12-17] MEDS: CETIRIZINE HCL 10 MG TAB PO SCH (09:17)
[2016-12-17] MEDS: HYDROXYCHLOROQUINE SULFATE 200 MG TAB PO SCH (09:17)
[2016-12-17] MEDS: VANCOMYCIN 500 MG VIAL (FOR ORAL USE ONLY) PO SCH ×4 (09:17→22:05)
[2016-12-17] MEDS: BRIMONIDINE TARTRATE 0.2% OPHT SOLN 5 ML BTL LEFT EYE SCH ×2 (09:21→22:06)
[2016-12-17] MEDS: DORZOLAMIDE/TIMOLOL OPTH SOLN 10 ML BTL EACH EYE SCH ×2 (09:21→22:06)
--- NOTE | 2016-12-17 10:22 | HHI.PR ---
Subjective Remarks This is a pleasant 81 y/o Female with Atrial Fibrillation on Xarelto, Dual chamber Pacer for SSS, she has Hyperlipidemia CHF, CKD III, Glaucoma, recently discharged from this facility due to Severe Deconditioning, was on respiratory Failure Echo showed ef 25-30% with moderately dilated Left atrium, moderate mitral regurgitation, moderate aortic regurgitation. She became hypotensive requiring pressors for a short time. Dr. Barrera was consulted as her Cr increased to 2.4. (baseline 1.4 - 1.5.). 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 Renal U/S negative. Creatinine improved to 1.9. Dr. Santacruz was consulted. Urine culture grew enterococcus and patient was on cefepime and changed to7 day course of Rocephin. Blood cultures were negative. Dr. Linares was consulted and she was cleared to restart renal dose Xarelto for a fib. She was diuresed with IV Bumex and extubated on . Cxray 11/24/showed stable pleural effusions. Patient has been admitted to [facility] for comprehensive rehabilitation evaluation and treatment 11/30/16. While in [place] she developed C. diff 027 and was placed on Flagyl 500 mg. She also developed decreased appetite and nausea. From 12/09-12/13 pt declined to take her Flagyl. came back with SOB. 12/17/16: Seen in her bedroom in the presence of nurse not feeling well, looks depressed, no nausea, vomit or diarrhea continue management and trying to work with Physical therapy. Objective Vital Signs Date Time Temp Pulse Resp B/P Pulse Ox O2 Delivery O2 Flow Rate FiO2 12/17/16 04:00 97.4 69 18 107/57 95 12/17/16 00:00 97.7 66 18 105/58 91 12/16/16 20:00 97.8 68 16 102/56 93 12/16/16 19:30 64 12/16/16 19:30 94 Room Air 12/16/16 16:00 97.6 64 20 103/53 97 12/16/16 12:00 97.5 68 20 104/59 94 I/O 12/16/16 12/16/16 12/16/16 12/17/16 12/17/16 12/17/16 06:59 14:59 22:59 06:59 14:59 22:59 Intake Total 240 ml 480 ml 240 ml 0 ml Output Total 300 ml 1125 ml 100 ml 150 ml Balance -60 ml -645 ml 140 ml -150 ml Intake Oral 240 ml 480 ml 240 ml 0 ml Output Urine Total 300 ml 1125 ml 100 ml 150 ml # Bowel Movements 0 1 Result Diagram: 12/15/16 0949 12/17/16 0847 Imaging No new Imaging studies. Procedures None Other Results Laboratory Tests Test 12/13/16 12/15/16 12/17/16 10:44 09:49 08:47 Nasal Screen MRSA (PCR) MRSA NOT DETECTED White Blood Count 12.0 TH/MM3 Red Blood Count 3.46 MIL/MM3 Hemoglobin 10.2 GM/DL Hematocrit 30.0 % Mean Corpuscular Volume 86.8 FL Mean Corpuscular Hemoglobin 29.6 PG Mean Corpuscular Hemoglobin 34.1 % Concent Red Cell Distribution Width 16.5 % Platelet Count 153 TH/MM3 Mean Platelet Volume 9.0 FL Neutrophils (%) (Auto) 85.8 % Lymphocytes (%) (Auto) 9.0 % Monocytes (%) (Auto) 5.1 % Eosinophils (%) (Auto) 0.0 % Basophils (%) (Auto) 0.1 % Neutrophils # (Auto) 10.3 TH/MM3 Lymphocytes # (Auto) 1.1 TH/MM3 Monocytes # (Auto) 0.6 TH/MM3 Eosinophils # (Auto) 0.0 TH/MM3 Basophils # (Auto) 0.0 TH/MM3 CBC Comment DIFF FINAL Differential Comment Sodium Level 130 MEQ/L Potassium Level 4.0 MEQ/L Chloride Level 97 MEQ/L Carbon Dioxide Level 22.0 MEQ/L Anion Gap 11 MEQ/L Blood Urea Nitrogen 54 MG/DL Creatinine 2.07 MG/DL Estimat Glomerular Filtration 23 ML/MIN Rate Random Glucose 83 MG/DL Calcium Level 8.2 MG/DL Objective Remarks GENERAL: No acute distress. SKIN: Warm and dry. HEAD: Atraumatic. Normocephalic. EYES: Pupils equal and round. No scleral icterus. No injection or drainage. ENT: No nasal bleeding or discharge. Mucous membranes pink and moist. NECK: Trachea midline. No JVD. CARDIOVASCULAR: Regular rate and rhythm. RESPIRATORY: No accessory muscle use. Clear to auscultation. Breath sounds equal bilaterally. GASTROINTESTINAL: Abdomen soft, non-tender, nondistended. Hepatic and splenic margins not palpable. MUSCULOSKELETAL: Extremities without clubbing, cyanosis, or edema. No obvious deformities. NEUROLOGICAL: Awake and alert. No obvious cranial nerve deficits. Motor grossly within normal limits. Five out of 5 muscle strength in the arms and legs. Normal speech. PSYCHIATRIC: Appropriate mood and affect; insight and judgment normal. Medications and IVs Current Medications Medications (Trade) Dose Ordered Sig/Malika Route Start Time Stop Time Status Last Admin (Benadryl) 25 mg Q6H PRN PO 12/13/16 11:30 (Zofran Odt) 4 mg Q6H PRN PO 12/13/16 11:45 (Lactinex) 1 tab TID PO 12/13/16 13:00 12/17/16 09:16 ([place] 5-325 Mg) 1 tab DAILY PO 12/14/16 08:00 12/15/16 10:08 (Lidoderm 5% Patch.12 Hr) 1 patch DAILY T-DERMAL 12/13/16 11:45 12/15/16 10:09 (ZyrTEC) 5 mg DAILY PO 12/13/16 11:45 12/17/16 09:17 (Plaquenil) 200 mg DAILY PO 12/13/16 11:45 12/17/16 09:17 (Xarelto) 15 mg DAILY PO 12/13/16 13:00 12/17/16 09:16 (Cordarone) 100 mg Q12HR PO 12/13/16 11:45 12/17/16 09:16 (Cosopt 2-0.5% Opth Soln) 1 drop Q12HR EACH EYE 12/13/16 21:00 12/17/16 09:21 (Xalatan 0.005% Opth Soln) 1 drop HS EACH EYE 12/13/16 21:00 12/16/16 20:36 (Alphagan 0.2% Opth Soln) 1 drop BID LEFT EYE 12/13/16 11:45 12/17/16 09:21 (Oscal) 500 mg Q12HR PO 12/13/16 21:00 12/16/16 20:35 (Tylenol) 650 mg Q4H PRN PO 12/13/16 11:45 12/16/16 02:06 (Neurontin) 600 mg DAILY PO 12/14/16 09:00 12/16/16 17:12 (Pill Splitter) 1 ea UNSCH PRN OTHER 12/13/16 12:00 (VANCOMYCIN for oral use only) 125 mg QID PO 12/14/16 17:00 12/24/16 15:59 12/17/16 09:17 (Bumex Inj) 1 mg Q12HR IV PUSH 12/15/16 21:00 12/17/16 09:16 (KCl) 20 meq Q12HR PO 12/16/16 21:00 12/17/16 09:16 A/P Assessment and Plan CHF exacerbation= baseline cardiomyopathy EF of 30% S/P AICD. Acute on chronic systolic and diastolic heart failure Paroxysmal Atrial fibrillation LBBB (preexisting) Pacemaker in place due to h/o sick sinus syndrome - Echo EF 25-30%. - Continue amiodarone 100 mg by mouth twice a day. - Continue Xarelto, aspirin - Monitor for signs of fluid overload. Continue fluid restrictions. More than 5kg weight gain in one day indicates inconsistent weight measurements which are unreliable. on xarelto, S/P dual chamber pacer for SSS, HLD, CHF, CKD stage 3, glaucoma, that was in her usual state of health that consisted of free ambulation and independence with ADLs ,poor endurance until 11/20/16 when the patient -Nephrology ff- - creatinine trending down, diuresing well - Bumex 1 mg IV q 12. borderline SBPs. -Avoid nephrotoxic agents Acute kidney injury on top of CKI continue Bumex 1 mg q 12 recheck today Hyponatremia- improved Hypokalemia- initially came in with Hyperkalemia replaced C diff colitis- - per patient no BMs Leukocytosis - C diff positive 027 - Contact isolation - Lactinex by mouth 3 times a day -Questran - Zofran when necessary nausea vomiting -ID advised 14 days of oral Flagyl (end date 12/19/16)- patient unable to tolerated taste of Flagyl- - review EMR- took only 3-4 days of Flagyl and refused further - since 12/11 changed back to Vancomycin 125 mg po qid x 10 days- started 12/14 Poor po intake -get dietary consult- per pt lactose intolerant- cant tolerate Ensure- recom - suplena- not on choice list -reconsult for recommendation -Speech and language consulted. Negative findings. Glaucoma -Continue Latanoprost/Alphagan/Cosopt ophthalmic as prescribed. Neck pain- - no radiculopathy- no complains today prn pain meds Poor prognosis, Palliative care following, patient wants to continue management but no invasive procedures. DVT prop Xarelto Code Status Do not resuscitate Discussed Condition With patient and nurse all questions answered to the best of my abilities. Discharge Planning Once cleared by Nephrology. Eric Hazel MD Dec 17, 2016 10:22
--- NOTE | 2016-12-17 12:46 | HHI.NPPN ---
Subjective History of Present Illness Patient with history of C.Difficile , CHF, CKD and RACHID, now transferred to main Hospital due to worsening SOB. Additional Remarks Patient is alert, has loose BM 3-4 times in last 24 hrs., not in distress. Objective Data Data 12/16/16 12/17/16 18:59 06:59 Intake Total 480 ml 240 ml Output Total 1125 ml 250 ml Balance -645 ml -10 ml Intake Oral 480 ml 240 ml Output Urine Total 1125 ml 250 ml # Bowel Movements 1 Vital Signs Date Time Temp Pulse Resp B/P Pulse Ox O2 Delivery O2 Flow Rate FiO2 12/17/16 04:00 97.4 69 18 107/57 95 12/17/16 00:00 97.7 66 18 105/58 91 12/16/16 20:00 97.8 68 16 102/56 93 12/16/16 19:30 64 12/16/16 19:30 94 Room Air 12/16/16 16:00 97.6 64 20 103/53 97 -: 12/15/16 0949 12/17/16 0847 Physical Exam General Appearance: No Acute Distress, Comfortable Eyes Eye Exam: Pupils Equal Throat Throat Exam: Oral Mucosa [place] & Moist Neck Neck Exam: Neck Supple Pulmonary Resp Exam: Crackles, Rhonchi, Decreased Bases, Diminished Breath Sounds Cardiology CV Exam: Regular, Normal Sinus Rhythm Gastrointestinal/Abdomen GI Exam: Soft, Non-Tender, Bowel Sounds Present Extremeties Extremities Exam: Moderate Edema, Pitting Edema, Dependent Edema Neurologic Neuro Exam: Alert, Awake, Oriented Psychiatric Psych Exam: Appropriate Responses Assessment/Plan Assessment Summary: RACHID/Acute Renal Failure, CHF, CKD Stage III Problem List: (1) CHF (congestive heart failure) (2) Anemia (3) HTN (hypertension) (4) Clostridium difficile diarrhea (5) CKD (chronic kidney disease) stage 3, GFR 30-59 ml/min (6) Acute kidney injury Plan Breathing is better, and edema decreased. patient has chronic kidney disease and develop RACHID. Creatinine continue to improve, now 2.0. Continue Bumex 1 mg BID. Patient has chronic kidney disease and baseline Creatinine is close to 1.5. Diet changed, continue Vanco. PO. Problem Qualifiers (1) Anemia: (2) HTN (hypertension): Qualified Code: I10 - Essential hypertension Matias Barrera MD Dec 17, 2016 12:46
--- NOTE | 2016-12-17 15:45 | HHI.HCPN ---
Reason for visit a. To assist with evaluation and management of symptoms including: fatigue, depression, dyspnea, malnutrition, nausea b. To assist medical decision maker(s) with: better understanding of current medical conditions; weighing benefits/burdens of medical treatment options; making medical treatment decisions. Subjective/Interval History Mrs. Cornell is an 81 y/o female with a medical history significant for CHF, atrial fibrillation on anticoagulation, CKD stage III was recently hospitalized from 11/20/16 to 11/30/16 secondary to CHF exacerbation, bilateral pleural effusions, pulmonary edema and weakness. Patient was discharge to [facility] on 11/30/16. During [place] course she was found to be positive for C. difficile colitis 12/07/16 and had been started on Flagyl, vancomycin, ID followed. Patient was transferred to [facility] on a 1417 secondary to CHF exacerbation, depression and debility. She had been refusing some of her medication including Flagyl, as well as Kayexalate which was ordered by nephrology for worsening acute on chronic kidney disease. Palliative care was consulted for further clarifications of goals of care given her prolonged hospitalization and treatment refusal. Speech therapy for barium swallow 12/11--no aspiration was noted though patient did vomit shortly after study ended. Patient was seen in her room today, she was resting in bed in no acute distress. Patient has been eating an average of 50% of her meals for the past 2 days, she was continued on pured diet. Endorsing poor appetite and debility. Reports that pured diet is not appealing to her, exacerbating her poor appetite. Endorsing pain to right shoulder, exacerbated by physical therapy, alleviated by lidocaine patch. Denies shortness of breath, nausea. Reporting frequent soft stools throughout the day -history of C. difficile colitis. Patient remains afebrile, stable hemodynamically. Tolerating room air, oxygen saturation in the need 90s. BUN/ creatinine today 54/2.07. Nephrology, Dr. Barrera following. Patient currently on Bumex 1 mg twice a day. Patient's at bedside. verbalizing concerns regarding patient's ability and decreased oral intake. Patient and questioning her need to remain on pured diet. No swallowing eval during this admission noted. Discussed with patient and that we will request bedside swallowing eval , and adjust diet as needed. Patient currently on fluid restriction 1200 mL secondary to CHF/edema. Discussed the use of an appetite stimulant, patient receptive to this. Case discussed with speech therapist Chanel. . Family/friend interactions See interval note. .. . Advance Directives Living Will: Copy in medical record Health Care Surrogate: Copy in medical record Advance Directive Specifics Date completed: July 2016 . Documented care wishes: Living will document with typical verbiage that if the patient experiences vegetative, terminal or end-stage condition that she would want comfort measures only, and also names a healthcare surrogate should she become incapacitated Significant change in goals: Goals of care remain unchanged. . Objective Vital Signs Date Time Temp Pulse Resp B/P Pulse Ox O2 Delivery O2 Flow Rate FiO2 12/17/16 12:00 97.4 62 16 96/55 96 12/17/16 08:00 97.3 71 16 109/57 97 12/17/16 04:00 97.4 69 18 107/57 95 12/17/16 00:00 97.7 66 18 105/58 91 12/16/16 20:00 97.8 68 16 102/56 93 12/16/16 19:30 64 12/16/16 19:30 94 Room Air 12/16/16 16:00 97.6 64 20 103/53 97 Intake & Output 12/17/16 12/17/16 06:59 18:59 Intake Total 240 ml Output Total 250 ml Balance -10 ml Intake Oral 240 ml Output Urine Total 250 ml Physical Exam CONSTITUTIONAL/GENERAL: This is a frail, weak appearing elderly female resting in bed in no acute distress. TUBES/LINES/DRAINS: Peripheral IV right upper extremity, [place] catheter, nasal cannula O2. SKIN: Pale. No jaundice, rashes, or lesions. Few areas of ecchymosis forearms. No wounds seen anteriorly. Skin temperature appropriate. Not diaphoretic. HEAD: Atraumatic. Normocephalic. EYES: Pupils equal and round and reactive. Extraocular motions intact. No scleral icterus. No injection or drainage. ENT: Hearing grossly normal. Nose without bleeding or purulent drainage. Moist oral mucosa. NECK: Trachea midline. Supple. CARDIOVASCULAR: Regular rate and rhythm without murmurs. Peripheral pulses symmetric.+ 2+ edema bilateral lower extremities. RESPIRATORY/CHEST: Symmetric, unlabored respirations. Diminished bilaterally. On nasal cannula, 2 L. GASTROINTESTINAL: Abdomen soft, non-tender, nondistended. No guarding. Bowel sounds positive. GENITOURINARY: Without palpable bladder distension. [place] catheter in place. MUSCULOSKELETAL: Extremities without clubbing, cyanosis.+ Edema to lower extremities. NEUROLOGICAL: Awake , weak. Oriented 3, appropriate. Insight appears good. Moves all 4 extremities with generalized weakness. PSYCHIATRIC: Flat affect. . Diagnostic Tests Laboratory Laboratory Tests Test 12/15/16 12/15/16 12/16/16 12/17/16 09:46 09:49 09:54 08:47 Sodium Level 130 MEQ/L 130 MEQ/L 130 MEQ/L (136-145) (136-145) (136-145) Potassium Level 3.1 MEQ/L 3.4 MEQ/L 4.0 MEQ/L (3.5-5.1) (3.5-5.1) (3.5-5.1) Chloride Level 97 MEQ/L 96 MEQ/L 97 MEQ/L (98-107) (98-107) (98-107) Carbon Dioxide Level 22.4 MEQ/L 23.1 MEQ/L 22.0 MEQ/L (21.0-32.0) (21.0-32.0) (21.0-32.0) Anion Gap 11 MEQ/L (5-15) 11 MEQ/L (5-15) 11 MEQ/L (5-15) Blood Urea Nitrogen 54 MG/DL (7-18) 54 MG/DL (7-18) 54 MG/DL (7-18) Creatinine 2.70 MG/DL 2.23 MG/DL 2.07 MG/DL (0.50-1.00) (0.50-1.00) (0.50-1.00) Estimat Glomerular Filtration 17 ML/MIN (>89) 21 ML/MIN (>89) 23 ML/MIN (>89) Rate Random Glucose 116 MG/DL 97 MG/DL 83 MG/DL (74-106) (74-106) (74-106) Calcium Level 8.1 MG/DL 7.8 MG/DL 8.2 MG/DL (8.5-10.1) (8.5-10.1) (8.5-10.1) White Blood Count 12.0 TH/MM3 (4.0-11.0) Red Blood Count 3.46 MIL/MM3 (4.00-5.30) Hemoglobin 10.2 GM/DL (11.6-15.3) Hematocrit 30.0 % (35.0-46.0) Mean Corpuscular Volume 86.8 FL (80.0-100.0) Mean Corpuscular Hemoglobin 29.6 PG (27.0-34.0) Mean Corpuscular Hemoglobin 34.1 % Concent (32.0-36.0) Red Cell Distribution Width 16.5 % (11.6-17.2) Platelet Count 153 TH/MM3 (150-450) Mean Platelet Volume 9.0 FL (7.0-11.0) Neutrophils (%) (Auto) 85.8 % (16.0-70.0) Lymphocytes (%) (Auto) 9.0 % (9.0-44.0) Monocytes (%) (Auto) 5.1 % (0.0-8.0) Eosinophils (%) (Auto) 0.0 % (0.0-4.0) Basophils (%) (Auto) 0.1 % (0.0-2.0) Neutrophils # (Auto) 10.3 TH/MM3 (1.8-7.7) Lymphocytes # (Auto) 1.1 TH/MM3 (1.0-4.8) Monocytes # (Auto) 0.6 TH/MM3 (0-0.9) Eosinophils # (Auto) 0.0 TH/MM3 (0-0.4) Basophils # (Auto) 0.0 TH/MM3 (0-0.2) CBC Comment DIFF FINAL Differential Comment Result Diagram: 12/15/16 0949 12/17/16 0847 Assessment and Plan Disease Oriented Problem List: (1) CHF (congestive heart failure) (2) HTN (hypertension) (3) CKD (chronic kidney disease) stage 3, GFR 30-59 ml/min (4) Clostridium difficile diarrhea (5) Acute kidney injury (6) SSS (sick sinus syndrome) (7) A-fib Symptom Scale: (1) Decreased appetite 0-10 Scale: Unable to quantify Comment: Worsened during the past week. (2) Dyspnea 0-10 Scale: Unable to quantify Comment: Tolerating O2 via nasal cannula 2 L. (3) Nausea 0-10 Scale: 0 (4) Pain 0-10 Scale: Unable to quantify Comment: Right shoulder. (5) Debility 0-10 Scale: Unable to quantify Comment: Progressive, multifactorial. Secondary to multiple comorbidities, prolonged hospitalization and acute illness. Pertinent Non-Medical Issues Psychosocial:Lives at home with her of 60+ years. They have lived in [place] for approximately 17 years. Originally from [place]. 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 Supported by 4 adult children all of whom live out of [facility] in [place], one in [place]. Of note she reports her also has prostate cancer which is metastatic. Spiritual: Protestantdeclined rubbish collection supervisor visits at this time Legal:Patient is currently alert, oriented and appears appropriate to make her own decisions. Should she become incapacitated Spouse Bobby is designated as HCS, with alternate son Gordo Cornell Ethical issues impacting care: Important Contacts Bobby Cornell [phone] / [phone] . Prognosis This patient was admitted for acute inpatient status from [facility] on 12/13/16. She has worsening acute on chronic renal failure, as well as underlying CHF. Hospital and rehabilitation course have been complicated by C. difficile infection which is contributing to debility, weakness. She had recently refused some of her oral medications. If renal function continues to worsen she could require dialysis. Patient elected DNR, has indicated she would not do dialysis. She remains very high risk for continued decline and potential setbacks and complications secondary to cardiorenal issues as well as malnutrition secondary to C. difficile. If she does not improve she may be appropriate for hospice services. . Code Status: No Code Plan * CODE STATUS: DNR/DNI. * HEALTHCARE DECISION-MAKING: Patient is currently alert, oriented and appears appropriate to make her own decisions. Should she become incapacitated, Spouse Bobby is designated as HCS, with alternate son Gordo Cornell * GOALS OF CARE: Patient electing to continue with current conservative management short of no code, allow a few days for clinical improvement. Patient has verbalized in the past not wishing to proceed with hemodialysis or any invasive intervention/treatment. Hospice philosophy and benefits previously introduced. Patient and receptive to hospice should her clinical condition continues to decline, further complications or increased symptoms burden. * SYMPTOMS: Decreased appetite/oral intake. Decreased oral intake, worsened during the past week. Patient eating an average of 50% of her meals. Remains on pured diet. Patient verbalized the pured diet is not appealing to her. Barium swallow eval 12/11/16, no aspiration noted. Requesting bedside swallow eval. Patient may benefit from low-dose appetite stimulant such as Marinol 2.5 mg twice a day. = Shortness of breath, currently tolerating O2 via nasal cannula 2 L. = Nausea, controlled at this time. Zofran available as needed. = Pain, chronic. Mainly localized to hip and right shoulder. Currently with lidocaine patch. Home regimen to include [place] 5/325 mg daily and gabapentin 600mg daily. = Debility, multifactorial. Secondary to chronic ongoing comorbidities, prolonged hospitalization and acute illness. Participating in PT. * Case discussed with speech therapists Chanel. * Palliative care contact information has been provided to patient and family. * Palliative care will continue to follow during hospital course as condition evolves, to assist patient/decision-maker with understanding of medical conditions, weighing benefits/burdens of treatment options, for clarification of goals of treatment. Additionally will assist with any symptoms of palliative concern. . Time Spent Total Floor Time (mins): 42 (Total time to include review and summarization of medical records, physical exam, goals of care conversation with patient and , case discussion with speech therapist.) >50% Counseling/Coord of Care: Yes Attestation To help prompt me to consider important information that might be impacting today's encounter and assessment, information from prior notes written by myself or my colleagues may have been "brought forward" into today's note. My signature on this note, however, is an attestation that I personally performed the exam, history, and/or decision-making noted today, and, unless otherwise indicated, the interactions with patient, family, and staff as well as the review of records all occurred today. I also attest that the listed assessment and stated plan reflect my best clinical judgment today based on the combination of historical information, prior notes, and today's exam/ interactions. When time spent is documented, it refers only to time spent today by the signer, or if indicated, combined time spent today by collaborating physician/nurse practitioner. Angelika Mcghee Dec 17, 2016 15:45
[2016-12-17] MEDS: GABAPENTIN 300 MG CAP PO SCH (17:34)
[2016-12-17] MEDS: LATANOPROST 0.005% OPHT SOLN 2.5 ML BTL EACH EYE SCH (22:06)
[2016-12-18] VITALS: BP 103/57; PULSE 96; RESP 19; TEMP 98; O2SAT 96
[2016-12-18 04:00] VITALS: BP 95/51; PULSE 60; RESP 19; TEMP 97.4; O2SAT 98
[2016-12-18 08:00] VITALS: BP 99/64; PULSE 82; RESP 18; TEMP 97.4; O2SAT 97
[2016-12-18 08:15] VITALS: PULSE 68
--- NOTE | 2016-12-18 15:34 | HHI.PR ---
Subjective Remarks This is a pleasant 81 y/o Female with Atrial Fibrillation on Xarelto, Dual chamber Pacer for SSS, she has Hyperlipidemia CHF, CKD III, Glaucoma, recently discharged from this facility due to Severe Deconditioning, was on respiratory Failure Echo showed ef 25-30% with moderately dilated Left atrium, moderate mitral regurgitation, moderate aortic regurgitation. She became hypotensive requiring pressors for a short time. Dr. Barrera was consulted as her Cr increased to 2.4. (baseline 1.4 - 1.5.). 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 Renal U/S negative. Creatinine improved to 1.9. Dr. Santacruz was consulted. Urine culture grew enterococcus and patient was on cefepime and changed to7 day course of Rocephin. Blood cultures were negative. Dr. Linares was consulted and she was cleared to restart renal dose Xarelto for a fib. She was diuresed with IV Bumex and extubated on . Cxray showed stable pleural effusions. Patient has been admitted to [facility] for comprehensive rehabilitation evaluation and treatment 11/30/16. While in [place] she developed C. diff 027 and was placed on Flagyl 500 mg. She also developed decreased appetite and nausea. From 12/09-12/13 pt declined to take her Flagyl. came back with SOB. 12/17/16: Seen in her bedroom in the presence of nurse not feeling well, looks depressed, no nausea, vomit or diarrhea continue management and trying to work with Physical therapy. 12/18/16: Stable in her bedroom seen in the presence of nurse and Physical therapy specialist, the patient states she wants to , but she was working with Physical therapy, depressed. when I left the nurse called me back to the room the patient was working with PT and then closed her eyes and . reliability specialist is been in contact with relatives all this days will take care of patient communication. Objective Vital Signs Date Time Temp Pulse Resp B/P Pulse Ox O2 Delivery O2 Flow Rate FiO2 12/18/16 08:15 68 12/18/16 08:00 97.4 82 18 99/64 97 12/18/16 04:00 97.4 60 19 95/51 98 12/18/16 00:00 98.0 96 19 103/57 96 12/17/16 20:00 97.3 67 18 99/55 98 12/17/16 19:45 98 Nasal Cannula 2.00 12/17/16 19:45 67 12/17/16 16:00 97.5 65 16 95/52 96 I/O 12/17/16 12/17/16 12/17/16 12/18/16 12/18/16 12/18/16 07:00 15:00 23:00 07:00 15:00 23:00 Intake Total 0 ml 480 ml 0 ml 120 ml Output Total 150 ml 500 ml 100 ml 50 ml Balance -150 ml -20 ml -100 ml 70 ml Intake Oral 0 ml 480 ml 0 ml 120 ml Output Urine Total 150 ml 500 ml 100 ml 50 ml # Bowel Movements 1 1 1 Result Diagram: 12/15/16 0949 12/17/16 0847 Imaging No new Imaging studies. Procedures None Other Results Laboratory Tests Test 12/15/16 12/17/16 09:49 08:47 White Blood Count 12.0 TH/MM3 Red Blood Count 3.46 MIL/MM3 Hemoglobin 10.2 GM/DL Hematocrit 30.0 % Mean Corpuscular Volume 86.8 FL Mean Corpuscular Hemoglobin 29.6 PG Mean Corpuscular Hemoglobin 34.1 % Concent Red Cell Distribution Width 16.5 % Platelet Count 153 TH/MM3 Mean Platelet Volume 9.0 FL Neutrophils (%) (Auto) 85.8 % Lymphocytes (%) (Auto) 9.0 % Monocytes (%) (Auto) 5.1 % Eosinophils (%) (Auto) 0.0 % Basophils (%) (Auto) 0.1 % Neutrophils # (Auto) 10.3 TH/MM3 Lymphocytes # (Auto) 1.1 TH/MM3 Monocytes # (Auto) 0.6 TH/MM3 Eosinophils # (Auto) 0.0 TH/MM3 Basophils # (Auto) 0.0 TH/MM3 CBC Comment DIFF FINAL Differential Comment Sodium Level 130 MEQ/L Potassium Level 4.0 MEQ/L Chloride Level 97 MEQ/L Carbon Dioxide Level 22.0 MEQ/L Anion Gap 11 MEQ/L Blood Urea Nitrogen 54 MG/DL Creatinine 2.07 MG/DL Estimat Glomerular Filtration 23 ML/MIN Rate Random Glucose 83 MG/DL Calcium Level 8.2 MG/DL Objective Remarks GENERAL: No acute distress. SKIN: Warm and dry. HEAD: Atraumatic. Normocephalic. EYES: Pupils equal and round. No scleral icterus. No injection or drainage. ENT: No nasal bleeding or discharge. Mucous membranes pink and moist. NECK: Trachea midline. No JVD. CARDIOVASCULAR: Regular rate and rhythm. RESPIRATORY: No accessory muscle use. Clear to auscultation. Breath sounds equal bilaterally. GASTROINTESTINAL: Abdomen soft, non-tender, nondistended. Hepatic and splenic margins not palpable. MUSCULOSKELETAL: Extremities without clubbing, cyanosis, or edema. NEUROLOGICAL: Awake and alert. PSYCHIATRIC: Depressed and states wants to . Medications and IVs Current Medications Medications (Trade) Dose Ordered Sig/Malika Route Start Time Stop Time Status Last Admin (Benadryl) 25 mg Q6H PRN PO 12/13/16 11:30 (Zofran Odt) 4 mg Q6H PRN PO 12/13/16 11:45 (Lactinex) 1 tab TID PO 12/13/16 13:00 12/17/16 09:16 ([place] 5-325 Mg) 1 tab DAILY PO 12/14/16 08:00 12/15/16 10:08 (Lidoderm 5% Patch.12 Hr) 1 patch DAILY T-DERMAL 12/13/16 11:45 12/15/16 10:09 (ZyrTEC) 5 mg DAILY PO 12/13/16 11:45 12/17/16 09:17 (Plaquenil) 200 mg DAILY PO 12/13/16 11:45 12/17/16 09:17 (Xarelto) 15 mg DAILY PO 12/13/16 13:00 12/17/16 09:16 (Cordarone) 100 mg Q12HR PO 12/13/16 11:45 12/17/16 09:16 (Cosopt 2-0.5% Opth Soln) 1 drop Q12HR EACH EYE 12/13/16 21:00 12/17/16 09:21 (Xalatan 0.005% Opth Soln) 1 drop HS EACH EYE 12/13/16 21:00 12/16/16 20:36 (Alphagan 0.2% Opth Soln) 1 drop BID LEFT EYE 12/13/16 11:45 12/17/16 09:21 (Oscal) 500 mg Q12HR PO 12/13/16 21:00 12/16/16 20:35 (Tylenol) 650 mg Q4H PRN PO 12/13/16 11:45 12/16/16 02:06 (Neurontin) 600 mg DAILY PO 12/14/16 09:00 12/16/16 17:12 (Pill Splitter) 1 ea UNSCH PRN OTHER 12/13/16 12:00 (VANCOMYCIN for oral use only) 125 mg QID PO 12/14/16 17:00 12/24/16 15:59 12/17/16 09:17 (Bumex Inj) 1 mg Q12HR IV PUSH 12/15/16 21:00 12/17/16 09:16 (KCl) 20 meq Q12HR PO 12/16/16 21:00 12/17/16 09:16 A/P Assessment and Plan CHF exacerbation= baseline cardiomyopathy EF of 30% S/P AICD. Acute on chronic systolic and diastolic heart failure Paroxysmal Atrial fibrillation LBBB (preexisting) Pacemaker in place due to h/o sick sinus syndrome - Echo EF 25-30%. - Continue amiodarone 100 mg by mouth twice a day. - Continue Xarelto, aspirin - Monitor for signs of fluid overload. Continue fluid restrictions. More than 5kg weight gain in one day indicates inconsistent weight measurements which are unreliable. on xarelto, S/P dual chamber pacer for SSS, HLD, CHF, CKD stage 3, glaucoma, that was in her usual state of health that consisted of free ambulation and independence with ADLs ,poor endurance until 11/20/16 when the patient -Nephrology ff- - creatinine trending down, diuresing well - Bumex 1 mg IV q 12. borderline SBPs. -Avoid nephrotoxic agents Acute kidney injury on top of CKI continue Bumex 1 mg q 12 recheck today Hyponatremia- improved Hypokalemia- initially came in with Hyperkalemia replaced C diff colitis- - per patient no BMs Leukocytosis - C diff positive 027 - Contact isolation - Lactinex by mouth 3 times a day -Questran - Zofran when necessary nausea vomiting -ID advised 14 days of oral Flagyl (end date 12/19/16)- patient unable to tolerated taste of Flagyl- - review EMR- took only 3-4 days of Flagyl and refused further - since 12/11 changed back to Vancomycin 125 mg po qid x 10 days- started 12/14 Poor po intake -get dietary consult- per pt lactose intolerant- cant tolerate Ensure- recom - suplena- not on choice list -reconsult for recommendation -Speech and language consulted. Negative findings. Glaucoma -Continue Latanoprost/Alphagan/Cosopt ophthalmic as prescribed. Neck pain- - no radiculopathy- no complains today prn pain meds Poor prognosis, Palliative care following, I saw the patient in the room in the presence of nurse Miss Toussaint and with Physical therapy specialist and then when I left I was called just some minutes later to tell me the patient passed out and . Palliative care will contact the relatives because they have been in contact with relatives talking about plan of care due to poor prognosis. DVT prop Xarelto Code Status Do not resuscitate Discussed Condition With patient, nurse Miss Toussaint and Physical Therapy, patient depressed and states she wants to . the patient some minutes after my evaluation was not in acute distress, breathing comfortable and with good vital signs. Discharge Planning patient 11:31 AM Eric Hazel MD Dec 18, 2016 15:34
--- NOTE | 2016-12-18 15:44 | HHI.DS ---
Discharge Summary Admission Date Dec 13, 2016 at 10:31 Discharge Date: Dec 18, 2016 Admitting Diagnosis (1) Renal insufficiency ICD Code: N28.9 Diagnosis: Principal (2) Decreased appetite ICD Code: R63.0 Diagnosis: Principal (3) Debility ICD Code: R53.81 Diagnosis: Principal (4) CHF exacerbation ICD Code: I50.9 Diagnosis: Principal (5) Acute respiratory failure ICD Code: J96.00 Diagnosis: Principal (6) CKD (chronic kidney disease) stage 3, GFR 30-59 ml/min ICD Code: N18.3 Diagnosis: Principal (7) Acute kidney injury ICD Code: N17.9 Diagnosis: Principal (8) Clostridium difficile diarrhea ICD Code: A04.7 Diagnosis: Principal Procedures None Brief History - From Admission Written by Stef Archer, acting as scribe for Dr. Rachel Caicedo on 12/13/16 at 15: 15. Sherin Cornell is an 81 year old female with pmhx of Afib on xarelto, S/P dual chamber pacer for SSS, HLD, CHF, CKD stage 3, glaucoma, that was in her usual state of health that consisted of free ambulation and independence with ADLs ,poor endurance until 11/20/16 when the patient was admitted to [facility]. She c/o 1 week of generalized weakness and progressive worsening of dyspnea on exertion. She has dyspnea on exertion at baseline and is difficult for her to do house work and vacuum. Her chest xray showed bilateral pleural effusions and pulmonary edema. Her BNP was elevtaed at 2749. Troponin 0.02. She was diuresed with IV lasix. However, she developed acute respiratory failure and needed bipap then required intubation. Her lactic acid was elevated at 4.3. Cr. 1.49,. Echo showed ef 25-30% with moderately dilated Left atrium, moderate mitral regurgitation, moderate aortic regurgitation. She became hypotensive requiring pressors for a short time. Dr. Barrera was consulted as her Cr increased to 2.4. (baseline 1.4 - 1.5.). 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 Renal U/S negative. Creatinine improved to 1.9. Dr. Santacruz was consulted. Urine culture grew enterococcus and patient was on cefepime and changed to7 day course of rocephin. Blood cultures were negative. Dr. Linares was consulted and she was cleared to restart renal dose xarelto for afib. She was diuresed with IV Bumex and extubated on 11/22/16. Cxray showed stable pleural effusions. Patient has been admitted to [facility] for comprehensive rehabilitation evaluation and treatment 11/30/16. While in [place] she developed C. diff 027 and was placed on Flagyl 500 mg. She also developed decreased appetite and nausea. From 12/09-12/13 pt declined to take her Flagyl. Creatinine was noted to increase and pt was given IV fluids. Lasix was discontinued. On the morning of 12/13/16 pt developed worsening CHF. Pt had refused her morning medications. Dr Barrera was contacted who advised Bumex 2mg IV. Rehab team felt pt needed high level of care and she was transferred back into the main hospital. At time of interview Ms. Cornell endorsed shortness of breath, sore throat, cold and swollen extremities as well as being "tired." She noted she was not experiencing diarrhea. She denied fever, N?V. cough, chest or abdominal pain, as well as bloody urine or stool. A 10 point ROS was conducted and, except as noted above was negative. CBC/BMP: 12/15/16 0949 12/17/16 0847 Significant Findings Laboratory Tests Test 12/16/16 12/17/16 09:54 08:47 Sodium Level 130 MEQ/L 130 MEQ/L (136-145) (136-145) Potassium Level 3.4 MEQ/L (3.5-5.1) Chloride Level 96 MEQ/L 97 MEQ/L (98-107) (98-107) Blood Urea Nitrogen 54 MG/DL (7-18) 54 MG/DL (7-18) Creatinine 2.23 MG/DL 2.07 MG/DL (0.50-1.00) (0.50-1.00) Estimat Glomerular Filtration 21 ML/MIN (>89) 23 ML/MIN (>89) Rate Calcium Level 7.8 MG/DL 8.2 MG/DL (8.5-10.1) (8.5-10.1) Imaging No new imaging studies. PE at Discharge GENERAL: No acute distress. SKIN: Warm and dry. HEAD: Atraumatic. Normocephalic. EYES: Pupils equal and round. No scleral icterus. No injection or drainage. ENT: No nasal bleeding or discharge. Mucous membranes pink and moist. NECK: Trachea midline. No JVD. CARDIOVASCULAR: Regular rate and rhythm. RESPIRATORY: No accessory muscle use. Clear to auscultation. Breath sounds equal bilaterally. GASTROINTESTINAL: Abdomen soft, non-tender, nondistended. Hepatic and splenic margins not palpable. MUSCULOSKELETAL: Extremities without clubbing, cyanosis, or edema. NEUROLOGICAL: Awake and alert. PSYCHIATRIC: Depressed and states wants to . Hospital Course This is a pleasant 81 y/o Female with Atrial Fibrillation on Xarelto, Dual chamber Pacer for SSS, she has Hyperlipidemia CHF, CKD III, Glaucoma, recently discharged from this facility due to Severe Deconditioning, was on respiratory Failure Echo showed ef 25-30% with moderately dilated Left atrium, moderate mitral regurgitation, moderate aortic regurgitation. She became hypotensive requiring pressors for a short time. Dr. Barrera was consulted as her Cr increased to 2.4. (baseline 1.4 - 1.5.). 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 Renal U/S negative. Creatinine improved to 1.9. Dr. Santacruz was consulted. Urine culture grew enterococcus and patient was on cefepime and changed to7 day course of Rocephin. Blood cultures were negative. Dr. Linares was consulted and she was cleared to restart renal dose Xarelto for a fib. She was diuresed with IV Bumex and extubated on . Cxray 11/24/showed stable pleural effusions. Patient has been admitted to [facility] for comprehensive rehabilitation evaluation and treatment 11/30/16. While in [place] she developed C. diff 027 and was placed on Flagyl 500 mg. She also developed decreased appetite and nausea. From 12/09-12/13 pt declined to take her Flagyl. came back with SOB. 12/17/16: Seen in her bedroom in the presence of nurse not feeling well, looks depressed, no nausea, vomit or diarrhea continue management and trying to work with Physical therapy. 12/18/16: Stable in her bedroom seen in the presence of nurse and Physical therapy specialist, the patient states she wants to , but she was working with Physical therapy, depressed. when I left the nurse called me back to the room the patient was working with PT and then closed her eyes and . property preservation specialist is been in contact with relatives all this days will take care of patient communication. Assessment and Plan CHF exacerbation= baseline cardiomyopathy EF of 30% S/P AICD. Acute on chronic systolic and diastolic heart failure Paroxysmal Atrial fibrillation LBBB (preexisting) Pacemaker in place due to h/o sick sinus syndrome - Echo EF 25-30%. - Continue amiodarone 100 mg by mouth twice a day. - Continue Xarelto, aspirin - Monitor for signs of fluid overload. Continue fluid restrictions. More than 5kg weight gain in one day indicates inconsistent weight measurements which are unreliable. on xarelto, S/P dual chamber pacer for SSS, HLD, CHF, CKD stage 3, glaucoma, that was in her usual state of health that consisted of free ambulation and independence with ADLs ,poor endurance until 11/20/16 when the patient -Nephrology ff- - creatinine trending down, diuresing well - Bumex 1 mg IV q 12. borderline SBPs. -Avoid nephrotoxic agents Acute kidney injury on top of CKI continue Bumex 1 mg q 12 recheck today Hyponatremia- improved Hypokalemia- initially came in with Hyperkalemia replaced C diff colitis- - per patient no BMs Leukocytosis - C diff positive 027 - Contact isolation - Lactinex by mouth 3 times a day -Questran - Zofran when necessary nausea vomiting -ID advised 14 days of oral Flagyl (end date 12/19/16)- patient unable to tolerated taste of Flagyl- - review EMR- took only 3-4 days of Flagyl and refused further - since 12/11 changed back to Vancomycin 125 mg po qid x 10 days- started 12/14 Poor po intake -get dietary consult- per pt lactose intolerant- cant tolerate Ensure- recom - suplena- not on choice list -reconsult for recommendation -Speech and language consulted. Negative findings. Glaucoma -Continue Latanoprost/Alphagan/Cosopt ophthalmic as prescribed. Neck pain- - no radiculopathy- no complains today prn pain meds Poor prognosis, Palliative care following, I saw the patient in the room in the presence of nurse Miss Toussaint and with Physical therapy specialist and then when I left I was called just some minutes later to tell me the patient passed out and . Palliative care will contact the relatives because they have been in contact with relatives talking about plan of care due to poor prognosis. DVT prop Xarelto Code Status Do not resuscitate Discussed Condition With patient, nurse Miss Toussaint and Physical Therapy, patient depressed and states she wants to . the patient some minutes after my evaluation was not in acute distress, breathing comfortable and with good vital signs. Discharge Planning patient 11:31 AM Pt Condition on Discharge: Deteriorating Discharge Disposition: Discharge Home Discharge Time: > 30 minutes Discharge Instructions Speech Therapy-Diet Recommends: Soft Eric Hazel MD Dec 18, 2016 15:43
== END 2016-12-18 14:23 | disposition expired | DRG 291 ==
LOC: N03A 10:31 → N04A 13:37
PROVIDERS: ADMIT Internal Medicine; ATTEND Internal Medicine
DX: I13.0 Hypertensive heart and chronic kidney disease with heart failure and stage 1 through stage 4 chronic kidney disease, or unspecified chronic kidney disease (principal); I50.43 Acute on chronic combined systolic (congestive) and diastolic (congestive) heart failure; J96.00 Acute respiratory failure, unspecified whether with hypoxia or hypercapnia; N17.9 Acute kidney failure, unspecified; A04.7 Enterocolitis due to Clostridium difficile; E46 Unspecified protein-calorie malnutrition; E87.5 Hyperkalemia; E87.1 Hypo-osmolality and hyponatremia; R13.10 Dysphagia, unspecified; I48.0 Paroxysmal atrial fibrillation; I42.9 Cardiomyopathy, unspecified; F32.9 Major depressive disorder, single episode, unspecified; G62.9 Polyneuropathy, unspecified; E78.5 Hyperlipidemia, unspecified; E87.6 Hypokalemia; H40.9 Unspecified glaucoma; N18.3 Chronic kidney disease, stage 3 (moderate); M19.90 Unspecified osteoarthritis, unspecified site; M79.7 Fibromyalgia; I44.7 Left bundle-branch block, unspecified; Z66 Do not resuscitate; G89.29 Other chronic pain; M25.559 Pain in unspecified hip; D64.9 Anemia, unspecified; I08.0 Rheumatic disorders of both mitral and aortic valves; Z95.0 Presence of cardiac pacemaker; Z79.01 Long term (current) use of anticoagulants; M85.80 Other specified disorders of bone density and structure, unspecified site
CPT/HCPCS: 80048; 82948; 85025; 87641; J0610